=== PATIENT | female | born 1935 | race Caucasian/White ===

== ENCOUNTER → 2017-03-26 | Outpatient (CLI) | payer OTHER ==
[~2017-03-26] MED LIST: ASPI81TA28 PO; CEFD300C2 PO; CLIN150C PO; ESTR0.5T3 PO; HYDR-5688 PO; MISCTAB88 PO; MULT-614 PO; OMEG10007 PO; OMEP40CA PO; ONDA4TAB10 SL; OXYC1TAB3 PO; PXL20 PO; VLM5CL PO
--- NOTE | 2017-03-27 08:16 | MAMMOGRAPHY REPORT ---
BILATERAL DIGITAL SCREENING MAMMOGRAM WITH CAD: 03/26/2017 CLINICAL HISTORY: Routine screening. Patient has no complaints. TECHNIQUE: Current study was also evaluated with a Computer Aided Detection (CAD) system. Bilatera l CC and MLO views were obtained. COMPARISON: Comparison is made to exams dated: 03/25/2016 mammogram, 03/21/2015 mammogram, 01/07/2014 ma mmogram, 01/06/2013 mammogram, 01/06/2012 mammogram, and 01/03/2011 mammogram - [facility] enter. BREAST COMPOSITION: There are scattered areas of fibroglandular density in both breasts. FINDINGS: No suspicious masses, calcifications, or areas of architectural distortion are noted in e ither breast. There has been no significant interval change compared to prior exams. IMPRESSION: ACR BI-RADS CATEGORY 1: NEGATIVE There is no mammographic evidence of malignancy. A 1 year screening mammogram is recommended. The p atient will receive written notification of the results. Approximately 10% of breast cancers are not detected with mammography. A negative mammographic repor t should not delay biopsy if a clinically suggestive mass is present. Cristina Kim M.D. ah/:03/26/2017 15:17:20 Vp [employer] Development: Vickie MENA(Roseanna)(M), [facility] letter sent: Normal 1/2 BI-RADS Code: ACR BI-RADS Category 1: Negative
== END | disposition home or self-care (01) ==
LOC: C.MAMM 14:42
PROVIDERS: ATTEND Family Medicine
DX: Z12.31 Encounter for screening mammogram for malignant neoplasm of breast (principal)

== ENCOUNTER 2017-07-28 16:35 | Emergency (ER) | payer OTHER ==
[~2017-07-28] VITALS: Ht 162.6 cm; Wt 80.1 kg
[~2017-07-28 16:35] MED LIST changes: -CEFD300C2 PO; -CLIN150C PO; -ONDA4TAB10 SL; -OXYC1TAB3 PO
[2017-07-28 16:37] VITALS: TEMP 36.6; Ht 162.6 cm; Wt 80.1 kg
[2017-07-28] MEDS ORDERED: ONDANSETRON INJ 2 MG/ML 2 ML VIAL IV STA (16:50)
[2017-07-28] MEDS ORDERED: SODIUM CHLORIDE 0.9% 1000ML 1,000 ML IV STA (16:50)
--- NOTE | 2017-07-28 16:59 | EMERGENCY ROOM VISIT NOTE ---
History Report prepared by Tori: Hira García Under the Supervision of: Dr. Nick Melara D.O. First contact with patient: 16:40 Chief Complaint: ABDOMINAL PAIN Stated Complaint: LOWER ABD PAIN History of Present Illness The patient is a 81 year old female who presents to the Emergency Room with complaints of constant lower abdominal pain that started six days ago. She rates her pain as a 7/10 in severity. The patient states that the pain is worsened with movement. She admits that the pain is relieved with Tylenol. The patient states that six days ago she experienced six episodes of vomiting. She states that since these episodes, she started to experience lower abdominal pain radiating to her back. The patient states that the pain ahs been worsening every day. She admits that she had a colonoscopy done, which showed a polyp. The patient states that she had a polypectomy and her next imaging showed no significant problems. She states that she has been noticing her abdomen is distended. The patient states that she was able to eat lunch and visited her PCP. She states that her PCP told her to report to the ED because she did not have time to do test. She states she had a hysterectomy and bladder surgery for her incontinence problems. The patient states that she is unaware if she had an appendectomy during her hysterectomy. She states that she has been able to urinate and empty her bladder. The patient states that she takes medication for hot flashes. She denies fevers, rectal bleeding, chest pain, SOB, urinary symptoms, hypertension, diabetes, cancer, heart disease, diverticulosis, and diverticulitis. Source of History: patient Onset: six days ago Position: abdomen Symptom Intensity: 7/10 Timing: worsening Modifying Factors (Worsening): movement Modifying Factors (Relieving): tylenol Associated Symptoms: + vomiting, + back pain, No fevers, No chest pain, No SOB, No urinary symptoms Review of Systems See HPI for pertinent positives & negatives. A total of 10 systems reviewed and were otherwise negative. Past Medical & Surgical Medical Problems: (1) ANXIETY STATE NOS (2) DIVERTICULITIS COLON (W/O MENT OF HEMORRHAGE) (3) ESOPHAGEAL REFLUX (4) HELICOBACTER PYLORI [H. PYLORI] (5) HYPERTENSION NOS Family History Cancer Hypertension Social History Smoking Status: Never Smoker Alcohol Use: none Drug Use: none Marital Status: single Housing Status: lives with family Occupation Status: retired Current/Historical Medications Scheduled Aspirin (Aspirin Ec), 81 MG PO QAM Cefdinir (Omnicef), 300 MG PO Q12H Clindamycin Hcl (Cleocin), 300 MG PO TID Estradiol (Estradiol), 0.5 MG PO QAM Fish Oil ([place]-3), 1 CAP PO QAM Misc Natural Products (Osteo Bi-Flex Triple Stre), 1 TAB PO QAM Multiple Vitamins W/ Minerals (Centrum Silver Ultra [place]), 1 TAB PO QAM Omeprazole (Prilosec), 40 MG PO QAM Ondasetron Odt (Zofran Odt), 4 MG SL Q6H Paroxetine (Paroxetine HCl), 20 MG PO QAM Scheduled PRN Diazepam (Diazepam), 5 MG PO Q8 PRN for Anxiety Oxycodone Immediate Rel Tab (Roxicodone Ir), 1-2 TAB PO Q4H PRN for Severe Pain Allergies Coded Allergies: Penicillins (Verified Allergy, Mild, Swelling and itchiness., 01/03/16) Reported by PT. Celecoxib (Verified Allergy, Unknown, Swelling and itchiness., 01/03/16) Reported by PT. Ciprofloxacin (Verified Allergy, Unknown, rash, 01/03/16) patient Metronidazole (Verified Allergy, Unknown, rash, 01/03/16) pt Physical Exam Vital Signs Date Time Temp Pulse Resp B/P (MAP) Pulse Ox O2 Delivery O2 Flow Rate FiO2 07/28/17 17:50 69 18 161/85 98 Room Air 07/28/17 17:15 80 07/28/17 16:37 36.6 78 20 183/83 96 Room Air Physical Exam GENERAL: Patient is awake, alert, and in no acute distress. Patient is resting comfortably and showing no signs of anxiety EYES: The conjunctivae are clear. The pupils are round and reactive. EARS, NOSE, MOUTH AND THROAT: The nose is without any evidence of any deformity. Mucous membranes are moist tongue is midline NECK: The neck is nontender and supple. RESPIRATORY: Normal respiratory effort is noted there is no evidence of wheezing rhonchi or rales CARDIOVASCULAR: Regular rate and rhythm noted there no murmurs rubs or gallops normal S1 normal S2 GASTROINTESTINAL: Moderately distended and diffusively tender. Tenderness upon palpation to the suprapubic and right upper quadrant region. BACK: No midline tenderness or or step-off noted range of motion in flexion extension as well as rotation no signs of muscle spasm noted MUSCULOSKELETAL/EXTREMITIES: There is no evidence of gross deformity full range of motion is noted in the hips and shoulders SKIN: There is no obvious evidence of any rash. There are no petechiae, pallor or cyanosis noted. NEUROLOGIC: Patient is awake alert and oriented x3. Medical Decision & Procedures ER Provider Diagnostic Interpretation: Radiology results as stated below per my review and radiologist interpretation: CHEST ONE VIEW PORTABLE CLINICAL HISTORY: ABDOMINAL PAIN/GI pain COMPARISON STUDY: 11/02/2015 FINDINGS: The bones soft tissues and hemidiaphragms are normal. The cardiomediastinal silhouette is normal. The lungs are clear. The pulmonary vasculature is normal. IMPRESSION: Negative chest. The above report was generated using voice recognition software. It may contain grammatical, syntax or spelling errors. Electronically signed by: Kingston Freedman M.D. 07/28/2017 5:11 PM Dictated Date/Time: 07/28/2017 5:10 PM ABD/PELVIS NO IV OR ORAL CONT CT DOSE: 421.05 mGy.cm HISTORY: Pain lower abd pain am back pain TECHNIQUE: Multiaxial CT images of the abdomen and pelvis were performed without contrast. A dose lowering technique was utilized adhering to the principles of ALARA. COMPARISON STUDY: 11/10/2015 FINDINGS: Minimal scattered basilar nodularity unchanged in the prior study. Liver spleen and pancreas are unremarkable. Gallbladder is negative for distention. Kidneys negative for hydronephrosis or calcification. Upper abdominal bowel pattern is unremarkable. Evaluation of the pelvis shows the bladder to midline. There are findings of acute sigmoid diverticulitis. Moderate wall thickening is present. There is mild pericolonic infiltrative change. There is no evidence for abscess collection or obstruction. IMPRESSION: 1. Acute sigmoid diverticulitis. 2. Moderate wall thickening and pericolonic infiltrative change. 3. No evidence for abscess collection or obstruction. 4. Minimal basilar pulmonary nodularity stable from the prior exam. The above report was generated using voice recognition software. It may contain grammatical, syntax or spelling errors. Electronically signed by: Kingston Freedman M.D. 07/28/2017 5:43 PM Dictated Date/Time: 07/28/2017 5:39 PM Laboratory Results 07/28/17 17:03 Red Blood Count 4.21, Mean Corpuscular Volume 84.8, Mean Corpuscular Hemoglobin 28.3, Mean Corpuscular Hemoglobin Concent 33.3, Mean Platelet Volume 9.1, Neutrophils (%) (Auto) 64.9, Lymphocytes (%) (Auto) 19.8, Monocytes (%) (Auto) 12.2, Eosinophils (%) (Auto) 2.3, Basophils (%) (Auto) 0.5, Neutrophils # (Auto ) 4.03, Lymphocytes # (Auto) 1.23, Monocytes # (Auto) 0.76, Eosinophils # (Auto ) 0.14, Basophils # (Auto) 0.03 07/28/17 17:03 Test 07/28/17 16:50 07/28/17 17:03 Urine Color YELLOW Urine Appearance CLEAR (CLEAR) Urine pH 6.0 (4.5-7.5) Urine Specific [place] 1.009 (1.000-1.030) Urine Protein NEG (NEG) Urine Glucose (UA) NEG (NEG) Urine Ketones NEG (NEG) Urine Occult Blood TRACE (NEG) Urine Nitrite NEG (NEG) Urine Bilirubin NEG (NEG) Urine Urobilinogen NEG (NEG) Urine Leukocyte Esterase NEG (NEG) Urine WBC (Auto) /hpf (0-5) Urine RBC (Auto) /hpf (0-4) Urine Hyaline Casts (Auto) /lpf (0-5) Urine Epithelial Cells (Auto) /lpf (0-5) Urine Bacteria (Auto) (NEG) Urine RBC 0-4 /hpf (0-4) Urine WBC 1-5 /hpf (0-5) Urine Epithelial Cells >30 /lpf (0-5) Urine Renal Cells 0-5 /lpf (FEW) Urine Bacteria 1+ (NEG) White Blood Count 6.21 K/uL (4.8-10.8) Red Blood Count 4.21 M/uL (4.2-5.4) Hemoglobin 11.9 g/dL (12.0-16.0) Hematocrit 35.7 % (37-47) Mean Corpuscular Volume 84.8 fL (80-100) Mean Corpuscular Hemoglobin 28.3 pg (25-34) Mean Corpuscular Hemoglobin Concent 33.3 g/dl (32-36) Platelet Count 214 K/uL (130-400) Mean Platelet Volume 9.1 fL (7.4-10.4) Neutrophils (%) (Auto) 64.9 % Lymphocytes (%) (Auto) 19.8 % Monocytes (%) (Auto) 12.2 % Eosinophils (%) (Auto) 2.3 % Basophils (%) (Auto) 0.5 % Neutrophils # (Auto) 4.03 K/uL (1.4-6.5) Lymphocytes # (Auto) 1.23 K/uL (1.2-3.4) Monocytes # (Auto) 0.76 K/uL (0.11-0.59) Eosinophils # (Auto) 0.14 K/uL (0-0.5) Basophils # (Auto) 0.03 K/uL (0-0.2) RDW Standard Deviation 43.8 fL (36.4-46.3) RDW Coefficient of Variation 14.0 % (11.5-14.5) Immature Granulocyte % (Auto) 0.3 % Immature Granulocyte # (Auto) 0.02 K/uL (0.00-0.02) Prothrombin Time 10.0 SECONDS (9.0-12.0) Prothromb Time International Ratio 0.9 (0.9-1.1) Activated Partial Thromboplast Time 26.9 SECONDS (21.0-31.0) Partial Thromboplastin Ratio 1.0 Anion Gap 7.0 mmol/L (3-11) Est Creatinine Clear Calc Drug Dose 53.1 ml/min Estimated GFR () 72.4 Estimated GFR (Non- 62.5 BUN/Creatinine Ratio 11.5 (10-20) Calcium Level 8.6 mg/dl (8.5-10.1) Total Bilirubin 0.7 mg/dl (0.2-1) Direct Bilirubin 0.1 mg/dl (0-0.2) Aspartate Amino Transf (AST/SGOT) 14 U/L (15-37) Alanine Aminotransferase (ALT/SGPT) 18 U/L (12-78) Alkaline Phosphatase 74 U/L (45-117) Troponin I < 0.015 ng/ml (0-0.045) Total Protein 7.3 gm/dl (6.4-8.2) Albumin 3.4 gm/dl (3.4-5.0) Lipase 140 U/L (73-393) Laboratory results per my review. Medications Administered Medications (Trade) Dose Ordered Sig/William Route Start Time Stop Time Status Last Admin Dose Admin Sodium Chloride 1,000 ml @ 999 mls/hr Q1H1M STAT IV 07/28/17 16:50 07/28/17 17:50 DC 07/28/17 16:50 999 MLS/HR Cefdinir (Omnicef Cap) 300 mg ONE STAT PO 07/28/17 17:58 07/28/17 18:00 DC 07/28/17 18:25 300 MG Clindamycin HCl (Cleocin Cap) 150 mg NOW ONCE PO 07/28/17 18:00 07/28/17 18:01 DC 07/28/17 18:25 150 MG ECG Indication: abdominal pain Rate (beats per minute): 60 Rhythm: normal sinus Findings: no ectopy, other (LVH per voltage criteria, No acute ST change) Comparison ECG Date: 11/02/15 Change: no significant change ED Course 1646: The patient was evaluated in room B06. A complete history and physical examination were performed. 1650: Ordered Zofran Injection 4 mg IV, Sodium Chloride 1000 ml @ 999 mls/hr IV. Medical Decision The differential diagnosis includes etiologies such as appendicitis, diverticulitis, PUD, biliary pathology, UTI, pancreatitis, obstruction, mesenteric ischemia, aortic pathology, infections, inflammatory bowel disease, renal colic, as well as others were entertained. Nursing notes reviewed. The patient is a 81-year-old female who presented to the emergency apartment for evaluation of lower abdominal pain. She was seen by her primary care physician and sent to the emergency apartment for further evaluation. The patient was treated with IV fluids in the emergency apartment. She was also started on antibiotics. The patient's history and physical exam appeared to be consistent with diverticulitis and her CAT scan revealed signs of diverticulitis. I discussed her case with the emergency Department pharmacist because the patient's list of allergies. She was started on antibiotics which would still cover gram-negative bacteria. She was encouraged to rest and avoid any strenuous activity. She was also encouraged to continue all medications as prescribed and call her family doctor for recheck this week. She was also encouraged return the emergency Department immediately if symptoms change worsen or the need arises. Medication Reconcilliation Current Medication List: was personally reviewed by me Blood Pressure Screening Patient's blood pressure: Elevated blood pressure Blood pressure disposition: Elevated BP felt to be situational Impression Primary Impression: Diverticulitis Scribe Attestation The scribe's documentation has been prepared under my direction and personally reviewed by me in its entirety. I confirm that the note above accurately reflects all work, treatment, procedures, and medical decision making performed by me. Departure Information Dispostion Home / Self-Care Prescriptions Oxycodone Immediate Rel Tab (ROXICODONE IR) 5 Mg Tab 1-2 TAB PO Q4H Y for Severe Pain, #24 TAB Prov: Nick Melara, DO 07/28/17 Ondasetron Odt (ZOFRAN ODT) 4 Mg Tab 4 MG SL Q6H for Nausea, #15 TAB Prov: Nick Melara, DO 07/28/17 Cefdinir (OMNICEF) 300 Mg Cap 300 MG PO Q12H, #20 CAP Prov: Nick Melara, DO 07/28/17 Clindamycin Hcl (CLEOCIN) 150 Mg Cap 300 MG PO TID, #60 CAP Prov: Nick Melara, DO 07/28/17 Referrals Vickie Pagan D.O. (PCP) Forms HOME CARE DOCUMENTATION FORM, IMPORTANT VISIT INFORMATION Patient Instructions My [facility] Additional Instructions Call your family to schedule follow-up appointment for this week. Continue using Tylenol as directed for mild pain. Continue all other medications as prescribed. Return to the emergency apartment immediately if symptoms change worsen or the need arises. If you take the stronger pain medication such as the oxycodone consider using a stool softener such as Colace. Problem Qualifiers Primary Impression: Diverticulitis Diverticulitis site: large intestine Diverticulitis bleeding: without bleeding Diverticulitis complication: without perforation or abscess Qualified Codes: K57.32 - Diverticulitis of large intestine without perforation or abscess without bleeding
--- NOTE | 2017-07-28 17:12 | DIAGNOSTIC IMAGING REPORT ---
CHEST ONE VIEW PORTABLE CLINICAL HISTORY: ABDOMINAL PAIN/GI pain COMPARISON STUDY: 11/02/2015 FINDINGS: The bones soft tissues and hemidiaphragms are normal. The cardiomediastinal silhouette is normal. The lungs are clear. The pulmonary vasculature is normal. IMPRESSION: Negative chest. The above report was generated using voice recognition software. It may contain grammatical, syntax or spelling errors. Electronically signed by: Kingston Freedman M.D. 07/28/2017 5:11 PM Dictated Date/Time: 07/28/2017 5:10 PM
[2017-07-28 17:15] LABS: BASO % 0.5 %; BASO ABS # 0.03 K/uL (0-0.2); COMPLETE YES; EOS % 2.3 %; HEMATOCRIT 35.7 % (37-47); IG% 0.3 %; LYMPH % 19.8 %; LYMPH ABS # 1.23 K/uL (1.2-3.4); MEAN CELL VOLUME 84.8 fL (80-100); MEAN CORPUSCULAR HEMOGLOBIN 28.3 pg (25-34); MEAN CORPUSCULAR HGB CONC 33.3 g/dl (32-36); MEAN PLATELET VOLUME 9.1 fL (7.4-10.4); MONO % 12.2 %; NEUT % 64.9 %; PLATELET COUNT 214 K/uL (130-400); RED BLOOD COUNT 4.21 M/uL (4.2-5.4); WHITE BLOOD COUNT 6.21 K/uL (4.8-10.8)
[2017-07-28 17:25] LABS: URINE APPEARANCE CLEAR (CLEAR); URINE COLOR YELLOW; URINE SPECIFIC GRAVITY 1.009 (1.000-1.030)
[2017-07-28 17:26] LABS: URINE BILIRUBIN NEG (NEG); URINE NITRITE NEG (NEG); UROBILINOGEN NEG (NEG)
[2017-07-28 17:26] LABS: INR 0.9 (0.9-1.1)
[2017-07-28 17:31] LABS: MANUAL MICROSCOPIC REQUIRED? YES; REVIEW REQ? NO
[2017-07-28 17:35] LABS: ALT/SGPT 18 U/L (12-78); AST/SGOT 14 U/L (15-37); BLOOD UREA NITROGEN 10 mg/dl (7-18); BUN/CREATININE RATIO 11.5 (10-20); CALCIUM 8.6 mg/dl (8.5-10.1); CARBON DIOXIDE 25 mmol/L (21-32); CHLORIDE 108 mmol/L (98-107); CREATININE 0.88 mg/dl (0.60-1.20); GLUCOSE 89 mg/dl (70-99); POTASSIUM 3.8 mmol/L (3.5-5.1); SODIUM 140 mmol/L (136-145)
[2017-07-28 17:40] LABS: ALKALINE PHOSPHATASE 74 U/L (45-117)
[2017-07-28 17:42] LABS: URINE BACTERIA 1+ (NEG); URINE RBC 0-4 /hpf (0-4)
--- NOTE | 2017-07-28 17:45 | DIAGNOSTIC IMAGING REPORT ---
ABD/PELVIS NO IV OR ORAL CONT CT DOSE: 421.05 mGy.cm HISTORY: Pain lower abd pain am back pain TECHNIQUE: Multiaxial CT images of the abdomen and pelvis were performed without contrast. A dose lowering technique was utilized adhering to the principles of ALARA. COMPARISON STUDY: 11/10/2015 FINDINGS: Minimal scattered basilar nodularity unchanged in the prior study. Liver spleen and pancreas are unremarkable. Gallbladder is negative for distention. Kidneys negative for hydronephrosis or calcification. Upper abdominal bowel pattern is unremarkable. Evaluation of the pelvis shows the bladder to midline. There are findings of acute sigmoid diverticulitis. Moderate wall thickening is present. There is mild pericolonic infiltrative change. There is no evidence for abscess collection or obstruction. IMPRESSION: 1. Acute sigmoid diverticulitis. 2. Moderate wall thickening and pericolonic infiltrative change. 3. No evidence for abscess collection or obstruction. 4. Minimal basilar pulmonary nodularity stable from the prior exam. The above report was generated using voice recognition software. It may contain grammatical, syntax or spelling errors. Electronically signed by: Kingston Freedman M.D. 07/28/2017 5:43 PM Dictated Date/Time: 07/28/2017 5:39 PM
[2017-07-28 17:50] VITALS: BP 161/85; PULSE 69; O2SAT 98
[2017-07-28] MEDS ORDERED: CEFDINIR 300 MG CAP PO STA (17:58)
[2017-07-28] MEDS ORDERED: OXYC1TAB3 PO (18:00)
[2017-07-28] MEDS ORDERED: CLIN150C PO (18:00)
[2017-07-28] MEDS ORDERED: ONDA4TAB10 SL (18:00)
[2017-07-28] MEDS ORDERED: CEFD300C2 PO (18:00)
[2017-07-28] MEDS ORDERED: CLINDAMYCIN HCL 150 MG CAP PO ONE (18:00)
== END 2017-07-28 18:54 | disposition home or self-care (01) ==
LOC: C.EDB 16:36
DX: K57.32 Diverticulitis of large intestine without perforation or abscess without bleeding (principal); F41.9 Anxiety disorder, unspecified; K21.9 Gastro-esophageal reflux disease without esophagitis; I10 Essential (primary) hypertension; Z80.9 Family history of malignant neoplasm, unspecified; Z82.49 Family history of ischemic heart disease and other diseases of the circulatory system; Z79.82 Long term (current) use of aspirin; Z79.899 Other long term (current) drug therapy

== ENCOUNTER → 2018-03-30 | Outpatient (CLI) | payer OTHER ==
[~2018-03-30] MED LIST changes: -HYDR-5688 PO
--- NOTE | 2018-03-31 15:04 | MAMMOGRAPHY REPORT ---
BILATERAL DIGITAL SCREENING MAMMOGRAM TOMOSYNTHESIS WITH CAD: 03/30/2018 CLINICAL HISTORY: Routine screening. Patient has no complaints. TECHNIQUE: Breast tomosynthesis in addition to standard 2D mammography was performed. Current study was also evaluated with a Computer Aided Detection (CAD) system. COMPARISON: Comparison is made to exams dated: 03/26/2017 mammogram, 03/25/2016 mammogram, 03/21/2015 lisa mogram, 01/07/2014 mammogram, 01/06/2013 mammogram, and 01/06/2012 mammogram - [facility]. BREAST COMPOSITION: There are scattered areas of fibroglandular density in both breasts. FINDINGS: There are clustered microcalcifications in the approximate 12:00 middle to posterior left breast, for which additional spot magnification views are recommended. There are mild vascular calcifications bilaterally. No other suspicious mass, architectural distortio n or cluster of microcalcifications is seen. IMPRESSION: ACR BI-RADS CATEGORY 0: INCOMPLETE EVALUATION: NEED ADDITIONAL IMAGING EVALUATION The clustered microcalcifications in the 12:00 left breast needs additional evaluation. The patient will be called to schedule an appointment. Approximately 10% of breast cancers are not detected with mammography. A negative mammographic report should not delay biopsy if a clinically suggestive mass is present. Eugenia Del Toro M.D. ay/:03/30/2018 17:00:35 Hand Alterations Seamstress: Nicolle MENA(Roseanna)(Emir), [facility] letter sent: Addl Imaging 0 BI-RADS Code: ACR BI-RADS Category 0: Incomplete Evaluation: Need Additional Imaging Evaluation
== END | disposition home or self-care (01) ==
LOC: C.MAMM 14:33
PROVIDERS: ATTEND Family Medicine
DX: Z12.31 Encounter for screening mammogram for malignant neoplasm of breast (principal); R92.0 Mammographic microcalcification found on diagnostic imaging of breast

== ENCOUNTER 2022-07-13 15:29 | Observation (INO) ==
[2022-07-13] MEDS ORDERED: SODIUM CHLORIDE 0.9% 1000ML 1,000 ML IV ONE (16:07)
--- NOTE | 2022-07-13 16:10 | Emergency Department Note ---
Impression & Plan Chest pain, HTN (hypertension) ED Provider Note NAME: TRACY WILSON AGE: 86 SEX: F : 1935 ARRIVES VIA: Walk-In INFORMANT: Patient ED PROVIDER(S): John Trent DO CHIEF COMPLAINT: chest pain HPI: Patient is an 86-year-old female who presents the ER for chest pressure. She notes she feels as though weight on the middle of her chest going through to her back. She does have some jaw pain. She believes she might have some mild shortness of breath. No belly pain, nausea, vomiting, or diarrhea. No dysuria, urgency, or frequency. She has reproducible anterior chest wall pain but this is different onto the chest heaviness and the back pain that she has. No weakness or numbness in the arms or legs. ROS: See above HPI for pertinent positives & negatives. A total of 10 systems reviewed and were otherwise negative. PAST MEDICAL HISTORY:See Below PAST SURGICAL HISTORY:See Below FAMILY HISTORY:See Below SOCIAL HISTORY:See Below HOME MEDICATIONS:See Below ALLERGIES:See Below VITALS:See Below PHYSICAL EXAMINATION: GENERAL: Sitting up in bed, alert, well appearing, well nourished, no distress, non-toxic EYE EXAM: normal conjunctiva. OROPHARYNX: no exudate, no erythema, lips, buccal mucosa, and tongue normal and mucous membranes are moist NECK: supple, no nuchal rigidity, no adenopathy, non-tender LUNGS: Clear to auscultation. Normal chest wall mechanics HEART: no murmurs, S1 normal and S2 normal ABDOMEN: abdomen soft, non-tender, normo-active bowel sounds, no masses, no rebound or guarding. BACK: Back is symmetrical on inspection and there is no deformity, no midline tenderness, no CVA tenderness. UPPER EXTREMITIES: upper extremities are grossly normal. LOWER EXTREMITIES: No pitting edema. Calves are equal bilateral NEURO EXAM: Normal sensorium, cranial nerves II-XII grossly intact, normal speech, no gross weakness of arms, no gross weakness of legs. MEDICAL DECISION MAKING: Patient is an 86-year-old female who presents the ER for chest pain radiating through to the back. IV was established blood work was obtained. Labs show no significant leukocytosis or anemia. BMP along with LFTs bilirubin was remarkable for T bili of 1.1. Troponin was negative. Lipase unremarkable. EKG was nondiagnostic. CT dissection study showed no acute dissection. Patient following this was given 81 mg of aspirin to complete 324 as she took 3 at home. She was given hydralazine for the blood pressure in the 190s. She was updated bedside. Discussed with Dr. Jovany Clifton for further evaluation. Triage Nursing notes reviewed. Limited review of prior medical records performed Vital Signs: reviewed and remarkable for HTN Differential diagnosis: Cardiac ischemia, aortic dissection, pulmonary embolism, pneumothorax, pneumonia, pericarditis, myocarditis, esophageal rupture, GERD, cholecystitis, pancreatitis, musculoskeletal, as well as other pathologies. ER treatment provided: See below Diagnostics interpreted by me: ECG: Sinus rhythm rate of 74 Normal axis No PVCs Poor baseline T wave inversion in the septal leads QTC 463 Cardiac Monitoring: An order was placed for continuous cardiac monitoring. The monitor shows a rate of 72 with sinus rhythm. Laboratory studies: As stated above and show below. Imaging studies: CT angio of the chest shows no dissection Consultation(s): D/w with Jovany Clifton for further evaluation Procedures: none Critical Care: None Past Med/Surg History Medical History Acute bronchitis GERD (gastroesophageal reflux disease) Social History Smoking Status: Never smoker Preferred Language: Palau[place] Feels Safe at Home: Yes Allergies Allergies Allergy/AdvReac Type Severity Reaction Status Date / Time Penicillins Allergy Mild Swelling Verified 07/13/22 20:11 and itchiness. celecoxib Allergy Unknown Swelling Verified 07/13/22 20:11 and itchiness. ciprofloxacin Allergy Unknown rash Verified 07/13/22 20:11 metronidazole Allergy Unknown rash Verified 07/13/22 20:11 CHEVY Inhibitors AdvReac cough Verified 07/13/22 21:21 Home Meds Home Medications Medication Instructions Recorded Confirmed diazepam 5 mg tablet 5 mg PO Q8 PRN Anxiety 03/18/20 07/13/22 [id number]-[id number] 2 tab PO DAILY 03/18/20 07/13/22 149-hyalur 500 mg-500 mg-66.7 mg tablet (Aygwbmbzlvg-Dxdjinkymrk-LRQ (with antiox)) multivitamin with minerals (One 1 tab PO DAILY 03/18/20 07/13/22 Daily Complete tablet) omeprazole 40 mg capsule,delayed 40 mg PO QAM 03/18/20 07/13/22 release turmeric 400 mg capsule 400 mg PO QAM 03/18/20 07/13/22 cranberry 1,000 mg capsule 1,000 mg PO QAM 12/08/21 07/13/22 ibuprofen 200 mg tablet 400 mg PO Q6H PRN Pain 12/08/21 07/13/22 paroxetine HCl 30 mg tablet 30 mg PO DAILY 12/08/21 07/13/22 vitamin E 100 unit tablet 100 unit PO DAILY 12/08/21 07/13/22 furosemide 20 mg tablet 20 mg PO 3XWK 07/13/22 07/13/22 rosuvastatin 20 mg tablet 20 mg PO QAM 07/13/22 07/13/22 Results & Data (ED) Vital Signs Vital Signs - 24 hr 07/13/22 15:33 07/13/22 16:30 07/13/22 16:30 Temperature 36.3 C L Temperature Source Temporal Artery Scan Pulse Rate 80 Pulse Rate [Apical] 72 Pulse Rate from SpO2 Sensor Pulse Rhythm Regular Pulse Strength Normal Respiratory Rate 20 20 Respiratory Effort / Characteristics Non-Labored Spontaneous Non-Labored Spontaneous Respiratory Depth Normal Normal Respiratory Pattern Regular Regular Blood Pressure 166/123 H Blood Pressure [Right Arm] 132/76 Blood Pressure Mean 137 Blood Pressure Mean [Right Arm] 94 Blood Pressure Position Sitting Blood Pressure Position [Right Arm] Sitting Pulse Oximetry 97 96 96 Oxygen Delivery Method Room Air Room Air Room Air Sepsis Recent Fever Within 48 Hours No Sepsis New/Unexplained Change in Mental Status No Sepsis Action Taken by Nursing No Action Required 07/13/22 16:30 07/13/22 19:15 07/13/22 20:00 Temperature Temperature Source Pulse Rate 73 73 Pulse Rate [Apical] 70 Pulse Rate from SpO2 Sensor 73 Pulse Rhythm Pulse Strength Respiratory Rate 20 16 15 Respiratory Effort / Characteristics Respiratory Depth Respiratory Pattern Blood Pressure 156/101 H Blood Pressure [Right Arm] 186/105 H Blood Pressure Mean 119 Blood Pressure Mean [Right Arm] 132 Blood Pressure Position Blood Pressure Position [Right Arm] Pulse Oximetry 96 98 97 Oxygen Delivery Method Room Air Sepsis Recent Fever Within 48 Hours Sepsis New/Unexplained Change in Mental Status Sepsis Action Taken by Nursing Laboratory Data Result diagrams: 07/13/22 16:10 07/13/22 16:10 Lab Results 07/13/22 07/13/22 07/13/22 Range/Units 16:10 16:10 16:10 WBC 4.99 (4.8-10.8) K/ul RBC 4.03 (3.93-5.22) M/uL Hgb 11.5 L (12.0-16.0) g/dl Hct 34.6 (34.1-44.9) % MCV 85.9 (80.0-100.0) fL MCH 28.5 (25.0-34.0) pg MCHC 33.2 (32.0-36.0) g/dL RDW Std Deviation 42.3 (36.4-46.3) fL RDW Coeff of [place] 13.5 (11.5-14.5) % Plt Count 195 (130-400) K/uL MPV 9.2 L (9.4-12.3) fL Immature Gran % (Auto) 0.2 % Neut % (Auto) 56.7 % Lymph % (Auto) 30.3 % [place] % (Auto) 10.2 % Eos % (Auto) 1.8 % Baso % (Auto) 0.8 % Neut # (Auto) 2.83 (1.4-6.5) K/uL Lymph # (Auto) 1.51 (1.2-3.4) K/uL [place] # (Auto) 0.51 (0.24-0.82) K/uL Eos # (Auto) 0.09 (0-0.50) K/uL Baso # (Auto) 0.04 (0-0.2) K/uL Immature Gran # (Auto) 0.01 (0.00-0.02) K/uL APTT 25.3 (21.0-31.0) Seconds PTT Ratio 0.9 Sodium 138 (136-145) mmol/L Potassium 3.8 (3.5-5.1) mmol/L Chloride 104 (98-107) mmol/L Carbon Dioxide 26 (21-32) mmol/L Anion Gap 8 (3-11) BUN 18 (6-23) mg/dl Creatinine 1.08 (0.6-1.2) mg/dl Est Cr Clr Drug Dosing 38.2 ml/min Est GFR ( Amer) 54.6 ml/min Est GFR (Non-Af Amer) 47.1 ml/min BUN/Creatinine Ratio 16.7 (10-20) Glucose 90 (70-99(Fasting)) mg/dl Calcium 9.4 (8.5-10.1) mg/dl Magnesium (1.7-2.4) mg/dl Total Bilirubin 1.1 H (0.2-1.0) mg/dl AST 19 (13-39) U/L ALT 12 (7-52) U/L Alkaline Phosphatase 52 (34-104) U/L Troponin I High Sens 4.5 (0-14) pg/ml Total Protein 7.1 (6.0-8.3) gm/dl Albumin 4.2 (3.4-5.0) gm/dl Globulin 2.9 (2.5-4.0) gm/dl Albumin/Globulin Ratio 1.4 (0.9-2) Lipase 36 (11-82) U/L 07/13/22 Range/Units 20:30 WBC (4.8-10.8) K/ul RBC (3.93-5.22) M/uL Hgb (12.0-16.0) g/dl Hct (34.1-44.9) % MCV (80.0-100.0) fL MCH (25.0-34.0) pg MCHC (32.0-36.0) g/dL RDW Std Deviation (36.4-46.3) fL RDW Coeff of Acosta (11.5-14.5) % Plt Count (130-400) K/uL MPV (9.4-12.3) fL Immature Gran % (Auto) % Neut % (Auto) % Lymph % (Auto) % [place] % (Auto) % Eos % (Auto) % Baso % (Auto) % Neut # (Auto) (1.4-6.5) K/uL Lymph # (Auto) (1.2-3.4) K/uL [place] # (Auto) (0.24-0.82) K/uL Eos # (Auto) (0-0.50) K/uL Baso # (Auto) (0-0.2) K/uL Immature Gran # (Auto) (0.00-0.02) K/uL APTT (21.0-31.0) Seconds PTT Ratio Sodium (136-145) mmol/L Potassium (3.5-5.1) mmol/L Chloride (98-107) mmol/L Carbon Dioxide (21-32) mmol/L Anion Gap (3-11) BUN (6-23) mg/dl Creatinine (0.6-1.2) mg/dl Est Cr Clr Drug Dosing ml/min Est GFR ( Amer) ml/min Est GFR (Non-Af Amer) ml/min BUN/Creatinine Ratio (10-20) Glucose (70-99(Fasting)) mg/dl Calcium (8.5-10.1) mg/dl Magnesium 1.9 (1.7-2.4) mg/dl Total Bilirubin (0.2-1.0) mg/dl AST (13-39) U/L ALT (7-52) U/L Alkaline Phosphatase (34-104) U/L Troponin I High Sens 5.3 (0-14) pg/ml Total Protein (6.0-8.3) gm/dl Albumin (3.4-5.0) gm/dl Globulin (2.5-4.0) gm/dl Albumin/Globulin Ratio (0.9-2) Lipase (11-82) U/L Administered Medications Discontinued Medications Acetaminophen (Acetaminophen 325 Mg Tab) 650 mg PO NOW STA Stop: 07/13/22 19:04 Last Admin: 07/13/22 18:25 Dose: 650 mg Documented By: MILY Aspirin (Aspirin Chew 324 Mg) 81 mg PO NOW STA Stop: 07/13/22 19:23 Last Admin: 07/13/22 19:35 Dose: 81 mg Documented By: RAJWINDER Hydralazine HCl (Hydralazine Hcl 20 Mg/Ml Vial) 10 mg IV NOW STA Stop: 07/13/22 19:31 Last Admin: 07/13/22 19:35 Dose: 10 mg Documented By: RAJWINDER Sodium Chloride (Nss 1000ml) 1,000 mls @ 999 mls/hr IV .Q1H1M ONE Stop: 07/13/22 17:07 Last Infusion: 07/13/22 17:48 Dose: 0 mls/hr Documented By: Admin: 07/13/22 16:43 Dose: 999 mls/hr Documented By: MILY Ioversol (Optiray 300 500ml) 113 ml IV ONCE ONE Stop: 07/13/22 18:07 Last Admin: 07/13/22 18:06 Dose: 113 ml Documented By: PIERRE Lisinopril (Lisinopril 2.5 Mg Tab) 2.5 mg PO ONE ONE Stop: 07/13/22 20:21 Last Admin: 07/13/22 20:49 Dose: 2.5 mg Documented By: RAJWINDER Imaging Data Radiologist's Impression: Chest X-Ray 07/13/22 15:50 SINGLE VIEW CHEST CLINICAL HISTORY: Atypical chest pain. FINDINGS: An AP, portable, upright chest radiograph is compared to study dated 12/08/2021 and correlated with chest CT dated 07/01/2021. The heart is mildly enlarged noting atherosclerotic calcification of the thoracic aorta. The pulmonary vasculature is noncongested. Chronic interstitial thickening similar to previous. Mild scarring/atelectasis is seen at the lung bases. The lungs and pleural spaces are otherwise clear. No pneumothorax is seen. The skeletal structures are osteopenic. The bony thorax is grossly intact. IMPRESSION: Cardiomegaly with no active disease in the chest. ACT 112: Negative or not required by law. Electronically signed by: Baljit Rain M.D. 07/13/2022 4:47 PM Chest CTA 07/13/22 16:07 CT ANGIOGRAM OF THE CHEST COMBO CLINICAL HISTORY: Atypical chest pain radiating to the back. Hypertension. COMPARISON STUDY: Chest x-ray dated 07/13/2022. Chest CT dated 07/01/2021. TECHNIQUE: Before and following the IV administration of 113 cc of Optiray 300, CT angiogram of the chest was performed from the thoracic inlet to the upper abdomen utilizing the dissection protocol. Images are reviewed in the axial, sagittal, and coronal planes. 3-D MIPS images are created and assessed. IV contrast was administered without complication. A dose lowering technique was utilized adhering to the principles of ALARA. CT DOSE: 439.14 mGy.cm FINDINGS: Thyroid: Imaged portions of the thyroid gland are normal in size and attenuation. Thoracic aorta: No intramural hematoma is seen on the unenhanced series. There is atherosclerotic calcification of the thoracic aorta. There is moderate dilatation of the ascending thoracic aorta which measures up to 4.3 cm in diameter. The remainder of the thoracic aorta is normal in caliber, and the arch demonstrates standard 3-vessel anatomy. No dissection is seen. The arch vessels are widely patent. Pulmonary vasculature: The pulmonary trunk is normal in caliber. There are no filling defects identified in the the main, lobar, or segmental pulmonary vessels to indication pulmonary embolus. Heart: The heart is enlarged and without pericardial effusion. The coronary arteries are densely calcified. Lungs and pleural spaces: There is no airspace consolidation or pleural effusion. Scarring/atelectasis is noted at both lung bases. The trachea and central airways are clear. Scattered pulmonary nodules are similar in appearance to previous. Right middle lobe nodules measuring up to 4 mm are seen on images #144, #158, and #176. A pleural-based nodule in the right lower lobe on image #141 measures 5 mm, an left upper lobe nodules on images #55 and #99 measure up to 5 mm. No new or enlarging pulmonary nodule is seen. Mediastinum: There is no mediastinal lymphadenopathy. Niki: Clear. Axillae: There is no axillary lymphadenopathy. Upper abdomen: Partially visualized upper abdominal viscera is within normal limits. Skeletal structures: The skeletal structures are osteopenic. Degenerative change and mild hyperkyphosis is noted in the thoracic spine. No lytic or blastic bony lesions are seen. IMPRESSION: 1. 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 2. No dissection is seen. 3. There is no evidence of pulmonary embolus in the main, lobar, or segmental pulmonary arteries. 4. Cardiomegaly. 5. There is no airspace consolidation or pleural effusion. 6. Subcentimeter pulmonary nodules are unchanged from previous. 7. Additional findings as above. ACT 112: Negative or not required by law. Electronically signed by: Baljit Rain M.D. 07/13/2022 7:10 PM Discharge Plan Visit Data Chief Complaint: Chest Pain Stated Complaint: CHEST PAIN, BACK PAIN, SORE THROAT ED Provider: John Trent Discharge Problem: Chest pain, HTN (hypertension) Forms Stand Alone Forms: [facility] Prescriptions Prescriptions: No Action omeprazole 40 mg capsule,delayed release(DR/EC) 40 mg PO QAM diazepam 5 mg tablet 5 mg PO Q8 PRN (Reason: Anxiety) One Daily Complete Tablet 1 tab PO DAILY [id number] [Kazjnq-Gyghm-IIH (with antiox)] 500-500-66.7 mg Tablet 2 tab PO DAILY turmeric 400 mg Capsule 400 mg PO QAM paroxetine HCl 30 mg tablet 30 mg PO DAILY ibuprofen 200 mg Tablet 400 mg PO Q6H PRN (Reason: Pain) vitamin E 100 unit Tablet 100 unit PO DAILY cranberry 1,000 mg Capsule 1,000 mg PO QAM furosemide 20 mg tablet 20 mg PO 3XWK Rx Instructions: mon,wed,fri rosuvastatin 20 mg tablet 20 mg PO QAM Referrals Referrals: Vickie Pagan DO [Primary Care Provider] -
--- NOTE | 2022-07-13 16:15 | Electrocardiogram Report ---
Test Reason : Blood Pressure : / mmHG Vent. Rate : 070 BPM Atrial Rate : 070 BPM P-R Int : 152 ms QRS Dur : 086 ms QT Int : 402 ms P-R-T Axes : 043 -28 031 degrees QTc Int : 434 ms Normal sinus rhythm Possible Left atrial enlargement Left ventricular hypertrophy Nonspecific ST abnormality Abnormal ECG When compared with ECG of 08-DEC-2021 20:19, No significant change was found Confirmed by Bk Huitron ([id number]) on 07/13/2022 4:14:46 PM Referred By: Confirmed By:Bk Huitron
[2022-07-13 16:21] LABS: Basophils # (auto) 0.04 K/uL (0-0.2); Basophils % (auto) 0.8 %; Eosinophils # (auto) 0.09 K/uL (0-0.50); Eosinophils % (auto) 1.8 %; Hematocrit (blood only) 34.6 % (34.1-44.9); Hemoglobin 11.5 g/dl (12.0-16.0); Immature Granulocytes # (auto) 0.01 K/uL (0.00-0.02); Immature Granulocytes % (auto) 0.2 %; Lymphocytes # (auto) 1.51 K/uL (1.2-3.4); Lymphocytes % (auto) 30.3 %; Mean Corpuscular Hemoglobin 28.5 pg (25.0-34.0); Mean Corpuscular Hgb Conc 33.2 g/dL (32.0-36.0); Mean Corpuscular Volume 85.9 fL (80.0-100.0); Mean Platelet Volume 9.2 fL (9.4-12.3); Monocytes # (auto) 0.51 K/uL (0.24-0.82); Monocytes % (auto) 10.2 %; Neutrophils # (auto) 2.83 K/uL (1.4-6.5); Neutrophils % (auto) 56.7 %; Platelet Count 195 K/uL (130-400); RDW Coefficient of Variation 13.5 % (11.5-14.5); RDW Standard Deviation 42.3 fL (36.4-46.3); Red Blood Count 4.03 M/uL (3.93-5.22); White Blood Count 4.99 K/ul (4.8-10.8)
--- NOTE | 2022-07-13 16:49 | XRay Report ---
SINGLE VIEW CHEST CLINICAL HISTORY: Atypical chest pain. FINDINGS: An AP, portable, upright chest radiograph is compared to study dated 12/08/2021 and correlat ed with chest CT dated 07/01/2021. The heart is mildly enlarged noting atherosclerotic calcification o f the thoracic aorta. The pulmonary vasculature is noncongested. Chronic interstitial thickening ariadne lar to previous. Mild scarring/atelectasis is seen at the lung bases. The lungs and pleural spaces ar e otherwise clear. No pneumothorax is seen. The skeletal structures are osteopenic. The bony thorax i s grossly intact. IMPRESSION: Cardiomegaly with no active disease in the chest. ACT 112: Negative or not required by law. Electronically signed by: Baljit Rain M.D. 07/13/2022 4:47 PM
[2022-07-13 16:57] LABS: Troponin I High Sensitivity 4.5 pg/ml (0-14)
[2022-07-13 16:59] LABS: Albumin Globulin Ratio 1.4 (0.9-2); Albumin Level 4.2 gm/dl (3.4-5.0); BUN Creatinine Ratio 16.7 (10-20); Bilirubin,Total 1.1 mg/dl (0.2-1.0); Calcium 9.4 mg/dl (8.5-10.1); Creatinine Clr Calc Pharmacy 38.2 ml/min; Est GFR (African American) 54.6 ml/min; Est GFR (Non-African American) 47.1 ml/min; Globulin 2.9 gm/dl (2.5-4.0); Potassium 3.8 mmol/L (3.5-5.1); Total Protein 7.1 gm/dl (6.0-8.3)
[2022-07-13] MEDS ORDERED: OPTIRAY 300 500mL IV ONE (18:06)
[2022-07-13] MEDS ORDERED: ACETAMINOPHEN 325 MG TAB PO STA (19:03)
--- NOTE | 2022-07-13 19:13 | CT Scan Report ---
CT ANGIOGRAM OF THE CHEST COMBO CLINICAL HISTORY: Atypical chest pain radiating to the back. Hypertension. COMPARISON STUDY: Chest x-ray dated 07/13/2022. Chest CT dated 07/01/2021. TECHNIQUE: Before and following the IV administration of 113 cc of Optiray 300, CT angiogram of the c hest was performed from the thoracic inlet to the upper abdomen utilizing the dissection protocol. Im ages are reviewed in the axial, sagittal, and coronal planes. 3-D MIPS images are created and assesse d. IV contrast was administered without complication. A dose lowering technique was utilized adherin g to the principles of ALARA. CT DOSE: 439.14 mGy.cm FINDINGS: Thyroid: Imaged portions of the thyroid gland are normal in size and attenuation. Thoracic aorta: No intramural hematoma is seen on the unenhanced series. There is atherosclerotic rosa isela cification of the thoracic aorta. There is moderate dilatation of the ascending thoracic aorta which measures up to 4.3 cm in diameter. The remainder of the thoracic aorta is normal in caliber, and the arch demonstrates standard 3-vessel anatomy. No dissection is seen. The arch vessels are widely paten t. Pulmonary vasculature: The pulmonary trunk is normal in caliber. There are no filling defects identif ied in the the main, lobar, or segmental pulmonary vessels to indication pulmonary embolus. Heart: The heart is enlarged and without pericardial effusion. The coronary arteries are densely calc ified. Lungs and pleural spaces: There is no airspace consolidation or pleural effusion. Scarring/atelectasi s is noted at both lung bases. The trachea and central airways are clear. Scattered pulmonary nodules are similar in appearance to previous. Right middle lobe nodules measuring up to 4 mm are seen on im ages #144, #158, and #176. A pleural-based nodule in the right lower lobe on image #141 measures 5 mm , an left upper lobe nodules on images #55 and #99 measure up to 5 mm. No new or enlarging pulmonary nodule is seen. Mediastinum: There is no mediastinal lymphadenopathy. Niki: Clear. Axillae: There is no axillary lymphadenopathy. Upper abdomen: Partially visualized upper abdominal viscera is within normal limits. Skeletal structures: The skeletal structures are osteopenic. Degenerative change and mild hyperkyphos is is noted in the thoracic spine. No lytic or blastic bony lesions are seen. IMPRESSION: 1. 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 2. No dissection is seen. 3. There is no evidence of pulmonary embolus in the main, lobar, or segmental pulmonary arteries. 4. Cardiomegaly. 5. There is no airspace consolidation or pleural effusion. 6. Subcentimeter pulmonary nodules are unchanged from previous. 7. Additional findings as above. ACT 112: Negative or not required by law. Electronically signed by: Baljit Rain M.D. 07/13/2022 7:10 PM
[2022-07-13] MEDS ORDERED: ASPIRIN CHEW 324 MG PO STA (19:22)
[2022-07-13] MEDS ORDERED: NITROGLYCERIN 2% OINTMENT 30GM TUBE EXT SCH (19:30)
[2022-07-13] MEDS ORDERED: hydrALAZINE HCL 20 MG/ML VIAL IV STA (19:30)
[2022-07-13] MEDS ORDERED: lisinopril 2.5 MG TAB PO ONE (20:20)
[2022-07-13 20:44] LABS: Partial Thromboplastin Ratio 0.9; Partial Thromboplastin Time 25.3 Seconds (21.0-31.0)
--- NOTE | 2022-07-13 21:21 | History & Physical Report ---
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 It may contain grammatical or spelling errors. Kindly contact undersigned for clarification of any documentation item in question. History of Present Illness Chief Complaint: Chest pain Primary Care Provider: Vickie Pagan DO History obtained from patient and records. 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 Last confinement 2009 for uncontrolled GERD. Patient was having dinner tonight when she experienced chest pressure transiently going to her back and causing some jaw pain. Some shortness of breath. Patient thinks chest pain might be related to mammogram procedure from a few days ago. Patient does not recall why she had a stress test 3 months ago. SBP 180s upon arrival at the ER. Nitropaste administered at the ER. Patient currently comfortable. 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 celecoxib Allergy Unknown Swelling Verified 07/13/22 20:11 and itchiness. ciprofloxacin Allergy Unknown rash Verified 07/13/22 20:11 metronidazole Allergy Unknown rash Verified 07/13/22 20:11 CHEVY Inhibitors AdvReac cough Verified 07/13/22 21:21 Home Medications Medication Instructions Recorded Confirmed Type diazepam 5 mg tablet 5 mg PO Q8 PRN Anxiety 03/18/20 07/13/22 History yvzoknulnzd-woq-dhcqyzhnx-hrb 2 tab PO DAILY 03/18/20 07/13/22 History 149-hyalur 500 mg-500 mg-66.7 mg tablet (Ydnndfqcoxy-Mdxqsfefszl-XHK (with antiox)) multivitamin with minerals (One 1 tab PO DAILY 03/18/20 07/13/22 History Daily Complete tablet) omeprazole 40 mg capsule,delayed 40 mg PO QAM 03/18/20 07/13/22 History release turmeric 400 mg capsule 400 mg PO QAM 03/18/20 07/13/22 History cranberry 1,000 mg capsule 1,000 mg PO QAM 12/08/21 07/13/22 History ibuprofen 200 mg tablet 400 mg PO Q6H PRN Pain 12/08/21 07/13/22 History paroxetine HCl 30 mg tablet 30 mg PO DAILY 12/08/21 07/13/22 History vitamin E 100 unit tablet 100 unit PO DAILY 12/08/21 07/13/22 History furosemide 20 mg tablet 20 mg PO 3XWK 07/13/22 07/13/22 History rosuvastatin 20 mg tablet 20 mg PO QAM 07/13/22 07/13/22 History Past Med/Surg History Medical History Acute bronchitis GERD (gastroesophageal reflux disease) Social History Smoking Status: Never smoker Do You Dip or Chew Tobacco: No; Hx Alcohol Use: Yes Alcohol type: wine Hx Substance Use: No Preferred Language: [place] Communication Ability: Effective Yard Operator Required: No Beliefs That Will Affect Care: None Current Living Situation: Alone Other Information That Helps Us Care for You: No Feels Safe at Home: Yes Safety Concerns: Feels Safe At This Time Assistive Devices: None Review of Systems Review of Systems: As per HPI, all other systems reviewed and negative Physical Exam Physical Exam: GENERAL: Comfortable, slightly hard of hearing, no respiratory distress SKIN: Normal color, warm HEENT: [place] palpebral conjunctivae, no ptosis, dry buccal mucosa NECK : Supple, no tenderness CHEST : CTA, anterior chest wall tenderness HEART : RRR, no obvious murmurs ABDOMEN: Some distention, nontender EXTREMITIES : Minimal LE swelling, no LE tenderness, no other conspicuous deformities noted NEUROLOGIC : Coherent, no facial asymmetry, slightly hard of hearing, no other gross focality Results & Data Results & Data ([facility]) Vital Signs (Past 12 Hours) Vital Signs Temp Pulse Pulse Resp BP BP Pulse Ox 07/13/22 20:00 73 15 156/101 H 97 07/13/22 19:15 70 16 186/105 H 98 07/13/22 16:30 73 20 96 07/13/22 16:30 72 20 132/76 96 07/13/22 16:30 96 07/13/22 15:33 36.3 C L 80 20 166/123 H 97 O2 Del Method 07/13/22 20:00 07/13/22 19:15 07/13/22 16:30 Room Air 07/13/22 16:30 Room Air 07/13/22 16:30 Room Air 07/13/22 15:33 Room Air Laboratory Results Laboratory Results WBC 4.99 K/ul (4.8-10.8) 07/13/22 16:10 RBC 4.03 M/uL (3.93-5.22) 07/13/22 16:10 Hgb 11.5 g/dl (12.0-16.0) L 07/13/22 16:10 Hct 34.6 % (34.1-44.9) 07/13/22 16:10 MCV 85.9 fL (80.0-100.0) 07/13/22 16:10 MCH 28.5 pg (25.0-34.0) 07/13/22 16:10 MCHC 33.2 g/dL (32.0-36.0) 07/13/22 16:10 RDW Std Deviation 42.3 fL (36.4-46.3) 07/13/22 16:10 RDW Coeff of [place] 13.5 % (11.5-14.5) 07/13/22 16:10 Plt Count 195 K/uL (130-400) 07/13/22 16:10 MPV 9.2 fL (9.4-12.3) L 07/13/22 16:10 Immature Gran % (Auto) 0.2 % 07/13/22 16:10 Neut % (Auto) 56.7 % 07/13/22 16:10 Lymph % (Auto) 30.3 % 07/13/22 16:10 Ness % (Auto) 10.2 % 07/13/22 16:10 Eos % (Auto) 1.8 % 07/13/22 16:10 Baso % (Auto) 0.8 % 07/13/22 16:10 Neut # (Auto) 2.83 K/uL (1.4-6.5) 07/13/22 16:10 Lymph # (Auto) 1.51 K/uL (1.2-3.4) 07/13/22 16:10 Ness # (Auto) 0.51 K/uL (0.24-0.82) 07/13/22 16:10 Eos # (Auto) 0.09 K/uL (0-0.50) 07/13/22 16:10 Baso # (Auto) 0.04 K/uL (0-0.2) 07/13/22 16:10 Immature Gran # (Auto) 0.01 K/uL (0.00-0.02) 07/13/22 16:10 APTT 25.3 Seconds (21.0-31.0) 07/13/22 16:10 PTT Ratio 0.9 07/13/22 16:10 Sodium 138 mmol/L (136-145) 07/13/22 16:10 Potassium 3.8 mmol/L (3.5-5.1) 07/13/22 16:10 Chloride 104 mmol/L (98-107) 07/13/22 16:10 Carbon Dioxide 26 mmol/L (21-32) 07/13/22 16:10 Anion Gap 8 (3-11) 07/13/22 16:10 BUN 18 mg/dl (6-23) 07/13/22 16:10 Creatinine 1.08 mg/dl (0.6-1.2) 07/13/22 16:10 Est Cr Clr Drug Dosing 38.2 ml/min 07/13/22 16:10 Est GFR ( Amer) 54.6 ml/min 07/13/22 16:10 Est GFR (Non-Af Amer) 47.1 ml/min 07/13/22 16:10 BUN/Creatinine Ratio 16.7 (10-20) 07/13/22 16:10 Glucose 90 mg/dl (70-99(Fasting)) 07/13/22 16:10 Calcium 9.4 mg/dl (8.5-10.1) 07/13/22 16:10 Total Bilirubin 1.1 mg/dl (0.2-1.0) H 07/13/22 16:10 AST 19 U/L (13-39) 07/13/22 16:10 ALT 12 U/L (7-52) 07/13/22 16:10 Alkaline Phosphatase 52 U/L (34-104) 07/13/22 16:10 Troponin I High Sens 4.5 pg/ml (0-14) 07/13/22 16:10 Total Protein 7.1 gm/dl (6.0-8.3) 07/13/22 16:10 Albumin 4.2 gm/dl (3.4-5.0) 07/13/22 16:10 Globulin 2.9 gm/dl (2.5-4.0) 07/13/22 16:10 Albumin/Globulin Ratio 1.4 (0.9-2) 07/13/22 16:10 Lipase 36 U/L (11-82) 07/13/22 16:10 Impressions Chest X-Ray 07/13/22 15:50 SINGLE VIEW CHEST CLINICAL HISTORY: Atypical chest pain. FINDINGS: An AP, portable, upright chest radiograph is compared to study dated 12/08/2021 and correlated with chest CT dated 07/01/2021. The heart is mildly enlarged noting atherosclerotic calcification of the thoracic aorta. The pulmonary vasculature is noncongested. Chronic interstitial thickening similar to previous. Mild scarring/atelectasis is seen at the lung bases. The lungs and pleural spaces are otherwise clear. No pneumothorax is seen. The skeletal structures are osteopenic. The bony thorax is grossly intact. IMPRESSION: Cardiomegaly with no active disease in the chest. ACT 112: Negative or not required by law. Electronically signed by: Baljit Rain M.D. 07/13/2022 4:47 PM Chest CTA 07/13/22 16:07 CT ANGIOGRAM OF THE CHEST COMBO CLINICAL HISTORY: Atypical chest pain radiating to the back. Hypertension. COMPARISON STUDY: Chest x-ray dated 07/13/2022. Chest CT dated 07/01/2021. TECHNIQUE: Before and following the IV administration of 113 cc of Optiray 300, CT angiogram of the chest was performed from the thoracic inlet to the upper abdomen utilizing the dissection protocol. Images are reviewed in the axial, sagittal, and coronal planes. 3-D MIPS images are created and assessed. IV contrast was administered without complication. A dose lowering technique was utilized adhering to the principles of ALARA. CT DOSE: 439.14 mGy.cm FINDINGS: Thyroid: Imaged portions of the thyroid gland are normal in size and attenuation. Thoracic aorta: No intramural hematoma is seen on the unenhanced series. There is atherosclerotic calcification of the thoracic aorta. There is moderate dilatation of the ascending thoracic aorta which measures up to 4.3 cm in diameter. The remainder of the thoracic aorta is normal in caliber, and the arch demonstrates standard 3-vessel anatomy. No dissection is seen. The arch vessels are widely patent. Pulmonary vasculature: The pulmonary trunk is normal in caliber. There are no filling defects identified in the the main, lobar, or segmental pulmonary vessels to indication pulmonary embolus. Heart: The heart is enlarged and without pericardial effusion. The coronary arteries are densely calcified. Lungs and pleural spaces: There is no airspace consolidation or pleural effusion. Scarring/atelectasis is noted at both lung bases. The trachea and central airways are clear. Scattered pulmonary nodules are similar in appearance to previous. Right middle lobe nodules measuring up to 4 mm are seen on images #144, #158, and #176. A pleural-based nodule in the right lower lobe on image #141 measures 5 mm, an left upper lobe nodules on images #55 and #99 measure up to 5 mm. No new or enlarging pulmonary nodule is seen. Mediastinum: There is no mediastinal lymphadenopathy. Niki: Clear. Axillae: There is no axillary lymphadenopathy. Upper abdomen: Partially visualized upper abdominal viscera is within normal limits. Skeletal structures: The skeletal structures are osteopenic. Degenerative change and mild hyperkyphosis is noted in the thoracic spine. No lytic or blastic bony lesions are seen. IMPRESSION: 1. 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 2. No dissection is seen. 3. There is no evidence of pulmonary embolus in the main, lobar, or segmental pulmonary arteries. 4. Cardiomegaly. 5. There is no airspace consolidation or pleural effusion. 6. Subcentimeter pulmonary nodules are unchanged from previous. 7. Additional findings as above. ACT 112: Negative or not required by law. Electronically signed by: Baljit Rain M.D. 07/13/2022 7:10 PM Diagnostic Findings EKG as per my interpretation : Rate 70, NSR, LAD, LAFB, LVH, no ischemia
[2022-07-13] MEDS ORDERED: LACTATED RINGER'S 1,000 ML IV ONE (21:25)
[2022-07-13 21:42] LABS: Troponin I High Sensitivity 5.3 pg/ml (0-14)
[2022-07-13 21:46] LABS: Magnesium 1.9 mg/dl (1.7-2.4)
[2022-07-13] MEDS ORDERED: MoRPHine SULFATE 2 MG/ML CARP IV PRN (23:39)
[2022-07-13] MEDS ORDERED: diazePAM 5 MG TABLET PO PRN (23:39)
[2022-07-13] MEDS ORDERED: NITROGLYCERIN SL 0.4 MG/TAB TAB SL PRN (23:39)
[2022-07-13] MEDS ORDERED: traMADol HCL 50 MG TABLET PO PRN (23:39)
[2022-07-13] MEDS ORDERED: ACETAMINOPHEN 325 MG TAB PO PRN (23:39)
[2022-07-13] MEDS ORDERED: PROMETHAZINE HCL 6.25 MG in SODIUM CHLORIDE 0.9% 50 ML IV PRN (23:39)
[2022-07-14] MEDS ORDERED: amLODIPine BESYLATE 5 MG TAB PO SCH ×3 (00:15→09:00)
[2022-07-14] MEDS ORDERED: COUGH DROP (SUGAR FREE) LOZ 24 LOZ/1 BOX BUCCAL STA (00:55)
[2022-07-14] MEDS ORDERED: COUGH DROP (SUGAR FREE) LOZ 24 LOZ/1 BOX BUCCAL ONE (01:04)
[2022-07-14 06:16] LABS: Basophils # (auto) 0.04 K/uL (0-0.2); Basophils % (auto) 0.8 %; Eosinophils # (auto) 0.12 K/uL (0-0.50); Eosinophils % (auto) 2.5 %; Hematocrit (blood only) 33.8 % (34.1-44.9); Hemoglobin 11.1 g/dl (12.0-16.0); Immature Granulocytes # (auto) 0.01 K/uL (0.00-0.02); Immature Granulocytes % (auto) 0.2 %; Lymphocytes # (auto) 1.43 K/uL (1.2-3.4); Lymphocytes % (auto) 29.6 %; Mean Corpuscular Hemoglobin 28.4 pg (25.0-34.0); Mean Corpuscular Hgb Conc 32.8 g/dL (32.0-36.0); Mean Corpuscular Volume 86.4 fL (80.0-100.0); Mean Platelet Volume 9.2 fL (9.4-12.3); Monocytes # (auto) 0.53 K/uL (0.24-0.82); Neutrophils % (auto) 55.9 %; Platelet Count 190 K/uL (130-400); RDW Coefficient of Variation 13.5 % (11.5-14.5); RDW Standard Deviation 42.8 fL (36.4-46.3); Red Blood Count 3.91 M/uL (3.93-5.22); White Blood Count 4.83 K/ul (4.8-10.8)
[2022-07-14 06:28] LABS: Partial Thromboplastin Ratio 0.9; Partial Thromboplastin Time 24.9 Seconds (21.0-31.0)
[2022-07-14 06:38] LABS: BUN Creatinine Ratio 12.8 (10-20); Calcium 9.3 mg/dl (8.5-10.1); Creatinine Clr Calc Pharmacy 43.3 ml/min; Est GFR (African American) 64.6 ml/min; Est GFR (Non-African American) 55.7 ml/min; Potassium 3.5 mmol/L (3.5-5.1)
[2022-07-14] MEDS ORDERED: ' PO SCH (09:00)
[2022-07-14] MEDS ORDERED: PANTOprazole 40 MG TAB PO SCH (09:00)
[2022-07-14] MEDS ORDERED: MULTIVITAMIN TAB PO SCH (09:00)
[2022-07-14] MEDS ORDERED: ROSUVASTATIN CALCIUM 20 MG TAB PO SCH (09:00)
--- NOTE | 2022-07-14 11:42 | Cardiology Consultation ---
Date of Consultation July 14, 2022 Assessment & Plan (1) Chest pain: (2) HTN (hypertension): Plan No objective findings of ischemia recent outpatient ischemic work up was unremarkable recommend controlling BP no further testing necessary at this time History of Present Illness Attending Physician: Tyree Elliott MD History of Present Illness It was my pleasure to see Mrs. Gilliam in cardiac consultation today. She presented to [facility] with complaints of chest pain. She was having dinner tonight when she experienced chest pressure transiently going to her back and causing some jaw pain. Some shortness of breath. Patient thinks chest pain might be related to mammogram procedure from a few days ago. Upon arrival to the ED her sbp was 180's. Past medical history: 1. Atypical chest pain and [place]UCED[place] a. Equivocal RODRIGUEZ due to low workload, 01/2022 b. Negative nuclear stress 03/2022 2. Diastolic dysfunction 3. Hypertension 4. Aortic sclerosis 5. Mild dilation of ascending aorta, 4.1 cm per echo 01/2022 Allergies Allergy/AdvReac Type Severity Reaction Status Date / Time Penicillins Allergy Mild Swelling Verified 07/13/22 20:11 and itchiness. celecoxib Allergy Unknown Swelling Verified 07/13/22 20:11 and itchiness. ciprofloxacin Allergy Unknown rash Verified 07/13/22 20:11 metronidazole Allergy Unknown rash Verified 07/13/22 20:11 CHEVY Inhibitors AdvReac cough Verified 07/13/22 21:21 Home Medications Medication Instructions Recorded Confirmed Type diazepam 5 mg tablet 5 mg PO Q8 PRN Anxiety 03/18/20 07/13/22 History elflfviyubu-iea-txbenmryg-hrb 2 tab PO DAILY 03/18/20 07/13/22 History 149-hyalur 500 mg-500 mg-66.7 mg tablet (Ceeroaqzzun-Hmcwtpempol-PUG (with antiox)) multivitamin with minerals (One 1 tab PO DAILY 03/18/20 07/13/22 History Daily Complete tablet) omeprazole 40 mg capsule,delayed 40 mg PO QAM 03/18/20 07/13/22 History release turmeric 400 mg capsule 400 mg PO QAM 03/18/20 07/13/22 History cranberry 1,000 mg capsule 1,000 mg PO QAM 12/08/21 07/13/22 History ibuprofen 200 mg tablet 400 mg PO Q6H PRN Pain 12/08/21 07/13/22 History paroxetine HCl 30 mg tablet 30 mg PO DAILY 12/08/21 07/13/22 History vitamin E 100 unit tablet 100 unit PO DAILY 12/08/21 07/13/22 History furosemide 20 mg tablet 20 mg PO 3XWK 07/13/22 07/13/22 History rosuvastatin 20 mg tablet 20 mg PO QAM 07/13/22 07/13/22 History amlodipine 5 mg tablet (Norvasc) 2.5 mg PO QAM #30 tabs 07/14/22 Rx Patient History Medical History Acute bronchitis GERD (gastroesophageal reflux disease) Social History Smoking Status: Never smoker Do You Dip or Chew Tobacco: No; Hx Alcohol Use: Yes Alcohol type: wine Hx Substance Use: No Preferred Language: Italian Communication Ability: Effective 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 No acute distress. HEENT: Normocephalic, atraumatic. Pupils equal, round and reactive to light and accommodation. Extraocular muscles are intact. Anicteric sclera. Moist mucous membranes. Neck: No JVD. No bruit. Cardiovascular: Regular. Positive S-4. Normal S-1 and S-2. No S-3. No murmurs or rubs. Pulmonary: Clear to auscultation B/L. No rales, rhonchi or wheezing Abdomen: Bowel sounds x 4, soft. No rebound, guarding or tenderness. No organomegaly. Extremities: No clubbing, cyanosis or edema. +2 pedal pulses bilaterally. Skin: Warm and dry. Results & Data ([facility]) Vital Signs (Past 12 Hours) Vital Signs Temp Pulse Pulse Resp BP BP Pulse Ox 07/14/22 11:30 36.8 C 68 18 117/67 96 07/14/22 07:14 36.8 C 80 18 162/73 H 96 07/14/22 03:18 36.6 C 64 18 116/69 96 07/13/22 23:45 07/13/22 23:52 73 O2 Del Method 07/14/22 11:30 Room Air 07/14/22 07:14 Room Air 07/14/22 03:18 Room Air 07/13/22 23:45 Room Air 07/13/22 23:52 Diagnostic Findings Nuclear stress 03/27/2022 The combined low intensity exercise/Lexiscan myocardial perfusion imaging study is normal with no evidence of scar or inducible ischemia. Gated SPECT imaging reveals normal myocardial thickening and wall motion. The left ventricular ejection fraction was calculated to be 65 % RODRIGUEZ 01/2022 The stress echo is indeterminate for inducible ischemia. The low heart rate response and or low workload achieved reduces the sensitivity of this test for the detection of coronary artery disease or ischemia. Exercise capacity is markedly below average with patient exercising for 1 minute 38 seconds on a Tommie protocol before stopping secondary to fatigue and shortness of breath. There was very accelerated heart rate response achieving greater than 100% age predicted maximum heart rate and markedly hypertensive blood pressure response increasing to a peak of 225/114. There were no ischemic EKG changes The left ventricular wall motion is normal. The left ventricular ejection fraction is unchanged with stress without distinct wall motion abnormality noted. Ischemia not excluded The LV wall thickness is mildly increased (concentric). The qualitative LV ejection fraction is 55-59% (normal). The left ventricular diastolic function is mildly abnormal (grade I). Moderate aortic valve sclerosis is present.
--- NOTE | 2022-07-14 14:40 | Discharge Summary ---
Date of Service July 14, 2022 Admission HPI Per Admitting Provider History obtained from patient and records. 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 Last confinement 2009 for uncontrolled GERD. Patient was having dinner tonight when she experienced chest pressure trans iently going to her back and causing some jaw pain. Some shortness of breath. Patient thinks chest pain might be related to mammogram procedure from a few days ago. Patient does not recall why she had a stress test 3 months ago. SBP 180s upon arrival at the ER. Nitropaste administered at the ER. Patient currently comfortable. 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 Admission Exam Per Admitting Provider GENERAL: Comfortable, slightly hard of hearing, no respiratory distress SKIN: Normal color, warm HEENT: [place] palpebral conjunctivae, no ptosis, dry buccal mucosa NECK : Supple, no tenderness CHEST : CTA, anterior chest wall tenderness HEART : RRR, no obvious murmurs ABDOMEN: Some distention, nontender EXTREMITIES : Minimal LE swelling, no LE tenderness, no other conspicuous deformities noted NEUROLOGIC : Coherent, no facial asymmetry, slightly hard of hearing, no other gross focality Principal Diagnosis Chest pain, likely non cardiac Discharge Exam General: Doing exercise in the room upon my entry, not in distress, on room air Chest: Clear breath sounds bilaterally, no wheezes or crackles CVS: Regular rate and rhythm, normal heart sounds, no murmur Abdomen: Soft, non tender, not distended, normal bowel sounds Neuro: Awake, alert, oriented, conversing well, non focal Extremities: No edema Discharge Data Allergies Allergy/AdvReac Type Severity Reaction Status Date / Time Penicillins Allergy Mild Swelling Verified 07/13/22 20:11 and itchiness. celecoxib Allergy Unknown Swelling Verified 07/13/22 20:11 and itchiness. ciprofloxacin Allergy Unknown rash Verified 07/13/22 20:11 metronidazole Allergy Unknown rash Verified 07/13/22 20:11 CHEVY Inhibitors AdvReac cough Verified 07/13/22 21:21 Consultations 07/13/22 20:11 ED Decision to Admit Stat 07/13/22 23:39 Consult Cardiology Routine Ordered Studies 07/13/22 16:07 CT angio chest dissec wo/w con Stat Laboratory Results WBC 4.83 K/ul (4.8-10.8) 07/14/22 05:40 RBC 3.91 M/uL (3.93-5.22) L 07/14/22 05:40 Hgb 11.1 g/dl (12.0-16.0) L 07/14/22 05:40 Hct 33.8 % (34.1-44.9) L 07/14/22 05:40 MCV 86.4 fL (80.0-100.0) 07/14/22 05:40 MCH 28.4 pg (25.0-34.0) 07/14/22 05:40 MCHC 32.8 g/dL (32.0-36.0) 07/14/22 05:40 RDW Std Deviation 42.8 fL (36.4-46.3) 07/14/22 05:40 RDW Coeff of [place] 13.5 % (11.5-14.5) 07/14/22 05:40 Plt Count 190 K/uL (130-400) 07/14/22 05:40 MPV 9.2 fL (9.4-12.3) L 07/14/22 05:40 Immature Gran % (Auto) 0.2 % 07/14/22 05:40 Neut % (Auto) 55.9 % 07/14/22 05:40 Lymph % (Auto) 29.6 % 07/14/22 05:40 [place] % (Auto) 11.0 % 07/14/22 05:40 Eos % (Auto) 2.5 % 07/14/22 05:40 Baso % (Auto) 0.8 % 07/14/22 05:40 Neut # (Auto) 2.70 K/uL (1.4-6.5) 07/14/22 05:40 Lymph # (Auto) 1.43 K/uL (1.2-3.4) 07/14/22 05:40 [place] # (Auto) 0.53 K/uL (0.24-0.82) 07/14/22 05:40 Eos # (Auto) 0.12 K/uL (0-0.50) 07/14/22 05:40 Baso # (Auto) 0.04 K/uL (0-0.2) 07/14/22 05:40 Immature Gran # (Auto) 0.01 K/uL (0.00-0.02) 07/14/22 05:40 APTT 24.9 Seconds (21.0-31.0) 07/14/22 05:40 PTT Ratio 0.9 07/14/22 05:40 Sodium 140 mmol/L (136-145) 07/14/22 05:40 Potassium 3.5 mmol/L (3.5-5.1) 07/14/22 05:40 Chloride 106 mmol/L (98-107) 07/14/22 05:40 Carbon Dioxide 28 mmol/L (21-32) 07/14/22 05:40 Anion Gap 6 (3-11) 07/14/22 05:40 BUN 12 mg/dl (6-23) 07/14/22 05:40 Creatinine 0.94 mg/dl (0.6-1.2) 07/14/22 05:40 Est Cr Clr Drug Dosing 43.3 ml/min 07/14/22 05:40 Est GFR ( Amer) 64.6 ml/min 07/14/22 05:40 Est GFR (Non-Af Amer) 55.7 ml/min 07/14/22 05:40 BUN/Creatinine Ratio 12.8 (10-20) 07/14/22 05:40 Glucose 106 mg/dl (70-99(Fasting)) H 07/14/22 05:40 Calcium 9.3 mg/dl (8.5-10.1) 07/14/22 05:40 Magnesium 1.9 mg/dl (1.7-2.4) 07/13/22 20:30 Total Bilirubin 1.1 mg/dl (0.2-1.0) H 07/13/22 16:10 AST 19 U/L (13-39) 07/13/22 16:10 ALT 12 U/L (7-52) 07/13/22 16:10 Alkaline Phosphatase 52 U/L (34-104) 07/13/22 16:10 Troponin I High Sens 6.0 pg/ml (0-14) 07/14/22 05:40 Total Protein 7.1 gm/dl (6.0-8.3) 07/13/22 16:10 Albumin 4.2 gm/dl (3.4-5.0) 07/13/22 16:10 Globulin 2.9 gm/dl (2.5-4.0) 07/13/22 16:10 Albumin/Globulin Ratio 1.4 (0.9-2) 07/13/22 16:10 Lipase 36 U/L (11-82) 07/13/22 16:10 SARS-CoV-2, RNA, NAAT NEGATIVE (NEGATIVE) 07/13/22 21:52 Impressions Chest X-Ray 07/13/22 15:50 SINGLE VIEW CHEST CLINICAL HISTORY: Atypical chest pain. FINDINGS: An AP, portable, upright chest radiograph is compared to study dated 12/08/2021 and correlated with chest CT dated 07/01/2021. The heart is mildly enlarged noting atherosclerotic calcification of the thoracic aorta. The pulmonary vasculature is noncongested. Chronic interstitial thickening similar to previous. Mild scarring/atelectasis is seen at the lung bases. The lungs and pleural spaces are otherwise clear. No pneumothorax is seen. The skeletal structures are osteopenic. The bony thorax is grossly intact. IMPRESSION: Cardiomegaly with no active disease in the chest. ACT 112: Negative or not required by law. Electronically signed by: Baljit Rain M.D. 07/13/2022 4:47 PM Chest CTA 07/13/22 16:07 CT ANGIOGRAM OF THE CHEST COMBO CLINICAL HISTORY: Atypical chest pain radiating to the back. Hypertension. COMPARISON STUDY: Chest x-ray dated 07/13/2022. Chest CT dated 07/01/2021. TECHNIQUE: Before and following the IV administration of 113 cc of Optiray 300, CT angiogram of the chest was performed from the thoracic inlet to the upper abdomen utilizing the dissection protocol. Images are reviewed in the axial, sagittal, and coronal planes. 3-D MIPS images are created and assessed. IV contrast was administered without complication. A dose lowering technique was utilized adhering to the principles of ALARA. CT DOSE: 439.14 mGy.cm FINDINGS: Thyroid: Imaged portions of the thyroid gland are normal in size and attenuation. Thoracic aorta: No intramural hematoma is seen on the unenhanced series. There is atherosclerotic calcification of the thoracic aorta. There is moderate dilatation of the ascending thoracic aorta which measures up to 4.3 cm in diameter. The remainder of the thoracic aorta is normal in caliber, and the arch demonstrates standard 3-vessel anatomy. No dissection is seen. The arch vessels are widely patent. Pulmonary vasculature: The pulmonary trunk is normal in caliber. There are no filling defects identified in the the main, lobar, or segmental pulmonary vessels to indication pulmonary embolus. Heart: The heart is enlarged and without pericardial effusion. The coronary arteries are densely calcified. Lungs and pleural spaces: There is no airspace consolidation or pleural effusion. Scarring/atelectasis is noted at both lung bases. The trachea and central airways are clear. Scattered pulmonary nodules are similar in appearance to previous. Right middle lobe nodules measuring up to 4 mm are seen on images #144, #158, and #176. A pleural-based nodule in the right lower lobe on image #141 measures 5 mm, an left upper lobe nodules on images #55 and #99 measure up to 5 mm. No new or enlarging pulmonary nodule is seen. Mediastinum: There is no mediastinal lymphadenopathy. Niki: Clear. Axillae: There is no axillary lymphadenopathy. Upper abdomen: Partially visualized upper abdominal viscera is within normal limits. Skeletal structures: The skeletal structures are osteopenic. Degenerative change and mild hyperkyphosis is noted in the thoracic spine. No lytic or blastic bony lesions are seen. IMPRESSION: 1. 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 2. No dissection is seen. 3. There is no evidence of pulmonary embolus in the main, lobar, or segmental pulmonary arteries. 4. Cardiomegaly. 5. There is no airspace consolidation or pleural effusion. 6. Subcentimeter pulmonary nodules are unchanged from previous. 7. Additional findings as above. ACT 112: Negative or not required by law. Electronically signed by: Baljit Rain M.D. 07/13/2022 7:10 PM Hospital Course (1) Chest pain: (2) HTN (hypertension): Plan 86 year old female who presented to the ED yesterday with chest pain (details as above). Found to be hypertensive with SBP in 180s. She did not have any more chest pain after ED arrival. Serial troponin, EKG and tele were unremarkable. CTA chest with no PE or PNA or pleural effusion or dissection but mild aneurysmal dilation of ascending thoracic aorta upto 4.3 cm in diameter. She had OP stress test done 3 months ago which was negative. She is physically active at baseline and denies any CP or SAUCEDO with exertion. She was seen by cardiology and cleared for discharge home. Her blood pressure has been better today after receiving Norvasc overnight. Her prior BP readings were high too. Hence, will discharge her on norvasc low dose at discharge and recommend follow up with PCP/cardiology for further management. Recommend continued follow up with PCP for monitoring of her aneurysmal dilatation. She is anxious to get discharged. She is comfortable and stable for discharge home. Total Time Total Time Spent Total Time Spent (In Minutes): 35 Discharge Plan Discharge Items Patient Disposition: Home - Self-Care Reason For Visit: CP Discharge Diagnosis: Chest pain, likely non cardiac Activity: Resume your previous activity Non-emergency contact: Primary Care Provider Call non-emergency contact if: your symptoms worsen and your pain is concerning for you Follow-up/Referrals: Vickie Pagan DO [Primary Care Provider] - Diet: Heart Healthy Addtl Attending Provider Instructions: Your chest pain has resolved and the tests here have been negative to suggest cardiac source. Your blood pressure was elevated and you were started on low dose amlodipine. The high blood pressure however could be situational due to the anxiety and stress. Hence, we recommend you to continue to check your blood pressure at home if possible or see your family doctor for further management of the blood pressure and the medication. Recommend continued follow up with your doctor for the aneurysmal dilatation of the aorta. Please see your family doctor and cardiology in the office Pending Studies at Discharge: No Stand-Alone Forms: My [employer], Smoking Cessation Medications and DC Order Prescriptions: New amlodipine [Norvasc] 5 mg Tablet 2.5 mg PO QAM Qty: 30 0RF Continued omeprazole 40 mg capsule,delayed release(DR/EC) 40 mg PO QAM diazepam 5 mg tablet 5 mg PO Q8 PRN (Reason: Anxiety) One Daily Complete Tablet 1 tab PO DAILY [id number] [[id number] (with antiox)] 500-500-66.7 mg Tablet 2 tab PO DAILY turmeric 400 mg Capsule 400 mg PO QAM paroxetine HCl 30 mg tablet 30 mg PO DAILY ibuprofen 200 mg Tablet 400 mg PO Q6H PRN (Reason: Pain) vitamin E 100 unit Tablet 100 unit PO DAILY cranberry 1,000 mg Capsule 1,000 mg PO QAM furosemide 20 mg tablet 20 mg PO [id number] Rx Instructions: mon,wed,fri rosuvastatin 20 mg tablet 20 mg PO QAM Discharge Orders: Discharge Order (Routine); Ordered 07/14/22 Ordered By: Tyree Elliott Admission Data Admit Date/Time: 07/13/22 21:22 Attending Provider: Tyree Elliott Admit Provider: Juarez Camargo Primary Care Provider: Vickie Pagan Other Providers: Juarez Camargo ; Mychal Walsh ; [place] ; Robert Moss ; Tyron Dawkins ; Ghassan Baez ; Kingston Zheng ; Lucy Manzano ; Kavitha Hansen ; Kimberly Sharpe ; Sudheer Medina Other Interventions: Discharge Summary Assessment (RN) Last Done: 07/14/22 14:01
== END 2022-07-14 14:21 | disposition home or self-care (01) ==
LOC: ED 15:29 → 4W 15:29

== ENCOUNTER 2024-12-30 14:01 | Observation (INO) ==
[2024-12-30 15:50] LABS: Appearance Urine Clear (Clear); Bacteria Urine Automated None Seen (None Seen); Bilirubin Urine Negative (Negative); Blood Urine Trace (Negative); Cast Urine Automated 0-2 /lpf (0-2); Color Urine Yellow; Epithelial Cell Urine Auto 0-2 /hpf (0-2); Glucose Urine UA Negative (Negative); Ketones Urine Negative (Negative); Leukocyte Esterase Urine Negative (Negative); Nitrite Urine Negative (Negative); Protein Urine Negative (Negative); RBC Urine Automated 0-2 /hpf (0-2); Specific Gravity Urine 1.005 (1.000-1.030); Urobilinogen Urine Negative (Negative); WBC Urine Automated 0-5 /hpf (0-5); pH Urine 6.5 (4.5-7.5)
[2024-12-30 15:55] LABS: Basophils # (auto) 0.04 K/uL (0.00-0.20); Eosinophils # (auto) 0.22 K/uL (0.00-0.50); Eosinophils % (auto) 5.5 %; Hematocrit (blood only) 35.9 % (37.0-47.0); Hemoglobin 11.9 g/dl (12.0-16.0); Lymphocytes # (auto) 1.27 K/uL (1.20-3.40); Lymphocytes % (auto) 31.8 %; Mean Corpuscular Hemoglobin 28.6 pg (25.0-34.0); Mean Corpuscular Hgb Conc 33.1 g/dL (32.0-36.0); Mean Corpuscular Volume 86.3 fL (80.0-100.0); Mean Platelet Volume 9.4 fL (9.4-12.4); Monocytes # (auto) 0.41 K/uL (0.11-0.59); Monocytes % (auto) 10.3 %; Neutrophils # (auto) 2.06 K/uL (1.40-6.50); Neutrophils % (auto) 51.4 %; Platelet Count 213 K/uL (130-400); RDW Coefficient of Variation 14.3 % (11.5-14.5); RDW Standard Deviation 45.2 fL (36.4-46.3); Red Blood Count 4.16 M/uL (4.20-5.40)
[2024-12-30 16:14] LABS: Albumin Globulin Ratio 1.5 (0.9-2); Albumin Level 4.5 gm/dl (3.4-5.0); BUN Creatinine Ratio 14.9 (10-20); Bilirubin,Total 0.9 mg/dl (0.2-1.0); Calcium 9.7 mg/dl (8.6-10.3); Creatinine Clr Calc Pharmacy 41.1 ml/min; Globulin 3.1 gm/dl (2.5-4.0); Total Protein 7.6 gm/dl (6.0-8.3)
--- NOTE | 2024-12-30 16:21 | Emergency Department Note ---
Impression & Plan Right flank pain, Hypertension ED Provider Note ED Provider Note NAME: TRACY WILSON AGE:89 SEX: Female : 1935 ARRIVES VIA: Private vehicle INFORMANT: Patient ED PROVIDER(s): Daina Shaw DO CHIEF COMPLAINT: Right flank pain HPI: This is an 89-year-old female who presents emergency room due to concern for right flank pain. Patient states she first began having pain 2 months ago. She states it does seem worse with certain activities such as lifting things or shoveling. She denies fevers or chills, recent cough or cold symptoms, shortness of breath, nausea or vomiting. She states the pain radiates further lower in the back and does seem to follow the ribs coming around into the right flank and side and right lateral abdomen. No recent change in urine or stools. She denies any leg swelling. No prior history of kidney problems. She states a year ago she did fall and she thought injured her side and that time and would have periodic aches although nothing as severe as the last 2 months. No more recent trauma or injury. PAST MEDICAL HISTORY:See Below PAST SURGICAL HISTORY:See Below FAMILY HISTORY:See Below SOCIAL HISTORY:See Below HOME MEDICATIONS:See Below ALLERGIES:See Below VITALS:See Below PHYSICAL EXAMINATION: GENERAL: alert, well appearing, well nourished, no distress, non-toxic EYE EXAM: normal conjunctiva, PERRL and EOM's grossly intact OROPHARYNX: no exudate, no erythema, lips, buccal mucosa, and tongue normal and mucous membranes are moist NECK: supple, no nuchal rigidity, no adenopathy, non-tender LUNGS: Clear to auscultation. Normal chest wall mechanics, no w/r/r HEART: no murmurs, S1 normal and S2 normal ABDOMEN: abdomen soft, non-tender, normo-active bowel sounds, no masses, no rebound or guarding. BACK: Back is symmetrical on inspection and there is no deformity, no midline tenderness, +right CVA tenderness. Pain with palpation along the right lateral lower thoracic and lumbar region with palpation SKIN: no rashes, petechiae, orbruising UPPER EXTREMITIES: upper extremities are grossly normal. FROM, nml pulses b/l. LOWER EXTREMITIES: No pitting edema. FROM, nml pulses b/l. NEURO EXAM: Normal sensorium, cranial nerves II-XII grossly intact, normal speech, no facial droop,nogross weakness of arms, no gross weakness of legs. Gross sensation intact. No ataxia. Vital Signs: reviewed and remarkable Differential Diagnosis: ureterolithiasis, UTI, rib fracture, contusion, cholecystitis, pancreatitis, colitis, compression fracture, pneumonia, occult traumatic injury, as well as others were considered MEDICAL DECISION MAKING: THis is an 89 yo female who presents to the ER with c/o 1 month of worsening right flank pain. She was afebrile and VS stable. Labs drawn and sent, IV established, CXR performed and interpreted at bedside, and patient placed on telemetry. Urine collected and sent and patient sent for CT a/p. CT reassuring, however RUQ US suggested for further evaluation. US RUQ performed without cholecystitis or dilated ducts suggesting choledocholithiasis. No abn LFT's. No evidence of infection. Patient given IVF, IV tylenol, IV toradol, lidoderm patch, and oxycodone as her initial goal was to go home if her evaluation was negative. Patient continued to c/o persistent pain too uncomfortable to go home with despite medications and requested admission for pain control. Case discussed with hospitalist team. Patient was noted to be hypertensive here although I suspect this is related to pain. Consultation(s): 0100: Discussed with Dr. Hurley, [facility] hospitalist team, for additional evaluation and management. ER Treatment Provided: See below Diagnostics Interpreted By Me: -Cardiac Monitoring: An order was placed for continuous cardiac monitoring. The monitor shows a rate of 66 with normal sinus rhythm. -Laboratory studies: As stated above and show below. -Imaging studies: X-ray Chest: A single view study of the chest was reviewed and was negative for cardiomegaly, focal infiltrate, effusion, pulmonary edema, or wide mediastinum. Triage Nursing Note Reviewed Prior/Outside Records Reviewed Past Med/Surg History Problem List (Updated 01/01/25 @ 21:40 by Daina Shaw DO) Hypertension (Acute) Right flank pain (Acute) HTN (hypertension) (Acute) Acute bronchitis (Acute) Arm contusion (Acute) Closed head injury (Acute) Contusion of ear (Acute) Scalp laceration (Acute) Medical History Acute bronchitis GERD (gastroesophageal reflux disease) HTN (hypertension) Hyperlipidemia Social History Smoking Status: Never smoker Do You Dip or Chew Tobacco: No; Hx Alcohol Use: Yes Alcohol type: wine Hx Substance Use: No Preferred Language: Latvian Communication Ability: Effective Standards Analyst Required: No Beliefs That Will Affect Care: None Current Living Situation: Alone Feels Safe at Home: Yes Safety Concerns: Feels Safe At This Time Assistive Devices: None Allergies Allergies Allergy/AdvReac Type Severity Reaction Status Date / Time Penicillins Allergy Mild Swelling Verified 12/30/24 23:45 and itchiness, rash celecoxib Allergy Unknown Swelling Verified 12/30/24 23:45 and itchiness. ciprofloxacin Allergy Unknown rash Verified 12/30/24 23:45 metronidazole Allergy Unknown rash Verified 12/30/24 23:45 CHEVY Inhibitors AdvReac cough Verified 12/30/24 23:45 Home Meds Home Medications Medication Instructions Recorded Confirmed acetaminophen 500 mg tablet 500 mg PO Q6H PRN Pain 08/18/23 12/30/24 (Tylenol Extra Strength) amlodipine 2.5 mg tablet 2.5 mg PO DAILY 08/18/23 12/30/24 ascorbic acid (vitamin C) 500 mg 500 mg PO DAILY 08/18/23 12/30/24 tablet (Vitamin C) aspirin 81 mg chewable tablet 81 mg PO DAILY 08/18/23 12/30/24 diazepam 5 mg tablet 5 mg PO Q8 PRN Anxiety 08/18/23 12/30/24 furosemide 20 mg tablet 20 mg PO 3XWK 08/18/23 12/30/24 gabapentin 300 mg capsule 600 mg PO BID 08/18/23 12/30/24 glucosamine-chondroitin 250 mg-200 1 tab PO DAILY 08/18/23 12/30/24 mg tablet (Osteo Bi-Flex) chilrpau-taks-dlxr 8 mg-folic 400 1 tab PO DAILY 08/18/23 12/30/24 mcg-K 50 mcg-lutein 300 mcg tablet (Centrum Silver Women) omeprazole 40 mg capsule,delayed 40 mg PO QAM 08/18/23 12/30/24 release paroxetine HCl 30 mg tablet 30 mg PO QAM 08/18/23 12/30/24 psyllium 1 packet PO AMHS PRN Constipation 08/18/23 12/31/24 rosuvastatin 20 mg tablet 20 mg PO QAM 08/18/23 12/30/24 polyethylene glycol 3350 17 17 g PO DAILY PRN Constipation 12/30/24 12/30/24 gram/dose oral powder (Miralax) Results & Data (ED) Vital Signs Vital Signs - 24 hr 12/30/24 14:30 12/30/24 17:01 12/30/24 17:06 Temperature 36.5 C Temperature Source Oral Pulse Rate 77 70 Pulse Rate [Apical] 68 Pulse Rate from SpO2 Sensor Respiratory Rate 16 17 Respiratory Effort / Characteristics Non-Labored Spontaneous Respiratory Depth Normal Respiratory Pattern Regular Blood Pressure 188/95 H Blood Pressure [Right Arm] 161/85 H Blood Pressure Mean 126 Blood Pressure Mean [Right Arm] 110 Pulse Oximetry 96 96 Oxygen Delivery Method Room Air Sepsis Recent Fever Within 48 Hours No Sepsis New/Unexplained Change in Mental Status N/A Sepsis Action Taken by Nursing No Action Required 12/30/24 17:09 12/30/24 17:09 12/30/24 20:04 Temperature Temperature Source Pulse Rate 69 80 Pulse Rate [Apical] Pulse Rate from SpO2 Sensor 69 Respiratory Rate 17 14 Respiratory Effort / Characteristics Respiratory Depth Respiratory Pattern Blood Pressure 161/85 H 186/90 H Blood Pressure [Right Arm] Blood Pressure Mean 98 135 Blood Pressure Mean [Right Arm] Pulse Oximetry 96 Oxygen Delivery Method Sepsis Recent Fever Within 48 Hours Sepsis New/Unexplained Change in Mental Status Sepsis Action Taken by Nursing 12/30/24 20:10 12/30/24 20:41 12/30/24 22:00 Temperature Temperature Source Pulse Rate 63 75 Pulse Rate [Apical] 63 Pulse Rate from SpO2 Sensor 75 Respiratory Rate 20 21 Respiratory Effort / Characteristics Respiratory Depth Respiratory Pattern Blood Pressure 191/101 H Blood Pressure [Right Arm] 186/90 H Blood Pressure Mean 131 Blood Pressure Mean [Right Arm] 122 Pulse Oximetry 97 96 Oxygen Delivery Method Room Air Sepsis Recent Fever Within 48 Hours Sepsis New/Unexplained Change in Mental Status Sepsis Action Taken by Nursing 12/30/24 23:00 12/31/24 00:33 Temperature Temperature Source Pulse Rate 66 61 Pulse Rate [Apical] Pulse Rate from SpO2 Sensor 63 Respiratory Rate 18 Respiratory Effort / Characteristics Respiratory Depth Respiratory Pattern Blood Pressure 150/70 H Blood Pressure [Right Arm] Blood Pressure Mean 96 Blood Pressure Mean [Right Arm] Pulse Oximetry 93 Oxygen Delivery Method Sepsis Recent Fever Within 48 Hours Sepsis New/Unexplained Change in Mental Status Sepsis Action Taken by Nursing Laboratory Data 12/31/24 07:24 12/31/24 08:11 Lab Results 12/30/24 12/30/24 Range/Units 15:20 15:30 WBC 4.00 L (4.8-10.8) K/ul RBC 4.16 L (4.20-5.40) M/uL Hgb 11.9 L (12.0-16.0) g/dl Hct 35.9 L (37.0-47.0) % MCV 86.3 (80.0-100.0) fL MCH 28.6 (25.0-34.0) pg MCHC 33.1 (32.0-36.0) g/dL RDW Std Deviation 45.2 (36.4-46.3) fL RDW Coeff of [place] 14.3 (11.5-14.5) % Plt Count 213 (130-400) K/uL MPV 9.4 (9.4-12.4) fL Immature Gran % (Auto) 0.0 % Neut % (Auto) 51.4 % Lymph % (Auto) 31.8 % Stanley % (Auto) 10.3 % Eos % (Auto) 5.5 % Baso % (Auto) 1.0 % Neut # (Auto) 2.06 (1.40-6.50) K/uL Lymph # (Auto) 1.27 (1.20-3.40) K/uL Stanley # (Auto) 0.41 (0.11-0.59) K/uL Eos # (Auto) 0.22 (0.00-0.50) K/uL Baso # (Auto) 0.04 (0.00-0.20) K/uL Immature Gran # (Auto) 0.00 L (0.01-0.20) K/uL Sodium 141 (136-145) mmol/L Potassium 4.0 (3.5-5.1) mmol/L Chloride 106 (98-107) mmol/L Carbon Dioxide 28 (21-32) mmol/L Anion Gap 7 (3-11) BUN 15 (6-23) mg/dl Creatinine 1.01 (0.6-1.2) mg/dl Est Cr Clr Drug Dosing 41.1 ml/min eGFR 53.88 BUN/Creatinine Ratio 14.9 (10-20) Glucose 90 (70-99(Fasting)) mg/dl Calcium 9.7 (8.6-10.3) mg/dl Total Bilirubin 0.9 (0.2-1.0) mg/dl AST 26 (13-39) U/L ALT 16 (7-52) U/L Alkaline Phosphatase 67 (34-104) U/L Total Protein 7.6 (6.0-8.3) gm/dl Albumin 4.5 (3.4-5.0) gm/dl Globulin 3.1 (2.5-4.0) gm/dl Albumin/Globulin Ratio 1.5 (0.9-2) Lipase 28 (11-82) U/L Urine Color Yellow Urine Appearance Clear (Clear) Urine pH 6.5 (4.5-7.5) Ur Specific [place] 1.005 (1.000-1.030) Urine Protein Negative (Negative) Urine Glucose (UA) Negative (Negative) Urine Ketones Negative (Negative) Urine Blood Trace H (Negative) Urine Nitrite Negative (Negative) Urine Bilirubin Negative (Negative) Urine Urobilinogen Negative (Negative) Ur Leukocyte Esterase Negative (Negative) Urine WBC (Auto) 0-5 (0-5) /hpf Urine RBC (Auto) 0-2 (0-2) /hpf U Hyaline Cast (Auto) 0-2 (0-2) /lpf U Epithel Cells (Auto) 0-2 (0-2) /hpf Urine Bacteria (Auto) None Seen (None Seen) Administered Medications Discontinued Medications Acetaminophen (Acetaminophen 325 Mg Tab) 650 mg PO Q4H PRN PRN Reason: pain/fever Stop: 01/30/25 04:54 Last Admin: 12/31/24 07:32 Dose: 650 mg Documented By: CHRISTINA Amlodipine Besylate (Amlodipine Besylate 5 Mg Tab) 2.5 mg PO DAILY [facility] Stop: 01/30/25 08:59 Last Admin: 12/31/24 09:52 Dose: 2.5 mg Documented By: LAURIE Ascorbic Acid (Ascorbic Acid 500 Mg Tab) 500 mg PO DAILY [facility] Stop: 01/30/25 08:59 Last Admin: 12/31/24 09:50 Dose: 500 mg Documented By: LAURIE Aspirin (Aspirin 81 Mg Chew) 81 mg PO DAILY [facility] Stop: 01/30/25 08:59 Last Admin: 12/31/24 09:52 Dose: 81 mg Documented By: LAURIE Furosemide (Furosemide 20 Mg Tab) 20 mg PO MoWeFr [facility] Stop: 01/30/25 08:59 Last Admin: 12/31/24 09:49 Dose: 20 mg Documented By: LAURIE Gabapentin (Gabapentin 100 Mg Cap) 100 mg PO NOW STA Stop: 12/30/24 21:24 Last Admin: 12/30/24 21:46 Dose: 100 mg Documented By: KIRA Gabapentin (Gabapentin 300 Mg Cap) 600 mg PO BID [facility] Stop: 01/30/25 08:59 Last Admin: 12/31/24 09:48 Dose: 600 mg Documented By: LAURIE Acetaminophen (Ofirmev) 1,000 mg in 100 mls @ 400 mls/hr IV NOW STA Stop: 12/30/24 17:58 Last Infusion: 12/30/24 20:02 Dose: Infused Documented By: Admin: 12/30/24 17:53 Dose: 400 mls/hr Documented By: MARJAN Ioversol (Optiray 320 100ml) 90 ml IV ONCE ONE Stop: 12/30/24 16:38 Last Admin: 12/30/24 16:37 Dose: 90 ml Documented By: JUJU Ketorolac Tromethamine (Ketorolac Tromethamine 15 Mg/Ml Vial) 10 mg IV NOW ONE Stop: 12/30/24 20:08 Last Admin: 12/30/24 20:13 Dose: 10 mg Documented By: MARJAN Lidocaine (Lidocaine 5% 1 Patch) 1 patch TD NOW STA Stop: 12/30/24 17:45 Last Admin: 12/30/24 17:53 Dose: 1 patch Documented By: MARJAN Miscellaneous (Remove Lidoderm Patch) 1 each N/A DAILY@2100 [facility] Stop: 01/29/25 20:59 Last Admin: 12/30/24 23:06 Dose: 1 each Documented By: MARJAN Morphine Sulfate (Morphine Sulfate 2 Mg/Ml Carp) 2 mg IV NOW STA Stop: 12/31/24 00:59 Last Admin: 12/31/24 01:23 Dose: Not Given Documented By: ZACHARIAH Multivitamins (Multivitamin Tab) 1 tab PO DAILY [facility] Stop: 01/30/25 08:59 Last Admin: 12/31/24 09:48 Dose: 1 tab Documented By: LAURIE Oxycodone HCl (Oxycodone Hcl Ir 5 Mg Tab (Immediate Release)) 2.5 mg PO NOW STA Stop: 12/30/24 22:32 Last Admin: 12/30/24 23:05 Dose: 2.5 mg Documented By: MARJAN Oxycodone HCl (Oxycodone Hcl Ir 5 Mg Tab (Immediate Release)) 2.5 mg PO NOW STA Stop: 12/30/24 23:45 Last Admin: 12/31/24 00:15 Dose: 2.5 mg Documented By: ZACHARIAH Oxycodone HCl (Oxycodone Ir Home Pack) 1 each PO UD ONE Stop: 12/31/24 00:27 Last Admin: 12/31/24 01:21 Dose: Not Given Documented By: ZACHARIAH Pantoprazole Sodium (Pantoprazole 40 Mg Tab) 40 mg PO [facility] Stop: 01/30/25 08:59 Last Admin: 12/31/24 09:51 Dose: 40 mg Documented By: LAURIE Paroxetine HCl (Paroxetine Hcl 10 Mg Tab) 30 mg PO [facility] Stop: 01/30/25 08:59 Last Admin: 12/31/24 09:47 Dose: 30 mg Documented By: LAURIE Rosuvastatin Calcium (Rosuvastatin Calcium 20 Mg Tab) 20 mg PO [facility] Stop: 01/30/25 08:59 Last Admin: 12/31/24 09:49 Dose: 20 mg Documented By: LAURIE Tramadol HCl (Tramadol Hcl 50 Mg Tablet) 50 mg PO Q6H PRN PRN Reason: Severe Pain (Scale 7, 8, 9,10) Stop: 01/30/25 04:54 Last Admin: 12/31/24 06:19 Dose: 50 mg Documented By: LUIS FERNANDO Imaging Data Radiologist's Impression: Chest X-Ray 12/30/24 14:35 EXAM: Radiograph of the Chest 1 View INDICATION: Pain. TECHNIQUE: Frontal view of the chest. COMPARISON: 08/18/2023 FINDINGS: Lungs and pleural spaces: Stable mild scarring of the interstitial markings and basilar parenchymal. No pleural effusion or pneumothorax. Heart: Shape and configuration within normal limits allowing for technique. Mediastinum: Normal contour. Bones/joints: No fracture, erosion or dislocation. Soft tissues: No abnormality noted. No radiopaque foreign body noted. Vasculature: Stable ectatic calcified aorta. Upper abdomen: No abnormality noted. IMPRESSION: Stable chronic changes. No acute disease. ACT 112: Negative or not required by law. Electronically signed by Melquiades Yumiko 12-30-2024 4:42 PM Abdomen/Pelvis CT 12/30/24 16:18 EXAM: CT Abdomen and Pelvis With Intravenous Contrast INDICATION: Right flank pain. TECHNIQUE: Axial computed tomography images of the abdomen and pelvis with intravenous contrast. Sagittal and coronal reformatted images were created and reviewed. This CT exam was performed using one or more of the following dose reduction techniques: automated exposure control, adjustment of the mA and/or kV according to patient size, and/or use of iterative reconstruction technique. CONTRAST: 90ml of Optiray 320 was administered intravenously. COMPARISON: 08/18/2023 FINDINGS: Limitations: None. Lung bases: No abnormality noted. Pleural space: No visualized pleural effusion or pneumothorax. Heart: No abnormality noted. Mediastinum: No abnormality noted. ABDOMEN: Liver: No abnormality noted. Gallbladder and bile ducts: Mildly distended gallbladder. No calcified stones. No ductal dilatation or calcification noted. Pancreas: Homogeneous enhancement. No mass, inflammation or ductal dilation. Spleen: No significant abnormality noted. Adrenals: No significant abnormality noted. Kidneys and ureters: Simple left renal cyst/s. No simple cyst follow-up necessary. Right kidney appears normal. No renal stone, hydronephrosis or perinephric fluid. The right kidney appears normal. Stomach and bowel: Moderate amounts of stool throughout the colon. There is extensive, severe left colonic diverticulosis. No diverticulitis or obstruction. PELVIS: Appendix: No findings to suggest acute appendicitis. Bladder: Incompletely distended urinary bladder. Mild thickening not excluded. No stones or gas. Reproductive: Hysterectomy. ABDOMEN and PELVIS: Intraperitoneal space: No free air. No significant fluid collection. Bones/joints: Degenerative changes noted throughout the spine. No acute osseous abnormality seen. Soft tissues: No significant abnormality noted. Vasculature: Atherosclerotic calcification of the aorta and branches. No aneurysm. Lymph nodes: No pathologically enlarged lymph nodes. IMPRESSION: 1. Mildly distended gallbladder. If additional imaging is clinically warranted, sonography is the modality of choice. 2. Extensive left colonic diverticulosis. No diverticulitis. 3. Incompletely distended urinary bladder. Mild cystitis not excluded. Correlate with urinalysis. ACT 112: Negative or not required by law. Electronically signed by Yumiko Arnett 12-30-2024 5:10 PM Gallbladder Ultrasound 12/30/24 17:44 EXAM: US Abdomen Limited Right Upper Quadrant INDICATION: Trauma to right side. TECHNIQUE: Real-time ultrasound of the right upper quadrant with image documentation. COMPARISON: CT abdomen the same day FINDINGS: Liver: Smooth cortical contour. No mass. No intrahepatic bile duct dilation. Gallbladder: The gallbladder is distended. No stones or wall thickening. No pericholecystic fluid. Common bile duct: No significant abnormality noted. No stones. No dilation. Pancreas: The talus obscured by gas artifact. No abnormality noted. Right kidney: 8.6 cm long. Normal cortical thickness and echotexture. No mass, stone or hydronephrosis. IMPRESSION: The gallbladder is distended without stones or inflammation. ACT 112: Negative or not required by law. Electronically signed by Yumiko Arnett 12-30-2024 8:00 PM Discharge Plan Visit Data Chief Complaint: Flank Pain Stated Complaint: PAIN IN R SIDE ED Provider: Daina Shaw Discharge Problem: Right flank pain, Hypertension Patient Disposition: Admitted As Inpatient Condition: Good Discharge Instructions Interventions: ED Discharge Assessment Last Done: 12/31/24 04:56
[2024-12-30] MEDS: OPTIRAY 320 100ml IV ONE (16:37)
--- NOTE | 2024-12-30 16:43 | XRay Report ---
EXAM: Radiograph of the Chest 1 View INDICATION: Pain. TECHNIQUE: Frontal view of the chest. COMPARISON: 08/18/2023 FINDINGS: Lungs and pleural spaces: Stable mild scarring of the interstitial markings and basilar parenchymal. No pleural effusion or pneumothorax. Heart: Shape and configuration within normal limits allowing for technique. Mediastinum: Normal contour. Bones/joints: No fracture, erosion or dislocation. Soft tissues: No abnormality noted. No radiopaque foreign body noted. Vasculature: Stable ectatic calcified aorta. Upper abdomen: No abnormality noted. IMPRESSION: Stable chronic changes. No acute disease. ACT 112: Negative or not required by law. Electronically signed by Yumiko Arnett 12-30-2024 4:42 PM
--- NOTE | 2024-12-30 17:10 | CT Scan Report ---
EXAM: CT Abdomen and Pelvis With Intravenous Contrast INDICATION: Right flank pain. TECHNIQUE: Axial computed tomography images of the abdomen and pelvis with intravenous contrast. Sagittal and coronal reformatted images were created and reviewed. This CT exam was performed using one or more of the following dose reduction techniques: automated exposure control, adjustment of the mA and/or kV according to patient size, and/or use of iterative reconstruction technique. CONTRAST: 90ml of Optiray 320 was administered intravenously. COMPARISON: 08/18/2023 FINDINGS: Limitations: None. Lung bases: No abnormality noted. Pleural space: No visualized pleural effusion or pneumothorax. Heart: No abnormality noted. Mediastinum: No abnormality noted. ABDOMEN: Liver: No abnormality noted. Gallbladder and bile ducts: Mildly distended gallbladder. No calcified stones. No ductal dilatation or calcification noted. Pancreas: Homogeneous enhancement. No mass, inflammation or ductal dilation. Spleen: No significant abnormality noted. Adrenals: No significant abnormality noted. Kidneys and ureters: Simple left renal cyst/s. No simple cyst follow-up necessary. Right kidney appears normal. No renal stone, hydronephrosis or perinephric fluid. The right kidney appears normal. Stomach and bowel: Moderate amounts of stool throughout the colon. There is extensive, severe left colonic diverticulosis. No diverticulitis or obstruction. PELVIS: Appendix: No findings to suggest acute appendicitis. Bladder: Incompletely distended urinary bladder. Mild thickening not excluded. No stones or gas. Reproductive: Hysterectomy. ABDOMEN and PELVIS: Intraperitoneal space: No free air. No significant fluid collection. Bones/joints: Degenerative changes noted throughout the spine. No acute osseous abnormality seen. Soft tissues: No significant abnormality noted. Vasculature: Atherosclerotic calcification of the aorta and branches. No aneurysm. Lymph nodes: No pathologically enlarged lymph nodes. IMPRESSION: 1. Mildly distended gallbladder. If additional imaging is clinically warranted, sonography is the modality of choice. 2. Extensive left colonic diverticulosis. No diverticulitis. 3. Incompletely distended urinary bladder. Mild cystitis not excluded. Correlate with urinalysis. ACT 112: Negative or not required by law. Electronically signed by Yumiko Arnett 12-30-2024 5:10 PM
[2024-12-30] MEDS: LIDOCAINE 5% 1 PATCH TD STA (17:53)
[2024-12-30] MEDS: ACETAMINOPHEN 1,000 MG/100 ML VIAL IV STA (17:53)
--- NOTE | 2024-12-30 20:00 | Ultrasound Report ---
EXAM: US Abdomen Limited Right Upper Quadrant INDICATION: Trauma to right side. TECHNIQUE: Real-time ultrasound of the right upper quadrant with image documentation. COMPARISON: CT abdomen the same day FINDINGS: Liver: Smooth cortical contour. No mass. No intrahepatic bile duct dilation. Gallbladder: The gallbladder is distended. No stones or wall thickening. No pericholecystic fluid. Common bile duct: No significant abnormality noted. No stones. No dilation. Pancreas: The talus obscured by gas artifact. No abnormality noted. Right kidney: 8.6 cm long. Normal cortical thickness and echotexture. No mass, stone or hydronephrosis. IMPRESSION: The gallbladder is distended without stones or inflammation. ACT 112: Negative or not required by law. Electronically signed by Yumiko Arnett 12-30-2024 8:00 PM
[2024-12-30] MEDS: KETOROLAC TROMETHAMINE 15 MG/ML VIAL IV ONE (20:13)
--- OUTSIDE RECORDS SUMMARY | 2024-12-30 21:03 | External Medical Summary | Summary of Care ---
Author Name Unknown Organization [facility] Address [address] [place] [address] Phone [phone] Care Team Providers Care Board Winder Name Role Phone Vickie Pagan DO Primary Care Provider [phone] Reason for Visit * Reason Onset Date Comments Test Results 12/23/202412/23 Information 12/23/202412/24 Encounter Details Date Type Department Care Team (Late st Contact Info) Description 12/23/2024 [facility] [address] [place] [address] Vickie Pagan DO [address] [place] [address] Test Results (12/23); Information (12/24) Allergies Active Allergy Reactions Criticality Noted Date Comments Alan Inhibitors Cough 07/13/2022 Celecoxib 08/07/2010 Long ago Rash Ciprofloxacin Hcl Rash 03/12/2013 Metronidazole Hcl Rash 04/28/2013 Penicillins 1997 Rash documented as of this encounter (statuses as of 12/27/2024) Medications ONE DAILY PO TABS Take by mouth. Centrum Silver Women 50+ 3 Active Osteo Bi-Flex One Per Day Oral Tablet Take by mouth 2 times a day. Active Aspirin 81 MG Oral Tablet Chewable Take 1 Tablet by mouth in the morning. with food.. 2 Active Acetaminophen 500 MG Oral Tablet Take 1 Tablet by mouth every 6 hours as needed. Active Metamucil [facility] Fiber 58.12 % Oral Packet (Psyllium) Take 1 Packet by mouth in the morning and 1 Packet before bedtime. Active diazePAM 5 MG Oral Tablet (Valium)Indicati ons:Anxiety state Take 1 Tablet by mouth every 8 hours as needed for Anxiety. 30 Tablet 4 Active Gabapentin 300 MG Oral Capsule (Neurontin)Indic ations:Bilateral foot pain Take 2 Capsules by mouth in the morning and 2 Capsules in the evening. 400 Capsule 3 12/15/2024 6:37 PM EST 4 Active PARoxetine HCl 30 MG Oral Tablet (Paxil)Indicatio ns:ENRIQUE (generalized anxiety disorder) TAKE ONE TABLET BY MOUTH EVERY DAY 100 Tablet 3 10/05/2024 8:35 AM EST 4 03/22/20 25 Active Furosemide 20 MG Oral Tablet (Lasix)Indicatio ns:SAUCEDO (dyspnea on exertion),Diasto lic dysfunction TAKE 1 TABLET BY MOUTH THREE TIMES A WEEK 36 Tablet 3 10/07/2024 10:29 AM EST 4 Active Rosuvastatin Calcium 20 MG Oral Tablet (Crestor)Indicat ions:Dyslipidemi a, goal LDL below 100 TAKE ONE TABLET BY MOUTH EVERY DAY 100 Tablet 1 12/09/2024 7:19 AM EST 4 08/15/20 25 Active amLODIPine Besylate 2.5 MG Oral Tablet (Norvasc)Indicat ions:HTN, goal below 140/90 TAKE ONE TABLET BY MOUTH IN THE MORNING 100 Tablet 3 12/09/2024 7:19 AM EST 4 08/29/20 25 Active busPIRone HCl 5 MG Oral Tablet (Buspar)Indicati ons:ENRIQUE (generalized anxiety disorder),Modera te major depression (HCC) Take 1 Tablet by mouth in the morning and 1 Tablet before bedtime. 200 Tablet 1 09/30/2024 7:08 AM EST 4 Active diazePAM 5 MG Oral Tablet (Valium)Indicati ons:Anxiety state TAKE ONE TABLET BY MOUTH EVERY 8 HOURS NEEDED ANXIETY 30 Tablet 11/29/2024 10:55 AM EST 5 05/25/20 25 Active Omeprazole 40 MG Oral Capsule Delayed Release (PriLOSEC)Indica tions:Gastroesop hageal reflux disease without esophagitis TAKE ONE CAPSULE BY MOUTH EVERY MORNING 100 Capsule 3 12/15/2024 6:37 PM EST 5 12/14/19 26 Active Cephalexin 500 MG Oral Capsule Take 1 Capsule by mouth in the morning and 1 Capsule before bedtime. Do all this for 7 days. 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 07/30/2022 HTN, goal below 140/90 07/16/2022 Chronic kidney disease, stage 3a 06/24/2022 Overview: Per CKD protocol Cerebral atrophy 05/23/2022 Hx of actinic keratosis 10/16/2021 H/O multiple pulmonary nodules 07/02/2021 Thoracic aortic ectasia 06/15/2021 History of left breast cancer 06/01/2019 Tendinitis of wrist 01/28/2019 ENRIQUE (generalized anxiety disorder) 12/01/2018 Gastroesophageal reflux disease without esophagi tis 12/01/2018 Primary osteoarthritis of right knee 03/12/2017 Hx of skin cancer, basal cell 01/15/2012 Overview (10/18/2022): BCC L lateral neck 09/2021, BCC L midback, R lateral neck, R upper back 06/2019,BCC L cheek 10/2018, L lateral neck near jawline 10/2018,R nasal sidewall 10/2016, L upper arm 08/2016, BCC, R posterior auricular 03/2016, left nasolabial fold, L neck, R and L scapula 04/2015, BCC midforehead 05/2014, BCC R upper back 12/2012, BCC R druze 07/2012, R cheek 02/2012, L upper arm 2/2012BCC L preauricular x 2 (Jaimie, 2009); possibly others on trunk before that - pt unsure (Dr. 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 ADVANCE DIRECTIVE INFORMATION 09/05/2016 09/20/2024 Overview (06/29/2010): Yes, Patient instructed to provide copy of advance directive for provider to review and to be scanned into Electronic Medical Record Esophageal reflux 01/12/2009 12/01/2018 Anxiety state 07/27/2008 12/01/2018 documented as of this encounter (statuses as of 12/27/2024) Immunizations Name Administration Dates Next Due COVID-19 mRNA, LNP-s, No Pre serve, 2-Dose Series (Moderna) 09/19/2021,01/05/2021,12/08/2020 COVID-19, MRNA-LNP, PF, 30 M CG/0.3 mL, 12 YRS AND ABOVE, IM (PFIZER-Comirnaty) 09/29/2023 COVID-19, mRNA, LNP-s, PF, B ooster, 100mcg/0.5mg (Moderna) 03/28/2022 Covid-19, Mrna, Lnp-s, Pf, B ivalent, 30 Mcg, IM, 12 yrs and above (Pfizer) 02/13/2023 Pneumococcal Conjugate Vacc, 13 Valent (Prevnar) 05/06/2016 Pneumococcal Conjugate Vacci ne, 20-valent ([id number]) 08/09/2024 Pneumococcal Polysaccharide PPV23 (Pneumovax) 10/17/2006 Season Influenza, Quad, PF, Adjuvanted, 65+ Yrs, IM (FLUAD) 07/19/2022,07/30/2021,07/19/2020 Seasonal Influenza Vac., MDV , IM, 0.5 mL (Fluzone) 07/22/2014,09/13/2013,07/24/2012,07/19,08/07/2010,08/10/2009,09/01/2008 Seasonal Influenza, High Dos e, Trivalent, PF, IM (Fluzone HD) 08/09/2024 Seasonal Influenza, PF, 6 M & above, IM , (FluLaval or Fluzone) 08/11/2018,09/05/2017 Seasonal Influenza, Quadriva lent Hd (Fluzone Hd) 07/22/2023 Seasonal Influenza, Quadriva lent, No Preserve, IM 07/06/2020,08/31/2016,08/15/2015 Seasonal Influenza, Trivalen t, Adjuvanted, 65+ YRS, PF, (Fluad) 07/26/2019 TDAP (age 10 and older)(Boostrix) 03/13/2023, Varicella Zoster Vaccine (Adult) 04/08/2012 Zoster Vaccine Recombinant (Shingrix) 10/26/2020 ,07/19/2020 documented as of this encounter Social History Tobacco Use Types Packs/Day Years Used Date Smoking Tobacco: Never Passive Smoke Exposure: Past Smokeless Tobacco: Never Alcohol Use Standard Drinks/Week Comments Yes 0 (1 standard drink = 0.6 oz pur e alcohol) rare occasion-glass of wine PHQ-2 Answer Date Recorded PHQ Adult Total Score 1 12/21/2024 Hunger Vital Sign Answer Date Recorded Within the past 12 months, y ou worried that your food would run out before you got the money to buy more. Never true 11/06/20 23 Within the past 12 months, t he food you bought just didn't last and you didn't have money to get more. Never true 11/06/2023 Childcare Answer Date Recorded Do you feel overwhelmed with taking care of a child, family member or friend? No 11/06/2023 Does your family need help f inding childcare? (Household - for ages 0-17 years) Not on file 11/06/2023 Clothing Answer Date Recorded Have you been unable to get clothing when it was really needed? No 11/06/2023 Is your family able to get c lothes or diapers when needed? (Household - for ages 0-17 years) Not on file 11/06/2023 Personal Safety Answer Date Recorded Do you feel unsafe or have concerns for your saf ety? No 11/06/2023 Do you have concerns for you r family's safety? (Household - for ages 0-17 years) Not on file 11/06/2023 Utilities Answer Date Recorded Do you have trouble paying y our heating, water, or electric bill? No 11/06/2023 Is your family able to pay t he heat, water, or electric bill? (Household - for ages 0-17 years) Not on file 11/06/2023 Does your family have access to good internet? (Household - for ages 0-17 years) Not on file 11/06/2023 Employment Status Answer Date Recorded Are you unemployed or without regular income? No 11/06/2023 Does the household have a re gular source of income? (Household - for ages 0-17 years) Not on file 11/06/2023 Social Connections Answer Date Recorded How often do you feel lonely or isolated from those around you? Sometimes 11/06/2023 Financial Resource Strain Answer Date R ecorded Do you have any trouble payi ng for your medications, or do you think you might in the future? No 11/06/2023 Does your family have troubl e paying for medicine? (Household - for ages 0-17 years) Not on file 11/06/2023 Transportation Needs Answer Date Record ed READ ONLY Do you have troubl e getting a ride to medical visits or work? Never True 11/06/2023 Does your family have a hard time getting a ride to doctors visits? (Household - for ages 0-17 years) Not on file 11/06/2023 Has lack of transportation k ept you from medical appointments, meetings, work, or from getting things needed for daily living? Check all that apply. (Adult - for ages 18 years and over) Not on file 11/06/2023 Do you (or your family) have trouble finding or paying for a ride (transportation)? (Household - for ages 0-17 years) Not on file 11/06/2023 Housing Stability Answer Date Recorded Do you currently live in a s helter or have no steady place to sleep at night? No 11/06/2023 READ ONLY Do you think you a re at risk of becoming homeless? No 11/06/2023 Does your family worry about paying for your home or becoming homeless? (Household - for ages 0-17 years) Not on file 1 01/07/2023 Are you homeless or worried that you might be in the future? (Adult - for ages 18 years and over) Not on file Are you (or your family) tl eless or worried that you might be in the future? (Household - for ages 0-17 years) Not on file Food Insecurity Answer Date Recorded Do you need food for this week? No 11/06/2023 Are you able to get enough f ood for your family? (Household - for ages 0-17 years) Not on file 11/06/2023 Does your family need food t his week? (Household - for ages 0-17 years) Not on file 11/06/2023 Do you always have enough fo od for your family? (Household - for ages 0-17 years) Not on file 11/06/2023 Comments No Sex and Gender Information Value Date Recorded Sex Assigned at Female 04/10/2022 9:44 AM EDT Legal Sex Female 5:56 AM EST Gender Identity Female 04/10/2022 9:44 AM EDT Sexual Orientation Straight 12/20/2019 11 :12 AM EST documented as of this encounter Miscellaneous Notes * Telephone Encounter - Vickie Pagan DO - 12/24/2024 5:32 PM EST Spoke with daughter. Questions answered. Pyridium not appropriate. Reviewed pt's care with her. Sheis looking into placement which I think is appropriate. Discussed at length. * Telephone Encounter - Roula Bettencourt LPN - 12/24/2024 4:53 PM EST Call placed to daughter Joss - Per dtr - pt tells her everyday that pt is having back pain. Dtr states a friend of hers has pain with when she gets a UTI and is prescribed pyridium. She is thinkingthis will help her mother. Explained that pt just started antibiotic yesterday. Discussed tylenol for pain - dtr said pt reports tylenol does not work. Dtr is requesting Pyridium and would like to know if Dr. Pagan will prescribe it today. Aware Dr. Pagan is with pts and will try to call her on Friday. Dtr asking for call back today regarding Pyridium. * Telephone Encounter - Vickie Pagan DO - 12/24/2024 4:45 PM EST She had no urinary symptoms. Why pyridium? I am busy with patients. Are there specific questions? Likely won't call til Friday. * Telephone Encounter - Pippa Chen LPN - 12/24/2024 4:41 PM EST Pt's daughter Joss calling in again. States pt is c/o a lot of pain - asking if Pyridium can be called in to the pharmacy. Please advise. Pharmacy selected in chart. Would like a call back if this is called in. * Telephone Encounter - Pippa Chen LPN - 12/24/2024 4:02 PM EST Pt's daughter Joss calling in checking on status of this message. Advised Dr. Pagan is seeing patients, but will address as soon as she gets a chance. Aware and verbalized understanding. * Telephone Encounter - Roula Bettencourt LPN - 12/23/2024 3:41 PM EST Call placed to daughter. She is asking if Dr. Pagan would be able to give her a call. She has some questions about her mother and wants advice going forward. States she is not getting better. Reports pain in back at times. Daughter states pain is always the same. Dtr questioning if pt c/o pain could be pt seeking attention. * Telephone Encounter - Birdie Mackey OSA - 12/23/2024 3:36 PM EST Dtr called back,asking for Roula,has another question, did not specify what. * Telephone Encounter - Roula Bettencourt LPN - 12/23/2024 10:11 AM EST Call placed to patient's daughter Joss and relayed information from Dr. Pagan. Joss acknowledged understanding and states she will add antibiotic to pts medication dispenser. No questions at this time. * Telephone Encounter - Roula Bettencourt LPN - 12/23/2024 9:35 AM EST Call placed to patient's daughter - no answer. Message left to return call to [phone]. * Telephone Encounter - Vickie Pagan DO - 12/23/2024 8:50 AM EST Please let pt's daughter know: Urine shows infection. She will need antibiotic. Keflex sent to [facility]. documented in this encounter Plan of Treatment Upcoming Encounters Date Type Department Care Team (Late st Contact Info) Description 01/03/2025 9:45 AM EST Imaging Radiology [facility] [address] [facility] [place] [address] [place] [id number] 01/27/2025 10:00 AM EDT Office Visit Family Practice [address] [place] [address] [place] [address] Vickie Pagan DO [address] [facility], [place] [address] Health Maintenance Due Date Last Done Comments CKD PHOS USE SMARTSET 44261 01/30/2024 01/29/2023, 1 COVID-19 Vaccine ( season) 2024 09/29/2023, 02/13/2023, 03/28/2022, Additional history exists CKD HGB USE SMARTSET 28897 09/12/202409/12, 09/12/2023, 01/29/2023, Additional history exists Adult Wellness Visit 11/06/2024 11/06/2023, 10/17/2022, 10/04/2021 Mammogram 07/29/2025 07/29/2024, 07/18, 12/26/2023, Additional history exists Albumin/Creatinine Ratio 08/09/2025 024, 07/22/2023, 08/19/2022 Depression Monitoring 12/21/2025 12/21/2024 DXA Scan 09/04/2026 09/04/2023, 08/17, 07/20/2020, Additional history exists DTap/Tdap Vaccines (3 - Td or Tdap) 03/13/2033 03/13/2023, 03/10/2013 Zoster Vaccines Completed 10/26/2020, 12/2019, 04/08/2012 Influenza Vaccine (FLU shot) Completed , 07/22/2023, 07/19/2022, Additional history exists Pneumococcal Vaccine: 50+ Years Completed 08/09/2024, 05/06/2016, 10/17/2006 HPV (Gardasil) Vaccine Aged Out No lo nger eligible based on patient's age to complete this topic Hepatitis B Vaccine Aged Out No longe r eligible based on patient's age to complete this topic MENINGOCOCCAL (MENACTRA/MENVEO) Aged Out No longer eligible based on patient's age to complete this topic documented as of this encounter Medical Devices Not on filedocumented as of this encounter Care Teams Board Winder Relationship Specialty Start Date End Date Vickie Pagan DO [address] [place] [address] PCP - General Family Medicine 06/08/24 documented as of this encounter
--- OUTSIDE RECORDS SUMMARY | 2024-12-30 21:04 | External Medical Summary | Summary of Care ---
Author Name Unknown Organization [facility] Address [address] [place] [address] Phone [phone] Care Team Providers Care Director E Learning Name Role Phone Vickie Pagan DO Primary Care Provider Reason for Visit * Reason Onset Date Comments Test Results 12/23/202412/23 Encounter Details Date Type Department Care Team (Late st Contact Info) Description 12/23/2024 Telephone Family Practice [address] [place] [address] [place] [address] Vickie Pagan DO [address] [place], [place] [id number] Test Results (12/23) Allergies Active Allergy Reactions Criticality Noted Date Comments Alan Inhibitors Cough 07/13/2022 Celecoxib 08/07/2010 Long ago Rash Ciprofloxacin Hcl Rash 03/12/2013 Metronidazole Hcl Rash 04/28/2013 Penicillins 1997 Rash documented as of this encounter (statuses as of 12/23/2024) Medications ONE DAILY PO TABS Take by [...] as of this encounter (statuses as of 12/23/2024) Active Problems Problem Noted Date Diagnosed Date [...] BCC R upper back 12/2012, BCC R taoism 07/2012, R cheek 02/2012, L upper arm CC L preauricular x 2 (Petrick, 2009); possibly others on trunk before that - pt unsure (Dr. 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 ADVANCE DIRECTIVE INFORMATION 09/05/2016 09/20/2024 Overview (06/29/2010): Yes, Patient instructed to provide copy of advance directive for provider to review and to be scanned into Electronic Medical Record Esophageal reflux 01/12/2009 12/01/2018 Anxiety state 07/27/2008 12/01/2018 documented as of this encounter (statuses as of 12/23/2024) Immunizations Name Administration Dates Next Due COVID-19 [...] (Prevnar) 05/06/2016 Pneumococcal Conjugate Vacci ne, 20-valent ([id number]) 08/09/2024 Pneumococcal Polysaccharide PPV23 (Pneumovax) 10/17/2006 Season [...] encounter Miscellaneous Notes * Telephone Encounter - Roula Bettencourt LPN [...] AM EST Call placed to patient's daughter María Elena and relayed information from Dr. Pagan. María Elena acknowledged understanding and states she will add antibiotic to pts medication dispenser. No questions at this time. * Telephone Encounter - Roula Bettencourt LPN - 12/23/2024 9:35 AM EST Call placed to patient's daughter - no answer. Message left to return call to [phone]. * Telephone Encounter - Vickie Pagan DO - 12/23/2024 8:50 AM EST Please let pt's daughter know: Urine shows infection. She will need antibiotic. Keflex sent to [facility]. documented in this encounter Plan of Treatment Upcoming Encounters Date Type Department Care Team (Late st Contact Info) Description 01/27/2025 10:00 AM EDT Office Visit Family Practice [address], [place] [address] [facility], [place] [id number] [facility] [address] [facility] [address] Health Maintenance Due Date Last Done Comments CKD PHOS USE SMARTSET 62555 01/30/2024 01/29/2023, 1 COVID-19 Vaccine ( season) 2024 09/29/2023, 02/13/2023, 03/28/2022, Additional history exists CKD HGB USE SMARTSET 59373 09/12/202409/12, 09/12/2023, 01/29/2023, Additional history exists Adult [...] filedocumented as of this encounter Care Teams Director E Learning Relationship Specialty Start Date End Date Vickie Pagan DO [address] [facility] [place] [address] PCP - General Family Medicine 06/08/24 documented as of this encounter
--- OUTSIDE RECORDS SUMMARY | 2024-12-30 21:04 | External Medical Summary | Summary of Care ---
Author Name Unknown Organization [facility] Address [address] [place] [address] Phone [phone] Care Team Providers Care Event Organizer Name Role Phone Vickie Pagan DO Primary Care Provider Reason for Visit * Reason Onset Date Comments Test Results 12/21/202412/21 Encounter Details Date Type Department Care Team (Late st Contact Info) Description 12/21/2024 Telephone Laboratory, [address] [address] Vickie Pagan DO [address] [place] [address] Test Results (12/21) Allergies Active Allergy Reactions Criticality Noted Date Comments Alan Inhibitors Cough 07/13/2022 Celecoxib 08/07/2010 Long ago Rash Ciprofloxacin Hcl Rash 03/12/2013 Metronidazole Hcl Rash 04/28/2013 Penicillins 1997 Rash documented as of this encounter (statuses as of 12/22/2024) Medications ONE DAILY PO TABS Take by [...] 6:37 PM EST 5 12/14/19 26 Active documented as of this encounter (statuses as of 12/22/2024) Active Problems Problem Noted Date Diagnosed Date [...] BCC R upper back 12/2012, BCC R rastafari 07/2012, R cheek 02/2012, L upper arm CC L preauricular x 2 (Jaimie, 2009); possibly others on trunk before that - pt unsure (Dr. 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 ADVANCE DIRECTIVE INFORMATION 09/05/2016 09/20/2024 Overview (06/29/2010): Yes, Patient instructed to provide copy of advance directive for provider to review and to be scanned into Electronic Medical Record Esophageal reflux 01/12/2009 12/01/2018 Anxiety state 07/27/2008 12/01/2018 documented as of this encounter (statuses as of 12/22/2024) Immunizations Name Administration Dates Next Due COVID-19 mRNA, LNP-s, No Pre serve, 2-Dose Series (Moderna) 09/19/2021,01/05/2021,12/08/2020 COVID-19, MRNA-LNP, PF, 30 M CG/0.3 mL, 12 YRS AND ABOVE, IM (PFIZER-Comirnat) 09/29/2023 COVID-19, mRNA, LNP-s, PF, B ooster, 100mcg/0.5mg (Moderna) 03/28/2022 Covid-19, Mrna, Lnp-s, Pf, B ivalent, 30 Mcg, IM, 12 yrs and above (Pfizer) 02/13/2023 Pneumococcal Conjugate Vacc, 13 Valent (Prevnar) 05/06/2016 Pneumococcal Conjugate Vacci ne, 20-valent ([id number]) 08/09/2024 Pneumococcal Polysaccharide PPV23 (Pneumovax) 10/17/2006 Season [...] 18 years and over) Not on file 3 Are you (or your family) tl eless [...] Telephone Encounter - Roula Bettencourt LPN - 12/21/2024 5:14 PM EST Call placed to patient's daughter María Elena - no answer. Message left to return call to [phone]. * Telephone Encounter - Vickie Pagan DO - 12/21/2024 4:38 PM EST Please let daughter and pt know: CT really ok. Possible UTI but CT could not say for sure which is why we sent culture. There are some new pulmonary nodules. Radiology is recommending a chest CT. Is she agreeable? Otherwise, no cause for her pain. May be muscular. Use tylenol and use ice/heat to area. * Telephone Encounter - Lucien Lomeli OSA - 12/21/2024 4:04 PM EST Peyton- The radiologist discovered an unexpected or indeterminate finding on Jessica Gilliam ([id number]) and asks that you review the following report. Study Type: CT ABD/PELVIS WO IV/ORAL CONTRAST Date of Study: 12/21/2024 IMPRESSION: 1. No renal calculi or hydronephrosis. 2. Mild nonspecific urinary bladder wall thickening. Findings may be related to urinary bladder underdistention. Please correlate for the presence of urinary symptoms and if clinically warranted, with urinalysis to exclude cystitis. 3. Colonic diverticulosis without diverticulitis. 4. Multiple pulmonary nodules in the visualized lower lungs measuring up to 9 mm, some of which arenew compared to the prior exam. Dedicated chest CT is recommended for further evaluation. Please respond to this encounter to acknowledge receipt of this message and take responsibility to ensure this report is reviewed. Thank you, DOMENIC Montes De Oca Client Service [facility] documented in this encounter Plan of Treatment Upcoming Encounters Date Type Department Care Team (Late st Contact Info) Description 01/27/2025 10:00 AM EDT Office Visit Family Practice [facility] [address] [place] [phone] Vickie Pagan DO [address] [place] [address] Health Maintenance Due Date Last Done Comments CKD PHOS USE SMARTSET 33633 01/30/2024 01/29/2023, 1 COVID-19 Vaccine ( season) 2024 09/29/2023, 02/13/2023, 03/28/2022, Additional history exists CKD HGB USE SMARTSET 17397 09/12/202409/12, 09/12/2023, 01/29/2023, Additional history exists Adult [...] filedocumented as of this encounter Care Teams Event Organizer Relationship Specialty Start Date End Date Vickie Pagan DO [address] [place] [address] PCP - General Family Medicine 06/08/24 documented as of this encounter
--- OUTSIDE RECORDS SUMMARY | 2024-12-30 21:04 | External Medical Summary | Summary of Care ---
Author Name Unknown Organization [facility] Address [address] [place] [address] Phone [phone] Care Team Providers Care Child Advocate Name Role Phone Vickie Pagan DO Primary Care Provider [phone] Reason for Visit * Reason Onset Date Comments Test Results 12/23/202412/23 Information 12/23/202412/24 Encounter Details Date Type Department Care Team (Late st Contact Info) Description 12/23/2024 [facility] [address] [place] [address] Vickie Pagan DO [address] [place] [address] Test Results (12/23); Information (12/24) Allergies Active Allergy Reactions Criticality Noted Date Comments Alan Inhibitors Cough 07/13/2022 Celecoxib 08/07/2010 Long ago Rash Ciprofloxacin Hcl Rash 03/12/2013 Metronidazole Hcl Rash 04/28/2013 Penicillins 1997 Rash documented as of this encounter (statuses as of 12/24/2024) Medications ONE DAILY PO TABS Take by [...] as of this encounter (statuses as of 12/24/2024) Active Problems Problem Noted Date Diagnosed Date [...] BCC R upper back 12/2012, BCC R amish 07/2012, R cheek 02/2012, L upper arm 2/2012BCC L preauricular x 2 (Jaimie, 2009); possibly others on trunk before that - pt unsure (Dr. 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 Message left to return call to [phone]. * Telephone Encounter - Vickie Pagan DO - 12/23/2024 8:50 AM EST Please let pt's daughter know: Urine shows infection. She will need antibiotic. Keflex sent to [facility]. documented in this encounter Plan of Treatment Upcoming Encounters Date Type Department Care Team (Late st Contact Info) Description 01/03/2025 9:45 AM EST Imaging Radiology [address], [place] [address] [place] [phone] 01/27/2025 10:00 AM EDT Office Visit Family Practice [address], [place] [address] [place] [phone] Vickie Pagan DO 293 [place] [address] Health Maintenance Due Date Last Done Comments CKD PHOS USE SMARTSET 40210 01/30/2024 01/29/2023, 1 COVID-19 Vaccine ( season) 2024 09/29/2023, 02/13/2023, 03/28/2022, Additional history exists CKD HGB USE SMARTSET 14232 09/12/202409/12, 09/12/2023, 01/29/2023, Additional history exists Adult [...] filedocumented as of this encounter Care Teams Child Advocate Relationship Specialty Start Date End Date Vickie Pagan DO [address] [facility] [place] [address] PCP - General Family Medicine 06/08/24 documented as of this encounter
--- OUTSIDE RECORDS SUMMARY | 2024-12-30 21:04 | External Medical Summary | Summary of Care ---
Author Name Unknown Organization [facility] Address [address] [place] [address] Phone [phone] Care Team Providers Care Pilot Boat Captain Name Role Phone Vickie Pagan DO Primary Care Provider Reason for Visit * Reason Onset Date Comments Test Results 12/23/202412/23 Information 12/23/202412/24 Encounter Details Date Type Department Care Team (Late st Contact Info) Description 12/23/2024 [facility]phone [facility] [address] [place] [address] Vickie Pagan DO [address] [place] [address] Test Results (12/23); Information (12/24) [...] BCC R upper back 12/2012, BCC R baptist 07/2012, R cheek 02/2012, L upper arm 2/2012BCC L preauricular x 2 (Jaimie, 2009); possibly others on trunk before that - pt unsure (Dr. Rucker) Menopause 01/12/2009 Urinary incontinence Overview (08/18/2017): ICD-10 update of inactive term documented as of this encounter (statuses as of 12/24/2024) Resolved Problems Problem Noted Date Diagnosed Date Resolved Date Food insecurity 04/28/2023 07/03/2023 Overview: Per [facility] Protocol Ductal carcinoma in situ (DC [...] (Prevnar) 05/06/2016 Pneumococcal Conjugate Vacci ne, 20-valent ([id number]) 08/09/2024 Pneumococcal Polysaccharide PPV23 (Pneumovax) 10/17/2006 Season [...] 3:36 PM EST Dtr called back,asking for oRula,has another question, did not specify what. * [...] answer. Message left to return call to [phone]. * Telephone Encounter - Vickie Pagan DO - 12/23/2024 8:50 AM EST Please let pt's daughter know: Urine shows infection. She will need antibiotic. Keflex sent to [facility]. documented in this encounter Plan of Treatment Upcoming Encounters Date Type Department Care Team (Late st Contact Info) Description 01/03/2025 9:45 AM EST Imaging Radiology [address], [place] [address] [place] [phone] 01/27/2025 10:00 AM EDT Office Visit Family Practice [address], [place] 293 [facility] [place] [phone] Vickie Pagan DO 293 [place] [address] Health Maintenance Due Date Last Done Comments CKD PHOS USE SMARTSET 12589 01/30/2024 01/29/2023, 1 COVID-19 Vaccine ( season) 2024 09/29/2023, 02/13/2023, 03/28/2022, Additional history exists CKD HGB USE SMARTSET 83974 09/12/202409/12, 09/12/2023, 01/29/2023, Additional history exists Adult [...] filedocumented as of this encounter Care Teams Pilot Boat Captain Relationship Specialty Start Date End Date Vickie Pagan DO [address] [facility] [address] PCP - General Family Medicine 06/08/24 documented as of this encounter
--- OUTSIDE RECORDS SUMMARY | 2024-12-30 21:04 | External Medical Summary | Summary of Care ---
Author Name Unknown Organization [facility] Address [address] [place] [address] Phone [phone] Care Team Providers Care Cloth Printer Helper Name Role Phone Vickie Pagan DO Primary Care Provider [phone] Reason for Visit * Reason Onset Date Comments Test Results 12/23/202412/23 Information 12/23/202412/24 Encounter Details Date Type Department Care Team (Late st Contact Info) Description 12/23/2024 [facility] [address] [place] [address] Vickie Pagan DO [address] [place] [address] Test Results (12/23); Information (12/24) [...] BCC R upper back 12/2012, BCC R hinduism 07/2012, R cheek 02/2012, L upper arm 2/2012BCC L preauricular x 2 (Jaimie, 2009); possibly others on trunk before that - pt unsure (Dr. Rucker) Menopause 01/12/2009 Urinary incontinence Overview (08/18/2017): ICD-10 update of inactive term documented as of this encounter (statuses as of 12/24/2024) Resolved Problems Problem Noted Date Diagnosed Date Resolved Date Food insecurity 04/28/2023 07/03/2023 Overview: Per [facility] Protocol Ductal carcinoma in situ (DC [...] (Prevnar) 05/06/2016 Pneumococcal Conjugate Vacci ne, 20-valent ([id number]) 08/09/2024 Pneumococcal Polysaccharide PPV23 (Pneumovax) 10/17/2006 Season [...] answer. Message left to return call to [phone]. * Telephone Encounter - Vickie Pagan DO - 12/23/2024 8:50 AM EST Please let pt's daughter know: Urine shows infection. She will need antibiotic. Keflex sent to [facility]. documented in this encounter Plan of Treatment Upcoming Encounters Date Type Department Care Team (Late st Contact Info) Description 01/03/2025 9:45 AM EST Imaging Radiology [address], [place] [address] [place] [phone] 01/27/2025 10:00 AM EDT Office Visit Family Practice [address], [place] [address] [place] [phone] Vickie Pagan DO 293 [place] [address] Health Maintenance Due Date Last Done Comments CKD PHOS USE SMARTSET 64069 01/30/2024 01/29/2023, 1 COVID-19 Vaccine ( season) 2024 09/29/2023, 02/13/2023, 03/28/2022, Additional history exists CKD HGB USE SMARTSET 80719 09/12/202409/12, 09/12/2023, 01/29/2023, Additional history exists Adult [...] filedocumented as of this encounter Care Teams Cloth Printer Helper Relationship Specialty Start Date End Date Vickie Pagan DO [address] [place] [address] PCP - General Family Medicine 06/08/24 documented as of this encounter
--- OUTSIDE RECORDS SUMMARY | 2024-12-30 21:04 | External Medical Summary | Summary of Care ---
Author Name Unknown Organization [facility] Address [address] [place] [address] Phone [phone] Care Team Providers Care Blender Name Role Phone Tommie Cagle DO Primary Care Provider [phone] Reason for Referral * Precert (Within 10 days (routine)) - Authorized Specialty Diagnoses / Procedures Referred By Contac t Referred To Contact Radiology Diagnoses Abnormal CT of the abdomen Pulmonary nodule Procedures CT CHEST WO CONTRAST Tommie Cagle DO [address] [place] [address] Phone: tel: fax: Referral ID Status Reason Start Date Expiration Date V isits Requested Visits Authorized [id number] Authorized 12/22/2024 999 999 Reason for Visit * Reason Onset Date Comments Test Results 12/21/202412/21; 12/22 Encounter Details Date Type Department Care Team (Late st Contact Info) Description 12/21/2024 Telephone Laboratory, [place] [address] [place] [address] Tommie Cagle DO [address] [place] [address] Test Results (12/21; 12/22) Allergies Active Allergy Reactions Criticality Noted Date [...] BCC R upper back 12/2012, BCC R scientology 07/2012, R cheek 02/2012, L upper arm CC L preauricular x 2 (Jaimie, 2009); possibly others on trunk before that - pt unsure (Dr. Rucker) Menopause 01/12/2009 Urinary incontinence Overview (08/18/2017): ICD-10 update of inactive term documented as of this encounter (statuses as of 12/22/2024) Resolved Problems Problem Noted Date Diagnosed Date Resolved Date Food insecurity 04/28/2023 07/03/2023 Overview: Per [facility] Protocol Ductal carcinoma in situ [...] (Prevnar) 05/06/2016 Pneumococcal Conjugate Vacci ne, 20-valent ([id number]) 08/09/2024 Pneumococcal Polysaccharide PPV23 (Pneumovax) 10/17/2006 Season [...] as of this encounter Miscellaneous Notes * Addendum Note - Tommie Cagle DO - 12/22/2024 2:40 PM ESTAddended by: TOMMIE CAGLE on: 12/22/2024 02:40 PM Modules accepted: Orders * Telephone Encounter - Tommie Cagle DO - 12/22/2024 2:39 PM EST Please schedule chest CT. * Telephone Encounter - Roula Bettencourt LPN - 12/22/2024 12:11 PM EST Call placed to daughter María Elena and relayed information from Dr. Cagle and María Elena acknowledged understanding. Reports that Jessica states she is feeling better today - going out to lunch with family. Daughter states they are agreeable to Chest CT. * Telephone Encounter - Roula Bettencourt LPN - 12/21/2024 5:14 PM EST Call placed to patient's daughter María Elena - no answer. Message left to return call to [phone]. * Telephone Encounter - Tommie Cagle DO - 12/21/2024 4:38 PM EST Please [...] Lomeli OSA - 12/21/2024 4:04 PM EST Hello- The radiologist discovered an unexpected or indeterminate finding on Jessica Gilliam ([id number]) and asks that you review the following [...] you, DOMENIC Montes De Oca Client Service Rep [facility] documented in this encounter Plan of Treatment Upcoming Encounters Date Type Department Care Team (Late st Contact Info) Description 01/27/2025 10:00 AM EDT Office Visit Family Practice [address], [place] [address] [place] [address] Tommie Cagle [address] [place] [address] Scheduled Orders Name Type Priority Associated Diagnoses Orde r Schedule CT CHEST WO CONTRAST Medical Imaging Routine Abnormal CT of the abdomen Pulmonary nodule Ordered: 12/22/2024 Health Maintenance Due Date Last Done Comments CKD PHOS USE SMARTSET 38386 01/30/2024 01/29/2023, 1 COVID-19 Vaccine ( season) 2024 09/29/2023, 02/13/2023, 03/28/2022, Additional history exists CKD HGB USE SMARTSET 01080 09/12/202409/12, 09/12/2023, 01/29/2023, Additional history exists Adult [...] Not on filedocumented as of this encounter Visit Diagnoses Diagnosis Abnormal CT of the abdomen- Primary Nonspecific (abnormal) findings on radiological and other examination of abdominal area, including retroperitoneum Pulmonary nodule Solitary pulmonary nodule documented in this encounter Care Teams Blender Relationship Specialty Start Date End Date Tommie Cagle DO [address] [place] [address] PCP - General Family Medicine 06/08/24 documented as of this encounter
--- OUTSIDE RECORDS SUMMARY | 2024-12-30 21:04 | External Medical Summary | Summary of Care ---
Author Name Unknown Organization [facility] Address [address] [place] [address] Phone [phone] Care Team Providers Care Hogshead Salvage Name Role Phone Vickie Pagan DO Primary Care Provider Reason for Visit * Reason Onset Date Comments Test Results 12/23/202412/23 Information 12/23/202412/24 Encounter Details Date Type Department Care Team (Late st Contact Info) Description 12/23/2024 [facility] [address] [place] [address] Vickie Pagan DO [address] [place] [address] Test Results (12/23); Information (12/24) Allergies Active Allergy Reactions Criticality Noted Date Comments Alan Inhibitors Cough 07/13/2022 Celecoxib 08/07/2010 Long ago Rash Ciprofloxacin Hcl Rash 03/12/2013 Metronidazole Hcl Rash 04/28/2013 Penicillins 1997 Rash documented as of this encounter (statuses as of 12/25/2024) Medications ONE DAILY PO TABS Take by [...] as of this encounter (statuses as of 12/25/2024) Active Problems Problem Noted Date Diagnosed Date [...] BCC R upper back 12/2012, BCC R uatsdin 07/2012, R cheek 02/2012, L upper arm 2/2012BCC L preauricular x 2 (Jaimie, 2009); possibly others on trunk before that - pt unsure (Dr. 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 Message left to return call to [phone]. * Telephone Encounter - Vickie Pagan DO - 12/23/2024 8:50 AM EST Please let pt's daughter know: Urine shows infection. She will need antibiotic. Keflex sent to [facility]. documented in this encounter Plan of Treatment Upcoming Encounters Date Type Department Care Team (Late st Contact Info) Description 01/03/2025 9:45 AM EST Imaging Radiology [address], [place] [address] [place] [phone] 01/27/2025 10:00 AM EDT Office Visit Family Practice [address], [place] [address] [place] [phone] Vickie Pagan DO 293 [facility] [place] [address] Health Maintenance Due Date Last Done Comments CKD PHOS USE SMARTSET 29599 01/30/2024 01/29/2023, 1 COVID-19 Vaccine ( season) 2024 09/29/2023, 02/13/2023, 03/28/2022, Additional history exists CKD HGB USE SMARTSET 17672 09/12/202409/12, 09/12/2023, 01/29/2023, Additional history exists Adult [...] filedocumented as of this encounter Care Teams Hogshead Salvage Relationship Specialty Start Date End Date Vickie Pagan DO [address] [facility] [place] [address] PCP - General Family Medicine 06/08/24 documented as of this encounter
--- OUTSIDE RECORDS SUMMARY | 2024-12-30 21:04 | External Medical Summary | Summary of Care ---
Author Name Unknown Organization [facility] Address [address] [place] [address] Phone [phone] Care Team Providers Care Launch Steward Name Role Phone Vickie Cagle DO Primary Care Provider [phone] Reason for Referral * Precert (Within 10 days (routine)) - Authorized Specialty Diagnoses / Procedures Referred By Contac t Referred To Contact Radiology Diagnoses Abnormal CT of the abdomen Pulmonary nodule Procedures CT CHEST WO CONTRAST Vickie Cagle DO [address] [place] [address] Phone: tel: fax: Referral ID Status Reason Start Date Expiration Date V isits Requested Visits Authorized [id number] Authorized 12/22/2024 999 999 Reason for Visit * Reason Onset Date Comments Test Results 12/21/202412/21; 12/22 Encounter Details Date Type Department Care Team (Late st Contact Info) Description 12/21/2024 Telephone Laboratory, [place] [address] [place] [address] Vickie Cagle DO [address] [place] [address] Test Results (12/21; 2) Allergies Active Allergy Reactions Criticality Noted Date [...] BCC R upper back 12/2012, BCC R mu-ism 07/2012, R cheek 02/2012, L upper arm [...] (Prevnar) 05/06/2016 Pneumococcal Conjugate Vacci ne, 20-valent ([id number]) 08/09/2024 Pneumococcal Polysaccharide PPV23 (Pneumovax) 10/17/2006 Season [...] encounter Miscellaneous Notes * Telephone Encounter - Yasmin La OSA - 12/24/2024 10:35 AM EST Spoke to daughter and scheduled. Sooner appt offered and declined. * Addendum Note - Vickie Cagle DO - 12/22/2024 2:40 PM ESTAddended by: VICKIE CAGLE on: 12/22/2024 02:40 PM Modules accepted: Orders * Telephone Encounter - Vickie Cagle DO - 12/22/2024 2:39 PM EST Please schedule chest CT. * Telephone Encounter - Roula Bettencourt LPN - 12/22/2024 12:11 PM EST Call placed to daughter Joss and relayed information from Dr. Cagle and Joss acknowledged understanding. Reports that Jessica states she is feeling better today - going out to lunch with family. Daughter states they are agreeable to Chest CT. * Telephone Encounter - Roula Bettencourt LPN - 12/21/2024 5:14 PM EST Call placed to patient's daughter Joss - no answer. Message left to return call to [phone]. * Telephone Encounter - Vickie Cagle DO - 12/21/2024 4:38 PM EST [...] unexpected or indeterminate finding on Jessica Gilliam ([id number]) and asks that you review the following [...] DOMENIC Montes De Oca Client Service [facility] documented in this encounter Plan of Treatment Upcoming Encounters Date Type Department Care Team (Late st Contact Info) Description 01/03/2025 9:45 AM EST Imaging Radiology [address] [place] [id number] 01/27/2025 10:00 AM EDT Office Visit Family Practice [address], [place] [address] [facility] [address] Vickie Cagle DO [address] [place] [address] Scheduled Orders Name Type Priority Associated Diagnoses Orde r Schedule CT CHEST WO CONTRAST Medical Imaging Routine Abnormal CT of the abdomen Pulmonary nodule Ordered: 12/22/2024 Health Maintenance Due Date Last Done Comments CKD PHOS USE SMARTSET 03836 01/30/2024 01/29/2023, 1 COVID-19 Vaccine (7 - 2024-25 season) 2024 09/29/2023, 02/13/2023, 03/28/2022, Additional history exists CKD HGB USE SMARTSET 23429 09/12/202409/12, 09/12/2023, 01/29/2023, Additional history exists Adult [...] nodule documented in this encounter Care Teams Launch Steward Relationship Specialty Start Date End Date Vickie Cagle DO [address] [place] [address] PCP - General Family Medicine 06/08/24 documented as of this encounter
--- OUTSIDE RECORDS SUMMARY | 2024-12-30 21:04 | External Medical Summary | Summary of Care ---
Author Name Unknown Organization [facility] Address [address] [place] [address] Phone [phone] Care Team Providers Care Manufacturing Helper Name Role Phone Vickie Pagan DO Primary Care Provider Reason for Visit * Reason Onset Date Comments Test Results 12/23/202412/23 Encounter Details Date Type Department Care Team (Late st Contact Info) Description 12/23/2024 Telephone Family Practice [address], [place] [address] [place] [address] Vickie Pagan DO [address] [place], [place] [id number] Test Results (12/23) Allergies Active Allergy Reactions [...] BCC R upper back 12/2012, BCC R latter day 07/2012, R cheek 02/2012, L upper arm CC L preauricular x 2 (Petrick, 2009); possibly others on trunk before that - pt unsure (Dr. Rucker) Menopause 01/12/2009 Urinary incontinence Overview (08/18/2017): ICD-10 update of inactive term documented as of this encounter (statuses as of 12/23/2024) Resolved Problems Problem Noted Date Diagnosed Date Resolved Date Food insecurity 04/28/2023 07/03/2023 Overview: Per [facility] Protocol Ductal carcinoma in situ [...] (Prevnar) 05/06/2016 Pneumococcal Conjugate Vacci ne, 20-valent ([id number]) 08/09/2024 Pneumococcal Polysaccharide PPV23 (Pneumovax) 10/17/2006 Season [...] answer. Message left to return call to [phone]. * Telephone Encounter - Vickie Pagan DO - 12/23/2024 8:50 AM EST Please let pt's daughter know: Urine shows infection. She will need antibiotic. Keflex sent to [facility]. documented in this encounter Plan of Treatment Upcoming Encounters Date Type Department Care Team (Late st Contact Info) Description 01/27/2025 10:00 AM EDT Office Visit Family Practice [address], [place] [address] [place] [address] Vickie Pagan DO [address] [facility] [place] [address] Health Maintenance Due Date Last Done Comments CKD PHOS USE SMARTSET 89996 01/30/2024 01/29/2023, 1 COVID-19 Vaccine ( season) 2024 09/29/2023, 02/13/2023, 03/28/2022, Additional history exists CKD HGB USE SMARTSET 41895 09/12/202409/12, 09/12/2023, 01/29/2023, Additional history exists Adult [...] filedocumented as of this encounter Care Teams Manufacturing Helper Relationship Specialty Start Date End Date Vickie Pagan DO [address] [facility] [place] [address] PCP - General Family Medicine 06/08/24 documented as of this encounter
--- OUTSIDE RECORDS SUMMARY | 2024-12-30 21:04 | External Medical Summary | Summary of Care ---
Author Name Unknown Organization [facility] Address [address] [place] [address] Phone [phone] Care Team Providers Care Passenger Screener Name Role Phone Vickie Pagan DO Primary Care Provider Reason for Visit * Reason Onset Date Comments Test Results 12/21/202412/21 Encounter Details Date Type Department Care Team (Late st Contact Info) Description 12/21/2024 Telephone Laboratory, [address] [address] Vickie Pagan DO [address] [place] [address] Test Results (12/21) Allergies Active Allergy Reactions [...] BCC R upper back 12/2012, BCC R rastafarian 07/2012, R cheek 02/2012, L upper arm CC L preauricular x 2 (Jaimie, 2009); possibly others on trunk before that - pt unsure (Dr. Rucker) Menopause 01/12/2009 Urinary incontinence Overview (08/18/2017): ICD-10 update of inactive term documented as of this encounter (statuses as of 12/22/2024) Resolved Problems Problem Noted Date Diagnosed Date Resolved Date Food insecurity 04/28/2023 07/03/2023 Overview: Per [facility] Protocol Ductal carcinoma in situ [...] (Prevnar) 05/06/2016 Pneumococcal Conjugate Vacci ne, 20-valent ([id number]) 08/09/2024 Pneumococcal Polysaccharide PPV23 (Pneumovax) 10/17/2006 Season [...] answer. Message left to return call to [phone]. * Telephone Encounter - Vickie Pagan DO [...] unexpected or indeterminate finding on Jessica Gilliam ([id number]) and asks that you review the following [...] you, DOMENIC Montes De Oca Client Service [facility] documented in this encounter Plan of Treatment Upcoming Encounters Date Type Department Care Team (Late st Contact Info) Description 01/27/2025 10:00 AM EDT Office Visit Family Practice [address] [facility] [address] [place] [phone] Vickie Pagan DO [address] [place] [address] Health Maintenance Due Date Last Done Comments CKD PHOS USE SMARTSET 95282 01/30/2024 01/29/2023, 1 COVID-19 Vaccine ( season) 2024 09/29/2023, 02/13/2023, 03/28/2022, Additional history exists CKD HGB USE SMARTSET 39520 09/12/202409/12, 09/12/2023, 01/29/2023, Additional history exists Adult [...] filedocumented as of this encounter Care Teams Passenger Screener Relationship Specialty Start Date End Date Vickie Pagan DO [address] [place] [address] PCP - General Family Medicine 06/08/24 documented as of this encounter
--- OUTSIDE RECORDS SUMMARY | 2024-12-30 21:04 | External Medical Summary | Summary of Care ---
Author Name Unknown Organization [facility] Address [address] [place] [address] Phone [phone] Care Team Providers Care Aircraft Dispatcher Name Role Phone Vickie Pagan DO Primary Care Provider Reason for Visit * Reason Onset Date Comments Test Results 12/23/202412/23 Encounter Details Date Type Department Care Team (Late st Contact Info) Description 12/23/2024 Telephone Family Practice [address], [place] [address] [place] [address] Vickie Pagan DO [address] [place], [place] [phone] Test Results (12/23) Allergies Active Allergy Reactions [...] BCC R upper back 12/2012, BCC R roman catholic 07/2012, R cheek 02/2012, L upper arm CC L preauricular x 2 (Petrick, 2009); possibly others on trunk before that - pt unsure (Dr. Rucker) Menopause 01/12/2009 Urinary incontinence Overview (08/18/2017): ICD-10 update of inactive term documented as of this encounter (statuses as of 12/23/2024) Resolved Problems Problem Noted Date Diagnosed Date Resolved Date Food insecurity 04/28/2023 07/03/2023 Overview: Per [facility] Protocol Ductal carcinoma in situ [...] (Prevnar) 05/06/2016 Pneumococcal Conjugate Vacci ne, 20-valent ([id number]) 08/09/2024 Pneumococcal Polysaccharide PPV23 (Pneumovax) 10/17/2006 Season [...] to daughter. She is asking if Dr. Pagna would be able to give her a [...] answer. Message left to return call to [phone]. * Telephone Encounter - Vickie Pagan DO - 12/23/2024 8:50 AM EST Please let pt's daughter know: Urine shows infection. She will need antibiotic. Keflex sent to [facility]. documented in this encounter Plan of Treatment Upcoming Encounters Date Type Department Care Team (Late st Contact Info) Description 01/27/2025 10:00 AM EDT Office Visit Family Practice [address], [place] [address], [place] [phone] [facility]agan DO [facility] [address] Health Maintenance Due Date Last Done Comments CKD PHOS USE SMARTSET 84655 01/30/2024 01/29/2023, 1 COVID-19 Vaccine ( season) 2024 09/29/2023, 02/13/2023, 03/28/2022, Additional history exists CKD HGB USE SMARTSET 88467 09/12/202409/12, 09/12/2023, 01/29/2023, Additional history exists Adult [...] filedocumented as of this encounter Care Teams Aircraft Dispatcher Relationship Specialty Start Date End Date Vickie Pagan DO [address] [facility] [place] [address] PCP - General Family Medicine 06/08/24 documented as of this encounter
--- OUTSIDE RECORDS SUMMARY | 2024-12-30 21:04 | External Medical Summary | Summary of Care ---
Author Name Unknown Organization [facility] Address [address] [place] [address] Phone [phone] Care Team Providers Care Restaurant Operations Manager Name Role Phone Vickie Pagan DO Primary Care Provider Reason for Visit * Reason Onset Date Comments Test Results 12/23/202412/23 Information 12/23/202412/24 Encounter Details Date Type Department Care Team (Late st Contact Info) Description [facility]/23[facility]2024 [facility] [address] [place] [address] Vickie Pagan DO [address] [place] [address] Test Results (12/23); Information (12/24) [...] BCC R upper back 12/2012, BCC R jain 07/2012, R cheek 02/2012, L upper arm 2/2012BCC L preauricular x 2 (Jaimie, 2009); possibly others on trunk before that - pt unsure (Dr. Rucker) Menopause 01/12/2009 Urinary incontinence Overview (08/18/2017): ICD-10 update of inactive term documented as of this encounter (statuses as of 12/24/2024) Resolved Problems Problem Noted Date Diagnosed Date Resolved Date Food insecurity 04/28/2023 07/03/2023 Overview: Per [facility] Protocol Ductal carcinoma in situ (DC [...] (Prevnar) 05/06/2016 Pneumococcal Conjugate Vacci ne, 20-valent ([id number]) 08/09/2024 Pneumococcal Polysaccharide PPV23 (Pneumovax) 10/17/2006 Season [...] answer. Message left to return call to [phone]. * Telephone Encounter - Vickie Pagan DO - 12/23/2024 8:50 AM EST Please let pt's daughter know: Urine shows infection. She will need antibiotic. Keflex sent to [facility]. documented in this encounter Plan of Treatment Upcoming Encounters Date Type Department Care Team (Late st Contact Info) Description 01/03/2025 9:45 AM EST Imaging Radiology [address], [place] [address] [place] [phone] 01/27/2025 10:00 AM EDT Office Visit Family Practice [address], [place] [address] [place] [phone] Vickie Pagan DO 293 [place] [address] Health Maintenance Due Date Last Done Comments CKD PHOS USE SMARTSET 28359 01/30/2024 01/29/2023, 1 COVID-19 Vaccine ( season) 2024 09/29/2023, 02/13/2023, 03/28/2022, Additional history exists CKD HGB USE SMARTSET 86023 09/12/202409/12, 09/12/2023, 01/29/2023, Additional history exists Adult [...] filedocumented as of this encounter Care Teams Restaurant Operations Manager Relationship Specialty Start Date End Date Vickie Pagan DO [address] [facility] [place] [address] PCP - General Family Medicine 06/08/24 documented as of this encounter
--- OUTSIDE RECORDS SUMMARY | 2024-12-30 21:05 | External Medical Summary | Summary of Care ---
Author Name Unknown Organization [facility] Address [address] [place] [address] Phone [phone] Care Team Providers Care Tableau Analyst Name Role Phone Vickie Pagan DO Primary Care Provider [phone] Reason for Referral * Precert (Within 24 hrs (call dept; emergent)) - Authorized Specialty Diagnoses / Procedures Referred By Contac t Referred To Contact Radiology Diagnoses Generalized abdominal pain Right flank pain Procedures CT ABD/PELVIS WO IV/ORAL CONTRAST Vickie Pagan DO [address] [place] [address] Phone: tel: fax: Referral ID Status Reason Start Date Expiration Date V isits Requested Visits Authorized [id number] Authorized 12/21/2024 999 999 Reason for Visit * Reason Comments Acute C/o pain on right si de starting in back and radiating to the front under the right breast. Also has GOLDSTEIN. 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); ENRIQUE (generalized anxiety disorder); Dyslipidemia, goal LDL below 100; Risk and functional assessment Allergies Active Allergy Reactions Criticality Noted Date Comments Alan Inhibitors Cough 07/13/2022 Celecoxib 08/07/2010 Long ago Rash Ciprofloxacin Hcl Rash 03/12/2013 Metronidazole Hcl Rash 04/28/2013 Penicillins 1997 Rash documented as of this encounter (statuses as of 12/21/2024) Medications ONE DAILY PO TABS Take by [...] as of this encounter (statuses as of 12/21/2024) Active Problems Problem Noted Date Diagnosed Date [...] BCC R upper back 12/2012, 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 Rucker) Menopause 01/12/2009 Urinary incontinence Overview (08/18/2017): ICD-10 update of inactive term documented as of this encounter (statuses as of 12/21/2024) Resolved Problems Problem Noted Date Diagnosed Date [...] as of this encounter (statuses as of 12/21/2024) Immunizations Name Administration Dates Next Due COVID-19 [...] (Prevnar) 05/06/2016 Pneumococcal Conjugate Vacci ne, 20-valent ([id number]) 08/09/2024 Pneumococcal Polysaccharide PPV23 (Pneumovax) 10/17/2006 Season [...] Passive Smoke Exposure: Past Smokeless Tobacco: Never Tobacco Cessation:Counseling Given: Yes Alcohol Use Standard Drinks/Week Comments Yes 0 [...] 11/06/2023 Does the household have a re lar source of income? (Household - for ages [...] AM EST documented as of this encounter Last Filed Vital Signs Vital Sign Reading Time Taken Comments Blood Pressure 120/62 12/21/2024 10:07 AM EST Pulse 68 12/21/2024 10:07 AM EST Temperature 36.5 C (97.7 F) 12/21/2024 10:[address] Respiratory Rate - - Oxygen Saturation 97% 12/21/2024 10:07 AM EST Inhaled Oxygen Concentration - - Weight 79.1 kg (174 lb 4.8 oz) 12/21/2024 10:07 AM EST Height 162.6 cm (5' 4") 12/21/2024 10:07 AM EST Body Mass Index 29.92 12/21/2024 10:07 AM EST documented in this encounter Patient Instructions * Patient Instructions* Pippa Chen LPN - 12/21/2024 10:02 AM EST Patient Instructions - Fall Prevention (This education is for all patients over 65 regardless of symptoms) Remember to take your current medications as prescribed. In order to prevent falls, you are encouraged to: Exercise Utilize assistive/adaptive devices Avoid multifocal lenses when walking Avoid hazards in home Maintain a regular toileting schedule Any questions please contact our office. Preventing Falls in the Home (This education is for all patients over 65 regardless of symptoms) As you get older, falls are more likely. Thats because your reaction time slows. Your muscles and joints may also get stiffer, making them less flexible. Illness, medications, and vision changes can also affect your balance. A fall could leave you unable to live on your own. To make your home safer, follow these tips: Floors Put nonskid pads under area rugs Remove throw rugs Replace worn floor coverings Tack carpets firmly to each step on carpeted stairs. Put nonskid strips on the edges of uncarpeted stairs Keep floors and stairs free of clutter and cords Arrange furniture so there are clear pathways Clean up any spills right away Bathrooms Install grab bars in the tub or shower Apply nonskid strips or put a nonskid rubber mat in the tub or shower Sit on a bath chair to bathe Use bathmats with nonskid backing Lighting Keep a flashlight in each room Put a nightlight along the pathway between the bedroom and the bathroom [employer] Patient Education Copyright 2008 - 2010 [employer] except where otherwise noted Preventing Falls: Exercises to Improve Balance, Flexibility, Strength, and Staying Power (This education is for all patients over 65 regardless of symptoms) Certain types of exercises may help make you less likely to fall. Try the ones below. Or do other exercises that your healthcare provider suggests. Depending on your health, you may need to start slowly. Dont let that stop you. Even small amounts of exercise can help you. Be sure to talk to yourhealthcare provider before starting any exercise program. Improve Balance Many types of exercise can help improve balance. Jimmy chi and yoga are good examples. Heres another one to try. You can do it anytime and almost anywhere. Stand next to a counter or solid support. Push yourself up onto your tiptoes. Hold for 5 seconds. If you start to lose your balance, hold on to the counter. Rest and repeat 5 times. Work up to holding for 20 to 30 seconds, if you can. Increase Flexibility Being more flexible makes it easier for you to move around safely. Try exercises like the seated hamstring stretch. Sit in a chair and put one foot on a stool. Straighten your leg and reach with both hands down either side of your leg. Reach as far down your leg as you can. Hold for about 20 seconds. Go back to the starting position. Then repeat 5 times. Switch legs. Build Strength Resistance exercises help build strength. You can do them without equipment. Or you can use weights, elastic bands, or special machines. One such exercise is called the biceps curl. You can hold a 1 pound weight or even a can of soup. Do this exercise at least 3 times a week. Strive for everyday. Sit up straight in a chair. Keep your elbow close to your body and your wrist straight. Bend your arm, moving your hand up to your shoulder. Then slowly lower your arm. Repeat 5 times. Switch to the other arm. Build Your Staying Power Aerobic exercises make your heart and lungs stronger so you can keep moving longer. Walking and swimming are two of the best types of exercises you can do. Using a stationary bike is great, too. Find an aerobic exercise that you enjoy. Start slowly and build up. Even 5 minutes is helpful. Aimfor a goal of 30 minutes, at least 3 times a week. You dont have to do 30 minutes in one session. Break it up and walk a little throughout the day. More Helpful Tips Start easy. Slowly work up to doing more. Talk with your healthcare provider about the best exercises for you. Call senior centers or health clubs about exercise programs. If needed, have a family member watch you walk every so often to check your stability. Exercise with a friend. Choose an activity you both enjoy. Try exercises that you can do anytime, anywhere. Here are two examples. Have someone with you when you first try these: Practice walking by placing one foot right in front of the other. Stand up and sit down 10 times. Repeat this throughout the day. [employer] Patient Education Copyright 2008 [employer] except where otherwise noted. Preventing Falls: Moving Safely Using a Cane or Walker (This education is for all patients over 65 regardless of symptoms) Keep the cane away from your feet so you dont trip. A walking aid, such as a cane or walker, can help you stay more independent and avoid falls. Remember to keep your walking aid within easy reach when youre in a chair or in bed. And learn how to use it safely so you dont injure yourself. Using a Cane If you have a stronger side, hold the cane on that side. Get your balance. Move the cane and your weaker leg forward. Support your weight on both the cane and your weaker side. Step with your stronger leg. Start again from step 1. If youre using a folding walker, be sure you know how to lock it open. Check that its locked open before each use. Using a Walker Roll the walker (or lift it, if youre using one without wheels) forward about 12 inches. Step forward with your weaker leg first. Use the walker to help keep your balance. Bring your other foot forward to the center of the walker. Start again from step 1. Helpful Tips Check with your healthcare provider about the right walking aid to use. Ask about a walker with a seat attached. Check the tips of your cane or walker to make sure they have nonskid covers. Move slowly from room to room. Dont flores. Sit down to get dressed. Use a laura pack or backpack to keep your hands free. Get help for jobs that mean climbing, even on a stepstool. [employer] Patient Education Copyright 2008 [employer] except where otherwise noted. Urinary Incontinence Plan of Care Documentation: (This education is for all patients over 65 regardless of symptoms) Current medications reconciled. Patient encouraged to: Practice kegal exercises Provide education materials Use the restroom every 2 hours throughout the day Limit caffeine, alcohol, spicy foods and acidic foods Keep a bladder diary Limit fluid intake 3-4 hours before bed Lose weight Prevent constipation Take fluid pills at a time when you can get to the bathroom quickly Control sugar better if diabetic Limit fluid intake to 60 oz. per day Wear support stockings (TEDs)if you have edema Pippa Chen LPN 12/21/2024 Kegel Exercises Kegel exercises dont require special clothing or equipment. Theyre easy to learn and simple to do. And if you do them right, no one can tell youre doing them, so they can be done almost anywhere. Your doctor, nurse, or physical therapist can answer any questions you have and help you get started. A Weak Pelvic Floor The pelvic floor muscles may weaken due to aging, and vaginal childbirth, injury, surgery, chronic cough, or lack of exercise. If the pelvic floor is weak, your bladder and other pelvic organs may sag out of place. The urethra may also open too easily and allow urine to leak out. Kegel exercises can help you strengthen your pelvic floor muscles so they can better support the pelvic organs and control urine flow. How Kegel Exercises Are Done Try each of the Kegel exercises described below. When youre doing them, try not to move your leg, buttock, or stomach muscles. While youre urinating, try to stop the flow of urine. Start and stop it as often as you can. Contract as if you were stopping your urine stream, but do it when youre not urinating. Tighten your rectum as if trying not to pass gas. Contract your anus, but dont move your buttocks. Helpful Hints Do your Kegels as often as you can. The more you do them, the faster youll feel the results. Pick an activity you do often as a reminder. For instance, do your Kegels every time you sit down. Tighten your pelvic floor before you sneeze, get up from a chair, cough, laugh, or lift. This protects your pelvic floor from injury and can help prevent urine leakage. Try to hold each Kegel for a slow count to five. You probably wont be able to hold them for thatlong at first, but keep practicing. It will get easier as your pelvic floor gets stronger. Eventually, special weights that you place in your vagina may be recommended to help make your Kegels even more effective. [employer] Patient Education Copyright 2009 - 2010 [employer] except where otherwise noted. Here are some helpful tips for your urinary incontinence: (This education is for all patients over 65 regardless of symptoms) Practice Kegel exercises Use the restroom every 2 hours throughout the day Limit caffeine, alcohol, spicy foods, and acidic foods Keep a bladder diary Limit fluid intake 3-4 hours before bed Lose weight Prevent constipation Take fluid pills at a time when can get to the bathroom quickly Control sugar better if diabetic Limit fluid intake to 60 oz. per day Any questions, please feel free to contact our office. documented in this encounter Progress Notes * Vickie Pagan, - 12/21/2024 10:03 AM EST Images from the original note were not included. Subjective Jessica Gilliam is a 89 year old female that presents for Acute (C/o pain on right side starting in back and radiating to the front under the right breast. Also has GOLDSTEIN.) History of Present Illness Jessica Gilliam is an 89 year old female who presents with abdominal and back pain. She is accompanied by her sister. She experiences pain originating from her ribs and radiating to her back, which has been sore sincea fall a year ago. She has had multiple falls since, including a recent fall in the shower a coupleof weeks ago. She has been seeing a chiropractor for her ribs and back, which has provided some relief. However, she started feeling pain last night, which worsened by the morning. The pain is intermittent, sometimes located in the upper back and other times in the abdomen. An episode last Friday involved back pain while sitting at a dining table, attributed to indigestion. Tylenol, Valium, and an ice pack helped alleviate the pain after a nap. Stretching, particularly lifting her arms, exacerbates the pain. No pain while sitting during the conversation, but the pain comes and goes. Her whole belly hurts, predominantly on one side. She confirms regular bowel movements and no issues with urination, although she sometimes experiences a 'cracking' sound when urinating. No pain with deep breathing. The pain is mostly on one side ofher abdomen. She admits to eating 'junk food' and has been encouraged to consume more nutritious meals. Review of Systems Constitutional: Negative for chills, fatigue, fever and unexpected weight change. Respiratory: Negative for cough, chest tightness, shortness of breath and wheezing. Cardiovascular: Negative for chest pain, palpitations and leg swelling. Gastrointestinal: Positive for abdominal pain. Negative for constipation, diarrhea, nausea and vomiting. Musculoskeletal: Negative for arthralgias, gait problem and joint swelling. Skin: Negative for color change, pallor and rash. Objective Vitals: 12/21/24 1007 Temp: 97.7 F (36.5 C) Pulse: 68 SpO2: 97% BP: 120/62 BMI: 29.9 Physical Exam Physical Exam Constitutional: General: She is not in acute distress. Appearance: She is well-developed. Cardiovascular: Rate and Rhythm: Normal rate and regular rhythm. Heart sounds: Normal heart sounds. No murmur heard. No friction rub. No gallop. Pulmonary: Effort: Pulmonary effort is normal. No respiratory distress. Breath sounds: Normal breath sounds. No wheezing or rales. Abdominal: General: Bowel sounds are normal. There is no distension. Palpations: Abdomen is soft. Tenderness: There is abdominal tenderness (throughout entire abdomen, worse right upper abdomen). There is no guarding. Musculoskeletal: General: No tenderness or deformity. Normal range of motion. Skin: General: Skin is warm and dry. Coloration: Skin is not pale. Findings: No erythema or rash. Neurological: Mental Status: She is alert and oriented to person, place, and time. I have reviewed the following results: Results X-ray rib Assessment and Plan Assessment & Plan Abdominal Pain Diffuse abdominal pain, worse on the right side, with no clear etiology on physical examination. Pain is intermittent and seems to be exacerbated by certain movements. No associated GI symptoms reported. -Order CT scan of the abdomen to further evaluate the cause of the pain. -Advise patient to take Tylenol as needed for pain. Falls Multiple falls reported over the past year, including recent falls in the shower and on outdoor steps. No significant injuries reported from these falls. -Recommend home safety evaluation to identify and mitigate fall risks. Will discuss this with daughter at next visit given her abdominal pain today. -Encourage use of non-slip mats in the shower and careful navigation of outdoor steps. Poor Nutrition Reports of poor dietary habits and preference for "junk food". No specific nutritional deficienciesidentified. -Encourage healthier dietary choices, including incorporation of fresh fruits, vegetables, and leanproteins. -Consider referral to a dietitian for further dietary counseling. (R10.84) Generalized abdominal pain (primary encounter diagnosis) (R10.9) Right flank pain Plan: URINALYSIS, POINT OF CARE (ENTER/EDIT), CULTURE, URINE, QUANTITATIVE, CT ABD/PELVIS WO IV/ORAL CONTRAST As above. At times appears to be uncomfortable then sitting there saying she has no pain. Entire abdomen tender on exam, worse on right. Will check CT. (G30.9, F02.80) Alzheimer's disease (HCC) Plan: Difficult historian. (I12.9, N18.31) 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) Plan: no new issues. Monitor lab studies. (F32.0) Current mild episode of major depressive disorder without prior episode (HCC) (F41.1) ENRIQUE (generalized anxiety disorder) Plan: Pt will remain on current regimen. No changes. (E78.5) Dyslipidemia, goal LDL below 100 Plan: pt will remain on Crestor. No changes. (Z13.9) Risk and functional assessment Plan: See nursing note. Follow-up: as scheduled Wrap-Up Time: I spent a total of 40-54 minutes (exact time 43 mins) on the date of service in preparation, delivery, and documentation of the care provided to Jessica Gilliam excluding any time spent in the performance of separately billed services. Text in this note was generated using an ambient documentation service. I discussed the use of a device to record and summarize our discussion today. All persons present during the encounter consented to its use. * Pippa Chen LPN - 12/21/2024 10:02 AM EST Fall Risk Plan of Care Documentation: - Current medications reconciled Patient encouraged to: - Exercise - Provide education materials for Core strengthening - Utilize assistive/adaptive devices - Provide education materials - Avoid multifocal lenses when walking - Avoid hazards in home - Provide education materials - Maintain a regular toileting schedule Pippa Chen LPN 12/21/2024 documented in this encounter Plan of Treatment Upcoming Encounters Date Type Department Care Team (Late st Contact Info) Description 01/27/2025 10:00 AM EDT Office Visit Family Practice [address] [place] [phone] Vickie Pagan [address] [place] [address] Pending Results Name Type Priority Associated Diagnoses Date /Time CULTURE, URINE, QUANTITATIVE Lab Routine Generalized abdominal pain Right flank pain 12/21/2024 11:22 AM EST Scheduled Orders Name Type Priority Associated Diagnoses Orde r Schedule URINALYSIS, POINT OF CARE (ENTER/EDIT) Point of Care Testing Routine Generalized abdominal pain Right flank pain Ordered: 12/21/2024 Health Maintenance Due Date Last Done Comments CKD PHOS USE SMARTSET 32403 01/30/2024 01/29/2023, 1 COVID-19 Vaccine ( season) 2024 09/29/2023, 02/13/2023, 03/28/2022, Additional history exists CKD HGB USE SMARTSET 61035 09/12/202409/12, 09/12/2023, 01/29/2023, Additional history exists Adult [...] Not on filedocumented as of this encounter Procedures Procedure Name Priority Date/Time Associated Diagnosis Comments CT ABD/PELVIS WO IV/ORAL CONTRAST STAT 12/21/2024 3:05 PM EST Generalized abdominal pain Right flank pain URINALYSIS, POINT OF CARE JUSTINO 12/21/2024 10:45 AM EST documented in this encounter Results * CT ABD/PELVIS WO IV/ORAL CONTRAST (12/21/2024 3:05 PM EST) Anatomical Region Laterality Modality Body, Abdomen, Pelvis Computed T omography 12/21/2024 3:26 PM EST Impressions 12/21/2024 3:24 PM EST IMPRESSION: 1. No renal calculi or hydronephrosis. 2. Mild nonspecific urinary bladder wall thickening. Findings may be related to urinary bladder underdistention. Please correlate for the presence of urinary symptoms and if clinically warranted, with urinalysis to exclude cystitis. 3. Colonic diverticulosis without diverticulitis. 4. Multiple pulmonary nodules in the visualized lower lungs measuring up to 9 mm, some of which are new compared to the prior exam. Dedicated chest CT is recommended for further evaluation. This exam was submitted to the radiology telecommunications officer worklist and the ordering provider will be notified that the final report is available in EPIC. Narrative 12/21/2024 3:24 PM EST EXAM: EXAM: CT ABD/PELVIS WO IV/ORAL CONTRAST DATE TIME: 12/21/2024 - 12/21/2024 3:05 pm HISTORY: 89 y/o F right flank pain with some RUQ pain, some generalized abdominal pain as well with palpation, UA with blood TECHNIQUE: CT of the Abdomen and Pelvis was performed without intravenous contrast. COMPARISON: CT abdomen pelvis 03/24/2023. CT chest 07/01/2022. Urinary bladder ultrasound 12/26/2023 FINDINGS: Evaluation of the lower chest and upper abdomen is somewhat limited by respiratory motion artifact. LOWER CHEST: Multiple pulmonary nodules in the visualized lower lungs measuring up to 9 mm, some of which are new compared to the prior exam (annotated on series 8, with the largest nodule seen on series 8, image 51). Coronary artery calcifications. LIVER: Within normal limits. BILE DUCTS: Normal caliber. GALLBLADDER: Within normal limits. SPLEEN: Within normal limits. PANCREAS: Within normal limits. ADRENALS: Within normal limits. KIDNEYS/URETERS: No renal calculi or hydronephrosis. BLADDER: Underdistended urinary bladder. Mild nonspecific urinary bladder wall thickening. REPRODUCTIVE ORGANS: Status post hysterectomy. BOWEL: No bowel obstruction. Colonic diverticulosis without diverticulitis. The patient is reported to be status post appendectomy. PERITONEUM: No ascites. VESSELS: Atherosclerotic changes. No abdominal aortic aneurysm. RETROPERITONEUM: No lymphadenopathy. ABDOMINAL WALL: Small fat containing umbilical hernia. BONES: Degenerative changes of the spine. Grade 1 anterolisthesis of L4 on L5 and L5 on S1. Procedure Note Krystina Alcantara MD - 12/21/2024 EXAM: EXAM: CT ABD/PELVIS WO IV/ORAL CONTRAST DATE TIME: 12/21/2024 - 12/21/2024 3:05 pm HISTORY: 89 y/o F right flank pain with some RUQ pain, some generalized abdominalpain as well with palpation, UA with blood TECHNIQUE: CT of the Abdomen and Pelvis was performed without intravenous contrast. COMPARISON: CT abdomen pelvis 03/24/2023. CT chest 07/01/2022. Urinary bladderultrasound 12/26/2023 FINDINGS: Evaluation of the lower chest and upper abdomen is somewhat limited byrespiratory motion artifact. LOWER CHEST: Multiple pulmonary nodules in the visualized lower lungsmeasuring up to 9 mm, some of which are new compared to the prior exam(annotated on series 8, with the largest nodule seen on series 8, image51). Coronary artery calcifications. LIVER: Within normal limits. BILE DUCTS: Normal caliber. GALLBLADDER: Within normal limits. SPLEEN: Within normal limits. PANCREAS: Within normal limits. ADRENALS: Within normal limits. KIDNEYS/URETERS: No renal calculi or hydronephrosis. BLADDER: Underdistended urinary bladder. Mild nonspecific urinary bladderwall thickening. REPRODUCTIVE ORGANS: Status post hysterectomy. BOWEL: No bowel obstruction. Colonic diverticulosis withoutdiverticulitis. The patient is reported to be status post appendectomy. PERITONEUM: No ascites. VESSELS: Atherosclerotic changes. No abdominal aortic aneurysm. RETROPERITONEUM: No lymphadenopathy. ABDOMINAL WALL: Small fat containing umbilical hernia. BONES: Degenerative changes of the spine. Grade 1 anterolisthesis of L4on L5 and L5 on S1. IMPRESSION IMPRESSION: 1. No renal calculi or hydronephrosis. 2. Mild nonspecific urinary bladder wall thickening. Findings may berelated to urinary bladder underdistention. Please correlate for thepresence of urinary symptoms and if clinically warranted, with urinalysisto exclude cystitis. 3. Colonic diverticulosis without diverticulitis. 4. Multiple pulmonary nodules in the visualized lower lungs measuring upto 9 mm, some of which are new compared to the prior exam. Dedicatedchest CT is recommended for further evaluation. This exam was submitted to the radiology telecommunications officer worklist and theordering provider will be notified that the final report is available inEPIC. Vickie Pagan DO RAD CT Final Result * (ABNORMAL) URINALYSIS, POINT OF CARE (12/21/2024 10:45 AM EST) Color, Urine Yellow Light Yellow, Yellow 12/21/2024 10:48 AM EST [facility] 56-21 Clarity, Urine Clear Clear 12/21/2024 10:48 AM EST [facility] 56[facility]21 Glucose, Urine Negative Negative mg/dL 12/21/2024 10:48 AM EST [facility] 56[facility]21 Bilirubin, Urine Negative Negative 12/21/2024 10:48 AM EST [facility] 56-21 Ketone, Urine Negative Negative mg/dL 12/21/2024 10:48 AM [facility] Specific [place], Urine >=1.030 1.003 - 1.030 12/21/2024 10:48 AM [facility] Blood, Urine Trace-intact (A) Negative 12/21/2024 10:48 AM [facility] pH, Urine 6.0 5.0, 5.5, 6.0, 6.5, 7.0, 7.5 units 12/21/2024 10:48 AM [facility] Protein, Urine Trace(A) Negative mg/dL 12/21/2024 10:48 AM [place] [address] Urobilinogen, Urine 0.2 0.2, 1.0 mg/dL 12/21/2024 10:48 AM [facility] Nitrite, Urine Positive(A) Negative 12/21/2024 10:48 AM [facility] Esterase, Urine Negative Negative 12/21/2024 10:48 AM [facility] Urine 12/21/2024 10:4 5 AM EST 12/21/2024 10:48 AM EST Vickie Pagan DO LAB POINT OF CARE TE ST DOCKED DEVICE UNSOLICITED RESULTS Final Result [place] [address] [address] [place] [address] documented in this encounter Visit Diagnoses Diagnosis Generalized abdominal pain- Primary Abdominal pain, generalized Right flank pain Abdominal pain, unspecified site Alzheimer's disease (HCC) Alzheimer's disease 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
--- OUTSIDE RECORDS SUMMARY | 2024-12-30 21:05 | External Medical Summary | Summary of Care ---
Author Name Unknown Organization [facility] Address [address] [place] [address] Phone [phone] Care Team Providers Care Cement Railroad Car Loader Name Role Phone Vickie Pagan DO Primary Care Provider + [phone] Reason for Visit * Reason Onset Date Comments Advice 12/01/202412/01 Encounter Details Date Type Department Care Team (Late st Contact Info) Description 12/01/2024 Telephone Family Practice [facility] [address] [place] [address] Vickie Pagan DO [address] [place] [address] Advice (12/01) Allergies Active Allergy Reactions Criticality Noted Date Comments Alan Inhibitors Cough 07/13/2022 Celecoxib 08/07/2010 Long ago Rash Ciprofloxacin Hcl Rash 03/12/2013 Metronidazole Hcl Rash 04/28/2013 Penicillins 1997 Rash documented as of this encounter (statuses as of 12/01/2024) Medications ONE DAILY PO TABS Take by [...] morning and 1 Packet before bedtime. Active Omeprazole 40 MG Oral Capsule Delayed Release (PriLOSEC)Indica tions:Gastroesop hageal reflux disease without esophagitis TAKE ONE CAPSULE BY MOUTH EVERY MORNING 100 Capsule 3 09/08/2024 1:52 PM EDT 4 12/23/19 25 Active diazePAM 5 MG Oral Tablet (Valium)Indicati ons:Anxiety state Take 1 Tablet by mouth every 8 hours as needed for Anxiety. 30 Tablet 4 Active Gabapentin 300 MG Oral Capsule (Neurontin)Indic ations:Bilateral foot pain Take 2 Capsules by mouth in the morning and 2 Capsules in the evening. 400 Capsule 3 09/08/2024 1:52 PM EDT 4 Active PARoxetine HCl 30 MG Oral [...] BY MOUTH EVERY DAY 100 Tablet 1 08/21/2024 2:55 PM EDT 4 08/15/20 25 Active amLODIPine Besylate 2.5 MG Oral Tablet (Norvasc)Indicat ions:HTN, goal below 140/90 TAKE ONE TABLET BY MOUTH IN THE MORNING 100 Tablet 3 09/01/2024 8:23 AM EDT 4 08/29/20 25 Active busPIRone HCl 5 [...] 10:55 AM EST 5 05/25/20 25 Active documented as of this encounter (statuses as of 12/01/2024) Active Problems Problem Noted Date Diagnosed Date [...] BCC R upper back 12/2012, BCC R holiness 07/2012, R cheek 02/2012, L upper arm CC L preauricular x 2 (Jaimie, 2009); possibly others on trunk before that - pt unsure (Dr. 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 ADVANCE DIRECTIVE INFORMATION 09/05/2016 09/20/2024 Overview (06/29/2010): Yes, Patient instructed to provide copy of advance directive for provider to review and to be scanned into Electronic Medical Record Esophageal reflux 01/12/2009 12/01/2018 Anxiety state 07/27/2008 12/01/2018 documented as of this encounter (statuses as of 12/01/2024) Immunizations Name Administration Dates Next Due COVID-19 [...] (Prevnar) 05/06/2016 Pneumococcal Conjugate Vacci ne, 20-valent ([id number]) 08/09/2024 Pneumococcal Polysaccharide PPV23 (Pneumovax) 10/17/2006 Season [...] Date Recorded PHQ Adult Total Score 1 11/06/2023 Hunger Vital Sign Answer Date Recorded Within [...] Telephone Encounter - Roula Bettencourt LPN - 12/01/2024 1:38 PM EST Call placed to daughter Adina. Per María Elena, the buzzing describes her tinnitus. María Elena states this is a common issue and usually occurs when she wakes up in the morning and does not have her hearing aids in and this is discussed at every audiology appt. María Elena states she will call her mother and provide reassurance. States she will contact the office if there are any further concerns. * Telephone Encounter - Vickie Pagan DO - 12/01/2024 1:24 PM EST This is how pt typically describes her tinnitus as "buzzing bees". Worse when she is anxious. Encourage to wear her hearing aids. This has been extensively worked up. May be worth a call to her daughter who typically can talk her down. * Telephone Encounter - Anna Gill, VOLLEYBALL REFEREE - 12/01/2024 1:22 PM EST Attempted to call patient, there was no answer, left voicemail. When patient returns call, ok for DOMENIC to relay message, please refer to below documentation. If needed, can transfer to dedicated nurse line. Has anyone visualized any bugs? Dr Pagan, is it ok to schedule nurse visit for a look? Thank you * Telephone Encounter - Shantel Jung RT (R) - 12/01/2024 8:39 AM EST Patient calling to say she wakes up in the morning with "bugs in her hair with itching" and it sounds like there are bees "running around" in her head. Patient states it has been going on for appx a week, states they sometimes go away but sometimes they are there all day. Please advise, thank you. documented in this encounter Plan of Treatment Upcoming Encounters Date Type Department Care Team (Late st Contact Info) Description 01/27/2025 10:00 AM EDT Office Visit Family Practice [address] [place] [address] [place] [address] Vickie Pagan DO [address] [place] [address] Health Maintenance Due Date Last Done Comments CKD PHOS USE SMARTSET 27144 01/30/2024 01/29/2023, 1 COVID-19 Vaccine ( season) 2024 09/29/2023, 02/13/2023, 03/28/2022, Additional history exists CKD HGB USE SMARTSET 90601 09/12/202409/12, 09/12/2023, 01/29/2023, Additional history exists Adult Wellness Visit 11/06/2024 11/06/2023, 10/17/2022, 10/04/2021 Depression Monitoring 11/06/2024 11/06/2023 Mammogram 07/29/2025 07/29/2024, 07/18, 12/26/2023, Additional history exists Albumin/Creatinine Ratio 08/09/2025 024, 07/22/2023, 08/19/2022 DXA Scan 09/04/2026 09/04/2023, 08/17, 07/20/2020, Additional [...] filedocumented as of this encounter Care Teams Cement Railroad Car Loader Relationship Specialty Start Date End Date Vickie Pagan DO [address] [place] [address] PCP - General Family Medicine 06/08/24 documented as of this encounter
--- OUTSIDE RECORDS SUMMARY | 2024-12-30 21:05 | External Medical Summary | Summary of Care ---
Author Name Unknown Organization [facility] Address [address] [place] [address] Phone [phone] Care Team Providers Care Hand Fretted Instrument Maker Name Role Phone Vickie Pagan DO Primary Care Provider Reason for Visit * Reason Onset Date Comments Test Results 12/21/202412/21 Encounter Details Date Type Department Care Team (Late st Contact Info) Description 12/21/2024 Telephone Laboratory, [address] [address] Vickie Pagan DO [address] [place] [address] Test Results (12/21) Allergies Active Allergy Reactions [...] BCC R upper back 12/2012, BCC R mandaen 07/2012, R cheek 02/2012, L upper arm CC L preauricular x 2 (Jaimie, 2009); possibly others on trunk before that - pt unsure (Dr. Rucker) Menopause 01/12/2009 Urinary incontinence Overview (08/18/2017): ICD-10 update of inactive term documented as of this encounter (statuses as of 12/22/2024) Resolved Problems Problem Noted Date Diagnosed Date Resolved Date Food insecurity 04/28/2023 07/03/2023 Overview: Per [facility] Protocol Ductal carcinoma in situ [...] (Prevnar) 05/06/2016 Pneumococcal Conjugate Vacci ne, 20-valent ([id number]) 08/09/2024 Pneumococcal Polysaccharide PPV23 (Pneumovax) 10/17/2006 Season [...] answer. Message left to return call to [phone]. * Telephone Encounter - Vickie Pagan DO [...] unexpected or indeterminate finding on Jessica Gilliam ([id number]) and asks that you review the following [...] you, DOMENIC [place] Client Service [facility] documented in this encounter Plan of Treatment Upcoming Encounters Date Type Department Care Team (Late st Contact Info) Description 01/27/2025 10:00 AM EDT Office Visit Family Practice [address] [facility] [address] [place] [phone] Vickie Pagan DO [address] [place] [address] Health Maintenance Due Date Last Done Comments CKD PHOS USE SMARTSET 11920 01/30/2024 01/29/2023, 1 COVID-19 Vaccine ( season) 2024 09/29/2023, 02/13/2023, 03/28/2022, Additional history exists CKD HGB USE SMARTSET 31396 09/12/202409/12, 09/12/2023, 01/29/2023, Additional history exists Adult [...] filedocumented as of this encounter Care Teams Hand Fretted Instrument Maker Relationship Specialty Start Date End Date Vickie Pagan DO [address] [place] [address] PCP - General Family Medicine 06/08/24 documented as of this encounter
--- OUTSIDE RECORDS SUMMARY | 2024-12-30 21:05 | External Medical Summary | Summary of Care ---
Author Name Unknown Organization [facility] Address [address] [place] [address] Phone [phone] Care Team Providers Care Talent Acquisition Manager Name Role Phone Vickie Pagan DO Primary Care Provider + [phone] Reason for Visit * Reason Onset Date Comments Medication Management 11/25/2024 Encounter Details Date Type Department Care Team (Late st Contact Info) Description 11/25/2024 Telephone Family Practice [facility] [address] [place] [address] Vickie Pagan DO [address] [place] [address] Medication Management Allergies Active Allergy Reactions Criticality Noted Date Comments Alan Inhibitors Cough 07/13/2022 Celecoxib 08/07/2010 Long ago Rash Ciprofloxacin Hcl Rash 03/12/2013 Metronidazole Hcl Rash 04/28/2013 Penicillins 1997 Rash documented as of this encounter (statuses as of 11/29/2024) Medications ONE DAILY PO TABS Take by [...] 200 Tablet 1 09/30/2024 7:08 AM EST 11/12/202 4 Active documented as of this encounter (statuses as of 11/29/2024) Active Problems Problem Noted Date Diagnosed Date [...] BCC R upper back 12/2012, BCC R samaritan 07/2012, R cheek 02/2012, L upper arm CC L preauricular x 2 (Jaimie, 2009); possibly others on trunk before that - pt unsure (Dr. 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 ADVANCE DIRECTIVE INFORMATION 09/05/2016 09/20/2024 Overview (06/29/2010): Yes, Patient instructed to provide copy of advance directive for provider to review and to be scanned into Electronic Medical Record Esophageal reflux 01/12/2009 12/01/2018 Anxiety state 07/27/2008 12/01/2018 documented as of this encounter (statuses as of 11/29/2024) Immunizations Name Administration Dates Next Due COVID-19 mRNA, LNP-s, No Pre serve, 2-Dose Series (Moderna) 09/19/2021,01/05/2021,12/08/2020 COVID-19, MRNA-LNP, PF, 30 M CG/0.3 mL, 12 YRS AND ABOVE, IM ([facility]) 09/29/2023 COVID-19, mRNA, LNP-s, PF, B ooster, 100mcg/0.5mg (Moderna) 03/28/2022 Covid-19, Mrna, Lnp-s, Pf, B ivalent, 30 Mcg, IM, 12 yrs and above ([employer]) 02/13/2023 Pneumococcal Conjugate Vacc, 13 Valent (Prevnar) 05/06/2016 Pneumococcal Conjugate Vacci ne, 20-valent ([id number]) 08/09/2024 Pneumococcal Polysaccharide PPV23 (Pneumovax) 10/17/2006 Season [...] encounter Miscellaneous Notes * Telephone Encounter - Janet Carter RP - 11/25/2024 12:57 PM EST Noted - other encounter with prescription was sent to Dr. Pagan for approval. Janet Stack, Pharm D, [facility] [address] [facility] 11/25/2024, 12:57 PM Ph. [phone] * Telephone Encounter - Susan Mcclain OSA - 11/25/2024 11:44 AM EST María Elena called to make sure Dr. Pagan got a call from the pharmacy that Jessica needs a new prescription for her diazepam. She uses the mail order for her medication. She was told someone would bereaching out to the PCP but María Elena wanted to follow up too. Any questions, please give María Elena a call. documented in this encounter Plan of Treatment Upcoming Encounters Date Type Department Care Team (Late st Contact Info) Description 01/27/2025 10:00 AM EDT Office Visit Family Practice [address], [place] [address] [place] [address] Vickie Pagan DO [address] [place] [place] [address] Health Maintenance Due Date Last Done Comments CKD PHOS USE SMARTSET 55051 01/30/2024 01/29/2023, 1 COVID-19 Vaccine ( season) 2024 09/29/2023, 02/13/2023, 03/28/2022, Additional history exists CKD HGB USE SMARTSET 92302 09/12/202409/12, 09/12/2023, 01/29/2023, Additional history exists Adult [...] as of this encounter Visit Diagnoses Diagnosis Anxiety state Anxiety state, unspecified documented in this encounter Care Teams Talent Acquisition Manager Relationship Specialty Start Date End Date Vickie Pagan DO [address] [facility] [place] [address] PCP - General Family Medicine 06/08/24 documented as of this encounter
--- OUTSIDE RECORDS SUMMARY | 2024-12-30 21:05 | External Medical Summary | Summary of Care ---
Author Name Unknown Organization [facility] Address [address] [place] [address] Phone [phone] Care Team Providers Care Currency Counter Name Role Phone Vickie Pagan DO Primary Care Provider [phone] Reason for Visit * Reason Onset Date Comments Information 11/29/202411/29 Encounter Details Date Type Department Care Team (Late st Contact Info) Description 11/29/2024 Telephone Family Practice [facility] [address] [place] [address] Vickie Pagan DO [address] [place] [address] Information (11/29) Allergies Active Allergy Reactions Criticality Noted Date Comments Alan Inhibitors Cough 07/13/2022 Celecoxib 08/07/2010 Long ago Rash Ciprofloxacin Hcl Rash 03/12/2013 Metronidazole Hcl Rash 04/28/2013 Penicillins 1997 Rash documented as of this encounter (statuses as of 11/30/2024) Medications ONE DAILY PO TABS Take by [...] as of this encounter (statuses as of 11/30/2024) Active Problems Problem Noted Date Diagnosed Date [...] BCC R upper back 12/2012, BCC R episcopal 07/2012, R cheek 02/2012, L upper arm CC L preauricular x 2 (Jaimie, 2009); possibly others on trunk before that - pt unsure (Dr. 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 ADVANCE DIRECTIVE INFORMATION 09/05/2016 09/20/2024 Overview (06/29/2010): Yes, Patient instructed to provide copy of advance directive for provider to review and to be scanned into Electronic Medical Record Esophageal reflux 01/12/2009 12/01/2018 Anxiety state 07/27/2008 12/01/2018 documented as of this encounter (statuses as of 11/30/2024) Immunizations Name Administration Dates Next Due COVID-19 [...] (Prevnar) 05/06/2016 Pneumococcal Conjugate Vacci ne, 20-valent ([id number]) 08/09/2024 Pneumococcal Polysaccharide PPV23 (Pneumovax) 10/17/2006 Season [...] Telephone Encounter - Vickie Pagan DO - 11/30/2024 2:52 PM EST Noted. * Telephone Encounter - Roula Bettencourt LPN - 11/29/2024 12:19 PM EST Call placed to daughter Adina. Pt took nap, took shower. Headache is resolved. BP improved 125/75.Pt reports she is feeling better. * Telephone Encounter - Birdie Mackey OSA - 11/29/2024 12:07 PM EST Dtr called back returning call from Roula, nurse unavailable. * Telephone Encounter - Roula Bettencourt LPN - 11/29/2024 9:12 AM EST Received call from daughter María Elena stating she wanted to make Dr. Pagan aware of the following: Pt called dtr around 5 am stating she heard a hissing noise. María Elena checked pt and found no source of noise. Pt anxious, BP 156/80. Dtr gave her a Valium and 2 tylenol at 6am. Pt went back to bed. Woke up later and took her morning pills. BP 165/84. Headache resolved. Adina believes pt is fine - that she just had an anxiety attack and will monitor her. States she will check BP again closer to noon and call in with results. T documented in this encounter Plan of Treatment Upcoming Encounters Date Type Department Care Team (Late st Contact Info) Description 01/27/2025 10:00 AM EDT Office Visit Family Practice [address] [place] [address] [place] [address] Vickie Pagan, [address] [place] [address] Health Maintenance Due Date Last Done Comments CKD PHOS USE SMARTSET 57632 01/30/2024 01/29/2023, 1 COVID-19 Vaccine ( season) 2024 09/29/2023, 02/13/2023, 03/28/2022, Additional history exists CKD HGB USE SMARTSET 18215 09/12/202409/12, 09/12/2023, 01/29/2023, Additional history exists Adult [...] filedocumented as of this encounter Care Teams Currency Counter Relationship Specialty Start Date End Date Vickie Pagan DO [address] [place] [address] PCP - General Family Medicine 06/08/24 documented as of this encounter
--- OUTSIDE RECORDS SUMMARY | 2024-12-30 21:05 | External Medical Summary | Summary of Care ---
Author Name Unknown Organization [facility] Address [address] [place] [address] Phone [phone] Care Team Providers Care Cardiology Manager Name Role Phone Vickie Pagan DO Primary Care Provider [phone] Reason for Referral * Precert (Within 24 hrs (call dept; emergent)) - Authorized Specialty Diagnoses / Procedures Referred By Contac t Referred To Contact Radiology Diagnoses Generalized abdominal pain Right flank pain Procedures CT ABD/PELVIS WO IV/ORAL CONTRAST Vickie Pagan DO [address] [place] [address] Phone: tel: fax: Referral ID Status Reason Start Date Expiration Date V isits Requested Visits Authorized [id number] Authorized 12/21/[phone] Reason for Visit * Reason Comments Acute C/o pain on right si de starting in back and radiating to the front under the right breast. Also has G[place]STE[place]. Encounter Details Date Type Department Care Team (Late st Contact Info) Description 12/21/2024 10:00 AM EST Office Visit Family Practice [address], [place] [address] [place] [address] Vickie Pagan DO [address] [place] [address] Generalized abdominal pain*; Right flank pain; Alzheimer's [...] BCC R upper back 12/2012, BCC R episcopalian 07/2012, R cheek 02/2012, L upper arm [...] (Prevnar) 05/06/2016 Pneumococcal Conjugate Vacci ne, 20-valent ([id number]) 08/09/2024 Pneumococcal Polysaccharide PPV23 (Pneumovax) 10/17/2006 Season [...] 10 times. Repeat this throughout the day. [employer] Patient Education Copyright 2008 [employer] except where otherwise noted. Preventing Falls: Moving [...] that mean climbing, even on a stepstool. [employer] Patient Education Copyright 2008 K[employer] except where otherwise noted. Urinary Incontinence Plan [...] EDT Office Visit Family Practice [address] [place] [address] [place] [phone] Vickie Pagan [address] [place] [address] Pending Results Name Type Priority Associated Diagnoses Date /Time CULTURE, URINE, QUANTITATIVE Lab Routine Generalized abdominal pain Right flank pain 12/21/2024 11:22 AM EST Scheduled Orders Name Type Priority Associated Diagnoses Orde r Schedule URINALYSIS, POINT OF CARE (ENTER/EDIT) Point of Care Testing Routine Generalized abdominal pain Right flank pain Ordered: 12/21/2024 Health Maintenance Due Date Last Done Comments CKD PHOS USE SMARTSET 23115 01/30/2024 01/29/2023, 1 COVID-19 Vaccine ( season) 2024 09/29/2023, 02/13/2023, 03/28/2022, Additional history exists CKD HGB USE SMARTSET 37816 09/12/202409/12, 09/12/2023, 01/29/2023, Additional history exists Adult [...] This exam was submitted to the radiology administrative office specialist worklist and the ordering provider will be [...] This exam was submitted to the radiology administrative office specialist worklist and theordering provider will be notified [...] Negative 12/21/2024 10:48 AM EST LAB[facility]ATORY [facility] 56-21 Ketone, Urine Negative Negative mg/dL 12/21/2024 10:48 AM [facility] Specific [place], Urine >=1.030 1.003 - 1.030 12/21/2024 10:48 AM [facility] Blood, Urine Trace-intact (A) Negative 12/21/2024 10:48 AM [facility] pH, Urine 6.0 5.0, 5.5, 6.0, 6.5, 7.0, 7.5 units 12/21/2024 10:48 AM [facility] Protein, Urine Trace(A) Negative mg/dL 12/21/2024 10:48 AM [place] [address] Urobilinogen, Urine 0.2 0.2, 1.0 mg/dL 12/21/2024 10:48 AM [facility] Nitrite, Urine Positive(A) Negative 12/21/2024 10:48 AM [facility] Esterase, Urine Negative Negative 12/21/2024 10:48 AM [facility] Urine 12/21/2024 10:4 5 AM EST 12/21/2024 10:48 AM EST Vickie Pagan DO LAB POINT OF CARE TE ST DOCKED DEVICE UNSOLICITED RESULTS Final Result [place] [address] [address] [place] [address] documented in this encounter Visit Diagnoses Diagnosis [...] condition documented in this encounter Care Teams Cardiology Manager Relationship Specialty Start Date End Date Vickie Pagan DO [address] [place] [address] PCP - General Family Medicine 06/08/24 documented as of this encounter
--- OUTSIDE RECORDS SUMMARY | 2024-12-30 21:05 | External Medical Summary ---
Author Name Unknown Address Unknown Organization : Laboratory Report Ordering Provider Test Date Status GURJIT REILLY 12/21/2024 10:45:00 Final Observation Date Value Abnormality Reference (Units ) Status Color of Urine by Auto 12/21/2024 10:45:00 Yellow Light Yellow, Yellow Final Clarity, Urine 12/21/2024 10:45:00 Clear Clear Final Glucose [Mass/volume] in Urine by Automated test strip 12/21/2024 10:45:00 Negative Negative (mg/dL) Final Bilirubin.total [Presence] in Urine by Automated test strip 12/21/2024 10:45:00 Negative Negative Final Ketones [Mass/volume] in Urine by Automated test strip 12/21/2024 10:45:00 Negative Negative (mg/dL) Final Specific gravity, Urine 12/21/2024 10:45:00 >=1.030 1.003-1.030 Final Hemoglobin [Presence] in Urine by Automated test strip 12/21/2024 10:45:00 Trace-intact Abnormal Negative Final pH, Urine 12/21/2024 10:45:00 6.0 5.0, 5.5, 6.0, 6.5, 7.0, 7.5 (units) Final Protein [Mass/volume] in Urine by Automated test strip 12/21/2024 10:45:00 Trace Abnormal Negative (mg/dL) Final Urobilinogen, Urine 12/21/2024 10:45:00 0.2 0.2, 1.0 (mg/dL) Final Nitrite [Presence] in Urine by Automated test strip 12/21/2024 10:45:00 Positive Abnormal Negative Final Leukocyte esterase [Presence] in Urine by Automated test strip 12/21/2024 10:45:00 Negative Negative Final Performing Location
--- OUTSIDE RECORDS SUMMARY | 2024-12-30 21:05 | External Medical Summary ---
Author Name Unknown Address Unknown Organization [id number]:[facility] [place] - [address] [facility] [address] Laboratory Report Ordering Provider Test Date Status AHSLEY REILLYAMINATA 12/21/2024 11:22:06 Final <10,000 colonies/ml mixed no rmal fahad Observation Date Value Abnormality Reference (Units ) Status Bacteria identified in Specimen by Culture 12/21/2024 11:22:06 [id number]^ESCHE RICHIA COLI Abnormal Final 10,000 to 100,000 colonies/m L Escherichia coli Performing Location [facility] [place] - [facility] [address] [facility] [address] Ordering Provider Test Date Status ASHLEY REILLYAMINATA 12/21/2024 11:22:06 Final Observation Date Value Abnormality Reference (Units ) Status Ampicillin 12/21/2024 11:22:06 4 Susceptible Final Cefazolin 12/21/2024 11:22:06 <=4 Susceptible Final Cefepime susceptibility 12/21/2024 11:22:06 <=1 Susceptible Final Ceftriaxone suceptibility 12/21/2024 11:22:06 <=1 Susceptible Final Ciprofloxacin 12/21/2024 11:22:06 <=0.25 Susceptible Final Due to serious side effects, the FDA has advised against using Ciprofloxacin to treat uncomplicated UTIs and respiratory tract infections unless there are no alternative treatment options. Gentamicin susceptibility 12/21/2024 11:22:06 <=1 Susc eptible Final Nitrofurantoin susceptibility 12/21/2024 11:22:06 <=16 Susceptible Final Piperacillin + Tazobactamsusceptibility 12/21/2024 11:22:06 <=4 Susceptible Final TMP-SMZ susceptibility 12/21/2024 11:22:06 <=20 Suscept ible Final Test: Culture, Urine, Quanti tative
Specimen Source: Urine, Clean Catch
Specimen Type: Urine
Specimen Date: 12/21/2024 1122
Result Date: 12/23/2024719
Result Status: Final result
Abnormal: Yes
Resulting Lab: [facility] [place]
[address]
[facility] [address]

CULTURE

10,000 to 100,000 colonies/mL Escherichia coli (Abnormal)

<10,000 colonies/ml mixed normal fahad

SUSCEPTIBILITY

Escherichia coli
METHOD MICROBROTH
DILUTIONS

AMPICILLIN 4 Susceptible
CEFAZOLIN <=4 Susceptible
CEFEPIME <=1 Susceptible
CEFTRIAXONE <=1 Susceptible
CIPROFLOXACIN <=0.25 Susceptible
[1]
GENTAMICIN <=1 Susceptible
NITROFURANTOIN <=16 Susceptible
PIPERACILLIN TAZOBACTAM <=4 Susceptible
TRIMETH/SULFAMETHOXAZOLE <=20 Susceptible

[1] Due to serious side effects, the FDA has advised against using
Ciprofloxacin to treat uncomplicated UTIs and respiratory tract infections
unless there are no alternative treatment options.

null Performing Location LAB[facility]ATORY [facility] [place] - [address] [facility] [address]
--- OUTSIDE RECORDS SUMMARY | 2024-12-30 21:05 | External Medical Summary | Summary of Care ---
Author Name Unknown Organization [facility] Address [address] [place] [address] Phone [phone] Care Team Providers Care Ornamenter Name Role Phone Vickie Cagle DO Primary Care Provider [phone] Reason for Visit * Reason Comments Medication Refill Encounter Details Date Type Department Care Team (Late st Contact Info) Description 11/25/2024 Refill Family Practice [facility] [place] [address] [place] [address] Vickie Cagle [address] [place] [address] Anxiety state Allergies Active Allergy Reactions Criticality Noted Date Comments Alan Inhibitors Cough 07/13/2022 Celecoxib 08/07/2010 Long ago Rash Ciprofloxacin Hcl Rash 03/12/2013 Metronidazole Hcl Rash 04/28/2013 Penicillins 1997 Rash documented as of this encounter (statuses as of 11/25/2024) Medications ONE DAILY PO TABS Take by [...] EVERY 8 HOURS NEEDED ANXIETY 30 Tablet 5 05/25/20 25 Active documented as of this encounter (statuses as of 11/25/2024) Active Problems Problem Noted Date Diagnosed Date [...] BCC R upper back 12/2012, BCC R pentecostal 07/2012, R cheek 02/2012, L upper arm CC L preauricular x 2 (Jaimie, 2009); possibly others on trunk before that - pt unsure (Dr. 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 ADVANCE DIRECTIVE INFORMATION 09/05/2016 09/20/2024 Overview (06/29/2010): Yes, Patient instructed to provide copy of advance directive for provider to review and to be scanned into Electronic Medical Record Esophageal reflux 01/12/2009 12/01/2018 Anxiety state 07/27/2008 12/01/2018 documented as of this encounter (statuses as of 11/25/2024) Immunizations Name Administration Dates Next Due COVID-19 [...] (Prevnar) 05/06/2016 Pneumococcal Conjugate Vacci ne, 20-valent ([id number]) 08/09/2024 Pneumococcal Polysaccharide PPV23 (Pneumovax) 10/17/2006 Season [...] Miscellaneous Notes * Telephone Encounter - Vickie Cagle DO - 11/25/2024 3:46 PM ESTSigned Prescriptions: Disp Refills diazePAM 5 MG Oral Tablet (Valium) 30 Tab*0 Sig: TAKE ONE TABLET BY MOUTH EVERY 8 HOURS NEEDED ANXIETY Authorizing Provider: VICKIE CAGEL * Telephone Encounter - Vickie Cagle DO - 11/25/2024 3:46 PM ESTSigned Prescriptions: Disp Refills diazePAM 5 MG Oral Tablet (Valium) 30 Tab*0 Sig: TAKE ONE TABLET BY MOUTH EVERY 8 HOURS NEEDED ANXIETY Authorizing Provider: VICKIE CAGLE * Telephone Encounter - Vickie Cagle DO - 11/25/2024 3:46 PM EST Rx sent. I have reviewed the patients controlled substance dispensing history in the Prescription Drug Monitoring Program in compliance with the [facility] regulations before prescribing a controlled substance. Last Tox Screen Results: No results found. However, due to the size of the patient record, not all encounters were searched.Please check Results Review for a complete set of results. * Telephone Encounter - Janet Carter [facility] - 11/25/2024 12:46 PM EST I have reviewed the patients controlled substance dispensing history in the Prescription Drug Monitoring Program in compliance with the [facility] regulations before prescribing a controlled substance. PDMP checked on 11/25/2024. Pending Prescriptions: Disp Refills diazePAM 5 MG Oral Tablet (Valium) 30 Tab*0 Sig: TAKE ONE TABLET BY MOUTH EVERY 8 HOURS NEEDED ANXIETY Last Visit: 10/27/2024 (in office), 02/20/2024 (telemedicine) Next Visit: 01/27/2025 Date medication was last filled: unknown - no recorded dispensing in last 6 mos Date medication is due for refill: unknown Pharmacy: [facility] Is this request for a controlled substance? Yes and Urine Drug Screen Not completed Toxicology results: No results found. However, due to the size of the patient record, not all encounters were searched.Please check Results Review for a complete set of results. Patient has not had this medication recently. Last prescribed on 12/30/23 for #30. Please approve if appropriate. Thanks, Janet Stack, Pharm D, BCACP Clinical Pharmacist [address] [facility] 11/25/2024, 12:51 PM Ph. [phone] documented in this encounter Plan of Treatment Upcoming Encounters Date Type Department Care Team (Late st Contact Info) Description 01/27/2025 10:00 AM EDT Office Visit Family Practice [address] [place] [address] [facility] [place] [address] Vickie Cagle DO [address] [place] [address] Health Maintenance Due Date Last Done Comments CKD PHOS USE SMARTSET 12415 01/30/2024 01/29/2023, 1 COVID-19 Vaccine ( season) 2024 09/29/2023, 02/13/2023, 03/28/2022, Additional history exists CKD HGB USE SMARTSET 80367 09/12/202409/12, 09/12/2023, 01/29/2023, Additional history exists Adult [...] unspecified documented in this encounter Care Teams Ornamenter Relationship Specialty Start Date End Date Vickie Cagle DO [address] [place] [address] PCP - General Family Medicine 06/08/24 documented as of this encounter
--- OUTSIDE RECORDS SUMMARY | 2024-12-30 21:05 | External Medical Summary | Summary of Care ---
Author Name Unknown Organization [facility] Address [address] [place] [address] Phone [phone] Care Team Providers Care Manager Cable Name Role Phone Vickie Pagan Primary Care Provider + [phone] Encounter Details Date Type Department Care Team (Late st Contact Info) Description 12/06/2024 Population Health External Data Unspecified Department Allergies Active Allergy Reactions Criticality Noted Date Comments Alan Inhibitors Cough 07/13/2022 Celecoxib 08/07/2010 Long ago Rash Ciprofloxacin Hcl Rash 03/12/2013 Metronidazole Hcl Rash 04/28/2013 Penicillins 1997 Rash documented as of this encounter (statuses as of 12/06/2024) Medications ONE DAILY PO TABS Take by [...] as of this encounter (statuses as of 12/06/2024) Active Problems Problem Noted Date Diagnosed Date [...] BCC R upper back 12/2012, BCC R confucianism 07/2012, R cheek 02/2012, L upper arm CC L preauricular x 2 (Jaimie, 2009); possibly others on trunk before that - pt unsure (Dr. Rucker) Menopause 01/12/2009 Urinary incontinence Overview (08/18/2017): ICD-10 update of inactive term documented as of this encounter (statuses as of 12/06/2024) Resolved Problems Problem Noted Date Diagnosed Date [...] as of this encounter (statuses as of 12/06/2024) Immunizations Name Administration Dates Next Due COVID-19 mRNA, LNP-s, No Pre serve, 2-Dose Series (Moderna) 09/19/2021,01/05/2021,12/08/2020 COVID-19, MRNA-LNP, PF, 30 M CG/0.3 mL, 12 YRS AND ABOVE, IM [facility] 09/29/2023 COVID-19, mRNA, LNP-s, PF, B ooster, 100mcg/0.5mg (Moderna) 03/28/2022 Covid-19, Mrna, Lnp-s, Pf, B ivalent, 30 Mcg, IM, 12 yrs and above (Pfizer) 02/13/2023 Pneumococcal Conjugate Vacc, 13 Valent (Prevnar) 05/06/2016 Pneumococcal Conjugate Vacci ne, 20-valent ([id number]) 08/09/2024 Pneumococcal Polysaccharide PPV23 (Pneumovax) 10/17/2006 Season [...] AM EST documented as of this encounter Plan of Treatment Upcoming Encounters Date Type Department Care Team (Late st Contact Info) Description 01/27/2025 10:00 AM EDT Office Visit Family Practice [address] [place] [address] [place] [address] Vickie Pagan [address] [place] [address] Health Maintenance Due Date Last Done Comments CKD PHOS USE SMARTSET 18753 01/30/2024 01/29/2023, 1 COVID-19 Vaccine ( season) 2024 09/29/2023, 02/13/2023, 03/28/2022, Additional history exists CKD HGB USE SMARTSET 49820 09/12/202409/12, 09/12/2023, 01/29/2023, Additional history exists Adult [...] filedocumented as of this encounter Care Teams Manager Cable Relationship Specialty Start Date End Date Vickie Pagan DO [address] [place] [address] PCP - General Family Medicine 06/08/24 documented as of this encounter
--- OUTSIDE RECORDS SUMMARY | 2024-12-30 21:05 | External Medical Summary | Summary of Care ---
Author Name Unknown Organization [facility] Address [address] [place] [address] Phone [phone] Care Team Providers Care Electronics Worker Name Role Phone Vickie Pagan DO Primary Care Provider Reason for Visit * Reason Onset Date Comments Test Results 12/21/202412/21 Encounter Details Date Type Department Care Team (Late st Contact Info) Description 12/21/2024 Telephone Laboratory, [address] [address] Vickie Pagan DO [address] [place] [address] Test Results (12/21) Allergies Active Allergy Reactions Criticality Noted Date Comments Alna Inhibitors Cough 07/13/2022 Celecoxib 08/07/2010 Long ago [...] BCC R upper back 12/2012, BCC R buddhism 07/2012, R cheek 02/2012, L upper arm CC L preauricular x 2 (Jaimie, 2009); possibly others on trunk before that - pt unsure (Dr. Rucker) Menopause 01/12/2009 Urinary incontinence Overview (08/18/2017): ICD-10 update of inactive term documented as of this encounter (statuses as of 12/22/2024) Resolved Problems Problem Noted Date Diagnosed Date Resolved Date Food insecurity 04/28/2023 07/03/2023 Overview: Per [facility] Protocol Ductal carcinoma in situ [...] (Prevnar) 05/06/2016 Pneumococcal Conjugate Vacci ne, 20-valent ([id number]) 08/09/2024 Pneumococcal Polysaccharide PPV23 (Pneumovax) 10/17/2006 Season [...] answer. Message left to return call to [phone]. * Telephone Encounter - Vickie Pagan DO [...] unexpected or indeterminate finding on Jessica Gilliam ([id number]) and asks that you review the following [...] you, DOMENIC Montes De Oca Client Service [facility] documented in this encounter Plan of Treatment Upcoming Encounters Date Type Department Care Team (Late st Contact Info) Description 01/27/2025 10:00 AM EDT Office Visit Family Practice [facility] [address] [place] [phone] Vickie Pagan DO [address] [place] [address] Health Maintenance Due Date Last Done Comments CKD PHOS USE SMARTSET 13747 01/30/2024 01/29/2023, 1 COVID-19 Vaccine ( season) 2024 09/29/2023, 02/13/2023, 03/28/2022, Additional history exists CKD HGB USE SMARTSET 40484 09/12/202409/12, 09/12/2023, 01/29/2023, Additional history exists Adult [...] filedocumented as of this encounter Care Teams Electronics Worker Relationship Specialty Start Date End Date Vickie Pagan DO [address] [place] [address] PCP - General Family Medicine 06/08/24 documented as of this encounter
--- OUTSIDE RECORDS SUMMARY | 2024-12-30 21:05 | External Medical Summary | Summary of Care ---
Author Name Unknown Organization [facility] Address [address] [place] [address] Phone [phone] Care Team Providers Care Frame Gate Mortiser Operator Name Role Phone Vickie Pagan DO Primary Care Provider [phone] Reason for Referral * Precert (Within 24 hrs (call dept; emergent)) - Authorized Specialty Diagnoses / Procedures Referred By Contac t Referred To Contact Radiology Diagnoses Generalized abdominal pain Right flank pain Procedures CT ABD/PELVIS WO IV/ORAL CONTRAST Vickie Pagan DO [address] [place] [address] Phone: tel: fax: Referral ID Status Reason Start Date Expiration Date V isits Requested Visits Authorized [id number] Authorized 12/21/2024 999 999 Reason for Visit * Reason Comments Acute C/o pain on right si de starting in back and radiating to the front under the right breast. Also has GOLDSTEIN. Encounter Details Date Type Department Care Team (Late st Contact Info) Description 12/21/2024 10:00 AM EST Office Visit Family Practice [address] [place] [address] [place] [address] Vickie Pagan DO [address] [place] [address] Generalized abdominal pain*; Right flank pain; Alzheimer's [...] BCC R upper back 12/2012, BCC R hoahaoism 07/2012, R cheek 02/2012, L upper arm [...] (Prevnar) 05/06/2016 Pneumococcal Conjugate Vacci ne, 20-valent ([id number]) 08/09/2024 Pneumococcal Polysaccharide PPV23 (Pneumovax) 10/17/2006 Season [...] 10 times. Repeat this throughout the day. [employer] Patient Education Copyright 2008 [employer] except where otherwise noted. Preventing Falls: Moving [...] that mean climbing, even on a stepstool. [employer] Patient Education Copyright 2008 [employer] except where otherwise noted. Urinary Incontinence Plan [...] EDT Office Visit Family Practice [address] [place] [address] [place] [phone] Vickie Pagan [address] [place] [address] Pending Results Name Type Priority Associated Diagnoses Date /Time CULTURE, URINE, QUANTITATIVE Lab Routine Generalized abdominal pain Right flank pain 12/21/2024 11:22 AM EST Scheduled Orders Name Type Priority Associated Diagnoses Orde r Schedule URINALYSIS, POINT OF CARE (ENTER/EDIT) Point of Care Testing Routine Generalized abdominal pain Right flank pain Ordered: 12/21/2024 Health Maintenance Due Date Last Done Comments CKD PHOS USE SMARTSET 70361 01/30/2024 01/29/2023, 1 COVID-19 Vaccine ( season) 2024 09/29/2023, 02/13/2023, 03/28/2022, Additional history exists CKD HGB USE SMARTSET 49596 09/12/202409/12, 09/12/2023, 01/29/2023, Additional history exists Adult [...] This exam was submitted to the radiology chief information security officer worklist and the ordering provider will [...] This exam was submitted to the radiology chief information security officer worklist and theordering provider will be [...] Negative 12/21/2024 10:48 AM EST [facility] 56-21 Ketone, Urine Negative Negative mg/dL 12/21/2024 10:48 AM [facility] Specific [place], Urine >=1.030 1.003 - 1.030 12/21/2024 10:48 AM [facility] Blood, Urine Trace-intact (A) Negative 12/21/2024 10:48 AM [facility] pH, Urine 6.0 5.0, 5.5, 6.0, 6.5, 7.0, 7.5 units 12/21/2024 10:48 AM [facility] Protein, Urine Trace(A) Negative mg/dL 12/21/2024 10:48 AM [place] [address] Urobilinogen, Urine 0.2 0.2, 1.0 mg/dL 12/21/2024 10:48 AM [facility] Nitrite, Urine Positive(A) Negative 12/21/2024 10:48 AM [facility] Esterase, Urine Negative Negative 12/21/2024 10:48 AM [facility] Urine 12/21/2024 10:4 5 AM EST 12/21/2024 10:48 AM EST Vickie Pagan DO LAB POINT OF CARE TE ST DOCKED DEVICE UNSOLICITED RESULTS Final Result [place] [address] [address] [place] [address] documented in this encounter Visit Diagnoses [...] condition documented in this encounter Care Teams Frame Gate Mortiser Operator Relationship Specialty Start Date End Date Vickie Pagan DO [address] [place] [address] PCP - General Family Medicine 06/08/24 documented as of this encounter
--- OUTSIDE RECORDS SUMMARY | 2024-12-30 21:06 | External Medical Summary | Summary of Care ---
Author Name Unknown Organization [facility] Address [address] [place] [address] Phone [phone] Care Team Providers Care Line Installer Name Role Phone Vickie Pagan DO Primary Care Provider [phone] Reason for Visit * Reason Onset Date Comments Forms Request 11/02/202411/02 Encounter Details Date Type Department Care Team (Late st Contact Info) Description 11/02/2024 Telephone Family Practice [address] [facility] [address] [place] [address] Vickie Pagan DO [address] [place] [address] Forms Request (11/02) Allergies Active Allergy Reactions Criticality Noted Date Comments Alan Inhibitors Cough 07/13/2022 Celecoxib 08/07/2010 Long ago Rash Ciprofloxacin Hcl Rash 03/12/2013 Metronidazole Hcl Rash 04/28/2013 Penicillins 1997 Rash documented as of this encounter (statuses as of 11/09/2024) Medications ONE DAILY PO TABS Take by [...] 200 Tablet 1 09/30/2024 7:08 AM EST Active documented as of this encounter (statuses as of 11/09/2024) Active Problems Problem Noted Date Diagnosed Date [...] breast cancer 06/01/2019 Tendinitis of wrist 01/28/2019 NERIQUE (generalized anxiety disorder) 12/01/2018 Gastroesophageal reflux disease [...] BCC R upper back 12/2012, BCC R adventism 07/2012, R cheek 02/2012, L upper arm CC L preauricular x 2 (Jaimie, 2009); possibly others on trunk before that - pt unsure (Dr. 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 ADVANCE DIRECTIVE INFORMATION 09/05/2016 09/20/2024 Overview (06/29/2010): Yes, Patient instructed to provide copy of advance directive for provider to review and to be scanned into Electronic Medical Record Esophageal reflux 01/12/2009 12/01/2018 Anxiety state 07/27/2008 12/01/2018 documented as of this encounter (statuses as of 11/09/2024) Immunizations Name Administration Dates Next Due COVID-19 mRNA, LNP-s, No Pre serve, 2-Dose Series (Moderna) 09/19/2021,01/05/2021,12/08/2020 COVID-19, MRNA-LNP, PF, 30 M CG/0.3 mL, 12 YRS AND ABOVE, IM ([employer]-Comirnat) 09/29/2023 COVID-19, mRNA, LNP-s, PF, B ooster, 100mcg/0.5mg (Moderna) 03/28/2022 Covid-19, Mrna, Lnp-s, Pf, B ivalent, 30 Mcg, IM, 12 yrs and above ([employer]) 02/13/2023 Pneumococcal Conjugate Vacc, 13 Valent (Prevnar) 05/06/2016 Pneumococcal Conjugate Vacci ne, 20-valent ([id number]) 08/09/2024 Pneumococcal Polysaccharide PPV23 (Pneumovax) 10/17/2006 Season [...] encounter Miscellaneous Notes * Telephone Encounter - April Barone OSA - 11/09/2024 10:49 AM EST Received call from [facility] in[facility]ards to forms Informed them that the MD didn't think this was appropriate at this point in time * Telephone Encounter - Roula Bettencourt LPN - 11/04/2024 1:15 PM EST See previous note. Dr. Pagan and daughter did not request brace. * Telephone Encounter - April Barone OSA - 11/04/2024 12:59 PM EST Healthcare calling about form that was faxed for pain management brace Wondering how long til form sent back * Telephone Encounter - Vickie Pagan DO - 11/02/2024 3:56 PM EST Noted. * Telephone Encounter - Roula Bettencourt LPN - 11/02/2024 3:21 PM EST Phone call placed to daughter per request of Dr. Pagan. Dr. Pagan received a request for a back brace from [facility] for a back brace. PerDr. Pagan, she did not recommend the back brace and is not going to sign the forms. Per daughter María Elena, she did not request a brace and has no idea where the request came from. She also does not feel pt needs a brace. Voiced appreciation for call. No questions at this time. documented in this encounter Plan of Treatment Upcoming Encounters Date Type Department Care Team (Late st Contact Info) Description 01/27/2025 10:00 AM EDT Office Visit Family Practice [address] [place] [address] [place] [address] Vickie Pagan DO [address] [place] [address] Health Maintenance Due Date Last Done Comments CKD PHOS USE SMARTSET 61808 01/30/2024 01/29/2023, 1 COVID-19 Vaccine ( season) 2024 09/29/2023, 02/13/2023, 03/28/2022, Additional history exists CKD HGB USE SMARTSET 03781 09/12/202409/12, 09/12/2023, 01/29/2023, Additional history exists Adult [...] 07/22/2023, 07/19/2022, Additional history exists Pneumococcal Vaccine: 65+ Years Completed 08/09/2024, 05/06/2016, 10/17/2006 HPV (Gardasil) [...] filedocumented as of this encounter Care Teams Line Installer Relationship Specialty Start Date End Date Vickie Pagan DO [address] [facility] [place] [address] PCP - General Family Medicine 06/08/24 documented as of this encounter
--- OUTSIDE RECORDS SUMMARY | 2024-12-30 21:06 | External Medical Summary | Summary of Care ---
Author Name Unknown Organization [facility] Address [address] [place] [address] Phone [phone] Care Team Providers Care Medical Records Analyst Name Role Phone Vickie Pagan DO Primary Care Provider [phone] Reason for Visit * Reason Onset Date Comments Forms Request 11/02/202411/02 Encounter Details Date Type Department Care Team (Late st Contact Info) Description 11/02/2024 Telephone Family Practice [facility] [address] [place] [address] Vickie Pagan DO [address] [place] [address] Forms Request (11/02) Allergies Active Allergy Reactions Criticality Noted Date Comments Alan Inhibitors Cough 07/13/2022 Celecoxib 08/07/2010 Long ago Rash Ciprofloxacin Hcl Rash 03/12/2013 Metronidazole Hcl Rash 04/28/2013 Penicillins 1997 Rash documented as of this encounter (statuses as of 11/02/2024) Medications ONE DAILY PO TABS Take by [...] as of this encounter (statuses as of 11/02/2024) Active Problems Problem Noted Date Diagnosed Date [...] BCC R upper back 12/2012, BCC R zoroastrianism 07/2012, R cheek 02/2012, L upper arm CC L preauricular x 2 (Jaimie, 2009); possibly others on trunk before that - pt unsure (Dr. 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 ADVANCE DIRECTIVE INFORMATION 09/05/2016 09/20/2024 Overview (06/29/2010): Yes, Patient instructed to provide copy of advance directive for provider to review and to be scanned into Electronic Medical Record Esophageal reflux 01/12/2009 12/01/2018 Anxiety state 07/27/2008 12/01/2018 documented as of this encounter (statuses as of 11/02/2024) Immunizations Name Administration Dates Next Due COVID-19 mRNA, LNP-s, No Pre serve, 2-Dose Series (Moderna) 09/19/2021,01/05/2021,12/08/2020 COVID-19, MRNA-LNP, PF, 30 M CG/0.3 mL, 12 YRS AND ABOVE, IM ([facility]) 09/29/2023 COVID-19, mRNA, LNP-s, PF, B ooster, 100mcg/0.5mg (Moderna) 03/28/2022 Covid-19, Mrna, Lnp-s, Pf, B ivalent, 30 Mcg, IM, 12 yrs and above ([employer]) 02/13/2023 Pneumococcal Conjugate Vacc, 13 Valent (Prevnar) 05/06/2016 Pneumococcal Conjugate Vacci ne, 20-valent ([id number]) 08/09/2024 Pneumococcal Polysaccharide PPV23 (Pneumovax) 10/17/2006 Season [...] AM EDT Office Visit Family Practice 65 [facility], [address] [address] Vickie Pagan, DO [address] [place] [address] Health Maintenance Due Date Last Done Comments CKD PHOS USE SMARTSET 90263 01/30/2024 01/29/2023, 1 COVID-19 Vaccine ( season) 2024 09/29/2023, 02/13/2023, 03/28/2022, Additional history exists CKD HGB USE SMARTSET 50830 09/12/202409/12, 09/12/2023, 01/29/2023, Additional history exists Adult [...] filedocumented as of this encounter Care Teams Medical Records Analyst Relationship Specialty Start Date End Date Vickie Pagan DO [address] [place] [address] PCP - General Family Medicine 06/08/24 documented as of this encounter
--- OUTSIDE RECORDS SUMMARY | 2024-12-30 21:06 | External Medical Summary | Summary of Care ---
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 Centrum Silver Women 50+ 3 Active Osteo Bi-Flex One Per Day Oral Tablet Take by mouth. Active Glucosamine-Asael droitin 250-200 MG Oral Tablet Take 1 Tablet by mouth in the morning. Active Aspirin 81 MG Oral Tablet Chewable [...] needed for Anxiety. 30 Tablet 4 Active Glucosamine Chondroit(Biofla v) Oral Capsule Take by mouth. Active Gabapentin 300 MG Oral Capsule (Neurontin)Indic ations:Bilateral foot pain Take 2 Capsules by mouth in the morning and 2 Capsules in the evening. 400 Capsule 3 09/08/2024 1:52 PM EDT 4 Active PARoxetine HCl 30 MG Oral Tablet (Paxil)Indicatio ns:ENRIQUE (generalized anxiety disorder) TAKE ONE TABLET BY MOUTH EVERY DAY 100 Tablet 3 06/29/2024 1:44 PM EDT 4 03/22/20 25 Active busPIRone HCl 5 MG Oral Tablet (Buspar)Indicati ons:ENRIQUE (generalized anxiety disorder),Modera te major depression (HCC) Take 1 Tablet by mouth in the morning and 1 Tablet before bedtime. 200 Tablet 1 06/26/2024 2:08 PM EDT 4 Active Furosemide 20 MG Oral Tablet (Lasix)Indicatio ns:SAUCEDO (dyspnea on exertion),Diasto lic dysfunction TAKE 1 TABLET BY MOUTH THREE TIMES A WEEK 36 Tablet 3 07/15/2024 12:19 PM EDT 4 Active Rosuvastatin Calcium 20 MG Oral Tablet (Crestor)Indicat ions:Dyslipidemi a, goal LDL below 100 TAKE ONE TABLET BY MOUTH EVERY DAY 100 Tablet 1 08/21/2024 2:55 PM EDT 4 08/15/20 25 Active amLODIPine Besylate 2.5 MG Oral Tablet (Norvasc)Indicat ions:HTN, goal below 140/90 TAKE ONE TABLET BY MOUTH IN THE MORNING 100 Tablet 3 09/01/2024 8:23 AM EDT 4 08/29/20 25 Active documented as of this encounter (statuses as of 09/24/2024) Active Problems Problem Noted Date Diagnosed Date [...] BCC R upper back 12/2012, BCC R presybeterian 07/2012, R cheek 02/2012, L upper arm CC L preauricular x 2 (Jaimie, 2009); possibly others on trunk before that - pt unsure (Dr. 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 ADVANCE DIRECTIVE INFORMATION 09/05/2016 09/20/2024 Overview (06/29/2010): Yes, Patient instructed to provide copy of advance directive for provider to review and to be scanned into Electronic Medical Record Esophageal reflux 01/12/2009 12/01/2018 Anxiety state 07/27/2008 12/01/2018 documented as of this encounter (statuses as of 09/24/2024) Immunizations Name Administration Dates Next Due COVID-19 [...] (Prevnar) 05/06/2016 Pneumococcal Conjugate Vacci ne, 20-valent ([id number]) 08/09/2024 Pneumococcal Polysaccharide PPV23 (Pneumovax) 10/17/2006 Season [...] AM EST documented as of this encounter Progress Notes * Celio Browne, PhD - 09/24/2024 11:31 AM EST NEUROPSYCHOLOGY FEEDBACK NOTE Ms. Jessica Gilliam presented for a neuropsychology feedback appointment to review the results, impressions, and recommendations of an evaluation that was conducted on 09/03/2024. Patient's two daughters were present for the appointment with permission. Patient and daughters reported that everything has been about the same since the initial evaluation. No safety issues disclosed. Results,impressions, and recommendations were reviewed. Patient and daughters verbalized understanding and expressed appreciation. They are aware that I can be contacted with any additional questions. Patient was stable at the conclusion of the appointment. Summary and Conclusions: On formal neuropsychological testing, the pt appeared to put forth good effort. Premorbid general intellectual functioning was estimated to be in the average range. Auditory attention, working memory, and information processing speed were all within broad expectation. Fundamental language tasks showed intact phonemic verbal fluency, through with reduced confrontation picture naming and relatively weak semantic verbal fluency. Overall, learning/memory fell below expectation, with a pattern characterized by poor encoding, reduced delay recall, and minimal benefit from recognition cues (for the word list); this memory profile is concerning for a storage deficit. Visuospatial/constructional ability remained somewhat intact, though spatial judgment fell below expectation. Executive functioning (e.g., cognitive set- shifting/divided attention, visual planning, generative thinking) was within broad normal limits; however, novel problem-solving/response to feedback was perhaps relatively weak. Pt did not screen positive for clinically elevated anxiety. The pt's daughter rated the pt at a mild dementia level, which seems consistent with the report of how pt is functioning in daily life. Compared to the pt's 07/2023 neuropsychological evaluation, the current results are suggestive of decline in learning/memory and confrontation picture naming. There was also perhaps some relative decline in aspects of executive functioning. At this time, the pt meets criteria for mild dementia, as supported by notably reduced abilities inseveral cognitive domains assessed (i.e., learning/memory, confrontation naming, spatial judgment) as well as some degree of day-to-day functional impairment (financial and medication management). The etiology of her cognitive and functional decline could be multifactorial. However, the pt's neurocognitive profile (reductions in learning/memory and language) and clinical history (gradual progression, advanced age, STM loss as primary symptom) raises a primary concern for Alzheimer's disease. Additionally, the pt does have several vascular risk factors and chronic microangiopathic changes seenon previous neuroimaging (head CT in 2012), which could point to a cerebrovascular contribution to at least some degree. The pt does seem to have some level of neuropsychiatric symptomatology, namelyincreased depression and anxiety, which could be playing a role though likely not driving the clinical picture. Finally, the pt is on several medications that can have cognitive side effects (e.g., Pa xil, Valium, gabapentin). See recommendations listed below. 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 Continue with treatment for depression and anxiety. Continue management of vascular risk factors to prevent further progression of chronic cerebrovascular disease and/or occurrence of CVA to optimize brain/cognitive health. Consider medication side effects on cognitive functioning. Be as socially engaged as possible for overall health and well-being. Proper nutrition, stress reduction, and cultivating satisfying social interactions are encouraged and can help to enhance qualityof life. The patient is encouraged to engage in routine physical exercise within her physical capabilities, as long as she is able to do so safely. This will help her maintain both her physical status (i.e., regulating blood pressure) and her emotional/mental functioning. Practice good dietary habits. The following is one diet with scientific evidence for maintaining brain health: MIND-DASH Diet: GOOD: Green, leafy vegetables (like spinach and salad greens): At least 6 servings per week Other vegetables: At least one per day Nuts: Five servings per week Berries: Two or more servings per week Beans: At least three servings per week Whole grains: Three or more servings per day Fish: Once per week Poultry (like chicken or turkey): Two times per week [place] oil: Use it as your main cooking oil AVOID: Red meat: Less than four servings per week Butter and margarine: Less than a tablespoon daily Cheese: Less than one serving per week Pastries and sweets: Less than five servings per week Fried or fast food: Less than one serving per week The patient is encouraged to engage in cognitive stimulating activities like puzzles, reading, and socialization. This will help maintain her cognitive status and her emotional functioning. Increase assistance with day-to-day functional activities as needed and appropriate. Track cognitive functioning over time. Future neuropsychological evaluation is available as needed (in no sooner than 1 year from now). Celio Browne, Ph.D., [facility] Neuropsychologist Service Time: 28 mins ([id number]) documented in this encounter Plan of Treatment Upcoming Encounters Date Type Department Care Team (Late st Contact Info) Description 10/21/2024 1:00 PM EST Office Visit Family Practice [address] [facility], [place] [address] [place] [address] Vickie Pagan DO 293 [facility], [place] [address] Health Maintenance Due Date Last Done Comments CKD PHOS USE SMARTSET 79054 01/30/2024 01/29/2023, 1 COVID-19 Vaccine ( season) 2024 09/29/2023, 02/13/2023, 03/28/2022, Additional history exists CKD HGB USE SMARTSET 30049 09/12/202409/12, 09/12/2023, 01/29/2023, Additional history exists Adult [...] as of this encounter Visit Diagnoses Diagnosis 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
--- OUTSIDE RECORDS SUMMARY | 2024-12-30 21:06 | External Medical Summary | Summary of Care ---
Author Name Unknown Organization [facility] Address [address] [place] [address] Phone [phone] Care Team Providers Care Quality Lab Technician Name Role Phone CassVickie toro Primary Care Provider + [phone] Reason for Visit * Reason Onset Date Comments Appointment 09/15/2024 Encounter Details Date Type Department Care Team (Late st Contact Info) Description 09/15/2024 Telephone Care at Home [address] [place], [place] [id number] Zelda Deleon, DOMENIC [address] [place], [place] [id number] Appointment Allergies Active Allergy Reactions Criticality Noted Date Comments Alan Inhibitors Cough 07/13/2022 Celecoxib 08/07/2010 Long ago Rash Ciprofloxacin Hcl Rash 03/12/2013 Metronidazole Hcl Rash 04/28/2013 Penicillins 1997 Rash documented as of this encounter (statuses as of 09/15/2024) Medications Medication Sig Dispensed Refills Start Date End Date Status ONE DAILY PO TABS Take by mouth. Centrum Silver Women 50+ 03/10/2013 Active Osteo Bi-Flex One Per Day Oral Tablet Take by mouth. A ctive Glucosamine-Chondro itin 250-200 MG Oral Tablet Take 1 Tablet by mouth in the morning. Active Aspirin 81 MG Oral Tablet Chewable Take 1 Tablet by mouth in the morning. with food.. 05/23/2022 Active Acetaminophen 500 MG Oral Tablet Take 1 Tablet by mouth every 6 hours as needed. Active Metamucil MultiHealth Fiber 58.12 % Oral Packet (Psyllium) Take 1 Packet by mouth in the morning and 1 Packet before bedtime. Active Omeprazole 40 MG Oral Capsule Delayed Release (PriLOSEC)Indicatio ns:Gastroesophageal reflux disease without esophagitis TAKE ONE CAPSULE BY MOUTH EVERY MORNING 100 Capsule 3 11/17/2023 12/23/2024 Active diazePAM 5 MG Oral Tablet (Valium)Indications :Anxiety state Take 1 Tablet by mouth every 8 hours as needed for Anxiety. 30 Tablet 12/30/2023 Active Glucosamine Chondroit(Bioflav) Oral Capsule Take by mouth. Active Gabapentin 300 MG Oral Capsule (Neurontin)Indicati ons:Bilateral foot pain Take 2 Capsules by mouth in the morning and 2 Capsules in the evening. 400 Capsule 3 02/23/2024 Active PARoxetine HCl 30 MG Oral Tablet (Paxil)Indications: ENRIQUE (generalized anxiety disorder) TAKE ONE TABLET BY MOUTH EVERY DAY 100 Tablet 3 03/22/2024 03/22/2025 Active busPIRone HCl 5 MG Oral Tablet (Buspar)Indications :ENRIQUE (generalized anxiety disorder),Moderate major depression (HCC) Take 1 Tablet by mouth in the morning and 1 Tablet before bedtime. 200 Tablet 1 03/24/2024 Active Furosemide 20 MG Oral Tablet (Lasix)Indications: SAUCEDO (dyspnea on exertion),Diastolic dysfunction TAKE 1 TABLET BY MOUTH THREE TIMES A WEEK 36 Tablet 3 07/13/2024 Active Rosuvastatin Calcium 20 MG Oral Tablet (Crestor)Indication s:Dyslipidemia, goal LDL below 100 TAKE ONE TABLET BY MOUTH EVERY DAY 100 Tablet 1 08/15/2024 08/15/2025 Active amLODIPine Besylate 2.5 MG Oral Tablet (Norvasc)Indication s:HTN, goal below 140/90 TAKE ONE TABLET BY MOUTH IN THE MORNING 100 Tablet 3 08/29/2024 08/29/2025 Active documented as of this encounter (statuses as of 09/15/2024) Active Problems Problem Noted Date Diagnosed Date [...] 12/01/2018 Primary osteoarthritis of right knee 03/12/2017 ADVANCE DIRECTIVE INFORMATION 09/05/2016 Overview: Yes, Patient instructed to provide copy of advance directive for provider to review and to be scanned into Electronic Medical Record Hx of skin cancer, basal cell 01/15/2012 Overview: BCC L lateral neck 09/2021, BCC L midback, R lateral neck, R upper back 06/2019,BCC L cheek 10/2018, L lateral neck near jawline 10/2018,R nasal sidewall 10/2016, L upper arm 08/2016, BCC, R posterior auricular 03/2016, left nasolabial fold, L neck, R and L scapula 04/2015, BCC midforehead 05/2014, BCC R upper back 12/2012, BCC R restorationist 07/2012, R cheek 02/2012, L upper arm CC L preauricular x 2 (Jaimie, 2009); possibly others on trunk before that - pt unsure (Dr. 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 Esophageal reflux 01/12/2009 12/01/2018 Anxiety state 07/27/2008 12/01/2018 documented as of this encounter (statuses as of 09/15/2024) Immunizations Name Administration Dates Next Due COVID-19 mRNA, LNP-s, No Pre serve, 2-Dose Series (Moderna) 09/19/2021,01/05/2021,12/08/2020 COVID-19, MRNA-LNP, 23-24, P F, 30 MCG/0.3 mL, 12 YRS AND ABOVE, IM ([facility]) 09/29/2023 COVID-19, mRNA, LNP-s, PF, B ooster, 100mcg/0.5mg (Moderna) 03/28/2022 Covid-19, Mrna, Lnp-s, Pf, B ivalent, 30 Mcg, IM, 12 yrs and above ([facility] [employer]) 02/13/2023 Pneumococcal Conjugate Vacc, 13 Valent (Prevnar) 05/06/2016 Pneumococcal Conjugate Vacci ne, 20-valent ([id number]) 08/09/2024 Pneumococcal Polysaccharide PPV23 (Pneumovax) 10/17/2006 Season [...] ages 0-17 years) Not on file 11/06/2023 Sex and Gender Information Value Date Recorded Sex Assigned at Female 04/10/2022 9:44 AM EDT Gender Identity Female 04/10/2022 9:44 AM EDT Sexual Orientation Straight 12/20/2019 11 :12 AM EST Job Start Date Occupation Industry Not on file Not on file Not on file documented as of this encounter Miscellaneous Notes * Telephone Encounter - Zelda Deleon OSA - 09/15/2024 10:13 AM EDT [facility] Outreach Call attempt: 1st Call Call result: Call Unsuccessful - Left a voice mail Looking to offer patient AWV at the home with Claribel King PA-C, RN at clinic reached out to [facility]. Can offer: HV 11/03/24 Provided call back number of [phone] DOMENIC Lange documented in this encounter Plan of Treatment Upcoming Encounters Date Type Department Care Team (Late st Contact Info) Description 09/23/2024 11:00 AM EST Therapy Neuropsychology [facility] [address] [place] [address] Celio Browne, PhD [address] [place] [address] 10/21/2024 1:00 PM EST Office Visit Family Practice [address] [place] [address] [address] [place] [address] Vickie Pagan, [address] [place] [address] Health Maintenance Due Date Last Done Comments CKD PHOS USE SMARTSET 67416 01/30/2024 01/29/2023, 1 COVID-19 Vaccine ( season) 2024 09/29/2023, 02/13/2023, 03/28/2022, Additional history exists CKD HGB USE SMARTSET 52183 09/12/202409/12, 09/12/2023, 01/29/2023, Additional history exists Adult [...] filedocumented as of this encounter Care Teams Quality Lab Technician Relationship Specialty Start Date End Date Vickie Pagan DO [address] [place] [address] PCP - General Family Medicine 06/08/24 documented as of this encounter
--- OUTSIDE RECORDS SUMMARY | 2024-12-30 21:06 | External Medical Summary | Summary of Care ---
Author Name Unknown Organization [facility] Address [address] [place] [address] Phone [phone] Care Team Providers Care Employment Evaluator/Case Manager Name Role Phone Vickie Pagan DO Primary Care Provider + [phone] Reason for Visit * Reason Comments Follow Up Encounter Details Date Type Department Care Team (Late st Contact Info) Description 10/27/2024 9:20 AM EST Office Visit Family Practice [address] [facility] [address] [place] [address] Vickie Pagan DO [address] [place] [address] Alzheimer's disease (HCC)*; HTN, goal below 140/90; 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); Risk and functional assessment Allergies Active Allergy Reactions Criticality Noted Date Comments Alan Inhibitors Cough 07/13/2022 Celecoxib 08/07/2010 Long ago Rash Ciprofloxacin Hcl Rash 03/12/2013 Metronidazole Hcl Rash 04/28/2013 Penicillins 1997 Rash documented as of this encounter (statuses as of 10/27/2024) Medications ONE DAILY PO TABS Take by [...] Tablet 1 09/30/2024 7:08 AM EST Active Glucosamine-Asael droitin 250-200 MG Oral Tablet Take 1 Tablet by mouth in the morning. 10/27/20 24 Discontinu ed(Medicat ion List Clean Up) Glucosamine Chondroit(Biofla v) Oral Capsule Take by mouth. 10/27/20 24 Discontinu ed(Medicat ion List Clean Up) documented as of this encounter (statuses as of 10/27/2024) Active Problems Problem Noted Date Diagnosed Date [...] BCC R upper back 12/2012, BCC R hindu 07/2012, R cheek 02/2012, L upper arm CC L preauricular x 2 (Jaimie, 2009); possibly others on trunk before that - pt unsure (Dr. Rucker) Menopause 01/12/2009 Urinary incontinence Overview (08/18/2017): ICD-10 update of inactive term documented as of this encounter (statuses as of 10/27/2024) Resolved Problems Problem Noted Date Diagnosed Date [...] as of this encounter (statuses as of 10/27/2024) Immunizations Name Administration Dates Next Due COVID-19 [...] (Prevnar) 05/06/2016 Pneumococcal Conjugate Vacci ne, 20-valent ([id number]) 08/09/2024 Pneumococcal Polysaccharide PPV23 (Pneumovax) 10/17/2006 Season [...] Sign Reading Time Taken Comments Blood Pressure 118/70 10/27/2024 9:33 AM EST Pulse 71 10/27/2024 9:33 AM EST Temperature 36.8 C (98.3 F) 10/27/2024 9:33 AM ES T Respiratory Rate 14 10/27/2024 9:33 AM EST Oxygen Saturation 95% 10/27/2024 9:33 AM EST Inhaled Oxygen Concentration - - Weight 80.3 kg (177 lb) 10/27/2024 9:33 AM EST Height 162.6 cm (5' 4") 10/27/2024 9:33 AM EST Body Mass Index 30.38 10/27/2024 9:33 AM EST documented in this encounter Patient Instructions * Patient Instructions* Roula Bettencourt LPN - 10/27/2024 9:30 AM EST Patient Instructions - Fall Prevention [...] and the bathroom Preethi Patient Education Copyright 2009 - 2010 Preethi except where otherwise noted [...] types of exercise can help improve balance. Ijmmy chi and yoga are good examples. Heres [...] 10 times. Repeat this throughout the day. Preethi Patient Education Copyright 2009 - 2010 Preethi except where otherwise noted. Preventing Falls: Moving [...] that mean climbing, even on a stepstool. Preethi Patient Education Copyright 2008 - 2010 Preethi except where otherwise noted. Urinary Incontinence Plan [...] Wear support stockings (TEDs)if you have edema Roula Bettencourt LPN 10/27/2024 Kegel Exercises Kegel exercises dont require special [...] this encounter Progress Notes * Vickie Pagan, DO - 10/27/2024 10:08 AM EST SUBJECTIVE: Chief Complaint Patient presents with Follow Up HPI: Jessica Gilliam is a 88 year old female who presents today for regular return. She is accompanied by daughter. They feel she is doing well. Daughter notes that her memory is worse some days than others. They do have things controlled with her medications. She did slip in the shower as the anti- slip mat was not suctioned down. She had some bruising on her legs and a bruise on her back. Otherwise ok. Continues to bowl and do water walking. 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 Centrum Silver Women 50+ Osteo Bi-Flex One Per Day Oral Tablet Take by mouth 2 times a day. Aspirin 81 MG Oral Tablet Chewable Take 1 Tablet by mouth in the morning. with food.. Acetaminophen 500 MG Oral Tablet Take 1 Tablet by mouth every 6 hours as needed. Omeprazole 40 MG Oral Capsule Delayed Release (PriLOSEC) TAKE ONE CAPSULE BY MOUTH EVERY MORNING 100 Capsule 3 diazePAM 5 MG Oral Tablet (Valium) Take 1 Tablet by mouth every 8 hours as needed for Anxiety. 30 Tablet 0 Gabapentin 300 MG Oral Capsule (Neurontin) Take 2 Capsules by mouth in the morning and 2 Capsules in the evening. 400 Capsule 3 PARoxetine HCl 30 MG Oral Tablet (Paxil) TAKE ONE TABLET BY MOUTH EVERY DAY 100 Tablet 3 Furosemide 20 MG Oral Tablet (Lasix) TAKE 1 TABLET BY MOUTH THREE TIMES A WEEK 36 Tablet 3 Rosuvastatin Calcium 20 MG Oral Tablet (Crestor) TAKE ONE TABLET BY MOUTH EVERY DAY 100 Tablet 1 amLODIPine Besylate 2.5 MG Oral Tablet (Norvasc) TAKE ONE TABLET BY MOUTH IN THE MORNING 100 Tablet3 busPIRone HCl 5 MG Oral Tablet (Buspar) Take 1 Tablet by mouth in the morning and 1 Tablet before bedtime. 200 Tablet 1 Metamucil [facility] Fiber 58.12 % Oral Packet (Psyllium) Take 1 Packet by mouth in the morning and 1 Packet before bedtime. (Patient not taking: Reported on 10/27/2024) No current facility-administered medications for this visit. 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 Past Surgical History: Procedure Laterality Date BREAST LESION,OTHER,EXCISION Left 09/09/2018 09/09/2018 re - EXCISION OF CYST OR TUMOR BREAST performed by Nena Phan MD at [facility] COLONOSCOPY, DIAGNOSTIC (RECTUM) 09/17/2017 serrated adenomatous polyps, diverticulosis/COLONOSCOPY FLEXIBLE PROXIMAL DIAGNOSTIC performed by Madi Oropeza MD at ENDOSCOPY [facility] EGD, FLEXIBLE, DIAGNOSTIC 05/04/2013 UPPER GI ENDOSCOPY DIAGNOSTIC performed by Mara Mehta DO at ENDOSCOPY [facility] KNEE ARTHROSCOPY/SURGERY Left 2000 KNEE ARTHROSCOPY/SURGERY Right 2002 MASTECTOMY, PARTIAL Left 07/15/2018 07/15/2018 left - MASTECTOMY PARTIAL performed by Nena Phan MD at [facility] MASTECTOMY, PARTIAL Left 09/09/2018 wider margin taken out REMOVAL OF APPENDIX REMOVE CATARACT, INSERT LENS PROSTH 11/28/10 L eye TOTAL ABD HYSTERECTOMY W/WO REMOVAL OF TUBE(S) 1969 UROLOGY SURGERY PROCEDURE NEC -? "bladder tack- Dr. Rodriguez" UROLOGY SURGERY PROCEDURE NEC 1994 sling procedure using muscles- Dr. Montelongo UROLOGY SURGERY PROCEDURE NEC -? [place] - sling procedure using skin US GUIDED BREAST BIOPSY LEFT Left 05/07/2018 DCIS Review of patient's allergies indicates: Allergen Reactions Alan Inhibitors Cough Celebrex [Celecoxib] Long ago Rash Ciprofloxacin Hcl Rash Flagyl [Metronidazole Hcl] Rash Penicillins Rash Family History Problem Relation Name Age of Onset Breast Cancer Daughter 35 Other (Other) Father AAA - former smoker Heart Disorder Mother Family Status Relation Status Mo Alive Fa Keyla (Not Specified) Social History Tobacco Use Smoking status: Never Passive exposure: Past Smokeless tobacco: Never Substance Use Topics Alcohol use: Yes Comment: rare occasion-glass of wine Vaping/E-Cigarette Use Vaping/E-Cigarette Use Never User Vaping/E-Cigarette Substances Vaping/E-Cigarette Devices REVIEW OF SYSTEMS: Review of Systems Constitutional: Negative for chills, fatigue, fever and unexpected weight change. Respiratory: Negative for cough, chest tightness, shortness of breath and wheezing. Cardiovascular: Negative for chest pain, palpitations and leg swelling. Gastrointestinal: Negative for abdominal pain, constipation, diarrhea, nausea and vomiting. Musculoskeletal: Negative for arthralgias, gait problem and joint swelling. Skin: Negative for color change, pallor and rash. OBJECTIVE: BP 118/70 (BP Site: Left Arm, BP Position: Sitting, BP Cuff Size: Regular) | Pulse 71 | Temp 98.3 F (36.8 C) (Tympanic) | Resp 14 | Ht 5' 4" (1.626 m) | Wt 177 lb (80.3 kg) | SpO2 95% | BMI 30.38kg/m | BSA 1.9 m PHYSICAL EXAM: Physical Exam Constitutional: General: She is not [...] Palpations: Abdomen is soft. Tenderness: There is no abdominal tenderness. There is no guarding. Musculoskeletal: General: No tenderness or deformity. Normal range of motion. Skin: General: Skin is warm and dry. Coloration: Skin is not pale. Findings: No erythema or rash. Neurological: Mental Status: She is alert and oriented to person, place, and time. ASSESSMENT/PLAN: (G30.9, F02.80) Alzheimer's disease (HCC) (primary encounter diagnosis) Plan: Pt had update visit with Dr. Browne. Discussed Namenda or Aricept. They do not wish to pursue.Will monitor. Continue with what they have been doing. (I10) HTN, goal below 140/90 Plan: BP controlled. No changes for now. (I12.9, N18.31) 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) Plan: will continue to monitor renal function. No changes. (Z13.9) Risk and functional assessment Plan: See nursing note. Follow-up: 3 months Total time today including reviewing chart before the visit, pertinent labs, imaging reports, face to face time, and documentation time was 33 minutes. Vickie Pagan DO * Roula Bettencourt LPN - 10/27/2024 9:30 AM EST Fall Risk Plan of Care Documentation: - Current medications reconciled Patient encouraged to: - Exercise - Provide education materials for Core strengthening - Utilize assistive/adaptive devices - Provide education materials - Avoid multifocal lenses when walking - Avoid hazards in home - Provide education materials - Maintain a regular toileting schedule Roula Bettencourt LPN 10/27/2024 Urinary Incontinence Plan of Care Documentation: (This [...] Wear support stockings (TEDs)if you have edema Roula Bettencourt LPN 10/27/2024 documented in this encounter Nursing Notes * Roula Bettencourt LPN - 10/27/2024 9:31 AM EST Patient here for routine follow up visit. Reports soreness from decorating house for holidays. Fallrecently in shower. Reports scalp gets itchy - questioning if it related to a medication. Patient has been verbally educated on the need or importance of COVID and RSV vaccine and has declined topic(s). documented in this encounter Plan of Treatment Upcoming Encounters Date Type Department Care Team (Late st Contact Info) Description 01/27/2025 10:00 AM EDT Office Visit Family Practice [address] [place] [address] [place] [id number] Vickie Pagan DO [address] [place] [address] Health Maintenance Due Date Last Done Comments CKD PHOS USE SMARTSET 88841 01/30/2024 01/29/2023, 1 CKD HGB USE SMARTSET 39944 09/12/202409/12, 09/12/2023, 01/29/2023, Additional history exists COVID-19 Vaccine ( season) 2024 09/29/2023, 02/13/2023, 03/28/2022, Additional history exists Postponed from 07/18/2024 (Patient Declined After Education) Adult Wellness Visit 11/06/2024 11/06/2023, 10/17/2022, 10/04/2021 Depression Monitoring 11/06/2024 11/06/2023 Mammogram 07/29/2025 07/29/2024, 07/18, 12/26/2023, Additional history exists Albumin/Creatinine Ratio 08/09/2025 024, 07/22/2023, 08/19/2022 DXA Scan 09/04/2026 09/04/2023, 08/17, 07/20/2020, Additional history exists DTap/Tdap Vaccines (3 - Td or Tdap) 03/13/2033 03/13/2023, 03/10/2013 Zoster Vaccines Completed 10/26/2020, 12/2019, 04/08/2012 Influenza Vaccine (FLU shot) Completed 08/09/2024, 07/22/2023, 07/19/2022, Additional history exists Pneumococcal Vaccine: [...] as of this encounter Visit Diagnoses Diagnosis Alzheimer's disease (HCC)- Primary Alzheimer's disease HTN, goal below 140/90 Unspecified essential hypertension 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) Risk and functional assessment Screening for unspecified condition documented in this encounter Care Teams Employment Evaluator/Case Manager Relationship Specialty Start Date End Date Vickie Pagan DO [address] [place] [address] PCP - General Family Medicine 06/08/24 documented as of this encounter
--- OUTSIDE RECORDS SUMMARY | 2024-12-30 21:06 | External Medical Summary | Summary of Care ---
Author Name Unknown Organization [facility] Address [address] [place] [address] Phone [phone] Care Team Providers Care Terminal Supervisor Name Role Phone Vickie Cagle DO Primary Care Provider [phone] Reason for Visit * Reason Comments Medication Refill Encounter Details Date Type Department Care Team (Late st Contact Info) Description 09/28/2024 Refill Family [address] [facility] [place] [address] [place] [address] Vickie Cagle DO [address] [place] [address] ENRIQUE (generalized anxiety disorder); Moderate major depression (HCC) Allergies Active Allergy Reactions Criticality Noted Date Comments Alan Inhibitors Cough 07/13/2022 Celecoxib 08/07/2010 Long ago Rash Ciprofloxacin Hcl Rash 03/12/2013 Metronidazole Hcl Rash 04/28/2013 Penicillins 1997 Rash documented as of this encounter (statuses as of 09/28/2024) Medications ONE DAILY PO TABS Take by [...] 1:44 PM EDT 4 03/22/20 25 Active Furosemide 20 MG [...] 1 Tablet before bedtime. 200 Tablet 1 4 Active busPIRone HCl 5 MG Oral Tablet (Buspar)Indicati ons:ENRIQUE (generalized anxiety disorder),Modera te major depression (HCC) Take 1 Tablet by mouth in the morning and 1 Tablet before bedtime. 200 Tablet 1 06/26/2024 2:08 PM EDT 4 09/28/20 24 Discontinu ed(Refill) documented as of this encounter (statuses as of 09/28/2024) Active Problems Problem Noted Date Diagnosed Date [...] BCC R upper back 12/2012, BCC R quaker 07/2012, R cheek 02/2012, L upper arm CC L preauricular x 2 (Jaimie, 2009); possibly others on trunk before that - pt unsure (Dr. 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 ADVANCE DIRECTIVE INFORMATION 09/05/2016 09/20/2024 Overview (06/29/2010): Yes, Patient instructed to provide copy of advance directive for provider to review and to be scanned into Electronic Medical Record Esophageal reflux 01/12/2009 12/01/2018 Anxiety state 07/27/2008 12/01/2018 documented as of this encounter (statuses as of 09/28/2024) Immunizations Name Administration Dates Next Due COVID-19 [...] (Prevnar) 05/06/2016 Pneumococcal Conjugate Vacci ne, 20-valent ([id number]) 08/09/2024 Pneumococcal Polysaccharide PPV23 (Pneumovax) 10/17/2006 Season [...] Telephone Encounter - Vickie Cagle DO - 09/28/2024 12:07 PM ESTSigned Prescriptions: Disp Refills busPIRone HCl 5 MG Oral Tablet (Buspar) 200 Ta*1 Sig: Take 1 Tablet by mouth in the morning and 1 Tablet before bedtime. Authorizing Provider: VICKIE CAGLE * Telephone Encounter - Vickie Cagle DO - 09/28/2024 12:07 PM ESTSigned Prescriptions: Disp Refills busPIRone HCl 5 MG Oral Tablet (Buspar) 200 Ta*1 Sig: Take 1 Tablet by mouth in the morning and 1 Tablet before bedtime. Authorizing Provider: VICKIE CAGLE * Telephone Encounter - Nissa Cadet, customer project manager - 09/28/2024 11:17 AM EST Did you pend patient's preferred pharmacy and medication before forwarding?yes Pharmacy: [facility] Pending Prescriptions: Disp Refills busPIRone HCl 5 MG Oral Tablet (Buspar) 200 Ta*1 Sig: Take 1 Tablet by mouth in the morning and 1 Tablet before bedtime. Last Visit: 08/09/2024 (in office), 02/20/2024 (telemedicine) Next Visit: 10/21/2024 If no future appointments scheduled, and last appointment is greater than a year ago, please schedule patient for a follow-up appointment Last date the medication was ordered: Is this request for a controlled substance?No Urine Drug Screen:No results found. However, due to the size of the patient record, not all encounters were searched. Please check Results Review for a complete set of results. Patient Phone Numbers mobile [phone] Labs: Lab Results Component Value Date/Time CREAT 1.0 02/20/2024 11:54 AM CREAT 0.91 01/29/2023 12:00 AM CREAT 1.0 12/02/2018 11:24 AM POTASSIUM 4.3 02/20/2024 11:54 AM POTASSIUM 4.1 01/29/2023 12:00 AM POTASSIUM 4.2 12/02/2018 11:24 AM TSH 2.55 09/13/2014 08:25 AM LDL 55 02/20/2024 11:54 AM LDL 120 12/02/2018 11:24 AM ALT 26 09/12/2023 03:38 PM ALT 14 12/02/2018 11:24 AM documented in this encounter Plan of Treatment Upcoming Encounters Date Type Department Care Team (Late st Contact Info) Description 10/21/2024 1:00 PM EST Office Visit Family Practice [address] [place] [address] [place] [address] Vickie Cagle DO [address] [facility] [place] [address] Health Maintenance Due Date Last Done Comments CKD PHOS USE SMARTSET 16651 01/30/2024 01/29/2023, 1 COVID-19 Vaccine ( season) 2024 09/29/2023, 02/13/2023, 03/28/2022, Additional history exists CKD HGB USE SMARTSET 59272 09/12/202409/12, 09/12/2023, 01/29/2023, Additional history exists Adult [...] as of this encounter Visit Diagnoses Diagnosis ENRIQUE (generalized anxiety disorder) Generalized anxiety disorder Moderate major depression (HCC) Major depressive disorder, single episode, moderate documented in this encounter Care Teams Terminal Supervisor Relationship Specialty Start Date End Date Vickie Cagle DO [address] [facility] [place] [address] PCP - General Family Medicine 06/08/24 documented as of this encounter
--- OUTSIDE RECORDS SUMMARY | 2024-12-30 21:06 | External Medical Summary | Summary of Care ---
Author Name Unknown Organization [facility] Address [address] [place] [address] Phone [phone] Care Team Providers Care Heel Compressor Name Role Phone CassVickie toro Primary Care Provider + [phone] Reason for Visit * Reason Comments Neuropsychological Evaluation Encounter Details Date Type Department Care Team (Late st Contact Info) Description 09/03/2024 9:30 AM EDT Therapy Neuropsychology [facility] [place] [address] [place] [address] Celio Browne, PhD [address] [place] [address] Mild late onset Alzheimer's dementia with mood [...] Date Food insecurity 04/28/2023 07/03/2023 Overview: Per [facility] Protocol Ductal carcinoma in situ (DC [...] (Prevnar) 05/06/2016 Pneumococcal Conjugate Vacci ne, 20-valent ([id number]) 08/09/2024 Pneumococcal Polysaccharide PPV23 (Pneumovax) 10/17/2006 Season [...] Progress Notes * Celio Browne, PhD - 09/03/2024 9:33 AM EDT NEUROPSYCHOLOGICAL EVALUATION Patient Name: Jessica Gilliam Date of : 1935 Age: 88 Education: 12 years Date of Evaluation: 09/03/2024 Identifying and Referral Information: Ms. Jessica Gilliam was referred for a repeat neuropsychological evaluation by Dr. Vickie Pagan of [address] to assess current cognitive and emotional/behavioral functioning in the context of ongoing memory/cognitive decline and suspected dementia. We discussed what to expect during the neuropsychological evaluation process. I described limits ofconfidentiality. Pt provided informed consent to proceed with the evaluation. Background Information: Pt seen by neuropsychology on 07/18/2023: Summary and Conclusions: On formal neuropsychological testing, the pt appeared to put forth good effort. Premorbid general intellectual functioning was estimated to be in the average range. Auditory attention, working memory, and information processing speed were all within broad expectation. Fundamental language tasks showed intactphonemic verbal fluency, through with relative weak confrontationpicture naming (low average; suggestive of at least some degree of decline) and diminished semanticverbal fluency. Overall, learning/memory fell below expectation, with a pattern characterized by poor encoding, reduced delay recall, and minimal benefit from recognition cues (for the word list); this memory profile is concerning for a developing storage deficit. Visuospatial/constructional ability remained somewhat intact, though spatial judgment fell below expectation. Executive functioning (e.g., cognitive set- shifting/divided attention, visualplanning, generative thinking) was within broadnormal limits; however, novel problem-solving/response to feedback was relatively weak. Pt screenedpositive for mild depression. The pt reported some day-to-day functional impairment stemming from her cognitive difficulties including suboptimally managing her finances. At this time, the pt falls between meeting criteria for mild cognitive impairment and a very early mild dementia, as demonstrated by markedly reduced abilities in several cognitive domains assessed (i.e., learning/memory, semantic fluency and naming, spatial judgmentaspects of executive functioning) as well as some degree of day-to-day functional impairment. The etiology of her cognitive and functional decline is likely multifactorial. Aspects of her neurocognitive profile are concerning for a cerebrovascular etiology; the pt does have several vascular risk factors and chronic microangiopathic changes seen on previous neuroimaging (head CT in 2012), which could have conceivably progressed since that time (pt has a brain MRI on 08/07/2023). Additionally, aspects of the pt's neurocognitive profile demonstrate changes that could be characteristic of Alzheimer's disease (e.g., changes in learning/memory and language). Finally, the pt does seem to have some level of neuropsychiatric symptomatology, namely increased depression and anxiety, which could be playing a role to at least some degree. See recommendations listed below. 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 Pt was accompanied to the appt by daughter Joss, who participated in the clinical interview with permission. Pt herself does not feel like she has had any cognitive decline over the past year since her neuropsychological evaluation in 07/2023. Pt's daughter endorsed numerous cognitive issues. Pt's daughter described increasing short-term memory issues; pt has been forgetting conversations, repeating self, asking the same questions in a short period of time, occasionally misplacing items (few times per week), and mildly reduced prospective memory (has to rely on calendar). Cues seem to help variably with recall. Pt and daughter denied becoming lost/disoriented in familiar places. Pt and daughter denied attention/concentration issues. Pt and daughter denied slowed cognitive processing speed. Pt and daughter endorsed fundamental language concerns: occasional word finding difficulty. Pt and daughter denied concerns with visuospatial/constructional ability. Pt and daughter denied zenaida executive functioning issues in day to day life, especially when pt's usual routines stay consistent. Pt had a mechanical fall in December 2023. Otherwise, pt and daughter denied gait changes, shuffling, rigidity, tremors, recurrent falls, incontinence, dysphagia, changes in smell/taste, apraxia, andataxia. Pt described recent mood as I do get lonely. Pt feels increased depression in the evenings when she is alone. Pt endorsed anxiety, namely when she is off routine or things do not go her way. Ptcan be irritable and stubborn at times. Pt had a few instances over the past year where she has thought people were breaking in to her home. Pt otherwise denied SI/HI, hallucinations, benny, apathy, and/or significant personality/behavioral changes (e.g., disinhibition, inappropriateness). Pt is currently prescribed and taking Paxil and Buspar; she also takes a Valium before bowling. Pt is not currently in counseling. Sleep is "good." Pt achieves about 8 hours of sleep per night. Pt feels rested most mornings. Pt denied symptoms of insomnia, DOMENIC, and RSBD. Energy is "good." Pt bowls and water walks for exercise. Appetite is "too good." Pt denied unusual food cravings/eating habits, though she has had an increasing desire for sweets. Pt endorsed fluctuating chronic pain related to LE neuropathy, back issues, and knee problems. Pt denied any acute pain/discomfort today. Pt denied current ETOH use. Pt denied current tobacco use. Pt denied current recreational use of prescription/illict substances. Pt denied current excessive caffeine intake. Pt is reportedly independent for all basic ADLs. Pt's daughter has been filling an electronic pill organizer every two weeks, which has been successful. Pt's daughter has been managing pt's finances for about the past year due to issues. 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 Driving is unremarkable- no concerns, recent accidents, tickets, or near-misses; pt engages only in local, daytime driving. Complications and Developmental Delays: Denied. Educational/Vocational History: Denied any history of learning disorders/problems. Denied any history of grade retention. Graduated from high school. 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 Service: Denied. Psychiatric History: History of depression and anxiety. Substance Use History: Denied. Social History: Born in [place], [place]. Reportedly moved around a lot throughout her early childhooduntil her family settled in [place], [place] when the pt was in 3rd grade. Typical upbringing, no abuse/neglect, though sister reported their mother experienced debilitating mental health episodes that required the pt to take care of her siblings at times. for 52 years until her suddenly 15 years ago due a medical complication. Currently living alone; one daughter lives down the street from and has daily contact with pt. Four children (2 daughters, 2 sons - 1 son by suicide in 1987). Described having good family relationships and a good social telida-bowling, friends from high school. Legal Issues: Denied. 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 Denied TIA, stroke, and seizures. MRI of the brain conducted on 08/07/2023 showed (per radiology read): FINDINGS MRI brain: No acute infarct or hemorrhage. No intracranial mass identified. No mass effect or herniation. Scattered periventricular and subcortical T2/FLAIR hyperintense signal is nonspecific but likely the sequela chronic microvascular ischemic change. No abnormal enhancement. The ventricles and sulci are symmetric, but enlarged. No hydrocephalus or extra- axial fluid collections. No significant mucosal thickening. Mastoid cells are clear bilaterally. Current Outpatient Medications (per medical record): Current Outpatient Medications Medication Sig Dispense Refill ONE DAILY PO TABS Take by mouth. Centrum Silver Women 50+ Osteo Bi-Flex One Per Day Oral Tablet Take by mouth. Glucosamine-Chondroitin 250-200 MG Oral Tablet Take 1 Tablet by mouth in the morning. (Patient not taking: Reported on 08/09/2024) Aspirin 81 MG Oral Tablet Chewable Take 1 Tablet by mouth in the morning. with food.. Acetaminophen 500 MG Oral Tablet Take 1 Tablet by mouth every 6 hours as needed. Metamucil MultiHealth Fiber 58.12 % Oral Packet (Psyllium) Take 1 Packet by mouth in the morning and 1 Packet before bedtime. (Patient not taking: Reported on 08/09/2024) Omeprazole 40 MG Oral Capsule Delayed Release (PriLOSEC) TAKE ONE CAPSULE BY MOUTH EVERY MORNING 100 Capsule 3 diazePAM 5 MG Oral Tablet (Valium) Take 1 Tablet by mouth every 8 hours as needed for Anxiety. 30 Tablet 0 Glucosamine Chondroit(Bioflav) Oral Capsule Take by mouth. (Patient not taking: Reported on 08/09/2024) Gabapentin 300 MG Oral Capsule (Neurontin) Take 2 Capsules by mouth in the morning and 2 Capsules in the evening. 400 Capsule 3 PARoxetine HCl 30 MG Oral Tablet (Paxil) TAKE ONE TABLET BY MOUTH EVERY DAY 100 Tablet 3 busPIRone HCl 5 MG Oral Tablet (Buspar) Take 1 Tablet by mouth in the morning and 1 Tablet before bedtime. 200 Tablet 1 Furosemide 20 MG Oral Tablet (Lasix) TAKE 1 TABLET BY MOUTH THREE TIMES A WEEK 36 Tablet 3 Rosuvastatin Calcium 20 MG Oral Tablet (Crestor) TAKE ONE TABLET BY MOUTH EVERY DAY 100 Tablet 1 amLODIPine Besylate 2.5 MG Oral Tablet (Norvasc) TAKE ONE TABLET BY MOUTH IN THE MORNING 100 Tablet3 No current facility-administered medications for this visit. Family History: Patient's mother at age 101 from a heart attack and had a history of late-life dementia, depression, anxiety, and suspected bipolar disorder. Patient's father at age 90 due tofemoral artery aneurysm. Younger sister diagnosed with Parkinson's disease in her late 60's and at age 80. Patient's son had a history of depression and by suicide at age 29. Denied any other known family history of dementia, neurological disease, psychiatric illness and substance abuse. Family History Problem Relation Name Age of Onset Breast Cancer Daughter 35 Other (Other) Father AAA - former smoker Heart Disorder Mother Mental Status Evaluation/Behavioral Observations: Sensorium: Awake and alert to stimulus with no difficulty maintaining an appropriate level of arousal. Orientation: AO X 3. Appearance: Casually dressed and was appropriate to season and situation. No apparent distress. Grooming, Hygiene: Good. Behavior: Compliant and cooperative with the evaluation and testing procedures. Pleasant. Socially appropriate. Speech/language: Speech was WNL for rate, volume, and prosody. Receptive and expressive language was WNL. Gait/Posture: Ambulated independently. Gait and posture unremarkable on casual observation. Assistive Devices: Hearing and vision were adequate for purposes of testing. Mood: Described as I do get lonely. Affect: Broadly euthymic, though did become tearful while completing depression/anxiety questionnaires. Broad in range. Congruent. Motor: No tremor noted. Normal facial expression. Thought process/Content/Hallucinations: Largely logical and linear, though relied on daughter for provision on clinical history. No unusual content noted. No hallucinations noted. Safety: Any safety issues, thoughts of harming self or others were denied. CSSRS was negative. Insight: Good. Procedures: Clinical Interview &?Record Review; Wide Range Achievement Test -?4 (WRAT-4: Word Reading); Neuropsychological Assessment Battery (NAB Form 1: Digits Backward, Naming); Repeatable Battery for the Assessment of Neuropsychological Status (RBANS A); Verner Making Test A & B; Controlled Oral Word Association Test (COWAT: FAS, Animal Naming); Modified [place] Card Sorting Task (MWCST); Clock Drawing; Generalized Anxiety Disorder-7 (ENRIQUE-7); Geriatric Depression Scale-Short Form (GDS-SF); Quick Dementia Rating Scale (QDRS); A Random Letter Test Findings: Test scores are summarized in additional documentation associated with this encounter. Test scores and associated descriptive qualifiers are relative to age, gender, and/or education as available and appropriate. It is not necessarily abnormal to have some low scores in the context of multiple measurements. Estimated premorbid general intellectual functioning was likely in the average range, extrapolated from single word reading ability and educational/occupational attainments. RBANS Attention: The Attention Index score was average. Digit span forward was high average. A psychomotor symbol-number association task was low average. RBANS Visuospatial: The Visuospatial Index score was in the low average range. A figure copy task integrating different details and elements was high average. Visual analysis and judgment of angles and line orientation on another subtest was below average. RBANS Language: The Language Index score was in the average range. Semantic fluency (for fruits andvegetables) was low average, and confrontation picture naming was within normal limits. RBANS Immediate Memory: The Immediate Memory Index score was in the exceptionally low range. List learning over four trials (2, 3, 3, 6/10) was exceptionally low, and story learning across two trialsfell in the below average range. RBANS Delayed Memory: The Delayed Memory Index score was in the exceptionally low range. She recalled 0/10 words from the list at delayed recall, which is below average. Yes/no recognition of words on the word list versus foils was exceptionally low (12/20). Delayed story recall was in the below average range. Delayed recall for visuospatial figure copied earlier (as described above) was exceptionally low. RBANS Total: The RBANS Total Score was below average. Tasks additional to the RBANS were also administered. Timed oral production of words based on letter priming was average, and timed oral production of words based on a semantic category (animals) waslow average. Digit repetition backwards was average. A more thorough confrontation naming task was below average (raw = 23/31). Clock drawing was within broad normal limits. A timed paper/pencil taskrequiring rapid sequencing of numbers in ascending order was average (with 1 error), and a paper/pencil task requiring the rapid sequencing of numbers and letters was low average (with 2 errors). A task of novel problem- solving and response to feedback was average; overall, her performance was justus cterized by completion of 3/6 correct categories (low average), with a normal number of errors. One stand-alone indicator of performance validity was within the acceptable range. The pt did not screen positive for clinically significant levels of anxiety. Pt's daughter rated the pt at a mild dementia level on a formal dementia severity rating scale. Summary and Conclusions: On formal neuropsychological testing, [...] chicken or turkey): Two times per week Mcpherson oil: Use it as your main cooking [...] no sooner than 1 year from now). Thank you for involving us in Ms. Gilliam's care. Do not hesitate to contact me should you have any concerns regarding the findings and recommendations presented in this report. Celio Browne, Ph.D., ABN Neuropsychologist Service Time: [id number] [phone] x 60 mins 24914 x 180 mins 39555 x 30 mins [phone] x 120 mins documented in this encounter Plan of Treatment Upcoming Encounters Date Type Department Care Team (Late st Contact Info) Description 10/21/2024 1:00 PM EST Office Visit Family Practice [address], [place] [address] [place] [id number] Vickie Pagan DO [address] [place] [address] Health Maintenance Due Date Last Done Comments CKD PHOS USE SMARTSET 35803 01/30/2024 01/29/2023, 1 COVID-19 Vaccine ( season) 2024 09/29/2023, 02/13/2023, 03/28/2022, Additional history exists CKD HGB USE SMARTSET 28422 09/12/202409/12, 09/12/2023, 01/29/2023, Additional history exists Adult [...] unspecified documented in this encounter Care Teams Heel Compressor Relationship Specialty Start Date End Date Vickie Pagan DO [address] [place] [address] PCP - General Family Medicine 06/08/24 documented as of this encounter
--- OUTSIDE RECORDS SUMMARY | 2024-12-30 21:06 | External Medical Summary | Summary of Care ---
Author Name Unknown Organization [facility] Address [address] [place] [address] Phone [phone] Care Team Providers Care Rail Loader Name Role Phone CassVickie toro Primary Care Provider + [phone] Encounter Details Date Type Department Care Team (Late st Contact Info) Description 09/03/2024 Documentation Neuropsychology Norma Ledezma [place] [address] [facility] [place] [address] Celio Browne, PhD [address] [facility] [place] [address] Allergies Active Allergy Reactions Criticality Noted Date [...] 100 Tablet 3 09/01/2024 8:23 AM EDT 08/29/20 25 Active documented as of this [...] BCC R upper back 12/2012, BCC R cheondoism 07/2012, R cheek 02/2012, L upper arm CC L preauricular x 2 (Jaimie, 2009); possibly others on trunk before that - pt unsure (Dr. Rucker) Menopause 01/12/2009 Urinary incontinence Overview (08/18/2017): ICD-10 update of inactive term documented as of this encounter (statuses as of 09/24/2024) Resolved Problems Problem Noted Date Diagnosed Date Resolved Date Food insecurity 04/28/2023 07/03/2023 Overview: Per [facility] Protocol Ductal carcinoma in situ (DC [...] (Prevnar) 05/06/2016 Pneumococcal Conjugate Vacci ne, 20-valent ([id number]) 08/09/2024 Pneumococcal Polysaccharide PPV23 (Pneumovax) 10/17/2006 Season [...] Browne, PhD - 09/24/2024 11:31 AM EST NEUROPSYCHOLOGY: SCORE SUMMARY SHEET Name: Jessica Gilliam Age: 88 Education: 12 years Date of Evaluation: 09/03/2024 DEPARTMENT OF PSYCHIATRY NEUROPSYCHOLOGICAL TEST RESULTS IQ, Index, and Standard Scores (SS): Mean = 100; Standard Deviation = 15 Scaled Scores: Mean = 10; Standard Deviation = 3 Z scores (z): Mean = 0; Standard Deviation = 1 T scores (T); Mean = 50; Standard Deviation = 10 Repeatable Battery for the Assessment of Neuropsychological Status (Form A) Raw Standardized Scores Immediate Memory Index = 61 List Learning (2,3,3,6) ss = 3 Story Memory 8 ss = 4 Visuospatial/Constructional Index = 89 Figure Copy 19 ss = 12 Line Orientation 10 3-9 cumul % Language Functioning Index = 95 Picture Naming 9 26-50 cumul % Semantic Fluency 14 ss = 7 Attention Index = 97 Digit Span 10 ss = 12 Coding 27 ss = 7 Delayed Memory Index = 44 List Recall 0 3-9 cumul % List Recognition 12 <=2 cumul % Story Recall 2 ss = 4 Figure Recall 0 ss = 1 Total Scale Index = 71 GENERAL INTELLECTUAL FUNCTIONING/ACHIEVEMENT Wide Range Achievement Test - 4TH Edition (WRAT-4) Word Reading Standard Score = 103; Grade Equivalent = 10.7 ATTENTION/PROCESSING SPEED Neuropsychological Assessment Battery (NAB Form 1) Attention Module Digits Backward: T = 47 (raw = 3) Kenyon Making Test Kenyon A: T = 56 (1 error) LANGUAGE Neuropsychological Assessment Battery (NAB Form 1) Language Module Naming: T = 34 (raw = 23) Controlled Oral Word Association Test FAS: T = 50 Animals: T = 41 EXECUTIVE FUNCTIONS Kenyon Making Test Kenyon B: T = 42 (2 errors) Controlled Oral Word Association Test FAS: T = 50 Animals: T = 41 Modified [place] Card Sorting Test Number of Categories Correct: T = 40 (raw = 3) Number of Perseverative Errors: T = 57 Number of Total Errors: T = 52 Percent of Perseverative Errors: T = 61 Executive Function Composite: SS = 98 (45%ile) Clock Drawing Test: 07/27 (Normal) PERFORMANCE VALIDITY The A Random Letter Test: Total Errors = 1 EMOTIONAL/BEHAVIOR RATING SCALES ENRIQUE-7: raw = 2 (Minimal Anxiety) QDRS: raw = 7.5 (Mild Dementia) Celio Browne, Ph.D., [facility] Neuropsychologist documented in this encounter Plan of Treatment Upcoming Encounters Date Type Department Care Team (Late st Contact Info) Description 10/21/2024 1:00 PM EST Office Visit Family Practice [address] [facility] [address] [place] [address] Vickie Pagan DO [address] [place] [address] Health Maintenance Due Date Last Done Comments CKD PHOS USE SMARTSET 78542 01/30/2024 01/29/2023, 1 COVID-19 Vaccine ( season) 2024 09/29/2023, 02/13/2023, 03/28/2022, Additional history exists CKD HGB USE SMARTSET 12110 09/12/202409/12, 09/12/2023, 01/29/2023, Additional history exists Adult [...] filedocumented as of this encounter Care Teams Rail Loader Relationship Specialty Start Date End Date Vickie Pagan DO [address] [place] [address] PCP - General Family Medicine 06/08/24 documented as of this encounter
--- OUTSIDE RECORDS SUMMARY | 2024-12-30 21:06 | External Medical Summary | Summary of Care ---
Author Name Unknown Organization [facility] Address [address] [place] [address] Phone [phone] Care Team Providers Care Instructor Warper Name Role Phone Vickie Pagan DO Primary Care Provider Reason for Visit * Reason Onset Date Comments Appointment 10/21/202410/21 Encounter Details Date Type Department Care Team (Late st Contact Info) Description 10/21/2024 Telephone Family Practice [facility] [address] [place] [address] Vickie Pagan DO [address] [place] [address] Appointment (10/21) Allergies Active Allergy Reactions Criticality Noted Date Comments Alan Inhibitors Cough 07/13/2022 Celecoxib 08/07/2010 Long ago Rash Ciprofloxacin Hcl Rash 03/12/2013 Metronidazole Hcl Rash 04/28/2013 Penicillins 1997 Rash documented as of this encounter (statuses as of 10/21/2024) Medications ONE DAILY PO TABS Take by [...] as of this encounter (statuses as of 10/21/2024) Active Problems Problem Noted Date Diagnosed Date [...] as of this encounter (statuses as of 10/21/2024) Resolved Problems Problem Noted Date Diagnosed Date Resolved Date Food insecurity 04/28/2023 07/03/2023 Overview: Per [facility] Protocol 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 ADVANCE DIRECTIVE INFORMATION 09/05/2016 09/20/2024 Overview (06/29/2010): Yes, Patient instructed to provide copy of advance directive for provider to review and to be scanned into Electronic Medical Record Esophageal reflux 01/12/2009 12/01/2018 Anxiety state 07/27/2008 12/01/2018 documented as of this encounter (statuses as of 10/21/2024) Immunizations Name Administration Dates Next Due COVID-19 mRNA, LNP-s, No Pre serve, 2-Dose Series (Moderna) 09/19/2021,01/05/2021,12/08/2020 COVID-19, MRNA-LNP, PF, 30 M CG/0.3 mL, 12 YRS AND ABOVE, IM ([facility]) 09/29/2023 COVID-19, mRNA, LNP-s, PF, B ooster, 100mcg/0.5mg (Moderna) 03/28/2022 Covid-19, Mrna, Lnp-s, Pf, B ivalent, 30 Mcg, IM, 12 yrs and above (Pfizer) 02/13/2023 Pneumococcal Conjugate Vacc, 13 Valent (Prevnar) 05/06/2016 Pneumococcal Conjugate Vacci ne, 20-valent ([id number]) 08/09/2024 Pneumococcal Polysaccharide PPV23 (Pneumovax) 10/17/2006 Season [...] 18 years and over) Not on file 12/21/202 3 Are you (or your family) tl [...] Telephone Encounter - Vickie Pagan DO - 10/21/2024 9:11 AM EST Noted and agree. * Telephone Encounter - Roula Bettencourt LPN - 10/21/2024 8:49 AM EST Call placed to daughter María Elena regarding appt today. Due to the weather, Dr. Pagan is asking that daughter provide transport. Per daughter, would like to reschedule appt d/t weather. Dr. Pagan - FYI - Daughter reports pt slipped in shower recently - no injury. Dtr checking shower for anti skid surface. Agreeable to OV on 10/27/24 at 9:20 am. desk manager - please cancel appt today and reschedule for 10/27 at 9:20 am. documented in this encounter Plan of Treatment Upcoming Encounters Date Type Department Care Team (Late st Contact Info) Description 10/27/2024 9:20 AM EST Office Visit Family Practice [address] [place] 293 [place] [address] Vickie Pagan DO 293 [facility] [place] [address] Health Maintenance Due Date Last Done Comments CKD PHOS USE SMARTSET 70479 01/30/2024 01/29/2023, 1 COVID-19 Vaccine ( season) 2024 09/29/2023, 02/13/2023, 03/28/2022, Additional history exists CKD HGB USE SMARTSET 48235 09/12/202409/12, 09/12/2023, 01/29/2023, Additional history exists Adult [...] filedocumented as of this encounter Care Teams Instructor Warper Relationship Specialty Start Date End Date Vickie Pagan DO [address] [place] [address] PCP - General Family Medicine 06/08/24 documented as of this encounter
--- OUTSIDE RECORDS SUMMARY | 2024-12-30 21:06 | External Medical Summary | Summary of Care ---
Author Name Unknown Organization [facility] Address [address] [place] [address] Phone [phone] Care Team Providers Care Director Of Programming Name Role Phone Vickie Pagan DO Primary Care Provider [phone] Reason for Visit * Reason Onset Date Comments Forms Request 11/02/202411/02 Encounter Details Date Type Department Care Team (Late st Contact Info) Description 11/02/2024 Telephone Family Practice 65 [facility] [address] [place] [address] Vickie Pagan DO [address] [place] [address] Forms Request (11/02) Allergies Active Allergy Reactions Criticality Noted Date Comments Alan Inhibitors Cough 07/13/2022 Celecoxib 08/07/2010 Long ago Rash Ciprofloxacin Hcl Rash 03/12/2013 Metronidazole Hcl Rash 04/28/2013 Penicillins 1997 Rash documented as of this encounter (statuses as of 11/04/2024) Medications ONE DAILY PO TABS Take by [...] as of this encounter (statuses as of 11/04/2024) Active Problems Problem Noted Date Diagnosed Date [...] BCC R upper back 12/2012, BCC R tenriism 07/2012, R cheek 02/2012, L upper arm CC L preauricular x 2 (Jaimie, 2009); possibly others on trunk before that - pt unsure (Dr. 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 ADVANCE DIRECTIVE INFORMATION 09/05/2016 09/20/2024 Overview (06/29/2010): Yes, Patient instructed to provide copy of advance directive for provider to review and to be scanned into Electronic Medical Record Esophageal reflux 01/12/2009 12/01/2018 Anxiety state 07/27/2008 12/01/2018 documented as of this encounter (statuses as of 11/04/2024) Immunizations Name Administration Dates Next Due COVID-19 mRNA, LNP-s, No Pre serve, 2-Dose Series (Moderna) 09/19/2021,01/05/2021,12/08/2020 COVID-19, MRNA-LNP, PF, 30 M CG/0.3 mL, 12 YRS AND ABOVE, IM ([employer] 09/29/2023 COVID-19, mRNA, LNP-s, PF, B ooster, 100mcg/0.5mg (Moderna) 03/28/2022 Covid-19, Mrna, Lnp-s, Pf, B ivalent, 30 Mcg, IM, 12 yrs and above ([employer]) 02/13/2023 Pneumococcal Conjugate Vacc, 13 Valent (Prevnar) 05/06/2016 Pneumococcal Conjugate Vacci ne, 20-valent ([id number]) 08/09/2024 Pneumococcal Polysaccharide PPV23 (Pneumovax) 10/17/2006 Season [...] EDT Office Visit Family Practice [address] [place] 293 [facility] [place] [id number] Vickie Pagan DO 293 [facility] [place] [address] Health Maintenance Due Date Last Done Comments CKD PHOS USE SMARTSET 25420 01/30/2024 01/29/2023, 1 COVID-19 Vaccine ( season) 2024 09/29/2023, 02/13/2023, 03/28/2022, Additional history exists CKD HGB USE SMARTSET 01855 09/12/202409/12, 09/12/2023, 01/29/2023, Additional history exists Adult [...] as of this encounter Care Teams Director Of Programming Relationship Specialty Start Date End Date Vickie Pagan DO [address] [place] [facility] [place] [address] PCP - General Family Medicine 06/08/24 documented as of this encounter
--- OUTSIDE RECORDS SUMMARY | 2024-12-30 21:06 | External Medical Summary | Summary of Care ---
Author Name Unknown Organization [facility] Address [address] [place] [address] Phone [phone] Care Team Providers Care Death Claim Clerk Name Role Phone Vickie Pagan DO Primary Care Provider [phone] Reason for Visit * Reason Onset Date Comments Forms Request 11/02/202411/02 Encounter Details Date Type Department Care Team (Late st Contact Info) Description 11/02/2024 Telephone Family Practice 65 [facility] [address] [place] [address] Vickie Pagan DO [address] [place] [address] Forms Request (11/02) Allergies Active Allergy Reactions [...] BCC R upper back 12/2012, BCC R muslim 07/2012, R cheek 02/2012, L upper arm CC L preauricular x 2 (Jaimie, 2009); possibly others on trunk before that - pt unsure (Dr. Rucker) Menopause 01/12/2009 Urinary incontinence Overview (08/18/2017): ICD-10 update of inactive term documented as of this encounter (statuses as of 11/04/2024) Resolved Problems Problem Noted Date Diagnosed Date Resolved Date Food insecurity 04/28/2023 07/03/2023 Overview: Per [facility] Protocol Ductal carcinoma in situ (DC [...] CG/0.3 mL, 12 YRS AND ABOVE, IM ([email or web address]) 09/29/2023 COVID-19, mRNA, LNP-s, PF, B ooster, 100mcg/0.5mg (Moderna) 03/28/2022 Covid-19, Mrna, Lnp-s, Pf, B ivalent, 30 Mcg, IM, 12 yrs and above ([employer]) 02/13/2023 Pneumococcal Conjugate Vacc, 13 Valent (Prevnar) 05/06/2016 Pneumococcal Conjugate Vacci ne, 20-valent ([id number]) 08/09/2024 Pneumococcal Polysaccharide PPV23 (Pneumovax) 10/17/2006 Season [...] EDT Office Visit Family Practice [address] [place] 293 [facility] [place] [phone] Vickie Pagan DO 293 [place] [address] Health Maintenance Due Date Last Done Comments CKD PHOS USE SMARTSET 41322 01/30/2024 01/29/2023, 1 COVID-19 Vaccine ( season) 2024 09/29/2023, 02/13/2023, 03/28/2022, Additional history exists CKD HGB USE SMARTSET 71431 09/12/202409/12, 09/12/2023, 01/29/2023, Additional history exists Adult [...] filedocumented as of this encounter Care Teams Death Claim Clerk Relationship Specialty Start Date End Date Vickie Pagan DO [address] [place] [address] PCP - General Family Medicine 06/08/24 documented as of this encounter
--- OUTSIDE RECORDS SUMMARY | 2024-12-30 21:07 | External Medical Summary | Summary of Care ---
Author Name Unknown Organization [facility] Address [address] [place] [address] Phone [phone] Care Team Providers Care Live Out Nanny Name Role Phone Vickie Pagan DO Primary Care Provider + [phone] Reason for Visit * Reason Onset Date Comments Other 08/31/2024 Encounter Details Date Type Department Care Team (Late st Contact Info) Description 08/31/2024 Telephone Family Practice 65 [facility] [address] [place] [address] Vickie Pagan DO [address] [place], [place] [id number] Other Allergies Active Allergy Reactions Criticality Noted Date Comments Alan Inhibitors Cough 07/13/2022 Celecoxib 08/07/2010 Long ago Rash Ciprofloxacin Hcl Rash 03/12/2013 Metronidazole Hcl Rash 04/28/2013 Penicillins 1997 Rash documented as of this encounter (statuses as of 08/31/2024) Medications Medication Sig Dispensed Refills Start Date [...] MOUTH EVERY MORNING 100 Capsule 3 11/17/2023 11/16/2024 Active diazePAM 5 MG Oral Tablet (Valium)Indications [...] as of this encounter (statuses as of 08/31/2024) Active Problems Problem Noted Date Diagnosed Date [...] BCC R upper back 12/2012, BCC R mandaeism 07/2012, R cheek 02/2012, L upper arm CC L preauricular x 2 (Jaimie, 2009); possibly others on trunk before that - pt unsure (Dr. 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 Esophageal reflux 01/12/2009 12/01/2018 Anxiety state 07/27/2008 12/01/2018 documented as of this encounter (statuses as of 08/31/2024) Immunizations Name Administration Dates Next Due COVID-19 mRNA, LNP-s, No Pre serve, 2-Dose Series (Moderna) 09/19/2021,01/05/2021,12/08/2020 COVID-19, MRNA-LNP, 23-24, P F, 30 MCG/0.3 mL, 12 YRS AND ABOVE, IM ([facility]) 09/29/2023 COVID-19, mRNA, LNP-s, PF, B ooster, 100mcg/0.5mg (Moderna) 03/28/2022 Covid-19, Mrna, Lnp-s, Pf, B ivalent, 30 Mcg, IM, 12 yrs and above (Pfizer) 02/13/2023 Pneumococcal Conjugate Vacc, 13 Valent (Prevnar) 05/06/2016 Pneumococcal Conjugate Vacci ne, 20-valent ([id number]) 08/09/2024 Pneumococcal Polysaccharide PPV23 (Pneumovax) 10/17/2006 Season [...] (Fluad) 07/26/2019 TDAP (age 10 and older)(Boostrix) 03/13/2023,04/ Varicella Zoster Vaccine (Adult) 04/08/2012 Zoster Vaccine [...] Telephone Encounter - Vickie Pagan DO - 08/31/2024 1:38 PM EDT I have placed the order previously and they were to schedule with Dr. Browne. Please f/u. * Telephone Encounter - Roula Bettencourt LPN - 08/31/2024 1:33 PM EDT Please advise. * Telephone Encounter - Maliha Leos OSA - 08/31/2024 1:22 PM EDT Pt's daughter calling to check on info about an appt with a cognitive doctor. She said that she hadpreviously spoken to someone about this. documented in this encounter Plan of Treatment Upcoming Encounters Date Type Department Care Team (Late st Contact Info) Description 10/21/2024 1:00 PM EST Office Visit Family Practice 65 [facility] [address] [place] [address] Vickie Pagan DO 293 [place] [address] 11/08/2024 10:00 AM EST Nurse Only Family Practice 65 [facility] [address] [facility] [place] [address] Anna Lorenzo RN 293 [place] [address] Health Maintenance Due Date Last Done Comments CKD PHOS USE SMARTSET 10549 01/30/2024 01/29/2023, 1 COVID-19 Vaccine ( season) 2024 09/29/2023, 02/13/2023, 03/28/2022, Additional history exists CKD HGB USE SMARTSET 69961 09/12/202409/12, 09/12/2023, 01/29/2023, Additional history exists Adult [...] filedocumented as of this encounter Care Teams Live Out Nanny Relationship Specialty Start Date End Date Vickie Pagan DO [address] [address] PCP - General Family Medicine 06/08/24 documented as of this encounter
--- OUTSIDE RECORDS SUMMARY | 2024-12-30 21:07 | External Medical Summary | Summary of Care ---
Author Name Unknown Organization [facility] Address [address] [place] [address] Phone [phone] Care Team Providers Care Lumber Inspector Name Role Phone Johannykusum Vickie Emir PARHAM Primary Care Provider [phone] Reason for Visit * Reason Comments Medication Refill Encounter Details Date Type Department Care Team (Late st Contact Info) Description 07/13/2024 Refill Cardiology, [facility] [address] [place] [address] [place] DO [address] [place] [address] SAUCEDO (dyspnea on exertion); Diastolic dysfunction Allergies Active Allergy Reactions Criticality Noted Date Comments Alan Inhibitors Cough 07/13/2022 Celecoxib 08/07/2010 Long ago Rash Ciprofloxacin Hcl Rash 03/12/2013 Metronidazole Hcl Rash 04/28/2013 Penicillins 1997 Rash documented as of this encounter (statuses as of 07/13/2024) Medications Medication Sig Dispensed Refills Start Date End Date Status ONE DAILY PO TABS Take by mouth. Centrum Silver Women 50+ 03/10/2013 Active Osteo Bi-Flex One Per Day Oral Tablet Take by mouth. Active Glucosamine-Chond roitin 250-200 MG Oral Tablet Take 1 Tablet [...] Omeprazole 40 MG Oral Capsule Delayed Release (PriLOSEC)Indicat ions:Gastroesopha geal reflux disease without esophagitis TAKE ONE CAPSULE BY MOUTH EVERY MORNING 100 Capsule 3 11/17/2023 11/16/2024 Active diazePAM 5 MG Oral Tablet (Valium)Indicatio ns:Anxiety state Take 1 Tablet by mouth every 8 hours as needed for Anxiety. 30 Tablet 12/30/2023 Active Rosuvastatin Calcium 20 MG Oral Tablet (Crestor)Indicati ons:Dyslipidemia, goal LDL below 100 TAKE ONE TABLET BY MOUTH EVERY DAY 100 Tablet 1 02/16/2024 02/15/2025 Active amLODIPine Besylate 2.5 MG Oral Tablet (Norvasc)Indicati ons:HTN, goal below 140/90 TAKE ONE TABLET BY MOUTH IN THE MORNING 100 Tablet 1 02/16/2024 02/15/2025 Active Glucosamine Chondroit(Bioflav ) Oral Capsule Take by mouth. Active Gabapentin 300 MG Oral Capsule (Neurontin)Indica tions:Bilateral foot pain Take 2 Capsules by mouth in the morning and 2 Capsules in the evening. 400 Capsule 3 02/23/2024 Active PARoxetine HCl 30 MG Oral Tablet (Paxil)Indication s:ENRIQUE (generalized anxiety disorder) TAKE ONE TABLET BY MOUTH EVERY DAY 100 Tablet 3 03/22/2024 03/22/2025 Active busPIRone HCl 5 MG Oral Tablet (Buspar)Indicatio ns:ENRIQUE (generalized anxiety disorder),Moderat e major depression (HCC) Take 1 Tablet by mouth in the morning and 1 Tablet before bedtime. 200 Tablet 1 03/24/2024 Active Furosemide 20 MG Oral Tablet (Lasix)Indication s:SAUCEDO (dyspnea on exertion),Diastol ic dysfunction TAKE 1 TABLET BY MOUTH THREE TIMES A WEEK 36 Tablet 3 07/13/2024 Active Furosemide 20 MG Oral Tablet (Lasix)Indication s:SAUCEDO (dyspnea on exertion),Diastol ic dysfunction TAKE 1 TABLET BY MOUTH THREE TIMES A WEEK 36 Tablet 3 08/18/2023 07/13/2024 Discontinue d(Refill) documented as of this encounter (statuses as of 07/13/2024) Active Problems Problem Noted Date Diagnosed Date [...] as of this encounter (statuses as of 07/13/2024) Resolved Problems Problem Noted Date Diagnosed Date Resolved Date Food insecurity 04/28/2023 07/03/2023 Overview: Per [facility] Protocol 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 Esophageal reflux 01/12/2009 12/01/2018 Anxiety state 07/27/2008 12/01/2018 documented as of this encounter (statuses as of 07/13/2024) Immunizations Name Administration Dates Next Due COVID-19 mRNA, LNP-s, No Pre serve, 2-Dose Series (Moderna) 09/19/2021,01/05/2021,12/08/2020 COVID-19, MRNA-LNP, 23-24, P F, 30 MCG/0.3 mL, 12 YRS AND ABOVE, IM ([facility] [facility] 09/29/2023 COVID-19, mRNA, LNP-s, PF, B ooster, 100mcg/0.5mg (Moderna) 03/28/2022 Covid-19, Mrna, Lnp-s, Pf, B ivalent, 30 Mcg, IM, 12 yrs and above ([employer]) 02/13/2023 Pneumococcal Conjugate Vacc, 13 Valent (Prevnar) 05/06/2016 Pneumococcal Polysaccharide PPV23 (Pneumovax) 10/17/2006 Season Influenza, Quad, PF, Adjuvanted, 65+ Yrs, IM (FLUAD) 07/19/2022,07/30/2021,07/19/2020 Seasonal Influenza, PF, 6 M & above, IM , (FluLaval or Fluzone) 08/11/2018,09/05/2017 Seasonal Influenza, Quadriva lent Hd (Fluzone Hd) 07/22/2023 Seasonal Influenza, Quadriva lent, No Preserve, IM 07/06/2020,08/31/2016,08/15/2015 Seasonal Influenza, Split, I IV3, With Preserve, Inj 07/22/2014,09/13/2013,07/24/2012,07/19,08/07/2010,08/10/2009,09/01/2008 Seasonal Influenza, Trivalen t, Adjuvanted, 65+ yrs 07/26/2019 TDAP (age 10 and older)(Boostrix) 03/13/2023, [...] encounter Miscellaneous Notes * Telephone Encounter - Sung Morejon PA-C - 07/13/2024 3:12 PM EDTSigned Prescriptions: Disp Refills Furosemide 20 MG Oral Tablet (Lasix) 36 Tab*3 Sig: TAKE 1 TABLET BY MOUTH THREE TIMES A WEEK Authorizing Provider: SUNG MOREJON * Telephone Encounter - Steve Canchola LPN - 07/13/2024 2:59 PM EDTPending Prescriptions: Disp Refills Furosemide 20 MG Oral Tablet (Lasix) 36 Tab*3 Sig: TAKE 1 TABLET BY MOUTH THREE TIMES A WEEK * Telephone Encounter - Steve Canchola LPN - 07/13/2024 2:58 PM EDT Did you pend patient's preferred pharmacy and medication before forwarding?yes Pharmacy: [facility] Pending Prescriptions: Disp Refills Furosemide 20 MG Oral Tablet (Lasix) 36 Tab*3 Sig: TAKE 1 TABLET BY MOUTH THREE TIMES A WEEK Last Visit: 01/23/2024 (in office), Visit date not found (telemedicine) Next Visit: Visit date not found If no future appointments scheduled, and last appointment is greater than a year ago, please schedule patient for a follow-up appointment Last date the medication was ordered: 08/18/23 Is this request for a controlled substance?No Urine Drug Screen:No results found for this or any previous visit. Patient Phone Numbers Labs: Lab Results Component Value Date/Time CREAT 1.0 02/20/2024 11:54 AM CREAT 0.91 01/29/2023 12:00 AM CREAT 1.0 12/02/2018 11:24 AM POTASSIUM 4.3 02/20/2024 11:54 AM POTASSIUM 4.1 01/29/2023 12:00 AM POTASSIUM 4.2 12/02/2018 11:24 AM TSH 2.55 09/13/2014 08:25 AM LDLCALC 55 02/20/2024 11:54 AM LDLCALC 120 12/02/2018 11:24 AM LDLDIRECT NOT APPLICABLE 10/05/2015 02:40 PM ALT 26 09/12/2023 03:38 PM ALT 14 12/02/2018 11:24 AM documented in this encounter Plan of Treatment Upcoming Encounters Date Type Department Care Team (Late st Contact Info) Description 07/29/2024 2:00 PM EDT Imaging Radiology [address] 132 [facility] [place] [address] 08/09/2024 1:40 PM EDT Office Visit Family Practice 65 [facility] [address] [facility] [address] 11/08/2024 10:00 AM EST Nurse Only Ancillary 65 [facility] [address] [facility], Nurse [address] Wellness [address] [address] Health Maintenance Due Date Last Done Comments COVID-19 Vaccine ( season) 2024 09/29/2023, 02/13/2023, 03/28/2022, Additional history exists CKD PHOS USE SMARTSET 46856 01/30/2024 01/29/2023, 1 Influenza Vaccine (FLU shot) (#1) 2024 07/22/2023, 07/19/2022, 07/30/2021, Additional history exists Albumin/Creatinine Ratio 07/22/2024 07/22/2023, 01/2022 CKD HGB USE SMARTSET 66595 09/12/202409/12, 09/12/2023, 01/29/2023, Additional history exists Adult Wellness Visit 11/06/2024 11/06/2023, 10/17/2022, 10/04/2021 Depression Monitoring 11/06/2024 11/06/2023 Mammogram 12/26/2024 12/26/2023, 020 07/2024, 07/14/2023, Additional history exists DXA Scan 09/04/2026 09/04/2023, 08/17, 07/20/2020, Additional history exists DTap/Tdap Vaccines (3 - Td or Tdap) 03/13/2033 03/13/2023, 03/10/2013 Pneumococcal Vaccine: 65+ Years Completed 05/06/2016, 10/17/2006 Zoster Vaccines Completed 10/26/2020, 12/2019, 04/08/2012 HPV (Gardasil) Vaccine Aged Out No lo [...] as of this encounter Visit Diagnoses Diagnosis SAUCEDO (dyspnea on exertion) Other dyspnea and respiratory abnormality Diastolic dysfunction Heart disease, unspecified Screening mammogram for breast cancer documented in this encounter Care Teams Lumber Inspector Relationship Specialty Start Date End Date Vickie Pagan DO [address] [place] [place] [address] PCP - General Family Medicine 06/08/24 documented as of this encounter
--- OUTSIDE RECORDS SUMMARY | 2024-12-30 21:07 | External Medical Summary | Summary of Care ---
Author Name Unknown Organization [facility] Address [address] [place] [address] Phone [phone] Care Team Providers Care Rough Carpenter Name Role Phone Vickie Pagan DO Primary Care Provider + [phone] Reason for Visit * Reason Onset Date Comments Other 08/31/2024 Encounter Details Date Type Department Care Team (Late st Contact Info) Description 08/31/2024 Telephone Family Practice 65 [facility] [address] [place] [address] Vickie Pagan DO [address] [place], [place] [phone] Other Allergies Active Allergy Reactions Criticality Noted [...] MCG/0.3 mL, 12 YRS AND ABOVE, IM ([facility]) 09/29/2023 COVID-19, mRNA, LNP-s, PF, B ooster, 100mcg/0.5mg (Moderna) 03/28/2022 Covid-19, Mrna, Lnp-s, Pf, B ivalent, 30 Mcg, IM, 12 yrs and above (Pfizer) 02/13/2023 Pneumococcal Conjugate Vacc, 13 Valent (Prevnar) 05/06/2016 Pneumococcal Conjugate Vacci ne, 20-valent ([id number]) 08/09/2024 Pneumococcal Polysaccharide PPV23 (Pneumovax) 10/17/2006 Season [...] Miscellaneous Notes * Telephone Encounter - April Lewis OSA - 08/31/2024 4:[address] Browne called and set up this appt. Pt is scheduled for the Sep 03, daughter aware. Thank you Dr Bronwe!! * Telephone Encounter - Vickie Pagan DO [...] Description 09/03/2024 9:30 AM EDT Therapy Neuropsychology [facility] [place] [address] [place] [address] Celio Browne, PhD 200 [facility] [place] [address] 10/21/2024 1:00 PM EST Office Visit Family Practice 65 [facility] 293 [facility] [phone] Vickie Pagan DO 293 [place] [address] 11/08/2024 10:00 AM EST Nurse Only Family Practice 65 [facility] 293 [place] [address] Anna Lorenzo, SHY 293 [place] [address] Health Maintenance Due Date Last Done Comments CKD PHOS USE SMARTSET 47364 01/30/2024 01/29/2023, 1 COVID-19 Vaccine ( season) 2024 09/29/2023, 02/13/2023, 03/28/2022, Additional history exists CKD HGB USE SMARTSET 17041 09/12/202409/12, 09/12/2023, 01/29/2023, Additional history exists Adult [...] filedocumented as of this encounter Care Teams Rough Carpenter Relationship Specialty Start Date End Date Vickie Pagan DO [address] [place] [address] PCP - General Family Medicine 06/08/24 documented as of this encounter
--- OUTSIDE RECORDS SUMMARY | 2024-12-30 21:07 | External Medical Summary | Summary of Care ---
Author Name Unknown Organization [facility] Address [address] [place] [address] Phone [phone] Care Team Providers Care Plastic Molding Operator Name Role Phone Vickie Cagle DO Primary Care Provider [phone] Reason for Visit * Reason Comments Medication Refill Encounter Details Date Type Department Care Team (Late st Contact Info) Description 08/29/2024 Refill Family Practice 65 [facility] [place] [address] [place] [address] Vickie Cagle [address] [place] [address] HTN, goal below 140/90 Allergies Active Allergy Reactions Criticality Noted Date Comments Alan Inhibitors Cough 07/13/2022 Celecoxib 08/07/2010 Long ago Rash Ciprofloxacin Hcl Rash 03/12/2013 Metronidazole Hcl Rash 04/28/2013 Penicillins 1997 Rash documented as of this encounter (statuses as of 08/29/2024) Medications Medication Sig Dispensed Refills Start Date [...] for Anxiety. 30 Tablet 12/30/2023 Active Glucosamine Chondroit(Bioflav ) Oral Capsule Take [...] MORNING 100 Tablet 3 08/29/2024 08/29/2025 Active amLODIPine Besylate 2.5 MG Oral Tablet (Norvasc)Indicati ons:HTN, goal below 140/90 TAKE ONE TABLET BY MOUTH IN THE MORNING 100 Tablet 1 02/16/2024 08/29/2024 Discontinue d(Refill) documented as of this encounter (statuses as of 08/29/2024) Active Problems Problem Noted Date Diagnosed Date [...] as of this encounter (statuses as of 08/29/2024) Resolved Problems Problem Noted Date Diagnosed Date Resolved Date Food insecurity 04/28/2023 07/03/2023 Overview: Per [facility] Protocol 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 Esophageal reflux 01/12/2009 12/01/2018 Anxiety state 07/27/2008 12/01/2018 documented as of this encounter (statuses as of 08/29/2024) Immunizations Name Administration Dates Next Due COVID-19 mRNA, LNP-s, No Pre serve, 2-Dose Series (Moderna) 09/19/2021,01/05/2021,12/08/2020 COVID-19, MRNA-LNP, 23-24, P F, 30 MCG/0.3 mL, 12 YRS AND ABOVE, IM ([facility]) 09/29/2023 COVID-19, mRNA, LNP-s, PF, B ooster, 100mcg/0.5mg (Moderna) 03/28/2022 Covid-19, Mrna, Lnp-s, Pf, B ivalent, 30 Mcg, IM, 12 yrs and above (Pfizer) 02/13/2023 Pneumococcal Conjugate Vacc, 13 Valent (Prevnar) 05/06/2016 Pneumococcal Conjugate Vacci ne, 20-valent ([id number]) 08/09/2024 Pneumococcal Polysaccharide PPV23 (Pneumovax) 10/17/2006 Season [...] encounter Miscellaneous Notes * Telephone Encounter - Lissa Cardoza [facility] - 08/29/2024 9:30 AM EDTSigned Prescriptions: Disp Refills amLODIPine Besylate 2.5 MG Oral Tablet (No*100 Ta*3 Sig: TAKE ONE TABLET BY MOUTH IN THE MORNINGAuthorizing Provider: VICKIE CAGLE User: LISSA CARDOZA documented in this encounter Plan of Treatment Upcoming Encounters Date Type Department Care Team (Late st Contact Info) Description 10/21/2024 1:00 PM EST Office Visit Family Practice [address] [place] [address] 293 [facility] [address] Vickie Cagle DO [address] [place] [address] 11/08/2024 10:00 AM EST Nurse Only Family Practice [address] [place] [address] 293 [facility] [address] Anna Lorenzo, SHY [facility] [phone] Health Maintenance Due Date Last Done Comments CKD PHOS USE SMARTSET 38799 01/30/2024 01/29/2023, 1 COVID-19 Vaccine ( season) 2024 09/29/2023, 02/13/2023, 03/28/2022, Additional history exists CKD HGB USE SMARTSET 94956 09/12/202409/12, 09/12/2023, 01/29/2023, Additional history exists Adult [...] as of this encounter Visit Diagnoses Diagnosis HTN, goal below 140/90 Unspecified essential hypertension documented in this encounter Care Teams Plastic Molding Operator Relationship Specialty Start Date End Date Holedeik, Vickie M, DO [address] [place] [address] PCP - General Family Medicine 06/08/24 documented as of this encounter
--- OUTSIDE RECORDS SUMMARY | 2024-12-30 21:07 | External Medical Summary | Summary of Care ---
Author Name Unknown Organization [facility] Address [address] [place] [address] Phone [phone] Care Team Providers Care Neighborhood Aide Name Role Phone Vickie Cagle DO Primary Care Provider [phone] Reason for Visit * Reason Comments Medication Refill Encounter Details Date Type Department Care Team (Late st Contact Info) Description 08/14/2024 Refill [facility] [address] [place] [address] Vickie Cagle [address] [place] [address] Dyslipidemia, goal LDL below 100 Allergies Active Allergy Reactions Criticality Noted Date Comments Alan Inhibitors Cough 07/13/2022 Celecoxib 08/07/2010 Long ago Rash Ciprofloxacin Hcl Rash 03/12/2013 Metronidazole Hcl Rash 04/28/2013 Penicillins 1997 Rash documented as of this encounter (statuses as of 08/15/2024) Medications Medication Sig Dispensed Refills Start Date [...] needed for Anxiety. 30 Tablet 12/30/2023 Active amLODIPine Besylate 2.5 MG Oral Tablet [...] DAY 100 Tablet 1 08/15/2024 08/15/2025 Active Rosuvastatin Calcium 20 MG Oral Tablet (Crestor)Indicati ons:Dyslipidemia, goal LDL below 100 TAKE ONE TABLET BY MOUTH EVERY DAY 100 Tablet 1 02/16/2024 08/14/2024 Discontinue d(Refill) documented as of this encounter (statuses as of 08/15/2024) Active Problems Problem Noted Date Diagnosed Date [...] BCC R upper back 12/2012, BCC R shinto 07/2012, R cheek 02/2012, L upper arm CC L preauricular x 2 (Jaimie, 2009); possibly others on trunk before that - pt unsure (Dr. 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 Esophageal reflux 01/12/2009 12/01/2018 Anxiety state 07/27/2008 12/01/2018 documented as of this encounter (statuses as of 08/15/2024) Immunizations Name Administration Dates Next Due COVID-19 mRNA, LNP-s, No Pre serve, 2-Dose Series (Moderna) 09/19/2021,01/05/2021,12/08/2020 COVID-19, MRNA-LNP, 23-24, P F, 30 MCG/0.3 mL, 12 YRS AND ABOVE, IM ([facility]) 09/29/2023 COVID-19, mRNA, LNP-s, PF, B ooster, 100mcg/0.5mg (Moderna) 03/28/2022 Covid-19, Mrna, Lnp-s, Pf, B ivalent, 30 Mcg, IM, 12 yrs and above (Pfizer) 02/13/2023 Pneumococcal Conjugate Vacc, 13 Valent (Prevnar) 05/06/2016 Pneumococcal Conjugate Vacci ne, 20-valent ([id number]) 08/09/2024 Pneumococcal Polysaccharide PPV23 (Pneumovax) 10/17/2006 Season Influenza, Quad, PF, Adjuvanted, 65+ Yrs, IM ([facility]UAD) 07/19/2022,07/30/2021,07/19/2020 Seasonal Influenza, High Dos e, Trivalent, PF, IM (Fluzone HD) 08/09/2024 Seasonal Influenza, PF, 6 M & above, IM , (FluLaval or Fluzone) 08/11/2018,09/05/2017 Seasonal Influenza, Quadriva lent Hd (Fluzone Hd) 07/22/2023 Seasonal Influenza, Quadriva lent, No Preserve, IM 07/06/2020,08/31/2016,08/15/2015 Seasonal Influenza, Trivalen t, (IIV3), with Preserv, (Fluzone) 07/22/2014,09/13/2013,07/24/2012,07/19,08/07/2010,08/10/2009,09/01/2008 Seasonal Influenza, Trivalen t, Adjuvanted, 65+ YRS, [...] encounter Miscellaneous Notes * Telephone Encounter - Migel Miranda [facility] - 08/15/2024 7:48 AM EDT Signed Prescriptions: Disp Refills Rosuvastatin Calcium 20 MG Oral Tablet (Cr*100 Ta*1 Sig: TAKE ONE TABLET BY MOUTH EVERY DAYAuthorizing Provider: VICKIE CAGLE User: MIGEL MIRANDA documented in this encounter Plan of Treatment Upcoming Encounters Date Type Department Care Team (Late st Contact Info) Description 10/21/2024 1:00 PM EST Office Visit [facility] [address] [facility] [place] [address] Vickie Cagle DO 293 [facility] [place] [address] 11/08/2024 10:00 AM EST Nurse Only Family Practice [facility] 293 [facility] [place] [address] Anna Lorenzo, SHY 293 [facility] [place] [phone] Health Maintenance Due Date Last Done Comments CKD PHOS USE SMARTSET 74181 01/30/2024 01/29/2023, 1 COVID-19 Vaccine ( season) 2024 09/29/2023, 02/13/2023, 03/28/2022, Additional history exists CKD HGB USE SMARTSET 70297 09/12/202409/12, 09/12/2023, 01/29/2023, Additional history exists Adult Wellness Visit 11/06/2024 11/06/2023, 10/17/2022, 10/04/2021 Depression Monitoring 11/06/2024 11/06/2023 Mammogram 07/29/2025 07/29/2024, 020 07/2024, 12/26/2023, Additional history exists Albumin/Creatinine Ratio 08/09/2025 [...] as of this encounter Visit Diagnoses Diagnosis Dyslipidemia, goal LDL below 100 Other and unspecified hyperlipidemia documented in this encounter Care Teams Neighborhood Aide Relationship Specialty Start Date End Date Holeriik, Vickie M, DO [address] [facility] [place] [address] PCP - General Family Medicine 06/08/24 documented as of this encounter
--- OUTSIDE RECORDS SUMMARY | 2024-12-30 21:07 | External Medical Summary | Summary of Care ---
Author Name Unknown Organization [facility] Address [address] [place] [address] Phone [phone] Care Team Providers Care Multiple Tube Winding Machine Operator Name Role Phone Vickie Pagan DO Primary Care Provider + [phone] Reason for Visit * Reason Onset Date Comments Advice 07/26/2024 Information 07/26/202407/27 Encounter Details Date Type Department Care Team (Late st Contact Info) Description 07/26/2024 Telephone Family Practice 65 [facility] [address] [place] [address] Vickie Pagan DO [address] [place] [address] Advice; Information (07/27) Allergies Active Allergy Reactions Criticality Noted Date Comments Alan Inhibitors Cough 07/13/2022 Celecoxib 08/07/2010 Long ago Rash Ciprofloxacin Hcl Rash 03/12/2013 Metronidazole Hcl Rash 04/28/2013 Penicillins 1997 Rash documented as of this encounter (statuses as of 07/28/2024) Medications Medication Sig Dispensed Refills Start Date [...] 100 Tablet 1 02/16/2024 02/15/2025 Active Glucosamine Chondroit(Bioflav) Oral Capsule Take by [...] A WEEK 36 Tablet 3 07/13/2024 Active documented as of this encounter (statuses as of 07/28/2024) Active Problems Problem Noted Date Diagnosed Date [...] as of this encounter (statuses as of 07/28/2024) Resolved Problems Problem Noted Date Diagnosed Date Resolved Date Food insecurity 04/28/2023 07/03/2023 Overview: Per [facility] Protocol 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 Thank you * Telephone Encounter - Vickie Pagan DO - 07/28/2024 3:08 PM EDT To put it simply, if they are thinking about it because the concern has been raised, it is probablytime to start having the discussion and implementing things. I can certainly bring it up at her visit as well. * Telephone Encounter - Roula Bettencourt LPN - 07/27/2024 8:47 AM EDT Call placed to daughter. Pt has upcoming OV on 08/09/24. Pt still drives, daughter drives with her once a week. Dtr reports that on Friday pt was to order picker daughter to take to a memorial service and forgot to pick her up. Daughter had called her 3 hoursprior to discuss picking her up. Daughter is questioning when is it time to have supportive help, home health. Daughter manages finances. Daughter asking advice as to how to address this with pt. * Telephone Encounter - April Barone OSA - 07/26/2024 4:41 PM EDT Would like to discuss things where her mom is concerned Please call daughter [phone] documented in this encounter Plan of Treatment Upcoming Encounters Date Type Department Care Team (Late st Contact Info) Description 07/29/2024 2:00 PM EDT Imaging Radiology [facility] [place] [address] [place] [address] 08/09/2024 1:40 PM EDT Office Visit Family Practice [address] [facility] [place] 293 [place] [phone] Vickie Pagan DO 293 [facility] [place] [address] 11/08/2024 10:00 AM EST Nurse Only Ancillary 65 [facility] 293 [facility] [place] [address] College, Nurse Annual Wellness Visit [address] [facility] 293 [facility] [place] [address] Health Maintenance Due Date Last Done Comments CKD PHOS USE SMARTSET 93314 01/30/2024 01/29/2023, 1 COVID-19 Vaccine ( season) 2024 09/29/2023, 02/13/2023, 03/28/2022, Additional history exists Influenza Vaccine (FLU shot) (#1) 2024 07/22/2023, 07/19/2022, 07/30/2021, Additional history exists Albumin/Creatinine Ratio 07/22/2024 07/22/2023, 01/2022 CKD HGB USE SMARTSET 06314 09/12/202409/12, 09/12/2023, 01/29/2023, Additional history exists Adult [...] filedocumented as of this encounter Care Teams Multiple Tube Winding Machine Operator Relationship Specialty Start Date End Date Vickie Pagan DO [address] [place] [address] PCP - General Family Medicine 06/08/24 documented as of this encounter
--- OUTSIDE RECORDS SUMMARY | 2024-12-30 21:07 | External Medical Summary | Summary of Care ---
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)*; Atypical chest pain; Alzheimer's disease (HCC); Risk and functional assessment; Need for prophylactic vaccination and inoculation against influenza; Need for pneumococcal vaccination Allergies Active Allergy Reactions Criticality Noted Date Comments Alan Inhibitors Cough 07/13/2022 Celecoxib 08/07/2010 Long ago Rash Ciprofloxacin Hcl Rash 03/12/2013 Metronidazole Hcl Rash 04/28/2013 Penicillins 1997 Rash documented as of this encounter (statuses as of 08/10/2024) Medications Medication Sig Dispensed Refills Start Date [...] as of this encounter (statuses as of 08/10/2024) Active Problems Problem Noted Date Diagnosed Date [...] BCC R upper back 12/2012, 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 Esophageal reflux 01/12/2009 12/01/2018 Anxiety state 07/27/2008 12/01/2018 documented as of this encounter (statuses as of 08/10/2024) Immunizations Name Administration Dates Next Due COVID-19 mRNA, LNP-s, No Pre serve, 2-Dose Series (Moderna) 09/19/2021,01/05/2021,12/08/2020 COVID-19, MRNA-LNP, 23-24, P F, 30 MCG/0.3 mL, 12 YRS AND ABOVE, IM ([facility]) 09/29/2023 COVID-19, mRNA, LNP-s, PF, B ooster, 100mcg/0.5mg (Moderna) 03/28/2022 Covid-19, Mrna, Lnp-s, Pf, B ivalent, 30 Mcg, IM, 12 yrs and above (Pfizer) 02/13/2023 Pneumococcal Conjugate Vacc, 13 Valent (Prevnar) 05/06/2016 Pneumococcal Conjugate Vacci ne, 20-valent ([id number]) 08/09/2024 Pneumococcal Polysaccharide PPV23 (Pneumovax) 10/17/2006 Season [...] on file documented as of this encounter Last Filed Vital Signs Vital Sign Reading Time Taken Comments Blood Pressure 136/76 08/09/2024 2:05 PM EDT Pulse 75 08/09/2024 2:05 PM EDT Temperature 36.6 C (97.8 F) 08/09/2024 2:05 PM ED T Respiratory Rate 14 08/09/2024 2:05 PM EDT Oxygen Saturation 99% 08/09/2024 2:05 PM EDT Inhaled Oxygen Concentration - - Weight 78.2 kg (172 lb 4.8 oz) 08/09/2024 2:05 P M EDT Height 162.6 cm (5' 4") 08/09/2024 2:05 PM EDT Body Mass Index 29.58 08/09/2024 2:05 PM EDT documented in this encounter Patient Instructions * Patient Instructions* Roula Bettencourt LPN - 08/09/2024 2:01 PM EDT Patient Instructions - Fall Prevention (This education [...] throughout the day. Preethi Patient Education Copyright 2008 - 2010 [...] (TEDs)if you have edema Roula Bettencourt LPN 08/09/2024 Kegel Exercises Kegel exercises dont require special [...] please feel free to contact our office. ~~PATIENT INSTRUCTIONS FOR FLU SHOT~~ Possible side effects of influenza vaccine, (flu shot), are usually mild and include: 1. Soreness or redness at injection site 2. Low grade fever 3. Body aches You may use Tylenol/Acetaminophen as needed for these symptoms. LET YOUR DOCTOR KNOW IMMEDIATELY IF YOU HAVE DIFFICULTY BREATHING OR SWALLOWING, EXPERIENCE ITCHINGOF FEET OR HANDS, HAVE SWELLING OF EYES, FACE OR INSIDE OF NOSE. ~~PATIENT INSTRUCTIONS FOR PNEUMOCOCCAL VACCINE~~ Possible side effects of pneumococcal vaccine, (pneumonia shot), are usually mild and can include: 1. Soreness or redness at injection site 2. Low grade fever 3. Body aches You may use Tylenol/Acetaminophen as needed for these symptoms. LET YOUR DOCTOR KNOW IMMEDIATELY IF YOU HAVE DIFFICULTY BREATHING OR SWALLOWING, EXPERIENCE ITCHINGOF FEET OR HANDS, HAVE SWELLING OF EYES, FACE OR INSIDE OF NOSE. documented in this encounter Progress Notes * Latasha Vickie M, - 08/09/2024 2:27 PM EDT SUBJECTIVE: Chief Complaint Patient presents with Follow Up Medication Administration Flu and/or Pneumo Inj HPI: Jessica Gilliam is a 88 year old female who presents today for regular return. Accompanied by her daughter. Pt states that she has left flank pain. She said she has had this since December when she fell. Daughter notes she typically sees the chiropractor and has no pain. Has not been complaining of this. No recent falls they are aware of. Pt states she was getting ready to take a shower this morning and had chest pain. She said she rubbed it and it felt better. She cannot say how long it lasted. Hurts if she pushes. Daughter notes that if there is something planned, she will call about 1 hour before. She notes that she recently forgot to pick her up for a [employer] service. She forgot about it and watched a football game instead. Memory is worsening. They do try to control this. She has an automatic med dispenser. Daughter pays all bills and is in charge of checking account. PHM: Patient Active Problem List Diagnosis Menopause ADVANCE [...] Per Day Oral Tablet Take by mouth. Aspirin 81 MG Oral Tablet Chewable Take [...] as needed for Anxiety. 30 Tablet 0 Rosuvastatin Calcium 20 MG Oral Tablet (Crestor) TAKE ONE TABLET BY MOUTH EVERY DAY 100 Tablet 1 amLODIPine Besylate 2.5 MG Oral Tablet (Norvasc) TAKE ONE TABLET BY MOUTH IN THE MORNING 100 Tablet1 Gabapentin 300 MG Oral Capsule (Neurontin) Take [...] THREE TIMES A WEEK 36 Tablet 3 Glucosamine-Chondroitin 250-200 MG Oral Tablet Take 1 Tablet by mouth in the morning. (Patient not taking: Reported on 08/09/2024) Metamucil [facility] Fiber 58.12 % Oral Packet (Psyllium) Take 1 Packet by mouth in the morning and 1 Packet before bedtime. (Patient not taking: Reported on 08/09/2024) Glucosamine Chondroit(Bioflav) Oral Capsule Take by mouth. (Patient not taking: Reported on 08/09/2024) No current facility-administered medications for this visit. [...] BREAST performed by Nena Phan MD at OR [facility] COLONOSCOPY, DIAGNOSTIC (RECTUM) 09/17/2017 serrated adenomatous polyps, diverticulosis/COLONOSCOPY FLEXIBLE PROXIMAL DIAGNOSTIC performed by Madi Oropeza MD at ENDOSCOPY [facility] EGD, FLEXIBLE, DIAGNOSTIC 05/04/2013 UPPER GI ENDOSCOPY DIAGNOSTIC performed by Mara Mehta DO at ENDOSCOPY [facility] KNEE ARTHROSCOPY/SURGERY Left 2000 KNEE ARTHROSCOPY/SURGERY Right 2003 MASTECTOMY, PARTIAL Left 07/15/2018 07/15/2018 left - MASTECTOMY PARTIAL performed by Nena Phan MD at OR [facility] MASTECTOMY, PARTIAL Left 09/09/2018 wider margin taken out REMOVAL OF APPENDIX REMOVE CATARACT, INSERT LENS PROSTH 11/28/10 L eye TOTAL ABD HYSTERECTOMY W/WO REMOVAL OF TUBE(S) 1969 UROLOGY SURGERY PROCEDURE NEC -92? "bladder tack- Dr. Rodriguez" UROLOGY SURGERY PROCEDURE NEC 1994 sling procedure using muscles- Dr. Montelongo UROLOGY SURGERY PROCEDURE NEC -? [place] - sling procedure using skin US [...] color change, pallor and rash. OBJECTIVE: BP 136/76 (BP Site: Left Arm, BP Position: Sitting, BP Cuff Size: Regular) | Pulse 75 | Temp 36.6 C (97.8 F) (Tympanic) | Resp 14 | Ht 1.626 m (5' 4") | Wt 78.2 kg (172 lb 4.8 oz) | SpO2 99% | BMI 29.58 kg/m | BSA 1.88 m PHYSICAL EXAM: Physical Exam Constitutional: General: [...] oriented to person, place, and time. 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 (R07.89) Atypical chest pain Plan: EKG, EKG EKG with no acute issue and similar to previous. Reproducible on exam. (G30.9, F02.80) Alzheimer's disease (HCC) Plan: Pt with worsening memory. Daughter very involved. She would like repeat memory testing. (Z13.9) Risk and functional assessment Plan: see nursing note. (Z23) Need for prophylactic vaccination and inoculation against influenza Plan: INFLUENZA VAC., TRIVALENT, HD, PF, 65 AND ABOVE, 0.5 ML IM (FLUZONE HD) Vaccine given. See admin record. (Z23) Need for pneumococcal vaccination Plan: PNEUMOCOCCAL VACC, PCV20, IM ([id number]) Vaccine given. See admin record. Follow-up: 3 months Total time today including reviewing chart before the visit, pertinent labs, imaging reports, face to face time, and documentation time was 47 minutes. Vickie Pagan DO * Roula Bettencourt LPN - 08/09/2024 2:01 PM EDT Urinary Incontinence Plan of Care Documentation: (This [...] (TEDs)if you have edema Roula Bettencourt LPN 08/09/2024 PRE - ADMINISTRATION DOCUMENTATION Are you experiencing any cold symptoms or fever? No Have you had Guillain-[place] Syndrome (an illness that causes paralysis) within the last 6 weeks? No Have you had the flu shot in the past? YES Have you ever had a reaction to the flu shot? No Roula Bettencourt LPN, 08/09/2024 2:02 PM Immunization Administration Documentation Time Out Procedure Performed: Yes Patient Identified (Ask Name/Date of ): Yes Does the patient have a fever greater than 101 degrees today? No Patient allergic to latex? No VFC Stock: No Immunization(s) verified: Yes, Immunization Name: Flu, VIS Sheet(s) given: Yes Verified Side and Site: Yes Verified Shot(s) with Parent(s)/Patient: Yes Immunization Administration Documentation Time Out Procedure Performed: Yes Patient Identified (Ask Name/Date of ): Yes Does the patient have a fever greater than 101 degrees today? No Patient allergic to latex? No VFC Stock: No Immunization(s) verified: Yes, Immunization Name: Prevnar 20 (PCV20), VIS Sheet(s) given: Yes Verified Side and Site: Yes Verified Shot(s) with Parent(s)/Patient: Yes documented in this encounter Procedure Notes * New Calderon DO - 08/09/2024 3:13 PM EDTAssociated Order(s): EKG REASON FOR STUDY: atypical chest pain;atypical chest pain CONCLUSIONS: Normal sinus rhythm Possible Left atrial enlargement Left ventricular hypertrophy Abnormal ECG When compared with ECG of 09-Aug-2024 15:13, No significant change was found Ventricular Rate: 61 Atrial Rate: 61 WA Interval: 164 QRS Duration: 82 QT/QTc: 438/440 ms P-R-T [place]: 52 : -26 : 31 degrees documented in this encounter Nursing Notes * Roula Bettencourt LPN - 08/09/2024 2:52 PM EDT ekg done as per dr's order * Roula Bettencourt LPN - 08/09/2024 2:01 PM EDT Patient here for routine follow up visit. Pt reports when she pushes on her upper chest it hurts. Also reports ongoing rib pain. Patient has been verbally educated on the need or importance of COVID and has declined topic(s). documented in this encounter Plan of Treatment Upcoming Encounters Date Type Department Care Team (Late st Contact Info) Description 10/21/2024 1:00 PM EST Office Visit Family Practice [address] [place] [address] Vickie Pagan DO 293 [facility] [place] [address] 11/08/2024 10:00 AM EST Nurse Only Ancillary [address] [place] [address] College, Nurse Annual Wellness Visit [address] [place] [address] Health Maintenance Due Date Last Done Comments CKD PHOS USE SMARTSET 87244 01/30/2024 01/29/2023, 1 COVID-19 Vaccine ( season) 2024 09/29/2023, 02/13/2023, 03/28/2022, Additional history exists Postponed from 07/18/2024 (Patient Declined After Education) CKD HGB USE SMARTSET 16999 09/12/202409/12, 09/12/2023, 01/29/2023, Additional history exists Adult Wellness Visit 11/06/2024 11/06/2023, 10/17/2022, 10/04/2021 Depression Monitoring 11/06/2024 11/06/2023 Mammogram 07/29/2025 07/29/2024, 07/2024, 12/26/2023, Additional history exists Albumin/Creatinine Ratio [...] Procedure Name Priority Date/Time Associated Diagnosis Comments ALBUMIN / CREATININE RATIO, URINE Routine 08/09/2024 3:28 PM EDT 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) WA ECG ROUTINE ECG W/LEAST 12 LDS I&R ONLY Routine 08/09/2024 3:13 PM EDT Atypical chest pain documented in this encounter Results * ALBUMIN / CREATININE RATIO, URINE (08/09/2024 3:28 PM EDT) Albumin, Random Urine <1.20 mg/dL 08/10/2024 12:38 AM EDT [facility] Creatinine, Random Urine 44 mg/dL 08/10/2024 12:38 AM EDT [facility] Albumin / Creatinine Ratio, Urine <27 <30 mg/g Creat 08/10/2024 12:38 AM EDT [facility] Urine Urine specimen / Unknown Non-blood Collection / Unknown 08/09/2024 3:28 PM EDT 08/09/2024 3:28 PM EDT Narrative [facility] - 08/10/2024 12:38 AM EDT Normal: <30 mg/g creatinine High: 30-300 mg/g creatinine Very High: >300 mg/g creatinine Nephrotic: >2200 mg/g creatinine Vickie Pagan DO LAB URINE ORDERABLES Performing Organization Address City/[facility]/ZIP Co de Phone Number [facility]ORY [facility] [address] [place] [address] * EKG (08/09/2024 3:13 PM EDT) 08/09/2024 3:13 PM EDT Narrative Procedure Note New Calderon DO - 08/09/2024 3:13 PM EDT REASON FOR STUDY: atypical chest pain;atypical chest pain CONCLUSIONS: Normal sinus rhythm Possible Left atrial enlargement Left ventricular hypertrophy Abnormal ECG When compared with ECG of 09-Aug-2024 15:13, No significant change was found Ventricular Rate: 61 Atrial Rate: 61 WA Interval: 164 QRS Duration: 82 QT/QTc: 438/440 ms P-R-T [place]: 52 : -26 : 31 degrees Vickie Pagan DO EKG [facility] documented in this encounter Visit Diagnoses Diagnosis 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)- Primary Atypical chest pain Other chest pain Alzheimer's disease (HCC) Alzheimer's disease Risk and functional assessment Screening for unspecified condition Need for prophylactic vaccination and inoculation against influenza Need for pneumococcal vaccination Need for prophylactic vaccination against streptococcus pneumoniae (pneumococcus) documented in this encounter Care Teams Director Of Strategic Initiatives Relationship Specialty Start Date End Date Vickie Pagan DO [address] [facility] [place] [address] PCP - General Family Medicine 06/08/24 documented as of this encounter
--- OUTSIDE RECORDS SUMMARY | 2024-12-30 21:07 | External Medical Summary | Summary of Care ---
Author Name Unknown Organization [facility] Address [address] [place] [address] Phone [phone] Care Team Providers Care Soapstoner Name Role Phone Vickie Pagan DO Primary Care Provider [phone] Reason for Visit * Reason Onset Date Comments Follow Up Medication Administration 08/09/2024 Flu an d/or Pneumo Inj Encounter Details Date Type Department Care Team (Late st Contact Info) Description 08/09/2024 1:40 PM EDT Office Visit Family Practice 65 [facility] [address] [place] [phone] Vickie Pagan DO [address] [place] [address] Benign hypertension with stage 3a chronic kidney [...] as of this encounter (statuses as of 08/09/2024) Medications Medication Sig Dispensed Refills Start Date [...] as of this encounter (statuses as of 08/09/2024) Active Problems Problem Noted Date Diagnosed Date [...] BCC R upper back 12/2012, BCC R restoration 07/2012, R cheek 02/2012, L upper arm CC L preauricular x 2 (Jaimie, 2009); possibly others on trunk before that - pt unsure (Dr. 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) 09/29/2023 COVID-19, mRNA, LNP-s, PF, B ooster, 100mcg/0.5mg (Moderna) 03/28/2022 Covid-19, Mrna, Lnp-s, Pf, B ivalent, 30 Mcg, IM, 12 yrs and above (Pfizer) 02/13/2023 Pneumococcal Conjugate Vacc, 13 Valent (Prevnar) 05/06/2016 Pneumococcal Conjugate Vacci ne, 20-valent ([id number]) 08/09/2024 Pneumococcal Polysaccharide PPV23 (Pneumovax) 10/17/2006 Season [...] forgot to pick her up for a [employer] service. She forgot about it and watched [...] performed by Nena Phan MD at OR [facility] COLONOSCOPY, DIAGNOSTIC (RECTUM) 09/17/2017 serrated adenomatous polyps, diverticulosis/COLONOSCOPY FLEXIBLE PROXIMAL DIAGNOSTIC performed by Madi Oropeza MD at ENDOSCOPY [facility] EGD, FLEXIBLE, DIAGNOSTIC 05/04/2013 UPPER GI ENDOSCOPY DIAGNOSTIC performed by Mara Mehta DO at ENDOSCOPY [facility] KNEE ARTHROSCOPY/SURGERY Left 2000 KNEE ARTHROSCOPY/SURGERY Right 2003 MASTECTOMY, PARTIAL Left 07/15/2018 07/15/2018 left - MASTECTOMY PARTIAL performed by Nena Phan MD at OR [facility] MASTECTOMY, PARTIAL Left 09/09/2018 wider margin taken out REMOVAL OF APPENDIX REMOVE CATARACT, INSERT LENS PROSTH 11/28/10 L eye TOTAL ABD HYSTERECTOMY W/WO REMOVAL OF TUBE(S) 1969 UROLOGY SURGERY PROCEDURE NEC -92? "bladder tack- Dr. Rodriguez" UROLOGY SURGERY PROCEDURE NEC 1994 sling procedure using muscles- Dr. Montelongo UROLOGY SURGERY PROCEDURE NEC -? [place] - sling procedure using skin US GUIDED [...] pneumococcal vaccination Plan: PNEUMOCOCCAL VACC, PCV20, IM ([id number]) Vaccine given. See admin record. Follow-up: 3 [...] symptoms or fever? No Have you had Guillain-[place] Syndrome (an illness that causes paralysis) within [...] with Parent(s)/Patient: Yes documented in this encounter Nursing Notes * Roula Bettencourt LPN - 08/09/2024 2:52 PM EDT ekg done as per 's order * Roula Bettencourt LPN - 08/09/2024 [...] PM EST Office Visit Family Practice [address] [place] [phone] Vickie Pagan 293 [facility] [address] 11/08/2024 10:00 AM EST Nurse Only Ancillary [address] [place] [address] College, Nurse Annual Wellness Visit [address] [place] [address] Pending Results Name Type Priority Associated Diagnoses Date /Time ALBUMIN / CREATININE RATIO, URINE Lab Routine 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) 08/09/2024 3:28 PM EDT Scheduled Orders Name Type Priority Associated Diagnoses Orde r Schedule ALBUMIN / CREATININE RATIO, URINE Lab Routine 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) Expected: 08/09/2024, Expires: 08/09/2025 EKG EKG Routine Atypical chest pain Expected: 08/09/2024 (Approximate), Expires: 09/08/2025 Health Maintenance Due Date Last Done Comments CKD PHOS USE SMARTSET 01433 01/30/2024 01/29/2023, 1 Albumin/Creatinine Ratio 07/22/2024 07/22/2023, 1001/2022 COVID-19 Vaccine ( season) 2024 09/29/2023, 02/13/2023, 03/28/2022, Additional history exists Postponed from 07/18/2024 (Patient Declined After Education) CKD HGB USE SMARTSET 70193 09/12/202409/12, 09/12/2023, 01/29/2023, Additional history exists Adult Wellness Visit 11/06/2024 11/06/2023, 10/17/2022, 10/04/2021 Depression Monitoring 11/06/2024 11/06/2023 Mammogram 07/29/2025 07/29/2024, 07/2024, 12/26/2023, Additional history exists DXA Scan 09/04/2026 09/04/2023, [...] as of this encounter Visit Diagnoses Diagnosis 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
--- OUTSIDE RECORDS SUMMARY | 2024-12-30 21:07 | External Medical Summary | Summary of Care ---
Author Name Unknown Organization [facility] Address [address] [place] [address] Phone [phone] Care Team Providers Care Silverware Supervisor Name Role Phone Vickie Pagan DO Primary Care Provider + [phone] Reason for Visit * Reason Onset Date Comments Other 08/31/2024 Encounter Details Date Type Department Care Team (Late st Contact Info) Description 08/31/2024 Telephone Family Practice 65 [facility] [address] [place] [address] Vickie Pagan DO [address] [place], [place] [phone] Other Allergies Active Allergy Reactions Criticality Noted [...] BCC R upper back 12/2012, BCC R yazdanism 07/2012, R cheek 02/2012, L upper arm [...] MCG/0.3 mL, 12 YRS AND ABOVE, IM ([facility]) 09/29/2023 COVID-19, mRNA, LNP-s, PF, B ooster, 100mcg/0.5mg (Moderna) 03/28/2022 Covid-19, Mrna, Lnp-s, Pf, B ivalent, 30 Mcg, IM, 12 yrs and above (Pfizer) 02/13/2023 Pneumococcal Conjugate Vacc, 13 Valent (Prevnar) 05/06/2016 Pneumococcal Conjugate Vacci ne, 20-valent ([id number]) 08/09/2024 Pneumococcal Polysaccharide PPV23 (Pneumovax) 10/17/2006 Season [...] PM EST Office Visit Family Practice 65 [facility] 293 [facility] [place] [facility] [place] [address] Vickie Pagan DO 293 [place] [address] 11/08/2024 10:00 AM EST Nurse Only Family Practice 65 [facility] 293 [facility] [place] [address] Anna Lorenzo, SHY [address] [place] [address] Health Maintenance Due Date Last Done Comments CKD PHOS USE SMARTSET 52606 01/30/2024 01/29/2023, 1 COVID-19 Vaccine ( season) 2024 09/29/2023, 02/13/2023, 03/28/2022, Additional history exists CKD HGB USE SMARTSET 52221 09/12/202409/12, 09/12/2023, 01/29/2023, Additional history exists Adult [...] filedocumented as of this encounter Care Teams Silverware Supervisor Relationship Specialty Start Date End Date Vickie Pagan DO [address] [facility] [place] [address] PCP - General Family Medicine 06/08/24 documented as of this encounter
--- OUTSIDE RECORDS SUMMARY | 2024-12-30 21:07 | External Medical Summary ---
Author Name Unknown Address Unknown Organization [id number]:[facility] [address] Laboratory Report Ordering Provider Test Date Status GURJIT REILLY 08/09/2024 15:28:38 Final Normal: <30 mg/g creatinine< br/>High: 30-300 mg/g creatinine
Very High: >300 mg/g creatinine
Nephrotic: >2200 mg/g creatinine Observation Date Value Abnormality Reference (Units ) Status Albumin, Urine 08/09/2024 15:28:38 <1.20 (mg/dL) Final Creatinine, Urine 08/09/2024 15:28:38 44 (mg/dL) Final Albumin/Creatinine [Mass Ratio] in Urine 08/09/2024 15:28:38 <27 <30 (mg/g Creat) Final Performing Location [facility] [address] [facility] [address]
[2024-12-30] MEDS: GABAPENTIN 100 MG CAP PO STA (21:46)
[2024-12-30] MEDS: oxyCODONE HCL IR 5 MG TAB (IMMEDIATE RELEASE) PO STA (23:05)
[2024-12-31] MEDS: oxyCODONE HCL IR 5 MG TAB (IMMEDIATE RELEASE) PO STA (00:15)
[2024-12-31] MEDS: oxyCODONE IR HOME PACK PO ONE (01:21)
[2024-12-31] MEDS: MoRPHine SULFATE 2 MG/ML CARP IV STA (01:23)
--- NOTE | 2024-12-31 03:33 | History & Physical Report ---
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 Patient states she fell on stones about a year ago. Since then having pain in the right flank region which lately got worse which prompted her to come to the ER. Received pain meds in the ER. Patient states currently she is feeling better. The pain is minimal. Denies any abdominal pain. Normal bowel and bladder movements. Denies any chest pain or shortness of breath. No cough. No fevers. No headache. No runny nose or sore throat. Appetite is okay. Hemodynamics are okay. Right flank pain CT abdomen pelvis and bladder ultrasound shows distended Gallbladder but no other acute findings labs ok Currently pain is improved Pain control PT OT Observe in the hospital Hypertension On amlodipine Will monitor Hyperlipidemia Statin Chronic diastolic CHF On Lasix Depression On paroxetine GERD On omeprazole DVT prophylaxis SCDs for now Disposition Observation medical floor Full code History of Present Illness Chief Complaint: Right flank pain Primary Care Provider: Vickie Pagan DO 89-year-old female with past medical history significant for GERD, depression, hyperlipidemia, hypertension, diastolic CHF, ascending aortic dilatation, pulmonary nodules, 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 Patient states she fell on stones about a year ago. Since then having pain in the right flank region which lately got worse which prompted her to come to the ER. Received pain meds in the ER. Patient states currently she is feeling better. The pain is minimal. Denies any abdominal pain. Normal bowel and bladder movements. Denies any chest pain or shortness of breath. No cough. No fevers. No headache. No runny nose or sore throat. Appetite is okay. Hemodynamics are okay. Past med history. As mentioned above Past surgical history. Breast lesion excision. Knee surgeries. Left partial mastectomy. Appendectomy. Cataract surgery. MATT. Bladder tack/sling procedure. Social history. No smoking. Occasional alcohol. Family history. Significant for breast cancer and heart disease Allergies Allergy/AdvReac Type Severity Reaction Status Date / Time Penicillins Allergy Mild Swelling Verified 12/30/24 23:45 and itchiness, rash celecoxib Allergy Unknown Swelling Verified 12/30/24 23:45 and itchiness. ciprofloxacin Allergy Unknown rash Verified 12/30/24 23:45 metronidazole Allergy Unknown rash Verified 12/30/24 23:45 CHEVY Inhibitors AdvReac cough Verified 12/30/24 23:45 Home Medications Medication Instructions Recorded Confirmed Type acetaminophen 500 mg tablet 500 mg PO Q6H PRN Pain 08/18/23 12/30/24 History (Tylenol Extra Strength) amlodipine 2.5 mg tablet 2.5 mg PO DAILY 08/18/23 12/30/24 History ascorbic acid (vitamin C) 500 mg 500 mg PO DAILY 08/18/23 12/30/24 History tablet (Vitamin C) aspirin 81 mg chewable tablet 81 mg PO DAILY 08/18/23 12/30/24 History diazepam 5 mg tablet 5 mg PO Q8 PRN Anxiety 08/18/23 12/30/24 History furosemide 20 mg tablet 20 mg PO 3XWK 08/18/23 12/30/24 History gabapentin 300 mg capsule 600 mg PO BID 08/18/23 12/30/24 History glucosamine-chondroitin 250 mg-200 1 tab PO DAILY 08/18/23 12/30/24 History mg tablet (Osteo Bi-Flex) [id number] 8 mg-folic 400 1 tab PO DAILY 08/18/23 12/30/24 History mcg-K 50 mcg-lutein 300 mcg tablet (Centrum Silver Women) omeprazole 40 mg capsule,delayed 40 mg PO QAM 08/18/23 12/30/24 History release paroxetine HCl 30 mg tablet 30 mg PO QAM 08/18/23 12/30/24 History psyllium 1 packet PO AMHS PRN Constipation 08/18/23 12/31/24 History rosuvastatin 20 mg tablet 20 mg PO QAM 08/18/23 12/30/24 History polyethylene glycol 3350 17 17 g PO DAILY PRN Constipation 12/30/24 12/30/24 History gram/dose oral powder (Miralax) Past Med/Surg History Problem List (Updated 12/30/24 @ 16:21 by Daina Shaw, ) Right flank pain (Acute) HTN (hypertension) (Acute) Acute bronchitis (Acute) Arm contusion (Acute) Closed head injury (Acute) Contusion of ear (Acute) Scalp laceration (Acute) Medical History Acute bronchitis GERD (gastroesophageal reflux disease) HTN (hypertension) Hyperlipidemia Social History Smoking Status: Never smoker Do You Dip or Chew Tobacco: No; Hx Alcohol Use: Yes Alcohol type: wine Hx Substance Use: No Preferred Language: Turkmen Communication Ability: Effective Hat Former Required: No Beliefs That Will Affect Care: None Current Living Situation: Alone Feels Safe at Home: Yes Safety Concerns: Feels Safe At This Time Assistive Devices: None Review of Systems Review of Systems: All systems reviewed & are unremarkable except as noted in HPI & below Physical Exam Physical Exam: General- Not in distress. Head- atraumatic Eyes- PERRL. ENT- oropharynx clear Neck- supple, no JVD. Lungs- clear to auscultation no wheezing or crackles Heart- regular rhythm; no murmur, no gallop. Abdomen- normal bowel sounds, soft, nontender, no distension Extremities- no pretibial edema, no erythema seen. Neuro- alert, oriented PERRL, no facial palsy; no dysarthria; moves extremities Results & Data Results & Data Vital Signs (Past 12 Hours) Vital Signs Pulse Pulse Resp BP BP Pulse Ox O2 Del Method 12/31/24 00:33 61 12/30/24 23:00 66 18 150/70 H 93 12/30/24 22:00 75 21 191/101 H 96 12/30/24 20:41 63 12/30/24 20:10 63 20 186/90 H 97 Room Air 12/30/24 20:04 80 14 186/90 H 12/30/24 17:09 161/85 H 12/30/24 17:09 69 17 96 12/30/24 17:06 70 12/30/24 17:01 68 17 161/85 H 96 Room Air Diagnostic Findings Laboratory Results WBC 4.00 K/ul (4.8-10.8) L 12/30/24 15:30 RBC 4.16 M/uL (4.20-5.40) L 12/30/24 15:30 Hgb 11.9 g/dl (12.0-16.0) L 12/30/24: Hct 35.9 % (37.0-47.0) L 12/30/24: MCV 86.3 fL (80.0-100.0) 12/30/24 MCH 28.6 pg (25.0-34.0) 12/30/24 MCHC 33.1 g/dL (32.0-36.0) 12/30/24 RDW Std Deviation 45.2 fL (36.4-46.3) 12/30/24 RDW Coeff of [place] 14.3 % (11.5-14.5) 12/30/24 Plt Count 213 K/uL (130-400) 12/30/24 MPV 9.4 fL (9.4-12.4) 12/30/24 Immature Gran % (Auto) 0.0 % 12/30/24: Neut % (Auto) 51.4 % 12/30/24: Lymph % (Auto) 31.8 % 12/30/24: Jones % (Auto) 10.3 % 12/30/24: Eos % (Auto) 5.5 % 12/30/24: Baso % (Auto) 1.0 % 12/30/24 Neut # (Auto) 2.06 K/uL (1.40-6.50) 12/30/24: Lymph # (Auto) 1.27 K/uL (1.20-3.40) 12/30/24: Jones # (Auto) 0.41 K/uL (0.11-0.59) 12/30/24: Eos # (Auto) 0.22 K/uL (0.00-0.50) 12/30/24: Baso # (Auto) 0.04 K/uL (0.00-0.20) 12/30/24: Immature Gran # (Auto) 0.00 K/uL (0.01-0.20) L 12/30/24 15: Sodium 141 mmol/L (136-145) 12/30/24: Potassium 4.0 mmol/L (3.5-5.1) 12/30/24 15:30 Chloride 106 mmol/L (98-107) 12/30/24 15:30 Carbon Dioxide 28 mmol/L (21-32) 12/30/24 15:30 Anion Gap 7 (3-11) 12/30/24 15:30 BUN 15 mg/dl (6-23) 12/30/24 15:30 Creatinine 1.01 mg/dl (0.6-1.2) 12/30/24 15:30 Est Cr Clr Drug Dosing 41.1 ml/min 12/30/24 15:30 eGFR 53.88 12/30/24 15:30 BUN/Creatinine Ratio 14.9 (10-20) 12/30/24 15:30 Glucose 90 mg/dl (70-99(Fasting)) 12/30/24 15:30 Calcium 9.7 mg/dl (8.6-10.3) 12/30/24 15:30 Total Bilirubin 0.9 mg/dl (0.2-1.0) 12/30/24 15:30 AST 26 U/L (13-39) 12/30/24 15:30 ALT 16 U/L (7-52) 12/30/24 15:30 Alkaline Phosphatase 67 U/L (34-104) 12/30/24 15:30 Total Protein 7.6 gm/dl (6.0-8.3) 12/30/24 15:30 Albumin 4.5 gm/dl (3.4-5.0) 12/30/24 15:30 Globulin 3.1 gm/dl (2.5-4.0) 12/30/24 15:30 Albumin/Globulin Ratio 1.5 (0.9-2) 12/30/24 15:30 Lipase 28 U/L (11-82) 12/30/24 15:30 Urine Color Yellow 12/30/24 15:20 Urine Appearance Clear (Clear) 12/30/24 15:20 Urine pH 6.5 (4.5-7.5) 12/30/24 15:20 Ur Specific [place] 1.005 (1.000-1.030) 12/30/24 15:20 Urine Protein Negative (Negative) 12/30/24 15:20 Urine Glucose (UA) Negative (Negative) 12/30/24 15:20 Urine Ketones Negative (Negative) 12/30/24 15:20 Urine Blood Trace (Negative) H 12/30/24 15:20 Urine Nitrite Negative (Negative) 12/30/24 15:20 Urine Bilirubin Negative (Negative) 12/30/24 15:20 Urine Urobilinogen Negative (Negative) 12/30/24 15:20 Ur Leukocyte Esterase Negative (Negative) 12/30/24 15:20 Urine WBC (Auto) 0-5 /hpf (0-5) 12/30/24 15:20 Urine RBC (Auto) 0-2 /hpf (0-2) 12/30/24 15:20 U Hyaline Cast (Auto) 0-2 /lpf (0-2) 12/30/24 15:20 U Epithel Cells (Auto) 0-2 /hpf (0-2) 12/30/24 15:20 Urine Bacteria (Auto) None Seen (None Seen) 12/30/24 15:20 Impressions Chest X-Ray 12/30/24 14:35 EXAM: Radiograph of the Chest 1 View INDICATION: Pain. TECHNIQUE: Frontal view of the chest. COMPARISON: 08/18/2023 FINDINGS: Lungs and pleural spaces: Stable mild scarring of the interstitial markings and basilar parenchymal. No pleural effusion or pneumothorax. Heart: Shape and configuration within normal limits allowing for technique. Mediastinum: Normal contour. Bones/joints: No fracture, erosion or dislocation. Soft tissues: No abnormality noted. No radiopaque foreign body noted. Vasculature: Stable ectatic calcified aorta. Upper abdomen: No abnormality noted. IMPRESSION: Stable chronic changes. No acute disease. ACT 112: Negative or not required by law. Electronically signed by Yumiko Arnett 12-30-2024 4:42 PM Abdomen/Pelvis CT 12/30/24 16:18 EXAM: CT Abdomen and Pelvis With Intravenous Contrast INDICATION: Right flank pain. TECHNIQUE: Axial computed tomography images of the abdomen and pelvis with intravenous contrast. Sagittal and coronal reformatted images were created and reviewed. This CT exam was performed using one or more of the following dose reduction techniques: automated exposure control, adjustment of the mA and/or kV according to patient size, and/or use of iterative reconstruction technique. CONTRAST: 90ml of Optiray 320 was administered intravenously. COMPARISON: 08/18/2023 FINDINGS: Limitations: None. Lung bases: No abnormality noted. Pleural space: No visualized pleural effusion or pneumothorax. Heart: No abnormality noted. Mediastinum: No abnormality noted. ABDOMEN: Liver: No abnormality noted. Gallbladder and bile ducts: Mildly distended gallbladder. No calcified stones. No ductal dilatation or calcification noted. Pancreas: Homogeneous enhancement. No mass, inflammation or ductal dilation. Spleen: No significant abnormality noted. Adrenals: No significant abnormality noted. Kidneys and ureters: Simple left renal cyst/s. No simple cyst follow-up necessary. Right kidney appears normal. No renal stone, hydronephrosis or perinephric fluid. The right kidney appears normal. Stomach and bowel: Moderate amounts of stool throughout the colon. There is extensive, severe left colonic diverticulosis. No diverticulitis or obstruction. PELVIS: Appendix: No findings to suggest acute appendicitis. Bladder: Incompletely distended urinary bladder. Mild thickening not excluded. No stones or gas. Reproductive: Hysterectomy. ABDOMEN and PELVIS: Intraperitoneal space: No free air. No significant fluid collection. Bones/joints: Degenerative changes noted throughout the spine. No acute osseous abnormality seen. Soft tissues: No significant abnormality noted. Vasculature: Atherosclerotic calcification of the aorta and branches. No aneurysm. Lymph nodes: No pathologically enlarged lymph nodes. IMPRESSION: 1. Mildly distended gallbladder. If additional imaging is clinically warranted, sonography is the modality of choice. 2. Extensive left colonic diverticulosis. No diverticulitis. 3. Incompletely distended urinary bladder. Mild cystitis not excluded. Correlate with urinalysis. ACT 112: Negative or not required by law. Electronically signed by Yumiko Arnett 12-30-2024 5:10 PM Gallbladder Ultrasound 12/30/24 17:44 EXAM: US Abdomen Limited Right Upper Quadrant INDICATION: Trauma to right side. TECHNIQUE: Real-time ultrasound of the right upper quadrant with image documentation. COMPARISON: CT abdomen the same day FINDINGS: Liver: Smooth cortical contour. No mass. No intrahepatic bile duct dilation. Gallbladder: The gallbladder is distended. No stones or wall thickening. No pericholecystic fluid. Common bile duct: No significant abnormality noted. No stones. No dilation. Pancreas: The talus obscured by gas artifact. No abnormality noted. Right kidney: 8.6 cm long. Normal cortical thickness and echotexture. No mass, stone or hydronephrosis. IMPRESSION: The gallbladder is distended without stones or inflammation. ACT 112: Negative or not required by law. Electronically signed by Yumiko Arnett 12-30-2024 8:00 PM Code Status & VTE Plan VTE Prophylaxis Plan VTE Prophylaxis will be ordered: Yes
[2024-12-31] MEDS ORDERED: POLYETHYLENE (MIRALAX) 17 GM PACK PO PRN ×2 (04:55)
[2024-12-31] MEDS ORDERED: diazePAM 5 MG TABLET PO PRN (04:55)
[2024-12-31] MEDS ORDERED: PSYLLIUM or GUAR GUM FIBER 4GM PACKET PO PRN (05:00)
--- OUTSIDE RECORDS SUMMARY | 2024-12-31 05:04 | External Medical Summary | Summary of Care ---
Author Name Unknown Organization [facility] Address [address] [place] [address] Phone [phone] Care Team Providers Care Contract Admin Name Role Phone Vickie Pagan DO Primary Care Provider [phone] Reason for Visit * Reason Onset Date Comments Other 12/30/2024 Information 12/30/202412/30 Encounter Details Date Type Department Care Team (Late st Contact Info) Description 12/30/2024 Telephone Family Practice [address], [place] [address] [place] [address] Vickie Pagan DO [address] [place], [place] [id number] Other; Information (12/30) Allergies Active Allergy Reactions Criticality Noted Date Comments Alan Inhibitors Cough 07/13/2022 Celecoxib 08/07/2010 Long ago Rash Ciprofloxacin Hcl Rash 03/12/2013 Metronidazole Hcl Rash 04/28/2013 Penicillins 1997 Rash documented as of this encounter (statuses as of 12/30/2024) Medications ONE DAILY PO TABS Take by [...] THREE TIMES A WEEK 36 Tablet 3 12/28/2024 10:50 AM EST 4 Active Rosuvastatin Calcium 20 [...] as of this encounter (statuses as of 12/30/2024) Active Problems Problem Noted Date Diagnosed Date [...] BCC R upper back 12/2012, BCC R mormon 07/2012, R cheek 02/2012, L upper arm 2/2012BCC L preauricular x 2 (Jaimie, 2009); possibly others on trunk before that - pt unsure (Dr. 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 ADVANCE DIRECTIVE INFORMATION 09/05/2016 09/20/2024 Overview (06/29/2010): Yes, Patient instructed to provide copy of advance directive for provider to review and to be scanned into Electronic Medical Record Esophageal reflux 01/12/2009 12/01/2018 Anxiety state 07/27/2008 12/01/2018 documented as of this encounter (statuses as of 12/30/2024) Immunizations Name Administration Dates Next Due COVID-19 [...] (Prevnar) 05/06/2016 Pneumococcal Conjugate Vacci ne, 20-valent ([id number]) 08/09/2024 Pneumococcal Polysaccharide PPV23 (Pneumovax) 10/17/2006 Season [...] Telephone Encounter - Vickie Pagan DO - 12/30/2024 3:21 PM EST Noted. * Telephone Encounter - Roula Bettencourt LPN - 12/30/2024 2:39 PM EST Call placed to daughter María Elena. María Elena states her mother just went to [facility] ED a few minutes ago. Per María Elena, pt was taken to a routine hearing aid cleaning and check up by the of one of María Elena's friends today. States she complained to him that she was having severe back pain and she was crying so he took her to the ED. María Elena states pt went bowling on Friday and went out to lunch yesterda y. Informed María Elena that I would notify Dr. Pagan and we would follow up on outcome of ED visit. * Telephone Encounter - Maliha Leos OSA - 12/30/2024 1:21 PM EST Pt's daughter calling regarding pt complaining of chronic back pain. She said this is not a new thing and has been addressed before. Pt is currently at another appt and says that she is going to stopin at this office after. Pt's daughter would like to speak with nurse before she gets here. Requesting call back. documented in this encounter Plan of Treatment Upcoming Encounters Date Type Department Care Team (Late st Contact Info) Description 01/03/2025 9:45 AM EST Imaging Radiology [facility], [place] [address] [place] [phone] 01/27/2025 10:00 AM EDT Office Visit Family Practice [address], [place] [address] [place] [address] Vickie Pagan DO [address] [place] [address] Health Maintenance Due Date Last Done Comments CKD PHOS USE SMARTSET 40492 01/30/2024 01/29/2023, 1 COVID-19 Vaccine ( season) 2024 09/29/2023, 02/13/2023, 03/28/2022, Additional history exists CKD HGB USE SMARTSET 55305 09/12/202409/12, 09/12/2023, 01/29/2023, Additional history exists Adult [...] filedocumented as of this encounter Care Teams Contract Admin Relationship Specialty Start Date End Date Vickie Pagan DO [address] [place] [address] PCP - General Family Medicine 06/08/24 documented as of this encounter
[2024-12-31 05:31] VITALS: TEMP 98.2
[2024-12-31] MEDS: traMADol HCL 50 MG TABLET PO PRN (06:19)
[2024-12-31] MEDS: ACETAMINOPHEN 325 MG TAB PO PRN (07:32)
[2024-12-31 07:59] LABS: Anion Gap 6 (3-11); BUN Creatinine Ratio 13.8 (10-20); Blood Urea Nitrogen 12 mg/dl (6-23); Calcium 9.4 mg/dl (8.6-10.3); Carbon Dioxide 27 mmol/L (21-32); Chloride 103 mmol/L (98-107); Creatinine Clr Calc Pharmacy 47.8 ml/min; Glucose 92 mg/dl (70-99(Fasting)); Sodium 136 mmol/L (136-145)
[2024-12-31 08:39] LABS: Basophils # (auto) 0.04 K/uL (0.00-0.20); Eosinophils # (auto) 0.22 K/uL (0.00-0.50); Eosinophils % (auto) 5.4 %; Hematocrit (blood only) 38.8 % (37.0-47.0); Hemoglobin 12.2 g/dl (12.0-16.0); Lymphocytes # (auto) 0.97 K/uL (1.20-3.40); Lymphocytes % (auto) 23.9 %; Mean Corpuscular Hemoglobin 27.9 pg (25.0-34.0); Mean Corpuscular Hgb Conc 31.4 g/dL (32.0-36.0); Mean Corpuscular Volume 88.8 fL (80.0-100.0); Mean Platelet Volume 9.6 fL (9.4-12.4); Monocytes # (auto) 0.43 K/uL (0.11-0.59); Monocytes % (auto) 10.6 %; Neutrophils % (auto) 59.1 %; Platelet Count 209 K/uL (130-400); RDW Coefficient of Variation 14.2 % (11.5-14.5); RDW Standard Deviation 45.8 fL (36.4-46.3); Red Blood Count 4.37 M/uL (4.20-5.40); White Blood Count 4.06 K/ul (4.8-10.8)
[2024-12-31] MEDS ORDERED: NON-FORMULARY MEDICATION (Glucosamine-Chondroitin [Osteo Bi-Flex] 250-200 mg Tablet) PO SCH (09:00)
[2024-12-31] MEDS: PARoxetine HCL 10 MG TAB PO SCH (09:47)
[2024-12-31] MEDS: MULTIVITAMIN TAB PO SCH (09:48)
[2024-12-31] MEDS: GABAPENTIN 300 MG CAP PO SCH (09:48)
[2024-12-31] MEDS: ROSUVASTATIN CALCIUM 20 MG TAB PO SCH (09:49)
[2024-12-31] MEDS: FUROSEMIDE 20 MG TAB PO SCH (09:49)
[2024-12-31] MEDS: ASCORBIC ACID 500 MG TAB PO SCH (09:50)
[2024-12-31] MEDS: PANTOprazole 40 MG TAB PO SCH (09:51)
[2024-12-31] MEDS: ASPIRIN 81 MG CHEW PO SCH (09:52)
[2024-12-31] MEDS: amLODIPine BESYLATE 5 MG TAB PO SCH (09:52)
[2024-12-31 09:55] VITALS: RESP 18; O2SAT 95
[2024-12-31 12:58] VITALS: BP 157/73; PULSE 63
--- NOTE | 2024-12-31 14:20 | Discharge Summary ---
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 Patient states she fell on stones about a year ago. Since then having pain in the right flank region which lately got worse which prompted her to come to the ER. Received pain meds in the ER. Patient states currently she is feeling better. The pain is minimal. Denies any abdominal pain. Normal bowel and bladder movements. Denies any chest pain or shortness of breath. No cough. No fevers. No headache. No runny nose or sore throat. Appetite is okay. Hemodynamics are okay. Past med history. As mentioned above Past surgical history. Breast lesion excision. Knee surgeries. Left partial mastectomy. Appendectomy. Cataract surgery. MATT. Bladder tack/sling procedure. Social history. No smoking. Occasional alcohol. Family history. Significant for breast cancer and heart disease Admission Exam Per Admitting Provider General- Not in distress. Head- atraumatic Eyes- PERRL. ENT- oropharynx clear Neck- supple, no JVD. Lungs- clear to auscultation no wheezing or crackles Heart- regular rhythm; no murmur, no gallop. Abdomen- normal bowel sounds, soft, nontender, no distension Extremities- no pretibial edema, no erythema seen. Neuro- alert, oriented PERRL, no facial palsy; no dysarthria; moves extremities Principal Diagnosis Right flank pain, likely MSK origin Discharge Exam Constitutional: WD/WN, vitals as above, NAD, sitting up in bed, pleasant, conversing easily Respiratory: normal respiratory effort, lungs clear to auscultation, no wheeze, rales, rhonchi. Normal insp/exp effort, no accessory muscle use Cardiovascular: RRR, no murmur, no edema Vessels: no JVD or carotid bruit Chest: normal inspection of chest Abdomen: normal bowel sounds, soft, nontender, no hepatosplenomegaly Musculoskeletal: no cyanosis or clubbing, extremities motor strength 5/5 Skin: no rashes, warm and dry normal turgor Neurologic: PERRL, EOMI, accommodation nl, no face palsy, no dysarthria CN's II- XI intact bilaterally and moves all extremities Discharge Data Allergies Allergy/AdvReac Type Severity Reaction Status Date / Time Penicillins Allergy Mild Swelling Verified 12/30/24 23:45 and itchiness, rash celecoxib Allergy Unknown Swelling Verified 12/30/24 23:45 and itchiness. 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 Patient states she fell on stones about a year ago; She has been having on and off pain with movement. CT abdomen pelvis was done which showed mildly distended gallbladder. Urinalysis did not show any signs of infection Gallbladder ultrasound did not show any signs of infection or stones Patient reported improvement in the abdominal pain overnight. The pain is likely MSK in origin. Patient was discharged home. Her daughter was updated over the phone. Please note the above document was generated using voice recognition software. It may contain grammatical, syntax or spelling errors. Any formal questions or concerns about the content, text or information contained within the body of this dictation should be directly addressed to the provider for clarification Total Time Total Time Spent Total Time Spent (In Minutes): 45 Total Time Includes: Examination of the Patient, Discharge Planning, Medication Reconciliation, Communication With Other Providers and Other Discharge Plan Discharge Items Patient Disposition: Home - Self-Care Reason For Visit: FLANK PAIN Discharge Diagnosis: MSK pain Condition on Discharge: Good Activity: Resume your previous activity Non-emergency contact: Primary Care Provider Call non-emergency contact if: you have any medication questions and your symptoms worsen Follow-up/Referrals: Vickie Pagan DO [Primary Care Provider] - Diet: Regular Addtl Attending Provider Instructions: The pain in your RUQ is likely muscular. Please take tylenol as needed every 6 hours. Please follow up with PCP as scheduled. Pending Studies at Discharge: No Stand-Alone Forms: My [facility], Smoking Cessation Medications and DC Order Prescriptions: Continued psyllium Packet 1 packet PO AMHS PRN (Reason: Constipation) Rx Instructions: mix into at least 8 oz of water or juice before administering amlodipine 2.5 mg tablet 2.5 mg PO DAILY omeprazole 40 mg capsule,delayed release(DR/EC) 40 mg PO QAM acetaminophen [Tylenol Extra Strength] 500 mg Tablet 500 mg PO Q6H PRN (Reason: Pain) ascorbic acid (vitamin C) [Vitamin C] 500 mg Tablet 500 mg PO DAILY paroxetine HCl 30 mg tablet 30 mg PO QAM gabapentin 300 mg capsule 600 mg PO BID furosemide 20 mg tablet 20 mg PO 3XWK diazepam 5 mg tablet 5 mg PO Q8 PRN (Reason: Anxiety) glucosamine-chondroitin [Osteo Bi-Flex] 250-200 mg Tablet 1 tab PO DAILY rosuvastatin 20 mg tablet 20 mg PO QAM Centrum Silver Women 8 mg iron-400 mcg-50 mcg Tablet 1 tab PO DAILY aspirin 81 mg Tablet,Chewable 81 mg PO DAILY polyethylene glycol 3350 [Miralax] 17 gram/dose Powder 17 g PO DAILY PRN (Reason: Constipation) Discharge Orders: Discharge Order (Routine); Ordered 12/31/24 Ordered By: Armando Staples Admission Data Admit Date/Time: 12/31/24 03:21 Attending Provider: Armando Staples Admit Provider: Leno Hurley Primary Care Provider: Vickie Pagan Other Providers: Leno Hurley Other Interventions: Discharge Summary Assessment (RN) Last Done: 12/31/24 12:55
== END 2024-12-31 12:58 | disposition home or self-care (01) ==
LOC: ED 14:01 → EDINP 14:01

== ENCOUNTER 2025-01-15 18:41 | Inpatient (IN) ==
--- OUTSIDE RECORDS SUMMARY | 2025-01-15 18:45 | External Medical Summary | Summary of Care ---
Author Name Unknown Organization [facility] Address [address] [place] [address] Phone [phone] Care Team Providers Care Meat Scrubber Name Role Phone Vickie Pagan DO Primary Care Provider Reason for Visit * Reason Onset Date Comments Information 01/12/202501/12 Encounter Details Date Type Department Care Team (Late st Contact Info) Description 01/12/2025 Telephone Family Practice [facility] [address] [place] [address] Vickie Pagan DO [address] [place] [address] Information (01/12) Allergies Active Allergy Reactions Criticality Noted Date Comments Alan Inhibitors Cough 07/13/2022 Celecoxib 08/07/2010 Long ago Rash Ciprofloxacin Hcl Rash 03/12/2013 Metronidazole Hcl Rash 04/28/2013 Penicillins 1997 Rash documented as of this encounter (statuses as of 01/12/2025) Medications ONE DAILY PO TABS Take by [...] 1 Tablet before bedtime. 200 Tablet 1 01/12/2025 2:46 PM EST 4 Active diazePAM 5 MG Oral [...] as of this encounter (statuses as of 01/12/2025) Active Problems Problem Noted Date Diagnosed Date [...] BCC R upper back 12/2012, BCC R orthodoxy 07/2012, R cheek 02/2012, L upper arm CC L preauricular x 2 (Jaimie, 2009); possibly others on trunk before that - pt unsure (Dr. Rucker) Menopause 01/12/2009 Urinary incontinence Overview (08/18/2017): ICD-10 update of inactive term documented as of this encounter (statuses as of 01/12/2025) Resolved Problems Problem Noted Date Diagnosed Date [...] as of this encounter (statuses as of 01/12/2025) Immunizations Name Administration Dates Next Due COVID-19 [...] (Prevnar) 05/06/2016 Pneumococcal Conjugate Vacci ne, 20-valent ([id number]) 08/09/2024 Pneumococcal Polysaccharide PPV23 (Pneumovax) 10/17/2006 Season [...] Telephone Encounter - Vickie Pagan DO - 01/12/2025 3:28 PM EST Noted. * Telephone Encounter - Roula Bettencourt LPN - 01/12/2025 3:18 PM EST Daughter Joss reported that they arranged for a caregiver/cargo mate through [employer] 2 days a week for Jessica. Dtr wanted to let us know that Jessica refused the services - wouldn't let caregiver in the home. Joss will accompany Jessica to OV on 01/27 and is hopeful to speak with Mara. documented in this encounter Plan of Treatment Upcoming Encounters Date Type Department Care Team (Late st Contact Info) Description 01/13/2025 10:00 AM EST Scheduled Telephone Family Practice 65 [facility] [place] [address] [place] [address] Anna Lorenzo, SHY [address] [place] [address] 01/27/2025 10:00 AM EDT Office Visit Family Practice [facility] [address] [place] [address] Vickie Pagan DO [address] [place] [address] Health Maintenance Due Date Last Done Comments CKD PHOS USE SMARTSET 99701 01/30/2024 01/29/2023, 1 COVID-19 Vaccine ( season) 2024 09/29/2023, 02/13/2023, 03/28/2022, Additional history exists CKD HGB USE SMARTSET 01599 09/12/202409/12, 09/12/2023, 01/29/2023, Additional history exists Adult [...] on patient's age to complete this topic Meningitis B Vaccine (Bexsero/Trumemba) Aged Out No longer eligible based on patient's age to complete this topic documented as of this encounter Medical Devices Not on filedocumented as of this encounter Care Teams Meat Scrubber Relationship Specialty Start Date End Date Vickie Pagan DO [address] [place] [address] PCP - General Family Medicine 06/08/24 documented as of this encounter
--- OUTSIDE RECORDS SUMMARY | 2025-01-15 18:45 | External Medical Summary | Summary of Care ---
Author Name Unknown Organization [facility] Address [address] [place] [address] Phone [phone] Care Team Providers Care Tire Classifier Name Role Phone Vickie Pagan DO Primary Care Provider Reason for Visit * Reason Onset Date Comments Follow Up 01/13/2025 Encounter Details Date Type Department Care Team (Late st Contact Info) Description 01/13/2025 10:00 AM EST Scheduled Telephone Family Practice 65 [facility] [place] [address] [place] [address] Anna Lorenzo RN [address] [place] [phone] Allergies Active Allergy Reactions Criticality Noted Date Comments Alan Inhibitors Cough 07/13/2022 Celecoxib 08/07/2010 Long ago Rash Ciprofloxacin Hcl Rash 03/12/2013 Metronidazole Hcl Rash 04/28/2013 Penicillins 1997 Rash documented as of this encounter (statuses as of 01/13/2025) Medications ONE DAILY PO TABS Take by [...] Tablet 3 10/05/2024 8:35 AM EST 4 04/29/20 25 Active Furosemide 20 MG Oral Tablet [...] as of this encounter (statuses as of 01/13/2025) Active Problems Problem Noted Date Diagnosed Date [...] BCC R upper back 12/2012, BCC R anabaptism 07/2012, R cheek 02/2012, L upper arm CC L preauricular x 2 (Jaimie, 2009); possibly others on trunk before that - pt unsure (Dr. 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 Never true 11/06/20 Within the past 12 months, t he [...] Miscellaneous Notes * Telephone Encounter - Anna Lorenzo RN - 01/13/2025 10:00 AM EST Call not needed-daughter returned call at end of day yesterday-left message- states her mother is doing fine and has appt with Dr Pagan 01/27-declines need for further f/u calls at this time. She will call with any issues. documented in this encounter Plan of Treatment Upcoming Encounters Date Type Department Care Team (Late st Contact Info) Description 01/27/2025 10:00 AM EDT Office Visit Family Practice [address] [facility] [place] [address] [place] [address] Vickie Pagan DO 293 [place] [address] Health Maintenance Due Date Last Done Comments CKD PHOS USE SMARTSET 17631 01/30/2024 01/29/2023, 1 COVID-19 Vaccine ( season) 2024 09/29/2023, 02/13/2023, 03/28/2022, Additional history exists CKD HGB USE SMARTSET 15220 09/12/202409/12, 09/12/2023, 01/29/2023, Additional history exists Adult [...] filedocumented as of this encounter Care Teams Tire Classifier Relationship Specialty Start Date End Date [facility] [address] [facility] [address] PCP - General Family Medicine 06/08/24 documented as of this encounter
--- OUTSIDE RECORDS SUMMARY | 2025-01-15 18:45 | External Medical Summary | Summary of Care ---
Author Name Unknown Organization [facility] Address [address] [place] [address] Phone [phone] Care Team Providers Care Community Aide Name Role Phone Vickie Pagan DO Primary Care Provider Reason for Visit * Reason Onset Date Comments Follow Up 01/12/2025 Encounter Details Date Type Department Care Team (Late st Contact Info) Description 01/12/2025 1:00 PM EST Scheduled Telephone Family Practice 65 [facility], [place] [address] [place] [address] Anna Lorenzo RN [address] [place] [phone] Allergies Active Allergy Reactions Criticality Noted Date [...] BCC R upper back 12/2012, BCC R sabianism 07/2012, R cheek 02/2012, L upper arm CC L preauricular x 2 (Jaimie, 2009); possibly others on trunk before that - pt unsure (Dr. Rucker) Menopause 01/12/2009 Urinary incontinence Overview (08/18/2017): ICD-10 update of inactive term documented as of this encounter (statuses as of 01/12/2025) Resolved Problems Problem Noted Date Diagnosed Date Resolved Date Food insecurity 04/28/2023 07/03/2023 Overview: Per [facility] Protocol Ductal carcinoma in situ [...] (Prevnar) 05/06/2016 Pneumococcal Conjugate Vacci ne, 20-valent ([id number]) 08/09/2024 Pneumococcal Polysaccharide PPV23 (Pneumovax) 10/17/2006 Season [...] Telephone Encounter - Anna Lorenzo RN - 01/12/2025 1:54 PM EST Pt's daughter calling back-missed call-tried calling right back-no answer. Daughter left message-states her mother is doing fine, has appt with Dr Tobin on 01/27/25. Denies need for any further f/uat this time. * Telephone Encounter - Anna Lorenzo RN - 01/12/2025 1:06 PM EST SRIDHAR #2 Phone visit for post hospital d/c [facility] Dx: MSK pain/flank pain Dates of stay: 12/30/2024-12/31/2024 Call to pt/daughter-no answer-message left to call back at [phone]. documented in this encounter Plan of Treatment Upcoming Encounters Date Type Department Care Team (Late st Contact Info) Description 01/13/2025 10:00 AM EST [facility] [address] [place] [address] Anna Lorenzo, SHY 293 [place] [address] 01/27/2025 10:00 AM EDT Office Visit Family Practice 65 [facility] [address] [place] [address] Vickie Pagan DO [address] [place] [address] Health Maintenance Due Date Last Done Comments CKD PHOS USE SMARTSET 60226 01/30/2024 01/29/2023, 1 COVID-19 Vaccine ( season) 2024 09/29/2023, 02/13/2023, 03/28/2022, Additional history exists CKD HGB USE SMARTSET 49204 09/12/202409/12, 09/12/2023, 01/29/2023, Additional history exists Adult [...] filedocumented as of this encounter Care Teams Community Aide Relationship Specialty Start Date End Date Vickie Pagan DO [address] [place] [address] PCP - General Family Medicine 06/08/24 documented as of this encounter
--- OUTSIDE RECORDS SUMMARY | 2025-01-15 18:45 | External Medical Summary | Summary of Care ---
Author Name Unknown Organization [facility] Address [address] [place] [address] Phone [phone] Care Team Providers Care Glass Inserter Name Role Phone Vikcie Pagan DO Primary Care Provider Reason for Visit * Reason Onset Date Comments Follow Up 01/12/2025 Encounter Details Date Type Department Care Team (Late st Contact Info) Description 01/12/2025 1:00 PM EST Scheduled Telephone Family Practice 65 [facility] [place] [address] [place] [address] Anna Lorenzo RN [address] [place] [phone] Allergies Active Allergy Reactions Criticality Noted Date [...] Date Food insecurity 04/28/2023 07/03/2023 Overview: Per [facility] Protocol Ductal carcinoma in situ [...] (Prevnar) 05/06/2016 Pneumococcal Conjugate Vacci ne, 20-valent ([id number]) 08/09/2024 Pneumococcal Polysaccharide PPV23 (Pneumovax) 10/17/2006 Season [...] #2 Phone visit for post hospital d/c [facility] Dx: MSK pain/flank pain Dates of stay: 12/30/2024-12/31/2024 Call to pt/daughter-no answer-message left to call back at [phone]. documented in this encounter Plan of Treatment Upcoming Encounters Date Type Department Care Team (Late st Contact Info) Description 01/13/2025 10:00 AM EST [facility] [address] [place] [address] Anna Lorenzo, SHY [address] [place] [address] 01/27/2025 10:00 AM EDT Office Visit Family Practice 65 [facility] [address] [place] [address] Vickie Pagan DO [address] [place] [address] Health Maintenance Due Date Last Done Comments CKD PHOS USE SMARTSET 31048 01/30/2024 01/29/2023, 1 COVID-19 Vaccine ( season) 2024 09/29/2023, 02/13/2023, 03/28/2022, Additional history exists CKD HGB USE SMARTSET 78265 09/12/202409/12, 09/12/2023, 01/29/2023, Additional history exists Adult [...] filedocumented as of this encounter Care Teams Glass Inserter Relationship Specialty Start Date End Date Vickie Pagan DO [address] [place] [address] PCP - General Family Medicine 06/08/24 documented as of this encounter
--- OUTSIDE RECORDS SUMMARY | 2025-01-15 18:46 | External Medical Summary | Summary of Care ---
Author Name Unknown Organization [facility] Address [address] [place] [address] Phone [phone] Care Team Providers Care Remotely Piloted Vehicle Controller Name Role Phone Vickie Pagan DO Primary Care Provider [phone] Reason for Visit * Reason Onset Date Comments Follow Up 01/11/2025 Encounter Details Date Type Department Care Team (Late st Contact Info) Description 01/11/2025 10:30 AM EST Scheduled Telephone Family Practice 65 [facility] [place] [address] [place] [address] Anna Lorenzo, SHY [address] [place] [address] Allergies Active Allergy Reactions Criticality Noted Date [...] BCC R upper back 12/2012, BCC R orthodox 07/2012, R cheek 02/2012, L upper arm [...] (Prevnar) 05/06/2016 Pneumococcal Conjugate Vacci ne, 20-valent ([id number]) 08/09/2024 Pneumococcal Polysaccharide PPV23 (Pneumovax) 10/17/2006 Season [...] Telephone Encounter - Anna Lorenzo RN - 01/11/2025 10:54 AM EST SRIDHAR #2 Phone visit for post hospital d/c [facility] Dx: MSK pain/flank pain Dates of stay: 12/30/2024-12/31/2024 Call to pt/pt's daughter-no answer-message left to call back at [phone] documented in this encounter Plan of Treatment Upcoming Encounters Date Type Department Care Team (Late st Contact Info) Description 01/12/2025 1:00 PM EST Scheduled Telephone Family Practice 65 [facility] [place] [address] [place] [address] Anna Lorenzo, RN 293 [place] [address] 01/27/2025 10:00 AM EDT Office Visit Family Practice [address] [facility] [place] [address] [place] [phone] Vickie Pagan DO [address] [place] [address] Health Maintenance Due Date Last Done Comments CKD PHOS USE SMARTSET 35139 01/30/2024 01/29/2023, 1 COVID-19 Vaccine ( season) 2024 09/29/2023, 02/13/2023, 03/28/2022, Additional history exists CKD HGB USE SMARTSET 17891 09/12/202409/12, 09/12/2023, 01/29/2023, Additional history exists Adult [...] filedocumented as of this encounter Care Teams Remotely Piloted Vehicle Controller Relationship Specialty Start Date End Date Vickie Pagan DO [address] [place] [address] PCP - General Family Medicine 06/08/24 documented as of this encounter
--- OUTSIDE RECORDS SUMMARY | 2025-01-15 18:46 | External Medical Summary | Summary of Care ---
Author Name Unknown Organization [facility] Address [address] [place] [address] Phone [phone] Care Team Providers Care Wood Type Finisher Name Role Phone Vickie Pagan DO Primary Care Provider Reason for Visit * Reason Onset Date Comments Emergency Department Follow-Up 01/05/2025 Encounter Details Date Type Department Care Team (Late st Contact Info) Description 01/05/2025 10:00 AM EST Scheduled Telephone Family Practice 65 [facility] [address] [place] [address] Anna Lorenzo RN [address] [place] [phone] Allergies Active Allergy Reactions Criticality Noted Date Comments Alan Inhibitors Cough 07/13/2022 Celecoxib 08/07/2010 Long ago Rash Ciprofloxacin Hcl Rash 03/12/2013 Metronidazole Hcl Rash 04/28/2013 Penicillins 1997 Rash documented as of this encounter (statuses as of 01/05/2025) Medications ONE DAILY PO TABS Take by [...] as of this encounter (statuses as of 01/05/2025) Active Problems Problem Noted Date Diagnosed Date [...] BCC R upper back 12/2012, BCC R sabianist 07/2012, R cheek 02/2012, L upper arm CC L preauricular x 2 (Jaimie, 2009); possibly others on trunk before that - pt unsure (Dr. Rucker) Menopause 01/12/2009 Urinary incontinence Overview (08/18/2017): ICD-10 update of inactive term documented as of this encounter (statuses as of 01/05/2025) Resolved Problems Problem Noted Date Diagnosed Date [...] as of this encounter (statuses as of 01/05/2025) Immunizations Name Administration Dates Next Due COVID-19 [...] (Prevnar) 05/06/2016 Pneumococcal Conjugate Vacci ne, 20-valent ([id number]) 08/09/2024 Pneumococcal Polysaccharide PPV23 (Pneumovax) 10/17/2006 Season [...] Telephone Encounter - Anna Lorenzo RN - 01/05/2025 2:56 PM EST The patient was contacted in regards to their recent: Emergency Department visit Did patient call the office before going to ER: No When was patient seen: 12/31/2024 Which ED: [facility] What were they seen for: flank pain What did ED think was wrong (dx): MSK pain What testing did they have done: ct scan and Ultrasound Any new medications prescribed: none When did the ED recommend they follow up: nothing noted other than f/u Is Ed record available: Yes How is patient feeling today: daughter returned call-states she is doing fine. They are trying to change her diet and eat more roughage and take metamucil. Declines following with Dr Pagan any sooner than next appt on 01/27/25. Will discuss her dementia with Dr Pagan and ZACHARIAH Terry at that time. Daughter states she is meeting with care workers on Friday to start services Patient concerns today: none * Telephone Encounter - Anna Lorenzo RN - 01/05/2025 11:01 AM EST SRIDHAR #1 Phone visit for post hospital d/c [facility] Dx: MSK pain/flank pain Dates of stay: 12/31/2024 Call to pt-no answer-left message to call back at [phone]. Pt's daughter returned call-nurse unavailable-left message to call back Return call to daughter-no answer-left message to call back at above number. documented in this encounter Plan of Treatment Upcoming Encounters Date Type Department Care Team (Late st Contact Info) Description 01/27/2025 10:00 AM EDT Office Visit Family Practice [address] [facility], [place] [address] [place] [address] Vickie Pagan [address] [place] [address] Health Maintenance Due Date Last Done Comments CKD PHOS USE SMARTSET 94022 01/30/2024 01/29/2023, 1 COVID-19 Vaccine ( season) 2024 09/29/2023, 02/13/2023, 03/28/2022, Additional history exists CKD HGB USE SMARTSET 00424 09/12/202409/12, 09/12/2023, 01/29/2023, Additional history exists Adult [...] filedocumented as of this encounter Care Teams Wood Type Finisher Relationship Specialty Start Date End Date Vickie Pagan DO [address] [place] [address] PCP - General Family Medicine 06/08/24 documented as of this encounter
[2025-01-15] MEDS: ACETAMINOPHEN 1,000 MG/100 ML VIAL IV STA (19:33)
[2025-01-15 19:40] LABS: Basophils # (auto) 0.03 K/uL (0.00-0.20); Basophils % (auto) 0.5 %; Eosinophils # (auto) 0.16 K/uL (0.00-0.50); Eosinophils % (auto) 2.5 %; Hematocrit (blood only) 35.9 % (37.0-47.0); Hemoglobin 11.8 g/dl (12.0-16.0); Immature Granulocytes # (auto) 0.02 K/uL (0.01-0.20); Immature Granulocytes % (auto) 0.3 %; Lymphocytes # (auto) 0.49 K/uL (1.20-3.40); Lymphocytes % (auto) 7.5 %; Mean Corpuscular Hemoglobin 28.2 pg (25.0-34.0); Mean Corpuscular Hgb Conc 32.9 g/dL (32.0-36.0); Mean Corpuscular Volume 85.7 fL (80.0-100.0); Mean Platelet Volume 9.1 fL (9.4-12.4); Monocytes # (auto) 0.13 K/uL (0.11-0.59); Neutrophils # (auto) 5.67 K/uL (1.40-6.50); Neutrophils % (auto) 87.2 %; Platelet Count 211 K/uL (130-400); RDW Coefficient of Variation 14.5 % (11.5-14.5); Red Blood Count 4.19 M/uL (4.20-5.40)
[2025-01-15] MEDS: SODIUM CHLORIDE 0.9% 1,000 ML IV ONE ×2 (20:12→22:29)
[2025-01-15 20:19] LABS: Potassium 3.3 mmol/L (3.5-5.1)
[2025-01-15] MEDS: OPTIRAY 320 100ml IV ONE (20:21)
[2025-01-15 20:24] LABS: Albumin Globulin Ratio 1.4 (0.9-2); Albumin Level 4.1 gm/dl (3.4-5.0); BUN Creatinine Ratio 12.6 (10-20); Bilirubin,Total 0.6 mg/dl (0.2-1.0); Calcium 9.1 mg/dl (8.6-10.3); Creatinine Clr Calc Pharmacy 47.7 ml/min; Globulin 2.9 gm/dl (2.5-4.0)
[2025-01-15 20:32] LABS: Appearance Urine Clear (Clear); Bacteria Urine Automated 4+ (None Seen); Bilirubin Urine Negative (Negative); Blood Urine Trace (Negative); Cast Urine Automated 0-2 /lpf (0-2); Color Urine Yellow; Epithelial Cell Urine Auto 0-2 /hpf (0-2); Glucose Urine UA Negative (Negative); Ketones Urine Negative (Negative); Leukocyte Esterase Urine Negative (Negative); Nitrite Urine Positive (Negative); Protein Urine 1+ (Negative); Specific Gravity Urine 1.015 (1.000-1.030); Urobilinogen Urine Negative (Negative); pH Urine 7.5 (4.5-7.5)
[2025-01-15 20:54] LABS: Adenovirus PCR Not Detected (NotDetected); Bordetella parapertussis PCR Not Detected (NotDetected); Bordetella pertussis PCR Not Detected (NotDetected); Chlamydia pneumoniae PCR Not Detected (NotDetected); Coronavirus 229E PCR Not Detected (NotDetected); Coronavirus CoV-2 (COVID19)PCR Not Detected (NotDetected); Coronavirus HKU1 PCR Not Detected (NotDetected); Coronavirus NL63 PCR Not Detected (NotDetected); Coronavirus OC43PCR Not Detected (NotDetected); Human Metapneumovirus PCR Not Detected (NotDetected); Influenza A PCR Not Detected (NotDetected); Influenza B PCR Not Detected (NotDetected); Mycoplasma pneumoniae PCR Not Detected (NotDetected); Parainfluenza Virus 1 PCR Not Detected (NotDetected); Parainfluenza Virus 2 PCR Not Detected (NotDetected); Parainfluenza Virus 3 PCR Not Detected (NotDetected); Parainfluenza Virus 4 PCR Not Detected (NotDetected); Respiratory Syncytial VirusPCR Not Detected (NotDetected); Rhinovirus/Enterovirus PCR Not Detected (NotDetected)
[2025-01-15] MEDS: SODIUM CHLORIDE 0.9% 1,000 ML IV SCH (21:36)
--- NOTE | 2025-01-15 21:58 | CT Scan Report ---
Exam(s): CT ABDOMEN + PELVIS With Contrast IV Amt: 90 ml optiray 320 EXAM: CT Abdomen and Pelvis With Intravenous Contrast CLINICAL HISTORY: Reason for exam: diffuse abd pain, vomiting, fever. TECHNIQUE: Axial computed tomography images of the abdomen and pelvis with intravenous contrast. CTDI is 38 mGy and DLP is 624 mGy-cm. Automated exposure control was utilized for the study. A dose lowering technique was utilized adhering to the principles of ALARA. CONTRAST: Patient received 90 ml optiray 320 of IV contrast COMPARISON: 12/30/24 FINDINGS: Lung bases: Unremarkable. ABDOMEN: Liver: Unremarkable. No mass. Gallbladder and bile ducts: Unremarkable. No calcified stones. No ductal dilation. Pancreas: Unremarkable. No mass. No ductal dilation. Spleen: Unremarkable. No splenomegaly. Adrenals: Unremarkable. No mass. Kidneys and ureters: Unremarkable. No solid mass. No hydronephrosis. Stomach and bowel: Diverticulosis of the sigmoid. No obstruction. No mucosal thickening. PELVIS: Appendix: Appendix not identified. No secondary signs of appendicitis. Bladder: Unremarkable. No mass. Reproductive: Hysterectomy. ABDOMEN and PELVIS: Intraperitoneal space: Unremarkable. No free air, significant free fluid, or fluid collection. Bones/joints: Lower lumbar disc and facet degeneration. Grade 1 anterolisthesis of L4. No acute fracture. No dislocation. Soft tissues: Unremarkable. Vasculature: Atherosclerosis. No abdominal aortic aneurysm. Lymph nodes: Unremarkable. No enlarged lymph nodes. IMPRESSION: No acute findings in the abdomen or pelvis. Electronically signed by: Brianna Boswell M.D. 01/15/25 21:57 PM
[2025-01-15] MEDS: CEFEPIME 2000MG 2,000 MG/20 ML SYR IV STA (22:15)
--- NOTE | 2025-01-15 22:27 | XRay Report ---
Exam(s): XR CXR 1 VIEW EXAM: XR Chest, 1 View CLINICAL HISTORY: Reason for exam: Fever. TECHNIQUE: Frontal view of the chest. COMPARISON: 12/30/24 FINDINGS: Lungs: Similar mild scarring at the lung bases. No consolidation. Pleural space: No pleural effusion or pneumothorax. Heart: No cardiomegaly or pulmonary vascular congestion. Bones/joints: No acute fracture. No dislocation. Vasculature: Calcified aortic arch. IMPRESSION: No acute findings in the chest. Electronically signed by: Brianna Boswell M.D. 01/15/25 22:26 PM
--- NOTE | 2025-01-15 22:55 | CT Scan Report ---
Exam(s): CT HEAD Without Contrast EXAM: CT Head Without Intravenous Contrast CLINICAL HISTORY: Reason for exam: fever, [place], vomiting. TECHNIQUE: Axial computed tomography images of the head/brain without intravenous contrast. CTDI is 38 mGy and DLP is 624 mGy-cm. Automated exposure control was utilized for the study. A dose lowering technique was utilized adhering to the principles of ALARA. COMPARISON: 04/05/20 FINDINGS: Brain: Generalized parenchymal volume loss. Mild chronic small vessel ischemic change. Lopez-white matter differentiation maintained. No hemorrhage, mass effect, parenchymal edema, or midline shift. Ventricles: No hydrocephalus. Bones/joints: No acute fracture. Soft tissues: Unremarkable. Vasculature: Intracranial atherosclerosis. Sinuses: Unremarkable as visualized. Mastoid air cells: No significant mastoid effusion. Orbits: Lens replacements. IMPRESSION: No acute intracranial process. Electronically signed by: Brianna Boswell M.D. 01/15/25 22:54 PM
[2025-01-15] MEDS: POTASSIUM CHLORIDE CRTAB 20 MEQ TABCR PO STA (23:20)
--- NOTE | 2025-01-15 23:25 | History & Physical Report ---
Date of Service January 15, 2025 Assessment & Plan (1) Sepsis: Plan: 89-year-old female with past medical history significant for GERD, depression, hyperlipidemia, hypertension, diastolic CHF, ascending aortic dilatation, pulmonary nodules, 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 Patient lives alone. She went to see a neighbor and when she came back she was profusely sweating and was shaking. Patient states then she ate some noodles and she felt better and she went to another neighbor where she had a lot of vomiting. Neighbors called EMS and was brought in here. Denies any fevers. Has some mild abdominal discomfort. Denies chest pain or shortness of breath. She has normal bowel and bladder movements. Has mild headache. Vision is okay. No runny nose. Occasional cough. Denies difficulty swallowing. Has mild chronic back pain. Currently resting comfortably and hemodynamics are okay.Tried to call daughter but not able to reach currently. Sepsis Mild tachycardia Temp spike Lactic acid 2.6 and repeat is 2.3 UA is positive IV fluids Received cefepime in the ER which will be continued Close monitoring hemodynamics Will follow cultures Nausea and vomiting Mostly from above CT abdomen pelvis okay Will monitor Possible non-ST elevated MT Initial troponin 85 and repeat is 663 Mostly demand ischemia from sepsis Patient is asymptomatic Will place on IV heparin low-dose with no bolus for now Follow serial enzymes and echo N.p.o. Telemetry Cardiology consult in a.m. for further recommendations Chronic diastolic CHF On Lasix 3 times a week which be held for now for sepsis Getting fluids Monitor for volume overload Hyperlipidemia On statin Hypertension Amlodipine with holding parameters Depression On paroxetine GERD On omeprazole DVT prophylaxis IV heparin Disposition Telemetry Full code History of Present Illness Chief Complaint: Sepsis, UTI, elevated troponin Primary Care Provider: Vickie Pagan DO 89-year-old female with past medical history significant for GERD, depression, hyperlipidemia, hypertension, diastolic CHF, ascending aortic dilatation, pulmonary nodules, 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 Patient lives alone. She went to see a neighbor and when she came back she was profusely sweating and was shaking. Patient states then she ate some noodles and she felt better and she went to another neighbor where she had a lot of vomiting. Neighbors called EMS and was brought in here. Denies any fevers. Has some mild abdominal discomfort. Denies chest pain or shortness of breath. She has normal bowel and bladder movements. Has mild headache. Vision is okay. No runny nose. Occasional cough. Denies difficulty swallowing. Has mild chronic back pain. Currently resting comfortably and hemodynamics are okay.Tried to call daughter but not able to reach currently. Past med history. As mentioned above Past surgical history. Breast lesion excision. Knee surgeries. Left partial mastectomy. Appendectomy. Cataract surgery. MATT. Bladder tack/sling procedure. Social history. No smoking. Occasional alcohol. Family history. Significant for breast cancer and heart disease Allergies Allergy/AdvReac Type Severity Reaction Status Date / Time Penicillins Allergy Mild Swelling Verified 12/30/24 23:45 and itchiness, rash celecoxib Allergy Unknown Swelling Verified 12/30/24 23:45 and itchiness. ciprofloxacin Allergy Unknown rash Verified 12/30/24 23:45 metronidazole Allergy Unknown rash Verified 12/30/24 23:45 CHEVY Inhibitors AdvReac cough Verified 12/30/24 23:45 Home Medications Medication Instructions Recorded Confirmed Type amlodipine 2.5 mg tablet 2.5 mg PO DAILY 01/15/25 01/15/25 History aspirin 81 mg tablet,delayed 81 mg PO DAILY 01/15/25 01/15/25 History release buspirone 5 mg tablet 5 mg PO BID 01/15/25 01/15/25 History diazepam 5 mg tablet 5 mg PO TID PRN Anxiety 01/15/25 01/15/25 History furosemide 20 mg tablet 20 mg PO UD 01/15/25 01/15/25 History gabapentin 300 mg capsule 600 mg PO BID 01/15/25 01/15/25 History glucosamine-chondroitin 250 mg-200 1 tab PO BID 01/15/25 01/15/25 History mg tablet (Osteo Bi-Flex) omeprazole 40 mg capsule,delayed 40 mg PO DAILY 01/15/25 01/15/25 History release paroxetine HCl 30 mg tablet 30 mg PO DAILY 01/15/25 01/15/25 History rosuvastatin 20 mg tablet 20 mg PO DAILY 01/15/25 01/15/25 History Past Med/Surg History Problem List Sepsis Hypertension (Acute) Right flank pain (Acute) HTN (hypertension) (Acute) Acute bronchitis (Acute) Arm contusion (Acute) Closed head injury (Acute) Contusion of ear (Acute) Scalp laceration (Acute) Medical History Hyperlipidemia GERD (gastroesophageal reflux disease) Social History Smoking Status: Never smoker Do You Dip or Chew Tobacco: No; Hx Alcohol Use: Yes Alcohol type: hard liquor Hx Substance Use: No Preferred Language: [place] Communication Ability: Effective 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 Head- atraumatic Eyes- PERRL. ENT- oropharynx clear Neck- supple, no JVD. Lungs- clear to auscultation no wheezing or crackles Heart- regular rhythm; no murmur, no gallop. Abdomen- normal bowel sounds, soft, mild diffuse discomfort, no distension Extremities- mild pretibial edema present, no erythema seen. Neuro- alert, oriented PERRL, no facial palsy; no dysarthria; moves extremities Results & Data Results & Data Vital Signs (Past 12 Hours) Vital Signs Temp Pulse Resp BP Pulse Ox O2 Del Method 01/15/25 22:33 91 H 24 118/66 91 01/15/25 22:14 37.6 C H 01/15/25 20:42 96 H 23 159/98 H 90 01/15/25 19:36 85 17 135/89 93 01/15/25 19:17 38.0 C H 01/15/25 19:10 84 01/15/25 18:47 38.2 C H 91 H 19 134/82 90 Room Air Diagnostic Findings Laboratory Results WBC 6.50 K/ul (4.8-10.8) 01/15/25 19:21 RBC 4.19 M/uL (4.20-5.40) L 01/15/25 19:21 Hgb 11.8 g/dl (12.0-16.0) L 01/15/25 19:21 Hct 35.9 % (37.0-47.0) L 01/15/25 19:21 MCV 85.7 fL (80.0-100.0) 01/15/25 19: MCH 28.2 pg (25.0-34.0) 01/15/25 19: MCHC 32.9 g/dL (32.0-36.0) 01/15/25 19: RDW Std Deviation 45.0 fL (36.4-46.3) 01/15/25: RDW Coeff of [place] 14.5 % (11.5-14.5) 01/15/25 19: Plt Count 211 K/uL (130-400) 01/15/25 19: MPV 9.1 fL (9.4-12.4) L 01/15/25 19: Immature Gran % (Auto) 0.3 % 01/15/25 19: Neut % (Auto) 87.2 % 01/15/25 19:21 Lymph % (Auto) 7.5 % 01/15/25 19:21 Will % (Auto) 2.0 % 01/15/25 19:21 Eos % (Auto) 2.5 % 01/15/25 19:21 Baso % (Auto) 0.5 % 01/15/25 19: Neut # (Auto) 5.67 K/uL (1.40-6.50) 01/15/25 19:21 Lymph # (Auto) 0.49 K/uL (1.20-3.40) L 01/15/25 19:21 Will # (Auto) 0.13 K/uL (0.11-0.59) 01/15/25 19:21 Eos # (Auto) 0.16 K/uL (0.00-0.50) 01/15/25 19:21 Baso # (Auto) 0.03 K/uL (0.00-0.20) 01/15/25 19:21 Immature Gran # (Auto) 0.02 K/uL (0.01-0.20) 01/15/25 19:21 Sodium 141 mmol/L (136-145) 01/15/25 19:21 Potassium 3.3 mmol/L (3.5-5.1) L 01/15/25 19:21 Chloride 104 mmol/L (98-107) 01/15/25 19:21 Carbon Dioxide 30 mmol/L (21-32) 01/15/25 19:21 Anion Gap 7 (3-11) 01/15/25 19:21 BUN 11 mg/dl (6-23) 01/15/25 19:21 Creatinine 0.87 mg/dl (0.6-1.2) 01/15/25 19:21 Est Cr Clr Drug Dosing 47.7 ml/min 01/15/25 19:21 eGFR 64.44 01/15/25 19:21 BUN/Creatinine Ratio 12.6 (10-20) 01/15/25 19:21 Glucose 96 mg/dl (70-99(Fasting)) 01/15/25 19:21 Lactate 2.3 mmol/L (0.4-2.0) H* 01/15/25 21:25 Calcium 9.1 mg/dl (8.6-10.3) 01/15/25 19:21 Total Bilirubin 0.6 mg/dl (0.2-1.0) 01/15/25 19:21 AST 26 U/L (13-39) 01/15/25 19:21 ALT 16 U/L (7-52) 01/15/25 19:21 Alkaline Phosphatase 68 U/L (34-104) 01/15/25 19:21 Troponin I High Sens 663.9 pg/ml (0-14) H* D 01/15/25 21:23 Total Protein 7.0 gm/dl (6.0-8.3) 01/15/25 19:21 Albumin 4.1 gm/dl (3.4-5.0) 01/15/25 19:21 Globulin 2.9 gm/dl (2.5-4.0) 01/15/25 19:21 Albumin/Globulin Ratio 1.4 (0.9-2) 01/15/25 19:21 Procalcitonin 0.30 ng/ml (0-0.5) 01/15/25 19:44 Urine Color Yellow 01/15/25 20:16 Urine Appearance Clear (Clear) 01/15/25 20:16 Urine pH 7.5 (4.5-7.5) 01/15/25 20:16 Ur Specific [place] 1.015 (1.000-1.030) 01/15/25 20:16 Urine Protein 1+ (Negative) H 01/15/25 20:16 Urine Glucose (UA) Negative (Negative) 01/15/25 20:16 Urine Ketones Negative (Negative) 01/15/25 20:16 Urine Blood Trace (Negative) H 01/15/25 20:16 Urine Nitrite Positive (Negative) A 01/15/25 20: Urine Bilirubin Negative (Negative) 01/15/25 20:16 Urine Urobilinogen Negative (Negative) 01/15/25 20:16 Ur Leukocyte Esterase Negative (Negative) 01/15/25 20:16 Urine WBC (Auto) 6-10 /hpf (0-5) H 01/15/25 20:16 Urine RBC (Auto) 6-10 /hpf (0-2) H 01/15/25 20:16 U Hyaline Cast (Auto) 0-2 /lpf (0-2) 01/15/25 20:16 U Epithel Cells (Auto) 0-2 /hpf (0-2) 01/15/25 20:16 Urine Bacteria (Auto) 4+ (None Seen) H 01/15/25 20:16 Adenovirus (PCR) Not Detected (NotDetected) 01/15/25 19:50 B. pertussis DNA (PCR) Not Detected (NotDetected) 01/15/25 19:50 B.parapertussis DNA PCR Not Detected (NotDetected) 01/15/25 19:50 C. pneumoniae DNA (PCR) Not Detected (NotDetected) 01/15/25 19:50 Coronavirus OC43 (PCR) Not Detected (NotDetected) 01/15/25 19:50 Coronavirus HKU1 (PCR) Not Detected (NotDetected) 01/15/25 19:50 Coronavirus 229E (PCR) Not Detected (NotDetected) 01/15/25 19:50 SARS-CoV-2 (PCR) Not Detected (NotDetected) 01/15/25 19:50 Coronavirus NL63 (PCR) Not Detected (NotDetected) 01/15/25 19:50 Human Metapneumovir PCR Not Detected (NotDetected) 01/15/25 19:50 Influenza Type A (PCR) Not Detected (NotDetected) 01/15/25 19:50 Influenza Type B (PCR) Not Detected (NotDetected) 01/15/25 19:50 M. pneumoniae (PCR) Not Detected (NotDetected) 01/15/25 19:50 Parainfluenza 1 (PCR) Not Detected (NotDetected) 01/15/25 19:50 Parainfluenza 2 (PCR) Not Detected (NotDetected) 01/15/25 19:50 Parainfluenza 3 (PCR) Not Detected (NotDetected) 01/15/25 19:50 Parainfluenza 4 (PCR) Not Detected (NotDetected) 01/15/25 19:50 RSV (PCR) Not Detected (NotDetected) 01/15/25 19:50 Entero/Rhino (PCR) Not Detected (NotDetected) 01/15/25 19:50 Impressions Chest X-Ray 01/15/25 19:24 Exam(s): XR CXR 1 VIEW EXAM: XR Chest, 1 View CLINICAL HISTORY: Reason for exam: Fever. TECHNIQUE: Frontal view of the chest. COMPARISON: 12/30/24 FINDINGS: Lungs: Similar mild scarring at the lung bases. No consolidation. Pleural space: No pleural effusion or pneumothorax. Heart: No cardiomegaly or pulmonary vascular congestion. Bones/joints: No acute fracture. No dislocation. Vasculature: Calcified aortic arch. IMPRESSION: No acute findings in the chest. Electronically signed by: Brianna Boswell M.D. 01/15/25 22:[address] 01/15/25 19:24 Exam(s): CT HEAD Without Contrast EXAM: CT Head Without Intravenous Contrast CLINICAL HISTORY: Reason for exam: fever, [place], vomiting. TECHNIQUE: Axial computed tomography images of the head/brain without intravenous contrast. CTDI is 38 mGy and DLP is 624 mGy-cm. Automated exposure control was utilized for the study. A dose lowering technique was utilized adhering to the principles of ALARA. COMPARISON: 04/05/20 FINDINGS: Brain: Generalized parenchymal volume loss. Mild chronic small vessel ischemic change. Lopez-white matter differentiation maintained. No hemorrhage, mass effect, parenchymal edema, or midline shift. Ventricles: No hydrocephalus. Bones/joints: No acute fracture. Soft tissues: Unremarkable. Vasculature: Intracranial atherosclerosis. Sinuses: Unremarkable as visualized. Mastoid air cells: No significant mastoid effusion. Orbits: Lens replacements. IMPRESSION: No acute intracranial process. Electronically signed by: Brianna Boswell M.D. 01/15/25 22:54 PM Abdomen/Pelvis CT 01/15/25 19:56 Exam(s): CT ABDOMEN + PELVIS With Contrast IV Amt: 90 ml optiray 320 EXAM: CT Abdomen and Pelvis With Intravenous Contrast CLINICAL HISTORY: Reason for exam: diffuse abd pain, vomiting, fever. TECHNIQUE: Axial computed tomography images of the abdomen and pelvis with intravenous contrast. CTDI is 38 mGy and DLP is 624 mGy-cm. Automated exposure control was utilized for the study. A dose lowering technique was utilized adhering to the principles of ALARA. CONTRAST: Patient received 90 ml optiray 320 of IV contrast COMPARISON: 12/30/24 FINDINGS: Lung bases: Unremarkable. ABDOMEN: Liver: Unremarkable. No mass. Gallbladder and bile ducts: Unremarkable. No calcified stones. No ductal dilation. Pancreas: Unremarkable. No mass. No ductal dilation. Spleen: Unremarkable. No splenomegaly. Adrenals: Unremarkable. No mass. Kidneys and ureters: Unremarkable. No solid mass. No hydronephrosis. Stomach and bowel: Diverticulosis of the sigmoid. No obstruction. No mucosal thickening. PELVIS: Appendix: Appendix not identified. No secondary signs of appendicitis. Bladder: Unremarkable. No mass. Reproductive: Hysterectomy. ABDOMEN and PELVIS: Intraperitoneal space: Unremarkable. No free air, significant free fluid, or fluid collection. Bones/joints: Lower lumbar disc and facet degeneration. Grade 1 anterolisthesis of L4. No acute fracture. No dislocation. Soft tissues: Unremarkable. Vasculature: Atherosclerosis. No abdominal aortic aneurysm. Lymph nodes: Unremarkable. No enlarged lymph nodes. IMPRESSION: No acute findings in the abdomen or pelvis. Electronically signed by: Brianna Boswell M.D. 01/15/25 21:57 PM ECG Additional Comments: ECG. Sinus rhythm with PACs rate of 90. No acute ST changes seen. Moderate voltage criteria for LVH. QTc 457. Code Status & VTE Plan VTE Prophylaxis Plan VTE Prophylaxis will be ordered: Yes
[2025-01-16] MEDS: SODIUM CHLORIDE 0.9% 1,000 ML IV SCH (00:05)
[2025-01-16] MEDS ORDERED: ONDANSETRON INJ 2 MG/ML 2 ML VIAL IV PRN (00:14)
[2025-01-16] MEDS ORDERED: NITROGLYCERIN SL 0.4 MG/TAB TAB SL PRN (00:14)
--- NOTE | 2025-01-16 01:34 | Emergency Department Note ---
Impression & Plan UTI (urinary tract infection), NSTEMI (non-ST elevated myocardial infarction), Elevated lactic acid level ED Provider Note CHIEF COMPLAINT: Vomiting, fever HISTORY OF PRESENT ILLNESS: This 89-year-old female patient presents emergency department with complaints of vomiting, fever, abdominal pain. The patient states she had some chills today, had some chicken soup. She walked to her neighbor's house to tell him that she had a headache. She ended up vomiting at the neighbor's house who then called the ambulance. They were unable to get in contact with the patient's family. Patient states she was in her usual state of health until lunchtime today. REVIEW OF SYSTEMS: A review of systems was performed with positives and pertinent negatives listed in the history of present illness. 10 systems were reviewed and are otherwise negative. ALLERGIES: see below MEDICATIONS: see below PMH: see below SOCIAL HISTORY: see below DDx: Viral syndrome, bowel obstruction, foodborne process, intracranial hemorrhage, intracranial mass, medication effect, cholecystitis, acute coronary syndrome among others. PHYSICAL EXAM: Vital signs reviewed. Noted to be febrile. General: Generally well-appearing 89-year-old female, in no significant distress. HEENT: No scleral icterus, PERRLA, neck supple. Dry mucous membranes. Cardiovascular: Regular rate and rhythm, no extra sounds. Pulmonary: Clear to auscultation bilaterally, normal work of breathing. Abdomen: Soft, nontender, nondistended, positive bowel sounds. Musculoskeletal: Atraumatic, no peripheral edema. Neurologic: Patient awake alert and oriented x 3, speech is clear Skin: Warm, dry, no rash EMERGENCY DEPARTMENT COURSE/MDM: This patient was evaluated and appeared to be in no significant distress. Patient noted to be febrile was medicated with 1 g of IV Tylenol. IV fluids were initiated. Chest x-ray was performed and is clear. EKG revealed no evidence of acute ischemia. Laboratory work reveals a normal WBC, lactate of 2.6, normal procalcitonin and a troponin of 85. The urine appears to be infected and will be sent for culture. Blood cultures were obtained. IV fluids were continued at 30 mL/kg. Patient was medicated with IV cefepime. Case was discussed with the hospitalist service to evaluate the patient for admission and further management. I did leave a voice message with the patient's daughter at her contact number in the system. MONITORING: An order for cardiac monitoring was placed and the patient is noted to be in a normal sinus rhythm at 96 beats per minute. RADIOLOGY: Chest x-ray to my interpretation reveals no focal lung consolidation or failure. Head CT per radiology is negative for acute intracranial process. CT imaging of the abdomen and pelvis is negative for acute process. EKG: To my interpretation reveals a sinus rhythm with PACs at 90 bpm. LVH, QTc of 457. No PVC, no PAC. DISPOSITION: Admission Past Med/Surg History Problem List (Updated 01/21/25 @ 09:28 by Samina Salgado MD) Elevated lactic acid level (Acute) UTI (urinary tract infection) (Acute) Dyslipidemia, goal LDL below 70 NSTEMI (non-ST elevated myocardial infarction) (Acute) Sepsis Hypertension (Acute) Right flank pain (Acute) HTN (hypertension) (Acute) Acute bronchitis (Acute) Arm contusion (Acute) Closed head injury (Acute) Contusion of ear (Acute) Scalp laceration (Acute) Medical History Hyperlipidemia GERD (gastroesophageal reflux disease) Social History Smoking Status: Never smoker Do You Dip or Chew Tobacco: No; Hx Alcohol Use: Yes Alcohol type: hard liquor Hx Substance Use: No Preferred Language: Scottish Communication Ability: Effective Retanned Leather Roller Required: No Beliefs That Will Affect Care: None Current Living Situation: Alone Other Information That Helps Us Care for You: No Feels Safe at Home: Yes Safety Concerns: Feels Safe At This Time Assistive Devices: None Allergies Allergies Allergy/AdvReac Type Severity Reaction Status Date / Time Penicillins Allergy Mild Swelling Verified 12/30/24 23:45 and itchiness, rash celecoxib Allergy Unknown Swelling Verified 12/30/24 23:45 and itchiness. ciprofloxacin Allergy Unknown rash Verified 12/30/24 23:45 metronidazole Allergy Unknown rash Verified 12/30/24 23:45 CHEVY Inhibitors AdvReac cough Verified 12/30/24 23:45 Home Meds Home Medications Medication Instructions Recorded Confirmed amlodipine 2.5 mg tablet 2.5 mg PO DAILY 01/15/25 01/15/25 aspirin 81 mg tablet,delayed 81 mg PO DAILY 01/15/25 01/15/25 release buspirone 5 mg tablet 5 mg PO BID 01/15/25 01/15/25 diazepam 5 mg tablet 5 mg PO TID PRN Anxiety 01/15/25 01/15/25 furosemide 20 mg tablet 20 mg PO UD 01/15/25 01/15/25 gabapentin 300 mg capsule 600 mg PO BID 01/15/25 01/15/25 glucosamine-chondroitin 250 mg-200 1 tab PO BID 01/15/25 01/15/25 mg tablet (Osteo Bi-Flex) omeprazole 40 mg capsule,delayed 40 mg PO DAILY 01/15/25 01/15/25 release paroxetine HCl 30 mg tablet 30 mg PO DAILY 01/15/25 01/15/25 rosuvastatin 20 mg tablet 20 mg PO DAILY 01/15/25 01/15/25 Previous Rx's Medication Instructions Recorded cefdinir 300 mg capsule 300 mg PO BID #4 caps 01/20/25 gabapentin 300 mg capsule 300 mg PO BID #60 caps 01/20/25 metoprolol succinate 25 mg 12.5 mg (1/2 x 25 mg) PO QAM #30 01/20/25 tablet,extended release 24 hr tabs Results & Data (ED) Vital Signs Vital Signs - 24 hr 01/15/25 18:47 01/15/25 19:10 01/15/25 19:17 Temperature 38.2 C H 38.0 C H Temperature Source Temporal Artery Scan Oral Pulse Rate 91 H 84 Pulse Rate from SpO2 Sensor Pulse Strength Normal Respiratory Rate 19 Respiratory Effort / Characteristics Non-Labored Spontaneous Respiratory Depth Normal Respiratory Pattern Regular Blood Pressure 134/82 Blood Pressure Mean 99 Blood Pressure Position Sitting Pulse Oximetry 90 Oxygen Delivery Method Room Air Sepsis Recent Fever Within 48 Hours No Sepsis New/Unexplained Change in Mental Status No Sepsis Action Taken by Nursing No Action Required 01/15/25 19:36 01/15/25 20:42 01/15/25 22:14 Temperature 37.6 C H Temperature Source Oral Pulse Rate 85 96 H Pulse Rate from SpO2 Sensor 84 96 H Pulse Strength Respiratory Rate 17 23 Respiratory Effort / Characteristics Respiratory Depth Respiratory Pattern Blood Pressure 135/89 159/98 H Blood Pressure Mean 104 118 Blood Pressure Position Pulse Oximetry 93 90 Oxygen Delivery Method Sepsis Recent Fever Within 48 Hours Sepsis New/Unexplained Change in Mental Status Sepsis Action Taken by Nursing 01/15/25 22:33 Temperature Temperature Source Pulse Rate 91 H Pulse Rate from SpO2 Sensor 92 H Pulse Strength Respiratory Rate 24 Respiratory Effort / Characteristics Respiratory Depth Respiratory Pattern Blood Pressure 118/66 Blood Pressure Mean 83 Blood Pressure Position Pulse Oximetry 91 Oxygen Delivery Method Sepsis Recent Fever Within 48 Hours Sepsis New/Unexplained Change in Mental Status Sepsis Action Taken by Usp Medications Current Medication List: was personally reviewed by me Laboratory Data Attestation: I reviewed the patient's lab results. 01/19/25 05:45 01/20/25 23:24 Lab Results 01/15/25 01/15/25 01/15/25 Range/Units 19:21 19:44 19:50 WBC 6.50 (4.8-10.8) K/ul RBC 4.19 L (4.20-5.40) M/uL Hgb 11.8 L (12.0-16.0) g/dl Hct 35.9 L (37.0-47.0) % MCV 85.7 (80.0-100.0) fL MCH 28.2 (25.0-34.0) pg MCHC 32.9 (32.0-36.0) g/dL RDW Std Deviation 45.0 (36.4-46.3) fL RDW Coeff of [place] 14.5 (11.5-14.5) % Plt Count 211 (130-400) K/uL MPV 9.1 L (9.4-12.4) fL Immature Gran % (Auto) 0.3 % Neut % (Auto) 87.2 % Lymph % (Auto) 7.5 % [place] % (Auto) 2.0 % Eos % (Auto) 2.5 % Baso % (Auto) 0.5 % Neut # (Auto) 5.67 (1.40-6.50) K/uL Lymph # (Auto) 0.49 L (1.20-3.40) K/uL [place] # (Auto) 0.13 (0.11-0.59) K/uL Eos # (Auto) 0.16 (0.00-0.50) K/uL Baso # (Auto) 0.03 (0.00-0.20) K/uL Immature Gran # (Auto) 0.02 (0.01-0.20) K/uL Sodium 141 (136-145) mmol/L Potassium 3.3 L (3.5-5.1) mmol/L Chloride 104 (98-107) mmol/L Carbon Dioxide 30 (21-32) mmol/L Anion Gap 7 (3-11) BUN 11 (6-23) mg/dl Creatinine 0.87 (0.6-1.2) mg/dl Est Cr Clr Drug Dosing 47.7 ml/min eGFR 64.44 BUN/Creatinine Ratio 12.6 (10-20) Glucose 96 (70-99(Fasting)) mg/dl Lactate 2.6 H* (0.4-2.0) mmol/L Calcium 9.1 (8.6-10.3) mg/dl Total Bilirubin 0.6 (0.2-1.0) mg/dl AST 26 (13-39) U/L ALT 16 (7-52) U/L Alkaline Phosphatase 68 (34-104) U/L Troponin I High Sens 85.0 H* (0-14) pg/ml Total Protein 7.0 (6.0-8.3) gm/dl Albumin 4.1 (3.4-5.0) gm/dl Globulin 2.9 (2.5-4.0) gm/dl Albumin/Globulin Ratio 1.4 (0.9-2) Procalcitonin 0.30 (0-0.5) ng/ml Urine Color Urine Appearance (Clear) Urine pH (4.5-7.5) Ur Specific [place] (1.000-1.030) Urine Protein (Negative) Urine Glucose (UA) (Negative) Urine Ketones (Negative) Urine Blood (Negative) Urine Nitrite (Negative) Urine Bilirubin (Negative) Urine Urobilinogen (Negative) Ur Leukocyte Esterase (Negative) Urine WBC (Auto) (0-5) /hpf Urine RBC (Auto) (0-2) /hpf U Hyaline Cast (Auto) (0-2) /lpf U Epithel Cells (Auto) (0-2) /hpf Urine Bacteria (Auto) (None Seen) Adenovirus (PCR) Not Detected (NotDetected) B. pertussis DNA (PCR) Not Detected (NotDetected) B.parapertussis DNA PCR Not Detected (NotDetected) C. pneumoniae DNA (PCR) Not Detected (NotDetected) Coronavirus OC43 (PCR) Not Detected (NotDetected) Coronavirus HKU1 (PCR) Not Detected (NotDetected) Coronavirus 229E (PCR) Not Detected (NotDetected) SARS-CoV-2 (PCR) Not Detected (NotDetected) Coronavirus NL63 (PCR) Not Detected (NotDetected) Human Metapneumovir PCR Not Detected (NotDetected) Influenza Type A (PCR) Not Detected (NotDetected) Influenza Type B (PCR) Not Detected (NotDetected) M. pneumoniae (PCR) Not Detected (NotDetected) Parainfluenza 1 (PCR) Not Detected (NotDetected) Parainfluenza 2 (PCR) Not Detected (NotDetected) Parainfluenza 3 (PCR) Not Detected (NotDetected) Parainfluenza 4 (PCR) Not Detected (NotDetected) RSV (PCR) Not Detected (NotDetected) Entero/Rhino (PCR) Not Detected (NotDetected) 01/15/25 01/15/25 01/15/25 Range/Units 20:16 21:23 21:25 WBC (4.8-10.8) K/ul RBC (4.20-5.40) M/uL Hgb (12.0-16.0) g/dl Hct (37.0-47.0) % MCV (80.0-100.0) fL MCH (25.0-34.0) pg MCHC (32.0-36.0) g/dL RDW Std Deviation (36.4-46.3) fL RDW Coeff of [place] (11.5-14.5) % Plt Count (130-400) K/uL MPV (9.4-12.4) fL Immature Gran % (Auto) % Neut % (Auto) % Lymph % (Auto) % [place] % (Auto) % Eos % (Auto) % Baso % (Auto) % Neut # (Auto) (1.40-6.50) K/uL Lymph # (Auto) (1.20-3.40) K/uL [place] # (Auto) (0.11-0.59) K/uL Eos # (Auto) (0.00-0.50) K/uL Baso # (Auto) (0.00-0.20) K/uL Immature Gran # (Auto) (0.01-0.20) K/uL Sodium (136-145) mmol/L Potassium (3.5-5.1) mmol/L Chloride (98-107) mmol/L Carbon Dioxide (21-32) mmol/L Anion Gap (3-11) BUN (6-23) mg/dl Creatinine (0.6-1.2) mg/dl Est Cr Clr Drug Dosing ml/min eGFR BUN/Creatinine Ratio (10-20) Glucose (70-99(Fasting)) mg/dl Lactate 2.3 H* (0.4-2.0) mmol/L Calcium (8.6-10.3) mg/dl Total Bilirubin (0.2-1.0) mg/dl AST (13-39) U/L ALT (7-52) U/L Alkaline Phosphatase (34-104) U/L Troponin I High Sens 663.9 H* D (0-14) pg/ml Total Protein (6.0-8.3) gm/dl Albumin (3.4-5.0) gm/dl Globulin (2.5-4.0) gm/dl Albumin/Globulin Ratio (0.9-2) Procalcitonin (0-0.5) ng/ml Urine Color Yellow Urine Appearance Clear (Clear) Urine pH 7.5 (4.5-7.5) Ur Specific [place] 1.015 (1.000-1.030) Urine Protein 1+ H (Negative) Urine Glucose (UA) Negative (Negative) Urine Ketones Negative (Negative) Urine Blood Trace H (Negative) Urine Nitrite Positive A (Negative) Urine Bilirubin Negative (Negative) Urine Urobilinogen Negative (Negative) Ur Leukocyte Esterase Negative (Negative) Urine WBC (Auto) 6-10 H (0-5) /hpf Urine RBC (Auto) 6-10 H (0-2) /hpf U Hyaline Cast (Auto) 0-2 (0-2) /lpf U Epithel Cells (Auto) 0-2 (0-2) /hpf Urine Bacteria (Auto) 4+ H (None Seen) Adenovirus (PCR) (NotDetected) B. pertussis DNA (PCR) (NotDetected) B.parapertussis DNA PCR (NotDetected) C. pneumoniae DNA (PCR) (NotDetected) Coronavirus OC43 (PCR) (NotDetected) Coronavirus HKU1 (PCR) (NotDetected) Coronavirus 229E (PCR) (NotDetected) SARS-CoV-2 (PCR) (NotDetected) Coronavirus NL63 (PCR) (NotDetected) Human Metapneumovir PCR (NotDetected) Influenza Type A (PCR) (NotDetected) Influenza Type B (PCR) (NotDetected) M. pneumoniae (PCR) (NotDetected) Parainfluenza 1 (PCR) (NotDetected) Parainfluenza 2 (PCR) (NotDetected) Parainfluenza 3 (PCR) (NotDetected) Parainfluenza 4 (PCR) (NotDetected) RSV (PCR) (NotDetected) Entero/Rhino (PCR) (NotDetected) Administered Medications Acetaminophen (Acetaminophen 325 Mg Tab) 650 mg PO Q4H PRN PRN Reason: Pain or Fever Stop: 02/15/25 01:44 Last Admin: 01/20/25 20:47 Dose: 650 mg Documented By: Admin: 01/20/25 10:25 Dose: 650 mg Documented By: Admin: 01/17/25 03:06 Dose: 650 mg Documented By: Admin: 01/16/25 19:15 Dose: 650 mg Documented By: Admin: 01/16/25 12:42 Dose: 650 mg Documented By: Admin: 01/16/25 08:41 Dose: 650 mg Documented By: Admin: 01/16/25 01:51 Dose: 650 mg Documented By: MAURICIO Amlodipine Besylate (Amlodipine Besylate 5 Mg Tab) 2.5 mg PO DAILY [facility] Stop: 02/15/25 08:59 Last Admin: 01/20/25 08:56 Dose: 2.5 mg Documented By: Admin: 01/19/25 09:27 Dose: 2.5 mg Documented By: Admin: 01/18/25 09:01 Dose: 2.5 mg Documented By: Admin: 01/17/25 08:17 Dose: 2.5 mg Documented By: Admin: 01/16/25 08:22 Dose: 2.5 mg Documented By: RADHA Aspirin (Aspirin 81 Mg Ectab) 81 mg PO DAILY [facility] Stop: 02/15/25 08:59 Last Admin: 01/20/25 08:55 Dose: 81 mg Documented By: Admin: 01/19/25 09:27 Dose: 81 mg Documented By: Admin: 01/18/25 09:01 Dose: 81 mg Documented By: Admin: 01/17/25 08:17 Dose: 81 mg Documented By: DLLilo Admin: 01/16/25 08:23 Dose: 81 mg Documented By: RADHA Buspirone HCl (Buspirone 5 Mg Tab) 5 mg PO BID [facility] Stop: 02/15/25 08:59 Last Admin: 01/20/25 20:48 Dose: 5 mg Documented By: Admin: 01/20/25 08:56 Dose: 5 mg Documented By: Admin: 01/19/25 20:23 Dose: 5 mg Documented By: Admin: 01/19/25 09:27 Dose: 5 mg Documented By: Admin: 01/18/25 20:33 Dose: 5 mg Documented By: Admin: 01/18/25 09:02 Dose: 5 mg Documented By: Admin: 01/17/25 20:25 Dose: 5 mg Documented By: Admin: 01/17/25 08:18 Dose: 5 mg Documented By: Admin: 01/16/25 19:40 Dose: 5 mg Documented By: Admin: 01/16/25 08:23 Dose: 5 mg Documented By: RADHA Cefdinir (Cefdinir 300 Mg Cap) 300 mg PO BID [facility] Stop: 01/22/25 09:59 Last Admin: 01/20/25 20:47 Dose: 300 mg Documented By: [facility] Admin: 01/20/25 08:56 Dose: 300 mg Documented By: Admin: 01/19/25 20:22 Dose: 300 mg Documented By: Admin: 01/19/25 09:27 Dose: 300 mg Documented By: Admin: 01/18/25 20:33 Dose: 300 mg Documented By: Admin: 01/18/25 09:00 Dose: 300 mg Documented By: Admin: 01/17/25 20:25 Dose: 300 mg Documented By: Admin: 01/17/25 09:59 Dose: 300 mg Documented By: KHALIDA Furosemide (Furosemide 20 Mg Tab) 20 mg PO MoWeFr@[id number] [facility] Stop: 02/16/25 16:14 Last Admin: 01/19/25 09:27 Dose: 20 mg Documented By: Admin: 01/17/25 16:25 Dose: 20 mg Documented By: KHALIDA Gabapentin (Gabapentin 300 Mg Cap) 300 mg PO BID [facility] Stop: 02/17/25 20:59 Last Admin: 01/20/25 20:48 Dose: 300 mg Documented By: [facility] Admin: 01/20/25 08:56 Dose: 300 mg Documented By: Admin: 01/19/25 20:22 Dose: 300 mg Documented By: [facility] Admin: 01/19/25 09:27 Dose: 300 mg Documented By: Admin: 01/18/25 20:33 Dose: 300 mg Documented By: AUDREY Heparin Sodium (Porcine) (Heparin Sod 5,000 Unit/0.5 Ml Vial) 5,000 units SQ Q8 [facility] Stop: 02/17/25 13:59 Last Admin: 01/21/25 06:20 Dose: 5,000 units Documented By: [facility] Admin: 01/20/25 20:48 Dose: 5,000 units Documented By: [facility] Admin: 01/20/25 13:09 Dose: Not Given Documented By: Admin: 01/20/25 05:57 Dose: 5,000 units Documented By: [facility] Admin: 01/19/25 22:07 Dose: Not Given Documented By: [facility] Admin: 01/19/25 15:45 Dose: 5,000 units Documented By: Admin: 01/19/25 05:44 Dose: 5,000 units Documented By: Admin: 01/18/25 21:23 Dose: 5,000 units Documented By: Admin: 01/18/25 14:32 Dose: 5,000 units Documented By: KHALIDA Metoprolol Succinate (Metoprolol Succ 25mg Ext Rel Tab) 12.5 mg PO QAM [facility] Stop: 02/15/25 12:14 Last Admin: 01/20/25 08:56 Dose: 12.5 mg Documented By: Admin: 01/19/25 09:28 Dose: 12.5 mg Documented By: Admin: 01/18/25 09:02 Dose: 12.5 mg Documented By: Admin: 01/17/25 08:15 Dose: 12.5 mg Documented By: Admin: 01/16/25 12:36 Dose: 12.5 mg Documented By: RADHA Pantoprazole Sodium (Pantoprazole 40 Mg Tab) 40 mg PO DAILY [facility] Stop: 02/15/25 08:59 Last Admin: 01/20/25 08:56 Dose: 40 mg Documented By: Admin: 01/19/25 09:27 Dose: 40 mg Documented By: Admin: 01/18/25 09:03 Dose: 40 mg Documented By: Admin: 01/17/25 08:18 Dose: 40 mg Documented By: Admin: 01/16/25 08:23 Dose: 40 mg Documented By: RADHA Paroxetine HCl (Paroxetine Hcl 20 Mg Tab) 30 mg PO DAILY [facility] Stop: 02/15/25 08:59 Last Admin: 01/20/25 08:56 Dose: 30 mg Documented By: Admin: 01/19/25 09:28 Dose: 30 mg Documented By: Admin: 01/18/25 09:00 Dose: 30 mg Documented By: Admin: 01/17/25 08:16 Dose: 30 mg Documented By: Admin: 01/16/25 08:23 Dose: 30 mg Documented By: RADHA Phenazopyridine HCl (Phenazopyridine Hcl 100 Mg Tab) 100 mg PO TID PRN PRN Reason: Dysuria Stop: 02/15/25 23:44 Last Admin: 01/17/25 00:26 Dose: 100 mg Documented By: MAURICIO Rosuvastatin Calcium (Rosuvastatin Calcium 20 Mg Tab) 20 mg PO DAILY [facility] Stop: 02/15/25 08:59 Last Admin: 01/20/25 08:56 Dose: 20 mg Documented By: Admin: 01/19/25 09:28 Dose: 20 mg Documented By: Admin: 01/18/25 09:03 Dose: 20 mg Documented By: Admin: 01/17/25 08:18 Dose: 20 mg Documented By: Admin: 01/16/25 08:23 Dose: 20 mg Documented By: RADHA Tramadol HCl (Tramadol Hcl 50 Mg Tablet) 25 - 50 mg PO Q4H PRN PRN Reason: Pain Stop: 02/19/25 23:10 Last Admin: 01/20/25 23:25 Dose: 25 mg Documented By: DOLORES Discontinued Medications Diazepam (Diazepam 5 Mg Tablet) 5 mg PO TID PRN PRN Reason: Anxiety Stop: 02/15/25 00:13 Last Admin: 01/17/25 03:06 Dose: 5 mg Documented By: MAURICIO Gabapentin (Gabapentin 600 Mg Tab) 600 mg PO BID [facility] Stop: 02/15/25 08:59 Last Admin: 01/18/25 09:02 Dose: 600 mg Documented By: Admin: 01/17/25 20:25 Dose: 600 mg Documented By: Admin: 01/17/25 08:18 Dose: 600 mg Documented By: Admin: 01/16/25 19:40 Dose: 600 mg Documented By: Admin: 01/16/25 08:23 Dose: 600 mg Documented By: RADHA Heparin Sodium/Dextrose (Heparin Iv Adult Wt-Based Low-Dose *No* Initial Bolus Protocol) 1 each IV ONE STA; Protocol Stop: 01/16/25 00:15 Last Admin: 01/16/25 05:18 Dose: Not Given Documented By: MAURICIO Acetaminophen (Ofirmev) 1,000 mg in 100 mls @ 400 mls/hr IV NOW STA Stop: 01/15/25 19:38 Last Infusion: 01/15/25 20:13 Dose: Infused Documented By: Admin: 01/15/25 19:33 Dose: 400 mls/hr Documented By: ZACHARIAH Sodium Chloride (Nss) 1,000 mls @ 125 mls/hr IV .Q8H [facility] Stop: 01/16/25 19:59 Last Infusion: 01/16/25 09:08 Dose: Infused Documented By: Admin: 01/15/25 21:36 Dose: 125 mls/hr Documented By: ZACHARIAH Sodium Chloride (Nss) 1,000 mls @ 999 mls/hr IV .Q1H1M ONE Stop: 01/15/25 21:02 Last Infusion: 01/15/25 21:39 Dose: Infused Documented By: Admin: 01/15/25 20:12 Dose: 999 mls/hr Documented By: ZACHARIAH Cefepime HCl (Maxipime 2000mg) 2,000 mg in 20 mls @ 5 mls/min IV NOW STA; Protocol Stop: 01/15/25 22:08 Last Admin: 01/15/25 22:15 Dose: 5 mls/min Documented By: LJM Sodium Chloride (Nss) 1,000 mls @ 999 mls/hr IV .Q1H1M ONE Stop: 01/15/25 23:09 Last Infusion: 01/15/25 23:20 Dose: Infused Documented By: Admin: 01/15/25 22:29 Dose: 999 mls/hr Documented By: ALEJO Sodium Chloride (Nss) 1,000 mls @ 125 mls/hr IV .Q8H [facility] Stop: 01/17/25 00:13 Last Infusion: 01/16/25 11:00 Dose: Infused Documented By: Admin: 01/16/25 06:44 Dose: 125 mls/hr Documented By: Infusion: 01/16/25 06:43 Dose: Infused Documented By: Admin: 01/16/25 00:05 Dose: 125 mls/hr Documented By: MAURICIO Heparin Sodium/Dextrose (Heparin 86814 Unit/500 Ml D5w) 25,000 units in 500 mls @ 16 mls/hr IV .Q24H [facility]; Protocol Stop: 01/18/25 00:13 Last Titration: 01/18/25 00:45 Dose: Infused Documented By: MAKI Co-signed By: AUDREY Titration: 01/17/25 07:15 Dose: 800 units/hr, 16 mls/hr Documented By: MAURICIO Co-signed By: ESTUARDO Admin: 01/16/25 23:44 Dose: 800 units/hr, 16 mls/hr Documented By: MAURICIO Co-signed By: MARTHA Titration: 01/16/25 23:44 Dose: Infused Documented By: MAURICIO Co-signed By: MARTHA Titration: 01/16/25 08:57 Dose: 800 units/hr, 16 mls/hr Documented By: RADHA Co-signed By: ESTUARDO Admin: 01/16/25 01:45 Dose: 800 units/hr, 16 mls/hr Documented By: MAURICIO Co-signed By: ROB Cefepime HCl (Maxipime 2000mg) 2,000 mg in 20 mls @ 5 mls/min IV Q12H [facility]; Protocol Stop: 01/21/25 07:59 Last Admin: 01/16/25 22:01 Dose: 5 mls/min Documented By: Admin: 01/16/25 09:12 Dose: 5 mls/min Documented By: RADHA Magnesium Sulfate/Dextrose (Magnesium Sulfate / D5w) 1 gm in 100 mls @ 50 mls/hr IV Q2H [facility] Stop: 01/16/25 16:14 Last Infusion: 01/16/25 16:44 Dose: Infused Documented By: Admin: 01/16/25 14:42 Dose: 50 mls/hr Documented By: Infusion: 01/16/25 14:41 Dose: Infused Documented By: Admin: 01/16/25 12:37 Dose: 50 mls/hr Documented By: KTS Ioversol (Optiray 320 100ml) 90 ml IV ONCE ONE Stop: 01/15/25 20:22 Last Admin: 01/15/25 20:21 Dose: 90 ml Documented By: JUJU Potassium Chloride (Potassium Chloride Crtab 20 Meq Tabcr) 40 meq PO NOW STA Stop: 01/15/25 23:00 Last Admin: 01/15/25 23:20 Dose: 40 meq Documented By: LENNOX Potassium Chloride (Potassium Chloride Crtab 20 Meq Tabcr) 20 meq PO ONE ONE Stop: 01/16/25 12:03 Last Admin: 01/16/25 12:36 Dose: 20 meq Documented By: KTS Potassium Chloride (Potassium Chloride Crtab 20 Meq Tabcr) 20 meq PO BID [facility] Stop: 01/18/25 21:01 Last Admin: 01/18/25 20:33 Dose: 20 meq Documented By: Admin: 01/18/25 09:06 Dose: 20 meq Documented By: DL Imaging Data Radiologist's Impression: Chest X-Ray 01/15/25 19:24 Exam(s): XR CXR 1 VIEW EXAM: XR Chest, 1 View CLINICAL HISTORY: Reason for exam: Fever. TECHNIQUE: Frontal view of the chest. COMPARISON: 12/30/24 FINDINGS: Lungs: Similar mild scarring at the lung bases. No consolidation. Pleural space: No pleural effusion or pneumothorax. Heart: No cardiomegaly or pulmonary vascular congestion. Bones/joints: No acute fracture. No dislocation. Vasculature: Calcified aortic arch. IMPRESSION: No acute findings in the chest. Electronically signed by: Brianna Boswell M.D. 01/15/25 22:[address] 01/15/25 19:24 Exam(s): CT HEAD Without Contrast EXAM: CT Head Without Intravenous Contrast CLINICAL HISTORY: Reason for exam: fever, [place], vomiting. TECHNIQUE: Axial computed tomography images of the head/brain without intravenous contrast. CTDI is 38 mGy and DLP is 624 mGy-cm. Automated exposure control was utilized for the study. A dose lowering technique was utilized adhering to the principles of ALARA. COMPARISON: 04/05/20 FINDINGS: Brain: Generalized parenchymal volume loss. Mild chronic small vessel ischemic change. Lopez-white matter differentiation maintained. No hemorrhage, mass effect, parenchymal edema, or midline shift. Ventricles: No hydrocephalus. Bones/joints: No acute fracture. Soft tissues: Unremarkable. Vasculature: Intracranial atherosclerosis. Sinuses: Unremarkable as visualized. Mastoid air cells: No significant mastoid effusion. Orbits: Lens replacements. IMPRESSION: No acute intracranial process. Electronically signed by: Brianna Boswell M.D. 01/15/25 22:54 PM Abdomen/Pelvis CT 01/15/25 19:56 Exam(s): CT ABDOMEN + PELVIS With Contrast IV Amt: 90 ml optiray 320 EXAM: CT Abdomen and Pelvis With Intravenous Contrast CLINICAL HISTORY: Reason for exam: diffuse abd pain, vomiting, fever. TECHNIQUE: Axial computed tomography images of the abdomen and pelvis with intravenous contrast. CTDI is 38 mGy and DLP is 624 mGy-cm. Automated exposure control was utilized for the study. A dose lowering technique was utilized adhering to the principles of ALARA. CONTRAST: Patient received 90 ml optiray 320 of IV contrast COMPARISON: 12/30/24 FINDINGS: Lung bases: Unremarkable. ABDOMEN: Liver: Unremarkable. No mass. Gallbladder and bile ducts: Unremarkable. No calcified stones. No ductal dilation. Pancreas: Unremarkable. No mass. No ductal dilation. Spleen: Unremarkable. No splenomegaly. Adrenals: Unremarkable. No mass. Kidneys and ureters: Unremarkable. No solid mass. No hydronephrosis. Stomach and bowel: Diverticulosis of the sigmoid. No obstruction. No mucosal thickening. PELVIS: Appendix: Appendix not identified. No secondary signs of appendicitis. Bladder: Unremarkable. No mass. Reproductive: Hysterectomy. ABDOMEN and PELVIS: Intraperitoneal space: Unremarkable. No free air, significant free fluid, or fluid collection. Bones/joints: Lower lumbar disc and facet degeneration. Grade 1 anterolisthesis of L4. No acute fracture. No dislocation. Soft tissues: Unremarkable. Vasculature: Atherosclerosis. No abdominal aortic aneurysm. Lymph nodes: Unremarkable. No enlarged lymph nodes. IMPRESSION: No acute findings in the abdomen or pelvis. Electronically signed by: Brianna Boswell M.D. 01/15/25 21:57 PM Discharge Plan Visit Data Chief Complaint: Vomiting Stated Complaint: ILLNESS, HEADACHE ED Provider: Samina Salgado Discharge Problem: UTI (urinary tract infection), NSTEMI (non-ST elevated myocardial infarction), Elevated lactic acid level Patient Disposition: Admitted As Inpatient Discharge Instructions Interventions: ED Discharge Assessment Last Done: 01/15/25 23:54 Discharge Problem: UTI (urinary tract infection) Qualifiers: Urinary tract infection type: acute cystitis Hematuria presence: without hematuria Qualified Code(s): N30.00 - Acute cystitis without hematuria
[2025-01-16 01:35] LABS: Partial Thromboplastin Ratio 0.9; Partial Thromboplastin Time 25 Seconds (21-31)
[2025-01-16] MEDS: HEPARIN 25000 UNIT/500 ML D5W 25,000 UNITS/500 ML BAG IV SCH (01:45)
[2025-01-16] MEDS: ACETAMINOPHEN 325 MG TAB PO PRN (01:51)
[2025-01-16] MEDS: Heparin IV Adult Wt-Based Low-Dose *NO* INITIAL Bolus Protocol IV STA (05:18)
[2025-01-16 08:01] LABS: Hematocrit (blood only) 30.7 % (37.0-47.0); Hemoglobin 9.8 g/dl (12.0-16.0); Mean Corpuscular Hgb Conc 31.9 g/dL (32.0-36.0); Mean Corpuscular Volume 87.7 fL (80.0-100.0); Mean Platelet Volume 9.5 fL (9.4-12.4); Platelet Count 184 K/uL (130-400); RDW Coefficient of Variation 14.7 % (11.5-14.5); RDW Standard Deviation 47.3 fL (36.4-46.3); White Blood Count 12.92 K/ul (4.8-10.8)
[2025-01-16] MEDS: amLODIPine BESYLATE 5 MG TAB PO SCH (08:22)
[2025-01-16 08:23] LABS: Basophils # (auto) 0.03 K/uL (0.00-0.20); Basophils % (auto) 0.2 %; Immature Granulocytes # (auto) 0.11 K/uL (0.01-0.20); Immature Granulocytes % (auto) 0.9 %; Lymphocytes # (auto) 0.44 K/uL (1.20-3.40); Lymphocytes % (auto) 3.4 %; Monocytes % (auto) 3.9 %; Neutrophils # (auto) 11.84 K/uL (1.40-6.50); Neutrophils % (auto) 91.6 %; Ovalocytes 1+
[2025-01-16] MEDS: PANTOprazole 40 MG TAB PO SCH (08:23)
[2025-01-16] MEDS: ROSUVASTATIN CALCIUM 20 MG TAB PO SCH (08:23)
[2025-01-16] MEDS: GABAPENTIN 600 MG TAB PO SCH (08:23)
[2025-01-16] MEDS: ASPIRIN 81 MG ECTAB PO SCH (08:23)
[2025-01-16] MEDS: busPIRone 5 MG TAB PO SCH (08:23)
[2025-01-16] MEDS: PARoxetine HCL 20 MG TAB PO SCH (08:23)
[2025-01-16 08:24] LABS: BUN Creatinine Ratio 11.1 (10-20); Calcium 7.7 mg/dl (8.6-10.3); Creatinine Clr Calc Pharmacy 46.4 ml/min; Magnesium 1.5 mg/dl (1.7-2.4); Potassium 3.5 mmol/L (3.5-5.1)
[2025-01-16 08:30] LABS: ANTI-Xa, UFH(UnfractionatedHep 0.34 IU/ml (0.3-0.7)
[2025-01-16 08:36] LABS: Troponin I High Sensitivity 1648.9 pg/ml (0-14)
[2025-01-16] MEDS: CEFEPIME 2000MG 2,000 MG/20 ML SYR IV SCH (09:12)
--- NOTE | 2025-01-16 11:26 | Cardiology Consultation ---
<Statement entered by Kavitha Hansen, - 01/16/25 15:37> I have reviewed the advanced practitioner's documentation and agree with the plan of care. I accept the responsibility for the associated risk. Pt seen in cardiology consultation due to NSTEMI probably due to demand ischemia in the setting of Sepsis due to UTI BP and Telemetry have been stable; trend troponins until they peaked Echo today EF is preserved slight mild hypokinesis of the septum per my interpretation start low dose metoprolol continue IV heparin for 48 hours Continue ASA and statin discussed with family and shared decision making at this juncture continue medical management; no invasive procedures pt really probably needs to be in assisted living and should not live alone Date of Consultation January 16, 2025 Assessment & Plan (1) Sepsis: (2) NSTEMI (non-ST elevated myocardial infarction): (3) HTN (hypertension): (4) Dyslipidemia, goal LDL below 70: Plan Sepsis. Suspected urinary source. Blood cultures pending. As per Hospitalist. NSTEMI. - Troponin elevated as follows: 85.0 -> 663.9 -> 1,648.9 -> pending - EKGs abnormal though without acute ST segment change - Resting echocardiography pending - Chest x-ray without acute findings - Patient asymptomatic - Recommend conservative medical management - Agree with low-dose IV heparin without bolus for now - Repeat H&H this afternoon - Add beta-ethan therapy, metoprolol succinate 12.5 mg/day - Continue aspirin and statin - Await resting echocardiography - Follow troponin to peak - Maintain telemetry Chronic diastolic CHF. Volume status is compensated. Awaiting TTE to evaluate EF, wall motion. Hyperlipidemia. Continue rosuvastatin. LDL goal < 70 mg/dL. Hypertension. Controlled. Follow History of Present Illness Reason for Consultation: Elevated Troponin Requesting Physician: Mayda Hospitalist, Dr. Leno Hurley Attending Physician: Armando Staples MD History of Present Illness Jessica Gilliam is a very pleasant 89-year-old female who was treated for urinary tract infection approximately 3 weeks ago with a course of Keflex. Yesterday she was going house to house visiting friends when she began to have shaking chills, fever, diaphoresis, and lower abdominal pain. After eating some pot pie soup the patient experienced nausea and vomiting at a neighbors house who summoned EMS. Temperature was 38.2 on presentation. Patient tachycardic initially. Urinalysis positive with preliminary culture revealing E. coli. Lactic acid 2.6. Blood cultures pending. Patient received IV fluids and cefepime in the ER. Cardiology consultation requested due to elevated troponin. - High-sensitivity troponin elevated as follows: 85.0 -> 663.9 -> 1,648.9 -> pending - Admission EKG demonstrated sinus rhythm at 90 bpm with premature atrial comple xes and left ventricular hypertrophy, without acute ST-T segment change when compared to prior available tracings. - EKG obtained earlier this morning revealed sinus rhythm at 79 bpm with nonspecific STT wave abnormality in the inferior and lateral leads. Septal findings unchanged compared to prior tracings - Resting echocardiography pending Family notes an episode of chest tightness while sitting at the table couple weeks ago, attributed to anxiety, aided by as needed Valium. No chest pain or discomfort over the last few days. Notes partaking in bowling and water walking twice a week at the [facility] in [place] without cardiopulmonary limitation. Patient with history of atypical chest pain and exertional dyspnea. Equivocal exercise stress testing in January 2022 (low workload, hypertensive blood pressure response) with follow-up nuclear stress testing in March 2022 negative for ischemia. Problem list: Hypertension Dyslipidemia Diastolic dysfunction Ascending aortic dilatation Anxiety Alzheimer's dementia Left sided breast cancer Pulmonary nodules GERD Family History: Positive for CAD in mother. Father with AAA. Daughter with breast cancer Social History: Never smoker. 16 years ago. Lives alone. Allergies Allergy/AdvReac Type Severity Reaction Status Date / Time Penicillins Allergy Mild Swelling Verified 12/30/24 23:45 and itchiness, rash celecoxib Allergy Unknown Swelling Verified 12/30/24 23:45 and itchiness. ciprofloxacin Allergy Unknown rash Verified 12/30/24 23:45 metronidazole Allergy Unknown rash Verified 12/30/24 23:45 CHEVY Inhibitors AdvReac cough Verified 12/30/24 23:45 Home Medications Medication Instructions Recorded Confirmed Type amlodipine 2.5 mg tablet 2.5 mg PO DAILY 01/15/25 01/15/25 History aspirin 81 mg tablet,delayed 81 mg PO DAILY 01/15/25 01/15/25 History release buspirone 5 mg tablet 5 mg PO BID 01/15/25 01/15/25 History diazepam 5 mg tablet 5 mg PO TID PRN Anxiety 01/15/25 01/15/25 History furosemide 20 mg tablet 20 mg PO UD 01/15/25 01/15/25 History gabapentin 300 mg capsule 600 mg PO BID 01/15/25 01/15/25 History glucosamine-chondroitin 250 mg-200 1 tab PO BID 01/15/25 01/15/25 History mg tablet (Osteo Bi-Flex) omeprazole 40 mg capsule,delayed 40 mg PO DAILY 01/15/25 01/15/25 History release paroxetine HCl 30 mg tablet 30 mg PO DAILY 01/15/25 01/15/25 History rosuvastatin 20 mg tablet 20 mg PO DAILY 01/15/25 01/15/25 History Patient History Medical History Hyperlipidemia GERD (gastroesophageal reflux disease) Social History Smoking Status: Never smoker Do You Dip or Chew Tobacco: No; Hx Alcohol Use: Yes Alcohol type: hard liquor Hx Substance Use: No Preferred Language: Danish Communication Ability: Effective 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 Younger than physiologic age HENT: Normocephalic. Atraumatic. Eyes: PER. Conjunctiva pink, sclera clear. Neck: No JVD. Heart: RRR, 80 bpm. Grade II/ systolic murmur. No diastolic murmur. Lungs: Clear to auscultation. Abdomen: +BS. Soft. Nontender. No masses or organomegaly. Extremities: No clubbing, cyanosis, or edema. Neuro: No focal deficits. Pulses: Posterior tibial=2/4. Results & Data Vital Signs (Past 12 Hours) Vital Signs Temp Pulse Pulse Resp BP Pulse Ox O2 Del Method 01/16/25 10:32 36.7 C 82 18 121/71 93 Room Air 01/16/25 07:18 36.7 C 77 18 106/67 93 Room Air 01/16/25 04:08 37.1 C 92 H 16 100/63 95 Nasal Cannula 01/16/25 00:58 99 H 01/16/25 00:00 37 C 97 H 18 115/70 93 Nasal Cannula O2 Flow Rate 01/16/25 10:32 01/16/25 07:18 01/16/25 04:08 1 01/16/25 00:58 01/16/25 00:00 2 Laboratory Results Cardiac Enzymes 01/15/25 01/15/25 01/16/25 Range/Units 19:21 21:23 07:39 AST 26 (13-39) U/L Troponin I High Sens 85.0 H* 663.9 H* D 1648.9 H* D (0-14) pg/ml Coagulation 01/16/25 Range/Units 00:37 PT 11.0 (9.0-12.0) Seconds APTT 25 (21-31) Seconds CBC 01/15/25 01/16/25 Range/Units 19:21 07:39 WBC 6.50 12.92 H (4.8-10.8) K/ul RBC 4.19 L 3.50 L (4.20-5.40) M/uL Hgb 11.8 L 9.8 L (12.0-16.0) g/dl Hct 35.9 L 30.7 L (37.0-47.0) % Plt Count 211 184 (130-400) K/uL Neut # (Auto) 5.67 11.84 H (1.40-6.50) K/uL Lymph # (Auto) 0.49 L 0.44 L (1.20-3.40) K/uL [place] # (Auto) 0.13 0.50 (0.11-0.59) K/uL Eos # (Auto) 0.16 0.00 (0.00-0.50) K/uL Baso # (Auto) 0.03 0.03 (0.00-0.20) K/uL Comprehensive Metabolic Panel 01/15/25 01/16/25 Range/Units 19:21 07:39 Sodium 141 140 (136-145) mmol/L Potassium 3.3 L 3.5 (3.5-5.1) mmol/L Chloride 104 109 H (98-107) mmol/L Carbon Dioxide 30 26 (21-32) mmol/L BUN 11 10 (6-23) mg/dl Creatinine 0.87 0.90 (0.6-1.2) mg/dl Glucose 96 113 H (70-99(Fasting)) mg/dl Calcium 9.1 7.7 L (8.6-10.3) mg/dl AST 26 (13-39) U/L ALT 16 (7-52) U/L Alkaline Phosphatase 68 (34-104) U/L Total Protein 7.0 (6.0-8.3) gm/dl Albumin 4.1 (3.4-5.0) gm/dl Intake and Output 01/15/25 01/16/25 01/16/25 22:59 06:59 14:59 Intake Total 1100 / 3100 2000 / 3100 1648.533 / 1648.533 Output Total Balance 1100 / 3099 1998 / 3099 1645.533 / 1645.533 Intake: IV 1100 / 3100 1999 / 3100 1648.533 / 1648.533 Acetaminophen 1,000 mg In 100 100 / 100 ml @ 400 mls/hr IV NOW STA Rx#: [id number] Heparin 80206 Unit/500 ml D5w 115.2 / 115.2 25,000 units In 500 ml @ 800 UNITS/HR 16 mls/hr IV .Q24H [facility]T Rx#:[id number] Sodium Chloride 0.9% 1,000 ml @ 1000 / 3000 2000 / 3000 1533.333 / 1533.333 125 mls/hr IV .Q8H B[facility]T Rx#: [id number] Output: # Bowel Movements Other: # Unmeasured Voids 1 1 Weight 83.9 kg 81.2 kg Weight Measurement Method Built in [facility] Built in [facility] Diagnostic Findings Telemetry: Sinus rhythm in the 80s. No significant bradycardia. Occasional PACs. No atrial fibrillation.
[2025-01-16 12:27] LABS: Hematocrit (blood only) 29.9 % (37.0-47.0); Hemoglobin 9.5 g/dl (12.0-16.0)
[2025-01-16] MEDS: POTASSIUM CHLORIDE CRTAB 20 MEQ TABCR PO ONE (12:36)
[2025-01-16] MEDS: METOPROLOL SUCC 25MG EXT REL TAB PO SCH (12:36)
[2025-01-16] MEDS: MAGNESIUM SULFATE / D5W 1 GM/100 ML BAG IV SCH (12:37)
--- NOTE | 2025-01-16 12:47 | Hospitalist Progress Note ---
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 Sepsis POA, likely due to Acute UTI Patient presented with fever, nausea and vomiting She was febrile in the ED with tachycardia Lactic acid elevated on admission Urinalysis suggestive of infection CT abdomen pelvis did not show any acute finding Continue on antibiotics; will follow-up on blood and urine culture Obtain a stool PCR for diarrhea NSTEMI High sensitive troponin on admission of 85; up trended to 1648 and downtrending Patient denies any chest pain or shortness of breath EKG shows normal sinus rhythm with nonspecific ST changes and T wave changes in inferior lateral leads. Currently on heparin, continue on aspirin, statin Cardiology consulted for comanagement Echocardiogram pending Chronic diastolic CHF On Lasix 3 times a week which be held for now Getting fluids Monitor for volume overload Hyperlipidemia On statin, continue Hypertension Amlodipine with holding parameters Depression On paroxetine, continue GERD On omeprazole,continue DVT prophylaxis IV heparin Disposition Discussed with patient's sister at bedside; she is concerned about patient's progressive cognitive impairment in the last several month. Will plan to obtain PT OT. Full code Time spent evaluating patient, direct bedside care, chart review, placing orders, interpretation of diagnostic studies, discussion with consultants, patient, and family members, as well as other required patient management activities is 50 minutes Please note the above document was generated using voice recognition software. It may contain grammatical, syntax or spelling errors. Any formal questions or concerns about the content, text or information contained within the body of this dictation should be directly addressed to the provider for clarification Admission and Anticipated Discharge Date Admission Date: January 15, 2025 Subjective Patient seen and examined independently. Patient seen and examined at bedside. She is lying in the bed comfortably; not in distress She denies any fever and chills at this time. Reports 3 episodes of diarrhea She denies any chest pain, shortness of breath or palpitations. Review of Systems Review of Systems: All systems reviewed & are unremarkable except as noted in Subjective Physical Exam Physical Exam: General- Not in distress. Head- atraumatic Eyes- PERRL. ENT- oropharynx clear Neck- supple, no JVD. Lungs- clear to auscultation no wheezing or crackles Heart- regular rhythm; no murmur, no gallop. Abdomen- normal bowel sounds, soft, mild diffuse discomfort, no distension Extremities- mild pretibial edema present, no erythema seen. Neuro- alert, oriented PERRL, no facial palsy; no dysarthria; moves extremities Results & Data Results & Data Vital Signs (Past 12 Hours) Vital Signs Temp Pulse Pulse Resp BP Pulse Ox O2 Del Method 01/16/25 10:32 36.7 C 82 18 121/71 93 Room Air 01/16/25 07:18 36.7 C 77 18 106/67 93 Room Air 01/16/25 04:08 37.1 C 92 H 16 100/63 95 Nasal Cannula 01/16/25 00:58 99 H O2 Flow Rate 01/16/25 10:32 01/16/25 07:18 01/16/25 04:08 1 01/16/25 00:58
[2025-01-16 21:22] LABS: Adenovirus F 40/41 PCR Not Detected (NotDetected); Astrovirus PCR Not Detected (NotDetected); Campylobacter PCR Not Detected (NotDetected); Cryptosporidium PCR Not Detected (NotDetected); Cyclospora cayetanensis PCR Not Detected (NotDetected); Entamoeba histolytica PCR Not Detected (NotDetected); Enteroaggregative E.coli(EAEC) Not Detected (NotDetected); Enteropathogenic E.coli (EPEC) Not Detected (NotDetected); Enterotoxigenic E.coli (ETEC) Not Detected (NotDetected); Giardia lamblia PCR Not Detected (NotDetected); Norovirus GI/GII PCR Not Detected (NotDetected); Plesiomonas shigelloides PCR Not Detected (NotDetected); Rotavirus A PCR Not Detected (NotDetected); Salmonella PCR Not Detected (NotDetected); Sapovirus PCR Not Detected (NotDetected); Shiga-like Toxin E.coli (STEC) Not Detected (NotDetected); Shigella/Enteroinvasive E.coli Not Detected (NotDetected); Vibrio cholerae PCR Not Detected (NotDetected); Vibrio species PCR Not Detected (NotDetected); Yersinia enterocolitica PCR Not Detected (NotDetected)
[2025-01-17] MEDS: PHENAZOPYRIDINE HCL 100 MG TAB PO PRN (00:26)
[2025-01-17] MEDS: diazePAM 5 MG TABLET PO PRN (03:06)
[2025-01-17 06:34] LABS: Basophils # (auto) 0.03 K/uL (0.00-0.20); Basophils % (auto) 0.3 %; Eosinophils # (auto) 0.12 K/uL (0.00-0.50); Eosinophils % (auto) 1.3 %; Hematocrit (blood only) 30.9 % (37.0-47.0); Immature Granulocytes # (auto) 0.04 K/uL (0.01-0.20); Immature Granulocytes % (auto) 0.4 %; Lymphocytes # (auto) 0.82 K/uL (1.20-3.40); Mean Corpuscular Hemoglobin 28.2 pg (25.0-34.0); Mean Corpuscular Hgb Conc 32.4 g/dL (32.0-36.0); Mean Corpuscular Volume 87.3 fL (80.0-100.0); Mean Platelet Volume 10.1 fL (9.4-12.4); Monocytes % (auto) 6.6 %; Neutrophils # (auto) 7.46 K/uL (1.40-6.50); Neutrophils % (auto) 82.4 %; Platelet Count 163 K/uL (130-400); RDW Coefficient of Variation 14.9 % (11.5-14.5); Red Blood Count 3.54 M/uL (4.20-5.40); White Blood Count 9.07 K/ul (4.8-10.8)
[2025-01-17 06:55] LABS: BUN Creatinine Ratio 12.8 (10-20); Calcium 8.7 mg/dl (8.6-10.3); Creatinine Clr Calc Pharmacy 48.6 ml/min; Potassium 3.9 mmol/L (3.5-5.1)
[2025-01-17 06:58] LABS: ANTI-Xa, UFH(UnfractionatedHep 0.33 IU/ml (0.3-0.7)
[2025-01-17] MEDS: CEFDINIR 300 MG CAP PO SCH (09:59)
--- NOTE | 2025-01-17 12:16 | Cardiology Progress Note ---
Date of Service January 17, 2025 Assessment & Plan (1) Sepsis: (2) NSTEMI (non-ST elevated myocardial infarction): (3) HTN (hypertension): (4) Dyslipidemia, goal LDL below 70: Plan Treatment of sepsis, E. coli UTI as per hospitalist. Regarding elevated troponin, continue conservative medical management with IV heparin for total of 48 hours. Low-dose beta-ethan, aspirin, and statin as ordered. Results of echocardiogram reviewed. Chronic compensated heart failure with preserved ejection fraction. Resume outpatient oral diuretic therapy upon discharge. No further inpatient cardiac intervention or testing recommended at this time. Admission and Anticipated Discharge Date Admission Date: January 15, 2025 Subjective Patient seen and examined at the bedside. Admitted secondary to vomiting and urinary tract infection. Cardiology consulted due to elevated troponin. No anginal symptoms reported. Echocardiogram demonstrating septal hypokinesis. Images personally reviewed with thinning of the mid septum suggesting chronicity. EF otherwise preserved. Patient oriented to person only. Awaiting placement to [facility], memory unit. Poor historian, however, pleasant and cooperative. Review of Systems Review of Systems: Unobtainable due to cognitive status Physical Exam Constitutional: well nourished; no acute distress Respiratory: no respiratory distress, no labored breathing and no retractions Auscultation: no crackles, no rales, no rhonchi and no wheezes Cardiovascular: Rate/Rhythm: regular rate and regular rhythm Heart Sounds: normal S1 and normal S2; no murmur Vessels: radial pulses present; no JVD and no carotid bruit Extremities: no edema Gastrointestinal (Abdomen): Inspection/Auscultation: abdomen normal to inspection; abdomen not distended and + abnormal bowel sounds Percussion/Palpation: abdomen soft; abdomen nontender, no guarding and abdomen not rigid Neurologic: CN's II-XI intact bilaterally and moves all extremities Results & Data Vital Signs (Past 12 Hours) Vital Signs Temp Pulse Pulse Resp BP BP Pulse Ox 01/17/25 10:48 36.6 C 72 18 120/77 91 01/17/25 08:02 36.7 C 77 18 146/85 H 92 01/17/25 07:42 66 01/17/25 05:51 128/73 01/17/25 03:19 36.7 C 88 16 150/92 H 96 O2 Del Method 01/17/25 10:48 Room Air 01/17/25 08:02 Room Air 01/17/25 07:42 01/17/25 05:51 01/17/25 03:19 Room Air Laboratory Results Cardiac Enzymes 01/16/25 Range/Units 16:24 Troponin I High Sens 997.8 H* D (0-14) pg/ml CBC 01/16/25 01/17/25 Range/Units 12:08 05:47 WBC 9.07 (4.8-10.8) K/ul RBC 3.54 L (4.20-5.40) M/uL Hgb 9.5 L 10.0 L (12.0-16.0) g/dl Hct 29.9 L 30.9 L (37.0-47.0) % Plt Count 163 (130-400) K/uL Neut # (Auto) 7.46 H (1.40-6.50) K/uL Lymph # (Auto) 0.82 L (1.20-3.40) K/uL [place] # (Auto) 0.60 H (0.11-0.59) K/uL Eos # (Auto) 0.12 (0.00-0.50) K/uL Baso # (Auto) 0.03 (0.00-0.20) K/uL Comprehensive Metabolic Panel 01/17/25 Range/Units 05:47 Sodium 141 (136-145) mmol/L Potassium 3.9 (3.5-5.1) mmol/L Chloride 111 H (98-107) mmol/L Carbon Dioxide 25 (21-32) mmol/L BUN 11 (6-23) mg/dl Creatinine 0.86 (0.6-1.2) mg/dl Glucose 102 H (70-99(Fasting)) mg/dl Calcium 8.7 (8.6-10.3) mg/dl Intake and Output 01/16/25 01/17/25 01/17/25 22:59 06:59 14:59 Intake Total 1000 / 3225.066 476.533 / 3225.066 120.267 / 120.267 Output Total 301 / 305 Balance 699 / 2920.066 475.533 / 2920.066 119.267 / 119.267 Intake: IV 100 / 2085.066 236.533 / 2085.066 120.267 / 120.267 Heparin 98421 Unit/500 ml D5w 236.533 / 351.733 120.267 / 120.267 25,000 units In 500 ml @ 800 UNITS/HR 16 mls/hr IV .Q24H [facility] Rx#:[id number] Magnesium Sulfate / D5w 1 gm In 100 / 200 100 ml @ 50 mls/hr IV Q2H [facility] Rx#:[id number] Oral 900 / 1140 240 / 1140 Output: Urine 300 / 300 # Bowel Movements Other: # Unmeasured Voids 2 1 1 Weight 81.4 kg Weight Measurement Method Built in [facility] (1) Sepsis Sepsis type: Escherichia coli Sepsis acute organ dysfunction status: unspecified Qualified Code(s): A41.51 - Sepsis due to Escherichia coli [E. coli] (3) HTN (hypertension) Hypertension type: primary hypertension Qualified Code(s): I10 - Essential (primary) hypertension
--- NOTE | 2025-01-17 15:52 | Electrocardiogram Report ---
Test Reason : Blood Pressure : */* mmHG Vent. Rate : 90 BPM Atrial Rate : 90 BPM P-R Int : 156 ms QRS Dur : 82 ms QT Int : 374 ms P-R-T Axes : 46 -14 63 degrees QTcB Int : 457 ms Sinus rhythm with Premature atrial complexes Moderate voltage criteria for LVH, may be normal variant ( R in aVL , [place] product ) Borderline ECG When compared with ECG of 18-Aug-2023 20:33, Premature atrial complexes are now Present Confirmed by Bk Huitron ([id number]) on 01/17/2025 3:52:04 PM Referred By: REFERRED SELF Confirmed By: Bk Huitron
--- NOTE | 2025-01-17 16:04 | Electrocardiogram Report ---
Test Reason : Blood Pressure : */* mmHG Vent. Rate : 79 BPM Atrial Rate : 79 BPM P-R Int : 148 ms QRS Dur : 86 ms QT Int : 382 ms P-R-T Axes : 43 -22 -77 degrees QTcB Int : 438 ms Normal sinus rhythm Nonspecific ST and T wave abnormality Abnormal ECG When compared with ECG of 15-Jan-2025 19:53, (unconfirmed) Premature atrial complexes are no longer Present Nonspecific T wave abnormality, worse in Lateral leads Confirmed by Bk Huitron ([id number]) on 01/17/2025 4:03:38 PM Referred By: REFERRED SELF Confirmed By: Bk Huitron
--- NOTE | 2025-01-17 16:07 | Hospitalist Progress Note ---
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 Sepsis POA, likely due to Acute UTI Patient presented with fever, nausea and vomiting She was febrile in the ED with tachycardia Lactic acid elevated on admission Urinalysis suggestive of infection CT abdomen pelvis did not show any acute finding Urine culture growing E. coli; Blood cultureno growth till date Patient switched over to cefdinir; plan to treat for 5 more days NSTEMI High sensitive troponin on admission of 85; up trended to 1648 and downtrending Patient denies any chest pain or shortness of breath EKG shows normal sinus rhythm with nonspecific ST changes and T wave changes in inferior lateral leads. Echocardiogram shows EF of 50% with mild hypokinesis of the segment; grade 1 diastolic dysfunction Continue with IV heparin for 48 hours; continue on aspirin and statin. Continue telemonitoring Chronic diastolic CHF On Lasix 3 times a week continue Hyperlipidemia On statin, continue Hypertension Amlodipine with holding parameters Depression On paroxetine, continue GERD On omeprazole,continue DVT prophylaxis IV heparin Disposition Discussed with patient's sister at bedside; she is concerned about patient's progressive cognitive impairment in the last several month. Will plan to obtain PT OT, possible placement. Full code Time spent evaluating patient, direct bedside care, chart review, placing orders, interpretation of diagnostic studies, discussion with consultants, patient, and family members, as well as other required patient management activities is 50 minutes Please note the above document was generated using voice recognition software. It may contain grammatical, syntax or spelling errors. Any formal questions or concerns about the content, text or information contained within the body of this dictation should be directly addressed to the provider for clarification Admission and Anticipated Discharge Date Admission Date: January 15, 2025 Subjective Patient seen and examined at bedside. She is comfortable; not in distress. She appears to be more confused compared to previous day. No significant events overnight Review of Systems Review of Systems: All systems reviewed & are unremarkable except as noted in Subjective Physical Exam Physical Exam: General- Not in distress. Head- atraumatic Eyes- PERRL. ENT- oropharynx clear Neck- supple, no JVD. Lungs- clear to auscultation no wheezing or crackles Heart- regular rhythm; no murmur, no gallop. Abdomen- normal bowel sounds, soft, mild diffuse discomfort, no distension Extremities- mild pretibial edema present, no erythema seen. Neuro- alert, oriented PERRL, no facial palsy; no dysarthria; moves extremities Results & Data Results & Data Vital Signs (Past 12 Hours) Vital Signs Temp Pulse Pulse Resp BP BP Pulse Ox 01/17/25 15:37 92 H 01/17/25 15:24 37.3 C 85 18 130/75 91 01/17/25 10:48 36.6 C 72 18 120/77 91 01/17/25 08:02 36.7 C 77 18 146/85 H 92 01/17/25 07:42 66 01/17/25 05:51 128/73 O2 Del Method 01/17/25 15:37 01/17/25 15:24 Room Air 01/17/25 10:48 Room Air 01/17/25 08:02 Room Air 01/17/25 07:42 01/17/25 05:51 (1) Sepsis Sepsis type: Escherichia coli Sepsis acute organ dysfunction status: unspecified Qualified Code(s): A41.51 - Sepsis due to Escherichia coli [E. coli]
[2025-01-17] MEDS: FUROSEMIDE 20 MG TAB PO SCH (16:25)
[2025-01-18 06:22] LABS: Basophils # (auto) 0.03 K/uL (0.00-0.20); Basophils % (auto) 0.6 %; Eosinophils # (auto) 0.17 K/uL (0.00-0.50); Eosinophils % (auto) 3.4 %; Hematocrit (blood only) 29.6 % (37.0-47.0); Hemoglobin 9.5 g/dl (12.0-16.0); Immature Granulocytes # (auto) 0.02 K/uL (0.01-0.20); Immature Granulocytes % (auto) 0.4 %; Lymphocytes # (auto) 1.05 K/uL (1.20-3.40); Lymphocytes % (auto) 20.9 %; Mean Corpuscular Hemoglobin 27.9 pg (25.0-34.0); Mean Corpuscular Hgb Conc 32.1 g/dL (32.0-36.0); Mean Corpuscular Volume 86.8 fL (80.0-100.0); Mean Platelet Volume 10.1 fL (9.4-12.4); Monocytes # (auto) 0.76 K/uL (0.11-0.59); Monocytes % (auto) 15.1 %; Neutrophils # (auto) 2.99 K/uL (1.40-6.50); Neutrophils % (auto) 59.6 %; Platelet Count 162 K/uL (130-400); RDW Coefficient of Variation 14.6 % (11.5-14.5); RDW Standard Deviation 46.4 fL (36.4-46.3); Red Blood Count 3.41 M/uL (4.20-5.40); White Blood Count 5.02 K/ul (4.8-10.8)
[2025-01-18 06:33] LABS: BUN Creatinine Ratio 9.2 (10-20); Calcium 8.7 mg/dl (8.6-10.3); Potassium 3.4 mmol/L (3.5-5.1)
[2025-01-18 07:23] LABS: ANTI-Xa, UFH(UnfractionatedHep < 0.10 IU/ml (0.3-0.7)
[2025-01-18] MEDS: POTASSIUM CHLORIDE CRTAB 20 MEQ TABCR PO SCH (09:06)
--- NOTE | 2025-01-18 09:19 | Hospitalist Progress Note ---
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 Sepsis POA, likely due to Acute UTI Patient presented with fever, nausea and vomiting She was febrile in the ED with tachycardia Lactic acid elevated on admission Urinalysis suggestive of infection CT abdomen pelvis did not show any acute finding Urine culture growing E. coli; Blood cultureno growth till date Patient switched over to cefdinir; plan to treat for total of 7 days. NSTEMI High sensitive troponin on admission of 85; up trended to 1648 and downtrending Patient denies any chest pain or shortness of breath EKG shows normal sinus rhythm with nonspecific ST changes and T wave changes in inferior lateral leads. Echocardiogram shows EF of 50% with mild hypokinesis of the segment; grade 1 diastolic dysfunction Completed IV heparin for 48 hours; continue on aspirin and statin. Continue telemonitoring Chronic diastolic CHF On Lasix 3 times a week continue Alzheimer's dementia Delirium As per patient's daughter and sister; patient's dementia has significantly progressed in the last few months with increasing short-term memory loss. Even though, patient is independent with her mobility; but she has been needing more assistance for other ADLs. From has been filled and faxed to [employer] to hold her driving license Will decrease her gabapentin to 300 mg twice daily to see if it is contributing to delirium. Was on Valium which has also been discontinued. Patient does not demonstrate decision making capacity given her cognitive impairment. PT OT evaluation ongoing; family wants to get her into personal-long term which seems reasonable for long-term plan. Hyperlipidemia On statin, continue Hypertension Continue Amlodipine with holding parameters Depression On paroxetine, continue GERD On omeprazole,continue DVT prophylaxis heparin Disposition Full code Time spent evaluating patient, direct bedside care, chart review, placing orders, interpretation of diagnostic studies, discussion with consultants, patient, and family members, as well as other required patient management activities is 50 minutes Please note the above document was generated using voice recognition software. It may contain grammatical, syntax or spelling errors. Any formal questions or concerns about the content, text or information contained within the body of this dictation should be directly addressed to the provider for clarification Admission and Anticipated Discharge Date Admission Date: January 15, 2025 Subjective Patient seen and examined at bedside. Comfortable; not in distress. Denies fever, chills, chest pain, shortness of breath, abdominal pain or urinary symptoms. No significant overnight events Review of Systems Review of Systems: All systems reviewed & are unremarkable except as noted in Subjective Physical Exam Physical Exam: General- Not in distress. Head- atraumatic Eyes- PERRL. ENT- oropharynx clear Neck- supple, no JVD. Lungs- clear to auscultation no wheezing or crackles Heart- regular rhythm; no murmur, no gallop. Abdomen- normal bowel sounds, soft, mild diffuse discomfort, no distension Extremities- mild pretibial edema present, no erythema seen. Neuro- alert, oriented PERRL, no facial palsy; no dysarthria; moves extremities Results & Data Results & Data Vital Signs (Past 12 Hours) Vital Signs Temp Pulse Pulse Pulse Resp BP BP 01/18/25 07:23 71 01/18/25 07:14 37.1 C 69 18 136/75 01/18/25 03:16 67 20 115/72 01/18/25 00:00 81 01/17/25 22:46 37.2 C 83 22 103/62 Pulse Ox O2 Del Method O2 Flow Rate 01/18/25 07:23 01/18/25 07:14 94 Room Air 01/18/25 03:16 95 Nasal Cannula 2 01/18/25 00:00 01/17/25 22:46 94 Nasal Cannula 2 (1) Sepsis Sepsis acute organ dysfunction status: unspecified Sepsis type: Escherichia coli Qualified Code(s): A41.51 - Sepsis due to Escherichia coli [E. coli]
[2025-01-18] MEDS: HEPARIN SOD 5,000 UNIT/0.5 ML VIAL SQ SCH (14:32)
[2025-01-18] MEDS: GABAPENTIN 300 MG CAP PO SCH (20:33)
[2025-01-19 06:25] LABS: Basophils # (auto) 0.03 K/uL (0.00-0.20); Basophils % (auto) 0.6 %; Eosinophils # (auto) 0.33 K/uL (0.00-0.50); Hematocrit (blood only) 30.4 % (37.0-47.0); Immature Granulocytes # (auto) 0.03 K/uL (0.01-0.20); Immature Granulocytes % (auto) 0.6 %; Lymphocytes # (auto) 1.32 K/uL (1.20-3.40); Mean Corpuscular Hemoglobin 28.3 pg (25.0-34.0); Mean Corpuscular Hgb Conc 32.9 g/dL (32.0-36.0); Mean Corpuscular Volume 86.1 fL (80.0-100.0); Mean Platelet Volume 10.2 fL (9.4-12.4); Monocytes # (auto) 0.64 K/uL (0.11-0.59); Monocytes % (auto) 13.6 %; Neutrophils # (auto) 2.36 K/uL (1.40-6.50); Neutrophils % (auto) 50.2 %; Platelet Count 200 K/uL (130-400); RDW Coefficient of Variation 14.6 % (11.5-14.5); RDW Standard Deviation 46.7 fL (36.4-46.3); Red Blood Count 3.53 M/uL (4.20-5.40); White Blood Count 4.71 K/ul (4.8-10.8)
[2025-01-19 06:38] LABS: BUN Creatinine Ratio 10.9 (10-20); Creatinine Clr Calc Pharmacy 44.9 ml/min
--- NOTE | 2025-01-19 15:37 | Hospitalist Progress Note ---
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 Sepsis POA Urinary tract infection Lactic acidosis --CT ABD:No acute findings in the abdomen or pelvis. -- Blood culture negative to date --Urine culture growing pansensitive E. coli --Received IV cefepime -- Continue cefdinir NSTEMI Elevated troponin likely demand ischemia Patient denies any chest pain, dyspnea -ECHO EF 50%, mild hypokinesis of the septum, grade 1 diastolic dysfunction, sigmoid septum. Trace pericardial effusion. IVC mildly dilated but compresses --Received IV heparin for 48 hours Continue aspirin, statin, metoprolol Appreciate cardiology input Chronic diastolic CHF On Lasix 3 times a week Continue home Lasix Monitor volume status Alzheimer's dementia Delirium As per prior hospitalist: As per patient's daughter and sister; patient's dementia has significantly progressed in the last few months with increasing short-term memory loss. Even though, patient is independent with her mobility; but she has been needing more assistance for other ADLs. From has been filled and faxed to [employer] to hold her driving license Will decrease her gabapentin to 300 mg twice daily to see if it is contributing to delirium. Was on Valium which has also been discontinued. Patient does not demonstrate decision making capacity given her cognitive impairment. PT OT evaluation ongoing; family wants to get her into personal-residential which seems reasonable for long-term plan. --Reorient frequently to minimize delirium Hyperlipidemia Continue statin Hypertension Continue Amlodipine, metoprolol Monitor blood pressure Depression On paroxetine, continue GERD Continue pantoprazole DVT prophylaxis Heparin SQ CODE STATUS Full code Disposition Personal care facility as able Admission and Anticipated Discharge Date Admission Date: January 15, 2025 Subjective Patient is seen and examined at bedside Offers no new complaints today Tried to reach patient's daughter over the phone--left voicemail Discussed with patient's sister at bedside Patient denies any chest pain, dyspnea, nausea, vomiting, abdominal pain Review of Systems Review of Systems: All systems reviewed & are unremarkable except as noted in Subjective Physical Exam Physical Exam: Physical Exam: Vitals signs as noted above General Appearance:Obese, no apparent distress Head: normocephalic, Atraumatic Eyes: normal inspection, EOMI Neck: supple, Trachea midline Respiratory/Chest: Normal breath sounds, CTA, No accessory muscle use Cardiovascular: S1, S2, No murmur Abdomen/GI:Soft, Non tender, Bowel sounds present Extremities/Musculoskeletal:normal inspection, 1+edema Neurologic/Psych:AAOX2, grossly no focal neurological deficits Skin: normal color, warm Results & Data Results & Data Vital Signs (Past 12 Hours) Vital Signs Temp Pulse Pulse Resp BP Pulse Ox O2 Del Method 01/19/25 12:00 36.9 C 69 18 122/80 95 Room Air 01/19/25 08:00 78 Laboratory Results Short CBC 01/19/25 Range/Units 05:45 WBC 4.71 L (4.8-10.8) K/ul Hgb 10.0 L (12.0-16.0) g/dl Hct 30.4 L (37.0-47.0) % Plt Count 200 (130-400) K/uL BMP 01/19/25 05:45 Sodium 144 Potassium 4.0 Chloride 110 H Carbon Dioxide 29 BUN 10 Creatinine 0.92 Glucose 103 H Calcium 9.0 (1) Sepsis Sepsis type: Escherichia coli Sepsis acute organ dysfunction status: unspecified Qualified Code(s): A41.51 - Sepsis due to Escherichia coli [E. coli]
[2025-01-20 07:06] LABS: BUN Creatinine Ratio 11.9 (10-20); Creatinine Clr Calc Pharmacy 49.3 ml/min; Potassium 3.9 mmol/L (3.5-5.1)
--- NOTE | 2025-01-20 16:13 | Hospitalist Progress Note ---
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 Sepsis POA Urinary tract infection Lactic acidosis --CT ABD:No acute findings in the abdomen or pelvis. -- Blood culture negative to date --Urine culture growing pansensitive E. coli --Received IV cefepime>> transitioned to cefdinir Likely discharge to personal care facility tomorrow NSTEMI Elevated troponin likely demand ischemia Patient denies any chest pain, dyspnea -ECHO EF 50%, mild hypokinesis of the septum, grade 1 diastolic dysfunction, sigmoid septum. Trace pericardial effusion. IVC mildly dilated but compresses --Received IV heparin for 48 hours Continue aspirin, statin, metoprolol Appreciate cardiology input Chronic diastolic CHF On Lasix 3 times a week Continue home Lasix Monitor volume status Alzheimer's dementia Delirium As per prior hospitalist: As per patient's daughter and sister; patient's dementia has significantly progressed in the last few months with increasing short-term memory loss. Even though, patient is independent with her mobility; but she has been needing more assistance for other ADLs. From has been filled and faxed to [employer] to hold her driving license Will decrease her gabapentin to 300 mg twice daily to see if it is contributing to delirium. Was on Valium which has also been discontinued. Patient does not demonstrate decision making capacity given her cognitive impairment. PT OT evaluation ongoing; family wants to get her into personal-residential which seems reasonable for long-term plan. --Reorient frequently to minimize delirium Hyperlipidemia Continue statin Hypertension Continue Amlodipine, metoprolol Monitor blood pressure Depression On paroxetine, continue GERD Continue pantoprazole DVT prophylaxis Heparin SQ CODE STATUS Full code Disposition Personal care facility likely tomorrow Admission and Anticipated Discharge Date Admission Date: January 15, 2025 Subjective Patient is seen and examined at bedside Reports chronic right flank pain which she attributes to fall previously Discussed with patient's family at bedside No other complaints today Patient denies any chest pain, dyspnea, nausea, vomiting, abdominal pain Review of Systems Review of Systems: All systems reviewed & are unremarkable except as noted in Subjective Physical Exam Physical Exam: Physical Exam: Vitals signs as noted above General Appearance:Obese, no apparent distress Head: normocephalic, Atraumatic Eyes: normal inspection, EOMI Neck: supple, Trachea midline Respiratory/Chest: Normal breath sounds, CTA, No accessory muscle use Cardiovascular: S1, S2, No murmur Abdomen/GI:Soft, Non tender, Bowel sounds present Extremities/Musculoskeletal:normal inspection, 1+edema Neurologic/Psych:AAOX2, grossly no focal neurological deficits Skin: normal color, warm Results & Data Results & Data Vital Signs (Past 12 Hours) Vital Signs Temp Pulse Pulse Resp BP Pulse Ox O2 Del Method 01/20/25 15:54 36.9 C 71 18 138/82 95 Room Air 01/20/25 08:00 72 Laboratory Results BMP 01/20/25 05:39 Sodium 144 Potassium 3.9 Chloride 109 H Carbon Dioxide 30 BUN 10 Creatinine 0.84 Glucose 96 Calcium 9.0 (1) Sepsis Sepsis type: Escherichia coli Sepsis acute organ dysfunction status: unspecified Qualified Code(s): A41.51 - Sepsis due to Escherichia coli [E. coli]
--- NOTE | 2025-01-20 23:13 | Communication Note ---
Date of Service: January 20, 2025
[2025-01-20] MEDS: traMADol HCL 50 MG TABLET PO PRN (23:25)
[2025-01-21 00:12] LABS: Albumin Globulin Ratio 1.3 (0.9-2); Albumin Level 3.5 gm/dl (3.4-5.0); Bilirubin,Total 0.5 mg/dl (0.2-1.0); Calcium 8.8 mg/dl (8.6-10.3); Creatinine Clr Calc Pharmacy 41.4 ml/min; Globulin 2.8 gm/dl (2.5-4.0); Potassium 3.7 mmol/L (3.5-5.1); Total Protein 6.3 gm/dl (6.0-8.3)
--- NOTE | 2025-01-21 02:14 | Ultrasound Report ---
EXAM: US gallbladder CLINICAL HISTORY: Right abdominal pain. TECHNIQUE: Ultrasound examination of the RUQ was performed using a [high-frequency transducer]. Scanning was performed with the patient in supine position. COMPARISON: compared to the previous study dated 12/30/2024 FINDINGS: Liver: Liver size: 13.7 cm in MCL. Liver appears normal in size with homogeneous echotexture. No evidence of focal lesions, cysts, or masses. Hepatic vasculature appears normal. Gallbladder: Gallbladder size: normally distended (measuring 2.1 cm in maximal TS diameter), wall thickness = 1.7 mm Gallbladder is visualized and appears normal in size and shape. No gallstones, wall thickening, or pericholecystic fluid noted. No evidence of gallbladder wall edema or signs of acute cholecystitis. Biliary Tree: Common bile duct diameter: [Measurement in 2.3 mm]. Common bile duct is within normal limits in caliber and not dilated. No evidence of choledocholithiasis or biliary obstruction. Right Kidney: Right kidney appears normal in size with preserved corticomedullary differentiation. No evidence of hydronephrosis, renal cysts, or masses. Pancreas; Appears average in size with homogenous echo pattern. No solid or cystic lesions. IMPRESSION: 1. Ultrasound examination of the Right Upper Quadrant (RUQ): 2. Normal findings in the liver, gallbladder, biliary tree, right kidney, and right adrenal gland. 3. No evidence of acute pathology or significant abnormalities specific to the RUQ. 4. No time interval significant radiological changes. RECOMMENDATIONS: Clinical correlation with symptoms and further evaluation as indicated. Electronically signed by Kosta Dobbs 01-21-2025 02:14 AM
--- NOTE | 2025-01-21 07:57 | Hospitalist Progress Note ---
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 Sepsis POA Urinary tract infection Lactic acidosis --CT ABD:No acute findings in the abdomen or pelvis. -- Blood culture negative to date --Urine culture growing pansensitive E. coli --Received IV cefepime>> transitioned to cefdinir Continue current management Likely discharge to personal care facility today NSTEMI Elevated troponin likely demand ischemia Patient denies any chest pain, dyspnea -ECHO EF 50%, mild hypokinesis of the septum, grade 1 diastolic dysfunction, sigmoid septum. Trace pericardial effusion. IVC mildly dilated but compresses --Received IV heparin for 48 hours Continue aspirin, statin, metoprolol Appreciate cardiology input Chronic diastolic CHF On Lasix 3 times a week Continue home Lasix Monitor volume status Alzheimer's dementia Delirium As per prior hospitalist: As per patient's daughter and sister; patient's dementia has significantly progressed in the last few months with increasing short-term memory loss. Even though, patient is independent with her mobility; but she has been needing more assistance for other ADLs. From has been filled and faxed to [employer] to hold her driving license Will decrease her gabapentin to 300 mg twice daily to see if it is contributing to delirium. Was on Valium which has also been discontinued. Patient does not demonstrate decision making capacity given her cognitive impairment. PT OT evaluation ongoing; family wants to get her into personal-senior living which seems reasonable for long-term plan. --Reorient frequently to minimize delirium Hyperlipidemia Continue statin Hypertension Continue Amlodipine, metoprolol Monitor blood pressure Depression On paroxetine, continue GERD Continue pantoprazole DVT prophylaxis Heparin SQ CODE STATUS Full code Disposition Personal care facility Admission and Anticipated Discharge Date Admission Date: January 15, 2025 Subjective Patient is seen and examined at bedside States feeling well today Denies any flank pain today Plan to discharge to personal care facility Patient denies any chest pain, dyspnea, nausea, vomiting, abdominal pain Review of Systems Review of Systems: All systems reviewed & are unremarkable except as noted in Subjective Physical Exam Physical Exam: Physical Exam: Vitals signs as noted above General Appearance:Obese, no apparent distress Head: normocephalic, Atraumatic Eyes: normal inspection, EOMI Neck: supple, Trachea midline Respiratory/Chest: Normal breath sounds, CTA, No accessory muscle use Cardiovascular: S1, S2, No murmur Abdomen/GI:Soft, Non tender, Bowel sounds present Extremities/Musculoskeletal:normal inspection, 1+edema Neurologic/Psych:AAOX2, grossly no focal neurological deficits Skin: normal color, warm Results & Data Results & Data Vital Signs (Past 12 Hours) Vital Signs Temp Pulse Pulse Resp BP Pulse Ox O2 Del Method 01/21/25 07:34 66 01/21/25 03:26 36.9 C 69 15 113/69 93 Room Air 01/20/25 23:02 68 01/20/25 22:47 36.8 C 59 L 18 115/71 93 Room Air Laboratory Results [facility] 01/20/25 23:24 Sodium 141 Potassium 3.7 Chloride 106 Carbon Dioxide 30 BUN 14 Creatinine 1.00 Glucose 104 H Calcium 8.8 Liver Function 01/20/25 Range/Units 23:24 Total Bilirubin 0.5 (0.2-1.0) mg/dl AST 27 (13-39) U/L ALT 22 (7-52) U/L Alkaline Phosphatase 54 (34-104) U/L Albumin 3.5 (3.4-5.0) gm/dl (1) Sepsis Sepsis acute organ dysfunction status: unspecified Sepsis type: Escherichia coli Qualified Code(s): A41.51 - Sepsis due to Escherichia coli [E. coli]
[2025-01-21 08:23] VITALS: BP 125/74; RESP 20; TEMP 98.7; O2SAT 92
[2025-01-21 09:57] VITALS: PULSE 63
--- NOTE | 2025-01-21 16:44 | Discharge Summary ---
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 Patient lives alone. She went to see a neighbor and when she came back she was profusely sweating and was shaking. Patient states then she ate some noodles and she felt better and she went to another neighbor where she had a lot of vomiting. Neighbors called EMS and was brought in here. Denies any fevers. Has some mild abdominal discomfort. Denies chest pain or shortness of breath. She has normal bowel and bladder movements. Has mild headache. Vision is okay. No runny nose. Occasional cough. Denies difficulty swallowing. Has mild chronic back pain. Currently resting comfortably and hemodynamics are okay.Tried to call daughter but not able to reach currently. Past med history. As mentioned above Past surgical history. Breast lesion excision. Knee surgeries. Left partial mastectomy. Appendectomy. Cataract surgery. MATT. Bladder tack/sling proced ure. Social history. No smoking. Occasional alcohol. Family history. Significant for breast cancer and heart disease Admission Exam Per Admitting Provider General- Not in distress. Head- atraumatic Eyes- PERRL. ENT- oropharynx clear Neck- supple, no JVD. Lungs- clear to auscultation no wheezing or crackles Heart- regular rhythm; no murmur, no gallop. Abdomen- normal bowel sounds, soft, mild diffuse discomfort, no distension Extremities- mild pretibial edema present, no erythema seen. Neuro- alert, oriented PERRL, no facial palsy; no dysarthria; moves extremities Principal Diagnosis Sepsis Urinary tract infection Non-ST segment elevation myocardial infarction Chronic diastolic heart failure Alzheimer's dementia Discharge Data Allergies Allergy/AdvReac Type Severity Reaction Status Date / Time Penicillins Allergy Mild Swelling Verified 12/30/24 23:45 and itchiness, rash celecoxib Allergy Unknown Swelling Verified 12/30/24 23:45 and itchiness. ciprofloxacin Allergy Unknown rash Verified 12/30/24 23:45 metronidazole Allergy Unknown rash Verified 12/30/24 23:45 CHEVY Inhibitors AdvReac cough Verified 12/30/24 23:45 Consultations 01/15/25 22:08 ED Decision to Admit Stat 01/16/25 08:00 Consult Cardiology Routine Procedures Performed Laboratory Results WBC 4.71 K/ul (4.8-10.8) L 01/19/25 05:45 RBC 3.53 M/uL (4.20-5.40) L 01/19/25 05:45 Hgb 10.0 g/dl (12.0-16.0) L 01/19/25 05:45 Hct 30.4 % (37.0-47.0) L 01/19/25 05:45 MCV 86.1 fL (80.0-100.0) 01/19/25 05:45 MCH 28.3 pg (25.0-34.0) 01/19/25 05:45 MCHC 32.9 g/dL (32.0-36.0) 01/19/25 05:45 RDW Std Deviation 46.7 fL (36.4-46.3) H 01/19/25 05:45 RDW Coeff of [place] 14.6 % (11.5-14.5) H 01/19/25 05:45 Plt Count 200 K/uL (130-400) 01/19/25 05:45 MPV 10.2 fL (9.4-12.4) 01/19/25 05:45 Immature Gran % (Auto) 0.6 % 01/19/25 05:45 Neut % (Auto) 50.2 % 01/19/25 05:45 Lymph % (Auto) 28.0 % 01/19/25 05:45 [place] % (Auto) 13.6 % 01/19/25 05:45 Eos % (Auto) 7.0 % 01/19/25 05:45 Baso % (Auto) 0.6 % 01/19/25 05:45 Neut # (Auto) 2.36 K/uL (1.40-6.50) 01/19/25 05:45 Lymph # (Auto) 1.32 K/uL (1.20-3.40) 01/19/25 05:45 [place] # (Auto) 0.64 K/uL (0.11-0.59) H 01/19/25 05:45 Eos # (Auto) 0.33 K/uL (0.00-0.50) 01/19/25 05:45 Baso # (Auto) 0.03 K/uL (0.00-0.20) 01/19/25 05:45 Immature Gran # (Auto) 0.03 K/uL (0.01-0.20) 01/19/25 05:45 Ovalocytes 1+ 01/16/25 07:39 PT 11.0 Seconds (9.0-12.0) 01/16/25 00:37 INR 1.0 (0.9-1.1) 01/16/25 00:37 APTT 25 Seconds (21-31) 01/16/25 00:37 PTT Ratio 0.9 01/16/25 00:37 Heparin Anti-Xa, Unfract < 0.10 IU/ml (0.3-0.7) L 01/18/25 05:26 Sodium 141 mmol/L (136-145) 01/20/25 23:24 Potassium 3.7 mmol/L (3.5-5.1) 01/20/25 23:24 Chloride 106 mmol/L (98-107) 01/20/25 23:24 Carbon Dioxide 30 mmol/L (21-32) 01/20/25 23:24 Anion Gap 5 (3-11) 01/20/25 23:24 BUN 14 mg/dl (6-23) 01/20/25 23:24 Creatinine 1.00 mg/dl (0.6-1.2) 01/20/25 23:24 Est Cr Clr Drug Dosing 41.4 ml/min 01/20/25 23:24 eGFR 54.53 01/20/25 23:24 BUN/Creatinine Ratio 14.0 (10-20) 01/20/25 23:24 Glucose 104 mg/dl (70-99(Fasting)) H 01/20/25 23:24 POC Glucose 95 mg/dl (70-99) 01/16/25 20:12 Lactate 1.5 mmol/L (0.4-2.0) 01/16/25 07:44 Calcium 8.8 mg/dl (8.6-10.3) 01/20/25 23:24 Magnesium 2.0 mg/dl (1.7-2.4) 01/20/25 05:39 Total Bilirubin 0.5 mg/dl (0.2-1.0) 01/20/25 23:24 AST 27 U/L (13-39) 01/20/25 23:24 ALT 22 U/L (7-52) 01/20/25 23:24 Alkaline Phosphatase 54 U/L (34-104) 01/20/25 23:24 Troponin I High Sens 997.8 pg/ml (0-14) H* D 01/16/25 16:24 Total Protein 6.3 gm/dl (6.0-8.3) 01/20/25 23:24 Albumin 3.5 gm/dl (3.4-5.0) 01/20/25 23:24 Globulin 2.8 gm/dl (2.5-4.0) 01/20/25 23:24 Albumin/Globulin Ratio 1.3 (0.9-2) 01/20/25 23:24 Lipase 58 U/L (11-82) 01/20/25 23:24 Procalcitonin 0.30 ng/ml (0-0.5) 01/15/25 19:44 Urine Color Yellow 01/15/25 20:16 Urine Appearance Clear (Clear) 01/15/25 20:16 Urine pH 7.5 (4.5-7.5) 01/15/25 20:16 Ur Specific [place] 1.015 (1.000-1.030) 01/15/25 20:16 Urine Protein 1+ (Negative) H 01/15/25 20:16 Urine Glucose (UA) Negative (Negative) 01/15/25 20:16 Urine Ketones Negative (Negative) 01/15/25 20:16 Urine Blood Trace (Negative) H 01/15/25 20:16 Urine Nitrite Positive (Negative) A 01/15/25 20:16 Urine Bilirubin Negative (Negative) 01/15/25 20:16 Urine Urobilinogen Negative (Negative) 01/15/25 20:16 Ur Leukocyte Esterase Negative (Negative) 01/15/25 20:16 Urine WBC (Auto) 6-10 /hpf (0-5) H 01/15/25 20:16 Urine RBC (Auto) 6-10 /hpf (0-2) H 01/15/25 20:16 U Hyaline Cast (Auto) 0-2 /lpf (0-2) 01/15/25 20:16 U Epithel Cells (Auto) 0-2 /hpf (0-2) 01/15/25 20:16 Urine Bacteria (Auto) 4+ (None Seen) H 01/15/25 20:16 Stl C. cayetanensis PCR Not Detected (NotDetected) 01/16/25 19:45 Stool Rotavirus A PCR Not Detected (NotDetected) 01/16/25 19:45 Stl Adenov F 40/41 PCR Not Detected (NotDetected) 01/16/25 19:45 Stool Astrovirus (PCR) Not Detected (NotDetected) 01/16/25 19:45 Stool Campylobacter PCR Not Detected (NotDetected) 01/16/25 19:45 Stool Cryptosporidium PCR Not Detected (NotDetected) 01/16/25 19:45 Stl E.coli Shiga Tox PCR Not Detected (NotDetected) 01/16/25 19:45 Stl Enterotoxigenic E PCR Not Detected (NotDetected) 01/16/25 19:45 Stool EPEC (PCR) Not Detected (NotDetected) 01/16/25 19:45 Stool EAEC (PCR) Not Detected (NotDetected) 01/16/25 19:45 Stl E. histolytica PCR Not Detected (NotDetected) 01/16/25 19:45 Stool Giardia Lamblia PCR Not Detected (NotDetected) 01/16/25 19:45 Stool Salmonella PCR Not Detected (NotDetected) 01/16/25 19:45 Stool Sapovirus (PCR) Not Detected (NotDetected) 01/16/25 19:45 Stl P. shigelloides PCR Not Detected (NotDetected) 01/16/25 19:45 Stl Shigella/EIEC PCR Not Detected (NotDetected) 01/16/25 19:45 St Y.enterocolitica PCR Not Detected (NotDetected) 01/16/25 19:45 Stool Vibrio (PCR) Not Detected (NotDetected) 01/16/25 19:45 Stl Vibrio cholerae PCR Not Detected (NotDetected) 01/16/25 19:45 Stl Norovirus GI/GII PCR Not Detected (NotDetected) 01/16/25 19:45 Adenovirus (PCR) Not Detected (NotDetected) 01/15/25 19:50 B. pertussis DNA (PCR) Not Detected (NotDetected) 01/15/25 19:50 B.parapertussis DNA PCR Not Detected (NotDetected) 01/15/25 19:50 C. pneumoniae DNA (PCR) Not Detected (NotDetected) 01/15/25 19:50 Coronavirus OC43 (PCR) Not Detected (NotDetected) 01/15/25 19:50 Coronavirus HKU1 (PCR) Not Detected (NotDetected) 01/15/25 19:50 Coronavirus 229E (PCR) Not Detected (NotDetected) 01/15/25 19:50 SARS-CoV-2 (PCR) Not Detected (NotDetected) 01/15/25 19:50 Coronavirus NL63 (PCR) Not Detected (NotDetected) 01/15/25 19:50 Human Metapneumovir PCR Not Detected (NotDetected) 01/15/25 19:50 Influenza Type A (PCR) Not Detected (NotDetected) 01/15/25 19:50 Influenza Type B (PCR) Not Detected (NotDetected) 01/15/25 19:50 M. pneumoniae (PCR) Not Detected (NotDetected) 01/15/25 19:50 Parainfluenza 1 (PCR) Not Detected (NotDetected) 01/15/25 19:50 Parainfluenza 2 (PCR) Not Detected (NotDetected) 01/15/25 19:50 Parainfluenza 3 (PCR) Not Detected (NotDetected) 01/15/25 19:50 Parainfluenza 4 (PCR) Not Detected (NotDetected) 01/15/25 19:50 RSV (PCR) Not Detected (NotDetected) 01/15/25 19:50 Entero/Rhino (PCR) Not Detected (NotDetected) 01/15/25 19:50 Impressions Chest X-Ray 01/15/25 19:24 Exam(s): XR CXR 1 VIEW EXAM: XR Chest, 1 View CLINICAL HISTORY: Reason for exam: Fever. TECHNIQUE: Frontal view of the chest. COMPARISON: 12/30/24 FINDINGS: Lungs: Similar mild scarring at the lung bases. No consolidation. Pleural space: No pleural effusion or pneumothorax. Heart: No cardiomegaly or pulmonary vascular congestion. Bones/joints: No acute fracture. No dislocation. Vasculature: Calcified aortic arch. IMPRESSION: No acute findings in the chest. Electronically signed by: Brianna Boswell M.D. 01/15/25 22:[address] 01/15/25 19:24 Exam(s): CT HEAD Without Contrast EXAM: CT Head Without Intravenous Contrast CLINICAL HISTORY: Reason for exam: fever, [place], vomiting. TECHNIQUE: Axial computed tomography images of the head/brain without intravenous contrast. CTDI is 38 mGy and DLP is 624 mGy-cm. Automated exposure control was utilized for the study. A dose lowering technique was utilized adhering to the principles of ALARA. COMPARISON: 04/05/20 FINDINGS: Brain: Generalized parenchymal volume loss. Mild chronic small vessel ischemic change. Lopez-white matter differentiation maintained. No hemorrhage, mass effect, parenchymal edema, or midline shift. Ventricles: No hydrocephalus. Bones/joints: No acute fracture. Soft tissues: Unremarkable. Vasculature: Intracranial atherosclerosis. Sinuses: Unremarkable as visualized. Mastoid air cells: No significant mastoid effusion. Orbits: Lens replacements. IMPRESSION: No acute intracranial process. Electronically signed by: Brianna Boswell M.D. 01/15/25 22:54 PM Abdomen/Pelvis CT 01/15/25 19:56 Exam(s): CT ABDOMEN + PELVIS With Contrast IV Amt: 90 ml optiray 320 EXAM: CT Abdomen and Pelvis With Intravenous Contrast CLINICAL HISTORY: Reason for exam: diffuse abd pain, vomiting, fever. TECHNIQUE: Axial computed tomography images of the abdomen and pelvis with intravenous contrast. CTDI is 38 mGy and DLP is 624 mGy-cm. Automated exposure control was utilized for the study. A dose lowering technique was utilized adhering to the principles of ALARA. CONTRAST: Patient received 90 ml optiray 320 of IV contrast COMPARISON: 12/30/24 FINDINGS: Lung bases: Unremarkable. ABDOMEN: Liver: Unremarkable. No mass. Gallbladder and bile ducts: Unremarkable. No calcified stones. No ductal dilation. Pancreas: Unremarkable. No mass. No ductal dilation. Spleen: Unremarkable. No splenomegaly. Adrenals: Unremarkable. No mass. Kidneys and ureters: Unremarkable. No solid mass. No hydronephrosis. Stomach and bowel: Diverticulosis of the sigmoid. No obstruction. No mucosal thickening. PELVIS: Appendix: Appendix not identified. No secondary signs of appendicitis. Bladder: Unremarkable. No mass. Reproductive: Hysterectomy. ABDOMEN and PELVIS: Intraperitoneal space: Unremarkable. No free air, significant free fluid, or fluid collection. Bones/joints: Lower lumbar disc and facet degeneration. Grade 1 anterolisthesis of L4. No acute fracture. No dislocation. Soft tissues: Unremarkable. Vasculature: Atherosclerosis. No abdominal aortic aneurysm. Lymph nodes: Unremarkable. No enlarged lymph nodes. IMPRESSION: No acute findings in the abdomen or pelvis. Electronically signed by: Brianna Boswell M.D. 01/15/25 21:57 PM Gallbladder Ultrasound 01/21/25 00:00 EXAM: US gallbladder CLINICAL HISTORY: Right abdominal pain. TECHNIQUE: Ultrasound examination of the RUQ was performed using a [high-frequency transducer]. Scanning was performed with the patient in supine position. COMPARISON: compared to the previous study dated 12/30/2024 FINDINGS: Liver: Liver size: 13.7 cm in MCL. Liver appears normal in size with homogeneous echotexture. No evidence of focal lesions, cysts, or masses. Hepatic vasculature appears normal. Gallbladder: Gallbladder size: normally distended (measuring 2.1 cm in maximal TS diameter), wall thickness = 1.7 mm Gallbladder is visualized and appears normal in size and shape. No gallstones, wall thickening, or pericholecystic fluid noted. No evidence of gallbladder wall edema or signs of acute cholecystitis. Biliary Tree: Common bile duct diameter: [Measurement in 2.3 mm]. Common bile duct is within normal limits in caliber and not dilated. No evidence of choledocholithiasis or biliary obstruction. Right Kidney: Right kidney appears normal in size with preserved corticomedullary differentiation. No evidence of hydronephrosis, renal cysts, or masses. Pancreas; Appears average in size with homogenous echo pattern. No solid or cystic lesions. IMPRESSION: 1. Ultrasound examination of the Right Upper Quadrant (RUQ): 2. Normal findings in the liver, gallbladder, biliary tree, right kidney, and right adrenal gland. 3. No evidence of acute pathology or significant abnormalities specific to the RUQ. 4. No time interval significant radiological changes. RECOMMENDATIONS: Clinical correlation with symptoms and further evaluation as indicated. 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 Sepsis POA Urinary tract infection Lactic acidosis --CT ABD:No acute findings in the abdomen or pelvis. -- Blood culture negative to date --Urine culture growing pansensitive E. coli --Received IV cefepime>> transitioned to cefdinir Continue current management Likely discharge to personal care facility today NSTEMI Elevated troponin likely demand ischemia Patient denies any chest pain, dyspnea -ECHO EF 50%, mild hypokinesis of the septum, grade 1 diastolic dysfunction, sigmoid septum. Trace pericardial effusion. IVC mildly dilated but compresses --Received IV heparin for 48 hours Continue aspirin, statin, metoprolol Appreciate cardiology input Chronic diastolic CHF On Lasix 3 times a week Continue home Lasix Monitor volume status Alzheimer's dementia Delirium As per prior hospitalist: As per patient's daughter and sister; patient's dementia has significantly progressed in the last few months with increasing short-term memory loss. Even though, patient is independent with her mobility; but she has been needing more assistance for other ADLs. From has been filled and faxed to [employer] to hold her driving license Will decrease her gabapentin to 300 mg twice daily to see if it is contributing to delirium. Was on Valium which has also been discontinued. Patient does not demonstrate decision making capacity given her cognitive impairment. PT OT evaluation ongoing; family wants to get her into [facility] [facility] which seems reasonable for long-term plan. --Reorient frequently to minimize delirium Hyperlipidemia Continue statin Hypertension Continue Amlodipine, metoprolol Monitor blood pressure Depression On paroxetine, continue GERD Continue pantoprazole DVT prophylaxis Heparin SQ CODE STATUS Full code Disposition Personal care facility Total Time Total Time Spent Total Time Spent (In Minutes): 43 minutes Discharge Plan Discharge Items Patient Disposition: Transfer Half-Way Fac Reason For Visit: SEPSIS, UTI, ELEVATED TROP Discharge Diagnosis: Sepsis Urinary tract infection Non-ST segment elevation myocardial infarction Chronic diastolic heart failure Alzheimer's dementia Activity: Per Instructions section Exercise/Sports: Gradually increase as tolerated Non-emergency contact: Primary Care Provider and Boat Officer Call non-emergency contact if: you have any medication questions, your symptoms worsen, your pain is concerning for you and you have a fever Follow-up/Referrals: Vickie Pagan, [Primary Care Provider] - Diet: Heart Healthy Addtl Attending Provider Instructions: Follow-up with your primary care physician in 1 week Follow-up with your lighter Dr. Dawkins as advised --Your final blood cultures are pending at the time of discharge. Follow-up with your physician for results. --Complete the antibiotic course cefdinir as prescribed Seek immediate medical attention if your symptoms reoccur or worsen Please take all medications as instructed on discharge list below. Please call if you have any questions or problems. You can reach a [facility] hospitalist on duty at [facility] 24 hours a day by calling [phone] Home Care: * Take your medications exactly as directed. Don't skip doses. * Remember that recovery after a heart attack takes time. Plan to rest for at lease 4-8 weeks while you recover. Then return to normal activity when your doctor says it's okay. * Ask your doctor about joining a heart rehabilitation program. * Tell your doctor if you are feeling depressed. Feelings of sadness are common after a heart attack, but it is important that you speak to someone if you are feeling overwhelmed by these feelings. * If you are having chest pain, call 911 for an ambulance. Do NOT drive yourself to the hospital. * Ask your family members to learn CPR. * Learn to take your own blood pressure and pulse. Keep a record of your results. Ask your doctor when you should seek emergency medical attention. He or she will tell you which blood pressure reading is dangerous. Lifestyle Changes: * Maintain a healthy weight. Get help to lose any extra pounds. * Cut back on salt. * Limit canned, dried, packaged, and fast foods. * Don't add salt to your food. * Season foods with herbs instead of salt when you cook. * Break the smoking habit. Enroll in a stop-smoking program to improve your chances of success. * Limit fatty foods. * Ask your doctor about having your lipid levels checked regularly. * Build up your activity according to your doctor's recommendation. * Ask your doctor when it's okay to resume sexual activity. * Tell your doctor about any erectile dysfunction (ED) medication you are taking. Some ED medications are not safe if you take certain heart medications. * Try to manage stress. Follow Up: It is important for you to keep your follow up appointments with your medical provider. Pending Studies at Discharge: Yes Studies:: Blood culture Stand-Alone Forms: My [facility] Skilled Items Patient informed of condition?: Yes DNR: No Discharge Level of Care: Skilled Communicable Disease: No Discharge Prognosis: Stable Lines: None Urinary Catheter: No Medications and DC Order Prescriptions: New gabapentin 300 mg Capsule 300 mg PO BID Qty: 60 1RF metoprolol succinate 25 mg Tablet Extended Release 24 Hr 12.5 mg PO QAM Qty: 30 1RF cefdinir 300 mg Capsule 300 mg PO BID Qty: 4 0RF Continued buspirone 5 mg tablet 5 mg PO BID amlodipine 2.5 mg tablet 2.5 mg PO DAILY omeprazole 40 mg capsule,delayed release(DR/EC) 40 mg PO DAILY paroxetine HCl 30 mg tablet 30 mg PO DAILY furosemide 20 mg tablet 20 mg PO UD Rx Instructions: Lasix 20mg po three times a week diazepam 5 mg tablet 5 mg PO TID PRN (Reason: Anxiety) rosuvastatin 20 mg tablet 20 mg PO DAILY aspirin 81 mg Tablet,Delayed Release (Dr/Ec) 81 mg PO DAILY glucosamine-chondroitin [Osteo Bi-Flex] 250-200 mg Tablet 1 tab PO BID Discontinued gabapentin 300 mg capsule 600 mg PO BID Discharge Orders: Discharge Order (Routine); Ordered 01/21/25 Ordered By: Ryan Oro/Other Patient Handouts: Understanding Post Sepsis Syndrome, Sepsis, Understanding Sepsis, ED Urinary Retention, Female, ED Cystitis Female Adult Admission Data Admit Date/Time: 01/15/25 22:57 Attending Provider: Ryan Garcia Admit Provider: Leno Hurley Primary Care Provider: Vickie Pagan Other Providers: Leno Hurley Other Interventions: Discharge Summary Assessment (RN) Last Done: 01/21/25 09:56
== END 2025-01-21 10:45 | disposition home or self-care (01) | DRG 872 ==
LOC: ED 18:41 → 4W 22:57 → SUATTDRO 22:57 → 4W 23:54
DX: R91.8 Other nonspecific abnormal finding of lung field; I24.89 Other forms of acute ischemic heart disease; E78.5 Hyperlipidemia, unspecified; Z79.82 Long term (current) use of aspirin; G30.9 Alzheimer's disease, unspecified; K21.9 Gastro-esophageal reflux disease without esophagitis; F32.A Depression, unspecified; Z85.3 Personal history of malignant neoplasm of breast; Z88.0 Allergy status to penicillin; A41.51 Sepsis due to Escherichia coli [E. coli]; Z88.1 Allergy status to other antibiotic agents; I50.32 Chronic diastolic (congestive) heart failure; N39.0 Urinary tract infection, site not specified; F02.80 Dementia in other diseases classified elsewhere, unspecified severity, without behavioral disturbance, psychotic disturbance, mood disturbance, and anxiety